=== PATIENT | female | born 1940 | race Caucasian/White ===

== ENCOUNTER 2017-10-29 07:29 | Day surgery (SDC) | payer MEDICARE ==
[2017-10-29] MEDS ORDERED: Sodium Chloride 0.9% 1,000 ML IV SCH (08:15)
[2017-10-29] MEDS ORDERED: Propofol 200 MG/20 ML SDV ONE ×2 (09:00→09:20)
[2017-10-29] MEDS ORDERED: fentaNYL 100 MCG/2 ML SDV ONE (09:00)
--- NOTE | 2017-10-29 11:20 | PROC ---
DATE OF PROCEDURE: 10/29/2017 INDICATION: Courtney is a 77-year-old female who came to the office complaining of abdominal pain in the upper area. Upon evaluation, we found a mass in the lower right quadrant, on vaginal exam. This was confirmed by CT. The CT showed a probable colon cancer as well as ovarian cancer. The risks and benefits were explained for a colonoscopy. DESCRIPTION OF PROCEDURE: During the procedure, anesthesia was given by nurse auto electrical technician. We used 100 mcg of fentanyl and 230 mg of propofol. The Olympus 180AL scope was used, was placed into the rectum, and advanced under direct vision. We did get to the cecum with minimal difficulty. At the cecum, we noted a large cancerous mass, expected to be an adenocarcinoma. This was not biopsied as this needs to be removed. The surgeon, Dr. Jeter, also noted the area, and she will be scheduling for surgery. Upon retraction of the tube, we noted no lesions or ulcerations other than the cecum. The tube was removed. The patient tolerated the procedure well. PREOPERATIVE DIAGNOSIS: Expected cecal mass. POSTOPERATIVE DIAGNOSIS: Cecal mass. Surgery is pending. Biopsy was not done as this lesion needs to be removed. Saulo Nichols MD /[id number]
== END 2017-10-29 11:45 | disposition home or self-care (01) ==
LOC: JP.SDS 07:29
PROVIDERS: ATTEND Internal Medicine
DX: K63.89 Other specified diseases of intestine (principal); Z79.899 Other long term (current) drug therapy
CPT/HCPCS: 36415; 45378; 80053; 82378; 83735; 83880; 84100; 85027; 86304; 86850; 86900; 86901; J2704; J3010; J7030

== ENCOUNTER 2017-11-02 08:17 | Inpatient (IN) | payer MEDICARE ==
[~2017-11-02 08:17] MED LIST: Acetaminophen 500 MG Tab PO ONE; Dexamethasone 4 MG/ML SDV ONE; Glycopyrrolate 0.2 MG/ML 5 ML MDV ONE; Meropenem 500 MG SDV ONE; Neostigmine Methylsulfate 1 MG/ML 5 ML Syringe ONE; Ondansetron 4 MG/2 ML SDV ONE; Propofol 200 MG/20 ML SDV ONE; Rocuronium 50 MG/5 ML Vial ONE; fentaNYL 250 MCG/5 ML SDV ONE
[2017-11-02] MEDS ORDERED: Scopolamine 1.5 MG Transdermal Patch TOP ONE (08:45)
[2017-11-02] MEDS ORDERED: Lactated Ringers 500 ML IV SCH ×2 (09:00→22:15)
[2017-11-02] MEDS: Dextrose 5%-Lactated Ringers 1,000 ML IV SCH ×2 (09:13→18:33)
[2017-11-02] MEDS ORDERED: cefOXitin 2 GM in Sodium Chloride 0.9% 50 ML IV ONE (09:15)
[2017-11-02] MEDS ORDERED: Naloxone 0.4 MG/ML SDV IVPUSH PRN (11:32)
[2017-11-02] MEDS ORDERED: fentaNYL 100 MCG/2 ML SDV ONE (11:39)
[2017-11-02] MEDS ORDERED: Lactated Ringers 1,000 ML ONE ×2 (11:45→13:27)
[2017-11-02] MEDS ORDERED: Sodium Chloride 0.9% 10 ML ONE (12:00)
[2017-11-02] MEDS ORDERED: Succinylcholine 200 MG/10 ML MDV ONE (12:09)
[2017-11-02] MEDS ORDERED: ePHEDrine 50 MG/ML SDV ONE (12:54)
[2017-11-02] MEDS ORDERED: Meropenem 500 MG SDV ONE (13:20)
[2017-11-02] MEDS ORDERED: Rocuronium 50 MG/5 ML Vial ONE (14:06)
[2017-11-02] MEDS ORDERED: Phenylephrine 1% 10 MG/ML SDV ONE (14:34)
[2017-11-02] MEDS ORDERED: Glucagon,Human Recombinant 1 MG Vial ONE (15:19)
[2017-11-02] MEDS ORDERED: cefOXitin 2 GM Vial ONE (15:29)
[2017-11-02] MEDS ORDERED: Heparin Sodium 5,000 UNITS in Sodium Chloride 0.9% 500 ML IV SCH (17:00)
[2017-11-02] MEDS ORDERED: Heparin Sodium 5,000 Units/ML Vial ONE (17:15)
[2017-11-02] MEDS ORDERED: Racepinephrine 2.25% 0.5 ML Neb Soln NEB PRN (18:00)
[2017-11-02] MEDS ORDERED: cefOXitin 2 GM in Sodium Chloride 0.9% 50 ML IV SCH (18:00)
[2017-11-02] MEDS: Racepinephrine 2.25% 0.5 ML Neb Soln ONE ×2 (18:07→18:18)
[2017-11-02] MEDS: fentaNYL 2,500 MCG in Sodium Chloride 0.9% 200 ML EPIDUR SCH (18:15)
[2017-11-02] MEDS: diphenhydrAMINE 50 MG/ML SDV IVPUSH PRN (18:26)
[2017-11-02] MEDS: Pantoprazole 40 MG Vial IV SCH (18:35)
[2017-11-02] MEDS: hydrOXYzine HCl 100 MG/2 ML SDV IM PRN (20:46)
[2017-11-02] MEDS: cefOXitin 2 GM in Sodium Chloride 0.9% 50 ML IV SCH (20:58)
[2017-11-03] MEDS: Lactated Ringers 1,000 ML IV SCH ×3 (00:10→17:56)
[2017-11-03] MEDS ORDERED: Lactated Ringers 500 ML IV SCH (01:30)
[2017-11-03] MEDS ORDERED: cefOXitin 2 GM in Sodium Chloride 0.9% 50 ML IV SCH (03:00)
[2017-11-03] MEDS ORDERED: Lactated Ringers 500 ML IV ONE (04:22)
[2017-11-03] MEDS: Dextrose 5%-Lactated Ringers 1,000 ML IV SCH (06:03)
[2017-11-03] MEDS ORDERED: Racepinephrine 2.25% 0.5 ML Neb Soln NEB PRN (08:00)
[2017-11-03] MEDS: Albumin 25% 12.5 GM in Premix Bag 1 BAG IV SCH ×2 (08:07→10:27)
[2017-11-03] MEDS: SCOPOLAMINE PATCH CHECK TOP SCH (08:45)
[2017-11-03] MEDS ORDERED: Lactated Ringers 750 ML IV ONE (09:00)
--- NOTE | 2017-11-03 09:35 | CR ---
CHEST: Normal CLINICAL HISTORY:Postop stent placement COMPARISON:2012 FINDINGS: Heart size and pulmonary vascularity are normal. There are atherosclerotic changes in the aorta.. Lung hardy are clear and well aerated. There is a left subclavian catheter. Tip is in the mcmillan perior vena cava.. IMPRESSION: Left CVP line in good position Lungs are clear
--- NOTE | 2017-11-03 09:36 | CR ---
Abdomen 1V Flat CLINICAL HISTORY: Ureteral stent placement FINDINGS: The bowel gas pattern is nonobstructive. No abnormal masses are noted. Patient has bilatera l ureteral stents. Position appears appropriate. There are surgical drains in both lower quadrants IMPRESSION: Bilateral ureteral stents Nonacute intestinal gas pattern Surgical drains are in place
[2017-11-03] MEDS: 1: AA 5%/Calcium/D15W/Lytes 1,000 ML with MVI, Adult with Vitamin K 10 ML, Chromium/Copp IV SCH ×6 (10:23→20:45)
[2017-11-03] MEDS: Magnesium Sulfate/Water 2 GM in Premix Bag 1 BAG IV SCH ×3 (10:28→21:51)
--- NOTE | 2017-11-03 11:55 | PN ---
DATE OF SERVICE: 11/03/2017 The patient is postoperative day #1 from an ovarian cancer debulking procedure, along with total abdominal colectomy. Overall, she has done well fairly well. She has required some additional IV fluids, as one might expect, given the extent of dissection. Pain control appears to be fairly good with the epidural catheter. Urine output at times has been somewhat low, and her creatinine is up to 2.2. We will discontinue the cephalosporins today, given that, and we will keep the IV rate running fairly high. Her CVP is running around 8, so at this point continue the IV rate at 225 mL and begin slowing that down once the urine output becomes more stable. She will be losing a lot of protein from the PRERNA drain as well as slight fluid developing, and with an albumin of 1.9, we will begin supplementing the albumin over the next 24 hours. TPN will be started today as well. The operative findings were reviewed with the patient, and we will plan to proceed with delayed primary closure on . Otherwise, labs show marginally low magnesium, and that will be supplemented today. We will recheck some of the labs in the morning and make sure that we are maintaining adequate urine output over the next 24 hours. Stanley Jeter MD /[id number]
[2017-11-03] MEDS: fentaNYL 2,500 MCG in Sodium Chloride 0.9% 200 ML EPIDUR SCH (13:13)
[2017-11-03] MEDS: diphenhydrAMINE 50 MG/ML SDV IVPUSH PRN (14:35)
[2017-11-03] MEDS: Naloxone 0.4 MG/ML SDV IV PRN (17:56)
[2017-11-03] MEDS: Pantoprazole 40 MG Vial IV SCH (18:08)
[2017-11-03] MEDS: cefOXitin 2 GM in Sodium Chloride 0.9% 50 ML IV SCH (19:24)
[2017-11-03] MEDS ORDERED: LORazepam 1 MG Tab PO SCH (20:45)
[2017-11-03] MEDS: LORazepam 2 MG/ML SDV IV SCH (21:01)
[2017-11-04] MEDS: Lactated Ringers 1,000 ML IV SCH (02:06)
[2017-11-04] MEDS: Naloxone 0.4 MG/ML SDV IV PRN (02:06)
[2017-11-04] MEDS: Magnesium Sulfate/Water 2 GM in Premix Bag 1 BAG IV SCH ×4 (04:06→21:40)
[2017-11-04] MEDS: 1: AA 5%/Calcium/D15W/Lytes 1,000 ML with MVI, Adult with Vitamin K 10 ML, Chromium/Copp IV SCH ×6 (06:11→16:11)
[2017-11-04] MEDS: Albumin 25% 12.5 GM in Premix Bag 1 BAG IV SCH ×2 (07:29→09:41)
[2017-11-04] MEDS: amLODIPine 5 MG Tab PO SCH (09:40)
[2017-11-04] MEDS: SCOPOLAMINE PATCH CHECK TOP SCH (10:34)
[2017-11-04] MEDS: fentaNYL 2,500 MCG in Sodium Chloride 0.9% 200 ML EPIDUR SCH (14:32)
[2017-11-04] MEDS: Pantoprazole 40 MG Vial IV SCH (17:32)
[2017-11-05] MEDS: 1: AA 5%/Calcium/D15W/Lytes 1,000 ML with MVI, Adult with Vitamin K 10 ML, Chromium/Copp IV SCH ×9 (02:20→22:34)
[2017-11-05] MEDS: Magnesium Sulfate/Water 2 GM in Premix Bag 1 BAG IV SCH (03:49)
[2017-11-05] MEDS: Lactated Ringers 1,000 ML IV SCH (04:13)
[2017-11-05] MEDS: Naloxone 0.4 MG/ML SDV IV PRN (04:14)
[2017-11-05] MEDS ORDERED: Bupivacaine 0.5% 50 ML MDV ONE (06:46)
[2017-11-05] MEDS ORDERED: Meropenem 500 MG SDV ONE (06:46)
[2017-11-05] MEDS ORDERED: Lidocaine 1% with EPINEPHrine 1:100,000 50 ML MDV ONE (06:47)
[2017-11-05] MEDS ORDERED: Propofol 200 MG/20 ML SDV ONE (06:54)
[2017-11-05] MEDS ORDERED: fentaNYL 100 MCG/2 ML SDV ONE (06:55)
[2017-11-05] MEDS ORDERED: DEXAMETHASONE NERVRT SCH ×4 (09:00)
[2017-11-05] MEDS ORDERED: EPINEPHRINE NERVRT SCH ×4 (09:00)
[2017-11-05] MEDS ORDERED: [UNRECOGNIZED DRUG - OTHER] NERVRT SCH ×4 (09:00)
[2017-11-05] MEDS ORDERED: ROPIVACAINE NERVRT SCH ×4 (09:00)
[2017-11-05] MEDS: Albumin 25% 12.5 GM in Premix Bag 1 BAG IV SCH ×2 (09:55→11:16)
[2017-11-05] MEDS ORDERED: Naloxone 0.4 MG/ML SDV IV PRN (10:23)
[2017-11-05] MEDS: amLODIPine 5 MG Tab PO SCH (11:15)
[2017-11-05] MEDS: SCOPOLAMINE PATCH CHECK TOP SCH (11:16)
[2017-11-05] MEDS ORDERED: Lactated Ringers 1,000 ML IV SCH (17:00)
[2017-11-05] MEDS: fentaNYL 2,500 MCG in Sodium Chloride 0.9% 200 ML EPIDUR SCH (17:17)
[2017-11-05] MEDS: Pantoprazole 40 MG Vial IV SCH (17:39)
[2017-11-05] MEDS ORDERED: Haloperidol Lactate 5 MG/ML SDV IVPUSH STA (22:06)
[2017-11-05] MEDS ORDERED: Haloperidol Lactate 5 MG/ML SDV ONE (22:11)
[2017-11-05] MEDS ORDERED: Haloperidol Lactate 5 MG/ML SDV IVPUSH PRN (23:59)
--- NOTE | 2017-11-06 01:07 | OR ---
DATE OF PROCEDURE: 11/05/2017 PREOPERATIVE DIAGNOSIS: Open abdominal incision. POSTOPERATIVE DIAGNOSIS: Open abdominal incision. OPERATIVE PROCEDURE: Delayed primary closure of open abdominal incision. ANESTHESIA: IV block plus sedation. INDICATIONS FOR PROCEDURE: The patient is status post a total abdominal colectomy and ileorectal anastomosis with a large amount of edema associated with advanced recurrent ovarian cancer. The incision was felt to be at high risk for a wound infection if primary closure was undertaken. Given this, this was packed open for a planned delayed primary closure at this time. Potential risks of the procedure including bleeding and infection were reviewed, and the patient wishes to proceed. DETAILS OF PROCEDURE: The patient was taken to the operating room and placed in a supine position. IV sedation was administered, after which bilateral transversus abdominis plane blocks were placed under continuous ultrasound guidance. Standard solution was placed bilaterally. Incision was then otherwise prepped and draped, and the edges were anesthetized with 1% lidocaine mixed with Marcaine. The long midline incision was then closed with 2 layers of 3-0 and 4-0 Vicryl stitch deep and delia for the skin. Dressing was applied. CONDITION: The patient was taken to the recovery room in a satisfactory condition. Stanley Jeter MD /[id number]
[2017-11-06] MEDS: LORazepam 2 MG/ML SDV IV SCH ×2 (05:38→06:26)
[2017-11-06] MEDS ORDERED: Diazepam 5 MG Tab PO PRN (07:44)
--- NOTE | 2017-11-06 07:44 | PCM.PN ---
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 She was thinking there was water in her bed this morning and see things that was not real. - Review of Systems HEENT: Reports: No Symptoms Pulmonary: Reports: No Symptoms Cardiovascular: Reports: No Symptoms Psychiatric: Reports: Hallucinations - Patient Data Vitals - Most Recent: Last Vital Signs Temp 97 F 11/06/17 02:11 Pulse 76 11/06/17 06:46 Resp 8 L 11/06/17 06:46 BP 97/45 L 11/06/17 06:46 Pulse Ox 90 L 11/06/17 06:46 Weight - Most Recent: 169 lb 15.622 oz I&O - Last 24 Hours: Intake & Output 11/05/17 11/06/17 11/06/17 22:59 06:59 14:59 Intake Total 1368 240 Output Total 2290 5800 Balance -927 -3110 Lab Results Last 24 Hours: Laboratory Results - last 24 hr 11/02/17 11/05/17 11/06/17 Range/Units 09:05 08:00 07:16 WBC 8.9 (4.5-11.0) K/uL RBC 3.21 L (3.30-5.50) M/uL Hgb 8.3 L (12.0-15.0) g/dL Hct 26.2 L (36.0-48.0) % MCV 82 (80-98) fL MCH 26 L (27-31) pg MCHC 32 (32-36) % Plt Count 226 (150-400) K/uL Neut % (Auto) 79 H (36-66) % Lymph % (Auto) 9 L (24-44) % [place] % (Auto) 12 H (2-6) % Eos % (Auto) 0 L (2-4) % Baso % (Auto) 0 (0-1) % Phosphorus 2.5 (2.5-4.9) mg/dL Blood Type A POSITIVE Gel Antibody Screen Negative Crossmatch See Detail Med Orders - Current: Current Medications Amlodipine Besylate (Norvasc) 5 mg PO DAILY RYDER Last Admin: 11/05/17 11:15 Dose: 5 mg Haloperidol Lactate (Haldol) 2.5 mg IVPUSH Q2H PRN PRN Reason: Agitation Last Admin: 11/06/17 03:25 Dose: 2.5 mg Heparin Sodium (Porcine) (Heparin Lock Flush 100 Units/Ml) 500 units FLUSH ASDIRECTED PRN PRN Reason: central line flush Last Admin: 11/05/17 13:36 Dose: 500 units Hydromorphone HCl (Dilaudid Salon Stylist 15 Mg In Ns 30 Ml) 0 mg IV ASDIRECTED PRN; Protocol PRN Reason: SEASONAL RECRUITER PAIN CONTROL Hydroxyzine HCl (Vistaril) 50 - 100 mg IM Q4H PRN PRN Reason: Pain Last Admin: 11/02/17 20:46 Dose: 75 mg Heparin Sodium (Porcine) 5,000 (units/ Sodium Chloride) 501 mls @ 0 mls/hr IV ASDIRECTED [facility] Last Admin: 11/02/17 18:16 Dose: 1 mls/hr Albumin Human 12.5 gm/ Premix 50 mls @ 25 mls/hr IV Q24H [facility] Stop: 11/06/17 09:59 Last Admin: 11/05/17 09:55 Dose: 25 mls/hr Albumin Human 12.5 gm/ Premix 50 mls @ 25 mls/hr IV Q24H [facility] Stop: 11/06/17 11:59 Last Admin: 11/05/17 11:16 Dose: 25 mls/hr Multivitamins/Minerals 10 ml/Chromium/Copper/Manganese/Seleni/Zn 1 ml/ Amino Ac/ Electrol/Dextrose/Calcium 1,011 mls @ 100 mls/hr IV .BY DURATION [facility] Last Admin: 11/05/17 22:34 Dose: 100 mls/hr Amino Ac/Electrol/Dextrose/Calcium (Clinimix E 5/15) 1,000 mls @ 100 mls/hr IV .BY DURATION [facility] Last Admin: 11/05/17 12:53 Dose: 100 mls/hr Lactated Ringer's (Ringers, Lactated) 1,000 mls @ 0 mls/hr IV ASDIRECTED [facility] Levothyroxine Sodium 100 mcg/ (Levothyroxine Sodium 50 mcg) 150 mcg PO ACBREAKFAST [facility] Last Admin: 11/05/17 11:14 Dose: 150 mcg Lorazepam (Ativan) 0 mg IV ASDIRECTED RYDER; Protocol Last Admin: 11/06/17 06:26 Dose: 2 mg Lorazepam (Ativan) 0 mg PO ASDIRECTED RYDER; Protocol Naloxone HCl (Narcan) 0.1 mg IV ASDIRECTED PRN PRN Reason: decreased respiratory rate Scopolamine Patch (Check) 1 each TOP DAILY [facility] Last Admin: 11/05/17 11:16 Dose: Not Given Ondansetron HCl (Zofran) 4 mg IVPUSH Q4H PRN PRN Reason: Nausea Pantoprazole Sodium (Protonix Iv) 40 mg IV Q24H [facility] Last Admin: 11/05/17 17:39 Dose: 40 mg Racepinephrine (S-2 2.25%) 0.5 ml NEB Q6H PRN PRN Reason: Shortness of Breath Discontinued Medications Acetaminophen (Tylenol Extra Strength) 1,000 mg PO ONETIME ONE Stop: 11/02/17 07:46 Last Admin: 11/02/17 09:12 Dose: 1,000 mg Bupivacaine HCl (Marcaine 0.5%) Confirm Administered Dose 50 ml .ROUTE .STK-MED ONE Stop: 11/05/17 06:47 Last Admin: 11/05/17 08:40 Dose: 20 ml Cefoxitin Sodium (Mefoxin) Confirm Administered Dose 2 gm .ROUTE .STK-MED ONE Stop: 11/02/17 15:30 Ropivacaine 37.5 ml/Dexamethasone 8 mg/Epinephrine HCl 0.4 mg/ Sodium Chloride 40.1 ml 0 ml NERVRT ASDIRECTED [facility] Last Admin: 11/05/17 08:21 Dose: 80 syringe Dexamethasone (Dexamethasone) Confirm Administered Dose 4 mg .ROUTE .STK-MED ONE Stop: 11/02/17 08:13 Dexamethasone (Dexamethasone) Confirm Administered Dose 4 mg .ROUTE .STK-MED ONE Stop: 11/02/17 08:13 Diphenhydramine HCl (Benadryl) 25 - 50 mg IVPUSH Q6H PRN PRN Reason: ITCHING Stop: 11/06/17 08:00 Last Admin: 11/03/17 14:35 Dose: 25 mg Ephedrine Sulfate (Ephedrine Sulfate) Confirm Administered Dose 50 mg .ROUTE .STK-MED ONE Stop: 11/02/17 12:55 Fentanyl (Sublimaze) Confirm Administered Dose 250 mcg .ROUTE .STK-MED ONE Stop: 11/02/17 08:13 Fentanyl (Sublimaze) Confirm Administered Dose 100 mcg .ROUTE .[facility] ONE Stop: 11/02/17 11:40 Fentanyl (Sublimaze) Confirm Administered Dose 100 mcg .ROUTE .STK-MED ONE Stop: 11/05/17 06:56 Glucagon (Glucagen) Confirm Administered Dose 1 mg .ROUTE .ST[facility] ONE Stop: 11/02/17 15:20 Glycopyrrolate (Robinul) Confirm Administered Dose 1 mg .ROUTE .STK-MED ONE Stop: 11/02/17 08:13 Glycopyrrolate (Robinul) Confirm Administered Dose 1 mg .ROUTE .[facility] ONE Stop: 11/02/17 08:13 Haloperidol Lactate (Haldol) 2.5 mg IVPUSH ONETIME STA Stop: 11/05/17 22:07 Last Admin: 11/05/17 22:10 Dose: 2.5 mg Haloperidol Lactate (Haldol) Confirm Administered Dose 5 mg .ROUTE .[facility] ONE Stop: 11/05/17 22:12 Last Admin: 11/06/17 02:19 Dose: Not Given Heparin Sodium (Porcine) (Heparin Lock Flush 100 Units/Ml) Confirm Administered Dose 500 units .ROUTE .[facility] ONE Stop: 11/02/17 07:11 Heparin Sodium (Porcine) (Heparin Sodium) Confirm Administered Dose 5,000 units .ROUTE .[facility] ONE Stop: 11/02/17 17:16 Last Admin: 11/02/17 18:01 Dose: Not Given Dextrose/Lactated Ringer's (Dextrose 5%-Lactated Ringers) 1,000 mls @ 100 mls/ hr IV ASDIRECTED [facility] Stop: 11/03/17 10:00 Last Admin: 11/03/17 06:03 Dose: 100 mls/hr Lactated Ringer's (Ringers, Lactated) 500 mls @ 1,000 mls/hr IV ASDIRECTED [facility] Last Admin: 11/02/17 09:12 Dose: 1,000 mls/hr Cefoxitin Sodium 2 gm/ Sodium (Chloride) 50 mls @ 100 mls/hr IV ONETIME ONE Stop: 11/02/17 09:44 Last Admin: 11/02/17 11:44 Dose: 100 mls/hr Fentanyl 2,500 mcg/ Sodium (Chloride) 250 mls @ 0 mls/hr EPIDUR TITRATE RYDER; Protocol Stop: 11/06/17 08:00 Last Admin: 11/05/17 17:17 Dose: 100 mcg/hr, 10 mls/hr Lactated Ringer's (Ringers, Lactated) Confirm Administered Dose 1,000 mls @ as directed .ROUTE .STK-MED ONE Stop: 11/02/17 11:46 Sodium Chloride (Normal Saline) Confirm Administered Dose 10 mls @ as directed .ROUTE .STK-MED ONE Stop: 11/02/17 12:01 Lactated Ringer's (Ringers, Lactated) Confirm Administered Dose 1,000 mls @ as directed .ROUTE .[facility] ONE Stop: 11/02/17 13:28 Lactated Ringer's (Ringers, Lactated) 1,000 mls @ 125 mls/hr IV ASDIRECTED [facility] Last Admin: 11/05/17 04:13 Dose: 125 mls/hr Cefoxitin Sodium 2 gm/ Sodium (Chloride) 50 mls @ 100 mls/hr IV Q6H [facility] Last Admin: 11/02/17 20:58 Dose: Not Given Cefoxitin Sodium 2 gm/ Sodium (Chloride) 50 mls @ 100 mls/hr IV Q6H [facility] Last Admin: 11/03/17 19:24 Dose: Not Given Cefoxitin Sodium 2 gm/ Sodium (Chloride) 50 mls @ 100 mls/hr IV Q6H [facility] Last Admin: 11/03/17 03:05 Dose: 100 mls/hr Lactated Ringer's (Ringers, Lactated) 500 mls @ 500 mls/hr IV ASDIRECTED [facility] Stop: 11/02/17 23:14 Last Admin: 11/02/17 22:20 Dose: 500 mls/hr Lactated Ringer's (Ringers, Lactated) 500 mls @ 500 mls/hr IV ASDIRECTED [facility] Stop: 11/03/17 02:29 Last Admin: 11/03/17 01:20 Dose: 500 mls/hr Lactated Ringer's (Ringers, Lactated) 500 mls @ 500 mls/hr IV BOLUS ONE Stop: 11/03/17 05:21 Last Admin: 11/03/17 04:15 Dose: 500 mls/hr Magnesium Sulfate 2 gm/ Premix 50 mls @ 25 mls/hr IV Q6H RYDER Stop: 11/05/17 05:59 Last Admin: 11/05/17 03:49 Dose: 25 mls/hr Lactated Ringer's (Ringers, Lactated) 750 mls @ 1,500 mls/hr IV .BOLUS ONE Stop: 11/03/17 09:29 Last Admin: 11/03/17 09:00 Dose: 1,500 mls/hr Lidocaine/Epinephrine (Xylocaine 1% With Epinephrine 1:100,000) Confirm Administered Dose 50 ml .ROUTE .STK-MED ONE Stop: 11/05/17 06:48 Last Admin: 11/05/17 08:40 Dose: 20 ml Meropenem (Merrem) Confirm Administered Dose 500 mg .ROUTE .STK-MED ONE Stop: 11/02/17 07:11 Last Admin: 11/02/17 13:42 Dose: 500 mg Meropenem (Merrem) Confirm Administered Dose 500 mg .ROUTE .STK-MED ONE Stop: 11/02/17 13:21 Last Admin: 11/02/17 14:12 Dose: 500 mg Meropenem (Merrem) Confirm Administered Dose 500 mg .ROUTE .STK-MED ONE Stop: 11/05/17 06:47 Last Admin: 11/05/17 08:42 Dose: 500 mg Naloxone HCl (Narcan) 0.1 mg IVPUSH Q5M PRN PRN Reason: RESP RATE LESS THAN 6/MINUTE Stop: 11/06/17 08:00 Naloxone HCl (Narcan) 0.4 mg IV ASDIRECTED PRN PRN Reason: ITCHING/SLEEPINESS Stop: 11/06/17 08:00 Last Admin: 11/05/17 04:14 Dose: 0.4 mg Neostigmine Methylsulfate (Neostigmine) Confirm Administered Dose 5 mg .ROUTE .STK-MED ONE Stop: 11/02/17 08:13 Neostigmine Methylsulfate (Neostigmine) Confirm Administered Dose 5 mg .ROUTE .STK-MED ONE Stop: 11/02/17 08:13 Ondansetron HCl (Zofran) Confirm Administered Dose 4 mg .ROUTE .STK-MED ONE Stop: 11/02/17 08:13 Ondansetron HCl (Zofran) Confirm Administered Dose 4 mg .ROUTE .[facility] ONE Stop: 11/02/17 08:13 Phenylephrine HCl (Pernell-Synephrine) Confirm Administered Dose 10 mg .ROUTE .[facility] ONE Stop: 11/02/17 14:35 Propofol (Diprivan 20 Ml) Confirm Administered Dose 200 mg .ROUTE .[facility] ONE Stop: 11/02/17 08:13 Propofol (Diprivan 20 Ml) Confirm Administered Dose 200 mg .ROUTE .[facility] ONE Stop: 11/02/17 08:13 Propofol (Diprivan 20 Ml) Confirm Administered Dose 200 mg .ROUTE .[facility] ONE Stop: 11/05/17 06:55 Racepinephrine (S-2 2.25%) Confirm Administered Dose 0.5 ml .ROUTE .[facility] Stop: 11/02/17 17:53 Last Admin: 11/02/17 18:18 Dose: Not Given Racepinephrine (S-2 2.25%) 0.5 ml NEB Q6HR PRN PRN Reason: Shortness of Breath Last Admin: 11/02/17 17:55 Dose: 0.5 ml Rocuronium Zapata (Zemuron) Confirm Administered Dose 50 mg .ROUTE .[facility] ONE Stop: 11/02/17 08:13 Rocuronium Zapata (Zemuron) Confirm Administered Dose 50 mg .ROUTE .[facility] Stop: 11/02/17 08:13 Rocuronium Zapata (Zemuron) Confirm Administered Dose 50 mg .ROUTE .[facility] ONE Stop: 11/02/17 14:07 Scopolamine (Transderm-Scop) 1.5 mg TOP ONETIME ONE Stop: 11/02/17 08:46 Last Admin: 11/02/17 09:12 Dose: 1.5 mg Succinylcholine Chloride (Quelicin) Confirm Administered Dose 200 mg .ROUTE .[facility] ONE Stop: 11/02/17 12:10 - Exam General: Mild Distress HEENT: Pupils Equal, Pupils Reactive, EOMI, Mucous Membr. Moist/[place] Neck: Supple Lungs: Clear to Auscultation, Normal Respiratory Effort Cardiovascular: Regular Rate, Regular Rhythm Extremities: Normal Inspection, Normal Range of Motion, Non-Tender, No Pedal Edema, Normal Capillary Refill Peripheral Pulses: 1+: Radial (L), Radial (R) Skin: Warm, Dry Psy/Mental Status: Hallucinations, Withdrawal Symptoms - Problem List Review Problem List Initiated/Reviewed/Updated: Yes - Assessment Assessment:: Assessment/Plan: Medicall--DT's vitals unremarkable. Have started alc protocol with Valium using the ciwaa
[2017-11-06] MEDS: 1: AA 5%/Calcium/D15W/Lytes 1,000 ML with MVI, Adult with Vitamin K 10 ML, Chromium/Copp IV SCH ×6 (07:51→17:35)
[2017-11-06] MEDS: Albumin 25% 12.5 GM in Premix Bag 1 BAG IV SCH ×2 (08:00→09:02)
[2017-11-06] MEDS: SCOPOLAMINE PATCH CHECK TOP SCH (08:08)
--- NOTE | 2017-11-06 08:26 | PN ---
DATE OF SERVICE: 11/04/2017 SUBJECTIVE: The patient has been afebrile generally; she did have one temperature of 100.4 yesterday afternoon. Vital signs are otherwise stable. Her urine output has picked up nicely with 1800 mL out over the last 24 hours, and creatinine is down to near baseline again at 1.0. The urine is still little bit bloody as expected, but otherwise is generally clearing. Otherwise, the patient is not having significant shortness of breath and does not need anymore racemic epinephrine nebs. Pain control seems to be adequate with the epidural catheter in place. We will leave that in place for today and plan to proceed with delayed primary closure of abdominal incision tomorrow. Otherwise, continue the TPN, maximize activity, and work with pulmonary toilet. Stanley Jeter MD /[id number]
[2017-11-06] MEDS: HYDROmorphone/Normal Saline 15 MG/30 ML PCA IV PRN (08:27)
[2017-11-06] MEDS: amLODIPine 5 MG Tab PO SCH (08:28)
--- NOTE | 2017-11-06 08:29 | PN ---
DATE OF SERVICE: 11/05/2017 SUBJECTIVE: The patient is status post an ovarian cancer debulking procedure along with a total abdominal colectomy and ileorectal anastomosis. She continues to have good pain control with the epidural catheter. She was running some temps up to 100.3 yesterday afternoon. This came down with increased pulmonary toilet. I think we will need to have her a little bit more active. Otherwise, no flatus or bowel movement as one would expect. G- tube output is moderate. Labs have been remarkable for hemoglobin of 7.2. This has gradually drifted down. I think it is primarily fluid shifting and I doubt if there is any active bleeding. The plan will be to proceed with a delayed primary closure of abdominal incision today. We will leave the epidural catheter in for today and then plan to discontinue that tomorrow and begin MEDICAL SERVICE TECHNICIAN Dilaudid at the time of the epidural being pulled. Continue the TPN. Tello catheter should be left in probably until at least Thursday given the cystotomy required for placement of ureteral stents. We will try to get her at least walking four times a day and continue to maximize activity and work with pulmonary toilet. Stanley Jeter MD /[id number]
[2017-11-06] MEDS ORDERED: LORazepam 1 MG Tab PO PRN (09:09)
[2017-11-06] MEDS ORDERED: LORazepam 2 MG/ML SDV IM PRN (09:09)
[2017-11-06] MEDS ORDERED: Central Total Parenteral Nutrition Bag SCH (09:15)
--- NOTE | 2017-11-06 09:38 | PN ---
DATE OF SERVICE: 11/06/2017 SUBJECTIVE: Courtney was transferred from [address] [place] [address] to ICU. She is under the care of Dr. Saulo Nichols for confusion and alcohol withdrawal. Her epidural was discontinued. She is back to n.p.o. and G-tube to continuous drainage. Vital signs have been stable. She is resting comfortably. Remainder of TPN continues. OBJECTIVE: GENERAL: Courtney is a 77-year-old female. VITAL SIGNS: TPR 97.7, 62, 12. Blood pressure 113/71. HEART: Regular rate and rhythm. LUNGS: Clear. ABDOMEN: Dressings dry and intact. G-tube to drainage and put out 2000 mL, PRERNA drain put out 65 and PRERNA drain 2 put out 225 of a light pink serosanguineous drainage. EXTREMITIES: SCDs are on. ASSESSMENT: Postoperative day 4. PLAN: 1. Continue same TPN rate and content. 2. Check CBC, CMP, mag, and phos in a.m. 3. We will evaluate p.r.n. or in a.m. Nelly Burnett PA-C /[id number]
[2017-11-06] MEDS: LORazepam 2 MG/ML SDV IV PRN ×3 (11:08→20:33)
[2017-11-06] MEDS: Pantoprazole 40 MG Vial IV SCH (17:23)
[2017-11-07] MEDS: LORazepam 2 MG/ML SDV IV PRN ×6 (00:21→23:59)
[2017-11-07] MEDS: 1: AA 5%/Calcium/D15W/Lytes 1,000 ML with MVI, Adult with Vitamin K 10 ML, Chromium/Copp IV SCH ×12 (02:57→22:08)
[2017-11-07] MEDS: amLODIPine 5 MG Tab PO SCH (08:15)
[2017-11-07] MEDS: Potassium Phosphates 25 MMOLE in Sodium Chloride 0.9% 100 ML IV SCH ×3 (08:26→15:13)
[2017-11-07] MEDS: Haloperidol Lactate 5 MG/ML SDV IVPUSH PRN ×3 (09:10→17:13)
[2017-11-07] MEDS: SCOPOLAMINE PATCH CHECK TOP SCH (09:57)
[2017-11-07] MEDS: Magnesium Sulfate/Water 2 GM in Premix Bag 1 BAG IV SCH ×3 (09:59→21:36)
--- NOTE | 2017-11-07 12:59 | PCM.PN ---
- General Info Date of Service: 11/07/17 Functional Status: Reports: Pain Controlled - Review of Systems General: Reports: Weakness Cardiovascular: Reports: No Symptoms Psychiatric: Reports: Hallucinations - Patient Data Vitals - Most Recent: Last Vital Signs Temp 98.2 F 11/07/17 11:00 Pulse 77 11/07/17 11:00 Resp 20 11/07/17 11:00 BP 134/81 11/07/17 11:00 Pulse Ox 98 11/07/17 11:00 Weight - Most Recent: 178 lb 8 oz I&O - Last 24 Hours: Intake & Output 11/06/17 11/07/17 11/07/17 22:59 06:59 14:59 Intake Total 1280 1511 Output Total 2710 2620 500 Balance -1430 -1109 -500 Lab Results Last 24 Hours: Laboratory Results - last 24 hr 11/07/17 11/07/17 Range/Units 04:00 04:00 WBC 9.3 (4.5-11.0) K/uL RBC 3.79 (3.30-5.50) M/uL Hgb 9.8 L (12.0-15.0) g/dL Hct 30.5 L (36.0-48.0) % MCV 81 (80-98) fL MCH 26 L (27-31) pg MCHC 32 (32-36) % Plt Count 284 (150-400) K/uL Sodium 141 (140-148) mmol/L Potassium 3.3 L (3.6-5.2) mmol/L Chloride 103 (100-108) mmol/L Carbon Dioxide 29 (21-32) mmol/L Anion Gap 12.3 (5.0-14.0) mmol/L BUN 15 (7-18) mg/dL Creatinine 0.7 (0.6-1.0) mg/dL Est Cr Clr Drug Dosing 54.92 mL/min Estimated GFR (MDRD) > 60 (>60) Glucose 131 H (74-106) mg/dL Calcium 7.9 L (8.5-10.1) mg/dL Phosphorus 1.5 L (2.5-4.9) mg/dL Magnesium 1.5 L (1.8-2.4) mg/dL Total Bilirubin 0.4 (0.2-1.0) mg/dL AST 17 (15-37) U/L ALT 15 (12-78) U/L Alkaline Phosphatase 34 L (46-116) U/L Total Protein 5.5 L (6.4-8.2) g/dL Albumin 2.5 L (3.4-5.0) g/dL Globulin 3.0 (2.3-3.5) g/dL Albumin/Globulin Ratio 0.8 L (1.2-2.2) Med Orders - Current: Current Medications Amlodipine Besylate (Norvasc) 5 mg PO DAILY [facility] Last Admin: 11/07/17 08:15 Dose: 5 mg Haloperidol Lactate (Haldol) 5 mg IVPUSH Q2H PRN PRN Reason: Agitation Last Admin: 11/07/17 09:10 Dose: 5 mg Heparin Sodium (Porcine) (Heparin Lock Flush 100 Units/Ml) 500 units FLUSH ASDIRECTED PRN PRN Reason: central line flush Last Admin: 11/07/17 04:10 Dose: 500 units Hydromorphone HCl (Dilaudid [employer] 15 Mg In Ns 30 Ml) 0 mg IV ASDIRECTED PRN; Protocol PRN Reason: [employer] PAIN CONTROL Last Admin: 11/06/17 08:27 Dose: 15 mg Hydroxyzine HCl (Vistaril) 50 - 100 mg IM Q4H PRN PRN Reason: Pain Last Admin: 11/02/17 20:46 Dose: 75 mg Multivitamins/Minerals 10 ml/Chromium/Copper/Manganese/Seleni/Zn 1 ml/ Amino Ac/ Electrol/Dextrose/Calcium 1,011 mls @ 100 mls/hr IV .BY DURATION [facility] Last Admin: 11/06/17 17:35 Dose: 100 mls/hr Amino Ac/Electrol/Dextrose/Calcium (Clinimix E 15) 1,000 mls @ 100 mls/hr IV .BY DURATION [facility] Last Admin: 11/07/17 05:37 Dose: 100 mls/hr Lactated Ringer's (Ringers, Lactated) 1,000 mls @ 0 mls/hr IV ASDIRECTED [facility] Potassium Phosphate 25 mmole/ (Sodium Chloride) 108.3333 mls @ 35.646 mls/hr IV Q3H [facility] Stop: 11/07/17 16:59 Last Admin: 11/07/17 11:28 Dose: 35.646 mls/hr Magnesium Sulfate 2 gm/ Premix 50 mls @ 25 mls/hr IV Q6H [facility] Stop: 11/10/17 05:59 Last Admin: 11/07/17 09:59 Dose: 25 mls/hr Levothyroxine Sodium 100 mcg/ (Levothyroxine Sodium 50 mcg) 150 mcg PO ACBREAKFAST [facility] Last Admin: 11/07/17 07:25 Dose: 150 mcg Lorazepam (Ativan) 0 mg PO ASDIRECTED PRN; Protocol PRN Reason: ETOH WITHDRAWAL Lorazepam (Ativan) 0 mg IV ASDIRECTED PRN; Protocol PRN Reason: ETOH WITHDRAWAL Last Admin: 11/07/17 09:04 Dose: 2 mg Lorazepam (Ativan) 0 mg IM ASDIRECTED PRN; Protocol PRN Reason: ETOH WITHDRAWAL Naloxone HCl (Narcan) 0.1 mg IV ASDIRECTED PRN PRN Reason: decreased respiratory rate Scopolamine Patch (Check) 1 each TOP DAILY [facility] Last Admin: 11/07/17 09:57 Dose: Not Given Ondansetron HCl (Zofran) 4 mg IVPUSH Q4H PRN PRN Reason: Nausea Pantoprazole Sodium (Protonix Iv) 40 mg IV Q24H [facility] Last Admin: 11/06/17 17:23 Dose: 40 mg Racepinephrine (S-2 2.25%) 0.5 ml NEB Q6H PRN PRN Reason: Shortness of Breath Discontinued Medications Acetaminophen (Tylenol Extra Strength) 1,000 mg PO ONETIME ONE Stop: 11/02/17 07:46 Last Admin: 11/02/17 09:12 Dose: 1,000 mg Bupivacaine HCl (Marcaine 0.5%) Confirm Administered Dose 50 ml .ROUTE .STK-MED ONE Stop: 11/05/17 06:47 Last Admin: 11/05/17 08:40 Dose: 20 ml Cefoxitin Sodium (Mefoxin) Confirm Administered Dose 2 gm .ROUTE .STK-MED ONE Stop: 11/02/17 15:30 Ropivacaine 37.5 ml/Dexamethasone 8 mg/Epinephrine HCl 0.4 mg/ Sodium Chloride 40.1 ml 0 ml NERVRT ASDIRECTED [facility] Last Admin: 11/05/17 08:21 Dose: 80 syringe Dexamethasone (Dexamethasone) Confirm Administered Dose 4 mg .ROUTE .STK-MED ONE Stop: 11/02/17 08:13 Dexamethasone (Dexamethasone) Confirm Administered Dose 4 mg .ROUTE .STK-MED ONE Stop: 11/02/17 08:13 Diazepam (Valium.) 0 mg PO ASDIRECTED PRN; Protocol PRN Reason: ETOH WITHDRAWAL Diphenhydramine HCl (Benadryl) 25 - 50 mg IVPUSH Q6H PRN PRN Reason: ITCHING Stop: 11/06/17 08:00 Last Admin: 11/03/17 14:35 Dose: 25 mg Ephedrine Sulfate (Ephedrine Sulfate) Confirm Administered Dose 50 mg .ROUTE .STK-MED ONE Stop: 11/02/17 12:55 Fentanyl (Sublimaze) Confirm Administered Dose 250 mcg .ROUTE .STK-MED ONE Stop: 11/02/17 08:13 Fentanyl (Sublimaze) Confirm Administered Dose 100 mcg .ROUTE .STK-MED ONE Stop: 11/02/17 11:40 Fentanyl (Sublimaze) Confirm Administered Dose 100 mcg .ROUTE .STK-MED ONE Stop: 11/05/17 06:56 Glucagon (Glucagen) Confirm Administered Dose 1 mg .ROUTE .STK-MED ONE Stop: 11/02/17 15:20 Glycopyrrolate (Robinul) Confirm Administered Dose 1 mg .ROUTE .STK-MED ONE Stop: 11/02/17 08:13 Glycopyrrolate (Robinul) Confirm Administered Dose 1 mg .ROUTE .STK-MED ONE Stop: 11/02/17 08:13 Haloperidol Lactate (Haldol) 2.5 mg IVPUSH ONETIME STA Stop: 11/05/17 22:07 Last Admin: 11/05/17 22:10 Dose: 2.5 mg Haloperidol Lactate (Haldol) 2.5 mg IVPUSH Q2H PRN PRN Reason: Agitation Last Admin: 11/06/17 03:25 Dose: 2.5 mg Haloperidol Lactate (Haldol) Confirm Administered Dose 5 mg .ROUTE .STK-MED ONE Stop: 11/05/17 22:12 Last Admin: 11/06/17 02:19 Dose: Not Given Heparin Sodium (Porcine) (Heparin Lock Flush 100 Units/Ml) Confirm Administered Dose 500 units .ROUTE .STK-MED ONE Stop: 11/02/17 07:11 Heparin Sodium (Porcine) (Heparin Sodium) Confirm Administered Dose 5,000 units .ROUTE .[facility] ONE Stop: 11/02/17 17:16 Last Admin: 11/02/17 18:01 Dose: Not Given Dextrose/Lactated Ringer's (Dextrose 5%-Lactated Ringers) 1,000 mls @ 100 mls/ hr IV ASDIRECTED [facility] Stop: 11/03/17 10:00 Last Admin: 11/03/17 06:03 Dose: 100 mls/hr Lactated Ringer's (Ringers, Lactated) 500 mls @ 1,000 mls/hr IV ASDIRECTED [facility] Last Admin: 11/02/17 09:12 Dose: 1,000 mls/hr Cefoxitin Sodium 2 gm/ Sodium (Chloride) 50 mls @ 100 mls/hr IV ONETIME ONE Stop: 11/02/17 09:44 Last Admin: 11/02/17 11:44 Dose: 100 mls/hr Fentanyl 2,500 mcg/ Sodium (Chloride) 250 mls @ 0 mls/hr EPIDUR TITRATE [facility]; Protocol Stop: 11/06/17 08:00 Last Admin: 11/05/17 17:17 Dose: 100 mcg/hr, 10 mls/hr Lactated Ringer's (Ringers, Lactated) Confirm Administered Dose 1,000 mls @ as directed .ROUTE .[facility] ONE Stop: 11/02/17 11:46 Sodium Chloride (Normal Saline) Confirm Administered Dose 10 mls @ as directed .ROUTE .[facility] ONE Stop: 11/02/17 12:01 Lactated Ringer's (Ringers, Lactated) Confirm Administered Dose 1,000 mls @ as directed .ROUTE .[facility] ONE Stop: 11/02/17 13:28 Heparin Sodium (Porcine) 5,000 (units/ Sodium Chloride) 501 mls @ 0 mls/hr IV ASDIRECTED [facility] Last Admin: 11/02/17 18:16 Dose: 1 mls/hr Lactated Ringer's (Ringers, Lactated) 1,000 mls @ 125 mls/hr IV ASDIRECTED [facility] Last Admin: 11/05/17 04:13 Dose: 125 mls/hr Cefoxitin Sodium 2 gm/ Sodium (Chloride) 50 mls @ 100 mls/hr IV Q6H [facility] Last Admin: 11/02/17 20:58 Dose: Not Given Cefoxitin Sodium 2 gm/ Sodium (Chloride) 50 mls @ 100 mls/hr IV Q6H [facility] Last Admin: 11/03/17 19:24 Dose: Not Given Cefoxitin Sodium 2 gm/ Sodium (Chloride) 50 mls @ 100 mls/hr IV Q6H [facility] Last Admin: 11/03/17 03:05 Dose: 100 mls/hr Lactated Ringer's (Ringers, Lactated) 500 mls @ 500 mls/hr IV ASDIRECTED [facility] Stop: 11/02/17 23:14 Last Admin: 11/02/17 22:20 Dose: 500 mls/hr Lactated Ringer's (Ringers, Lactated) 500 mls @ [facility]: 11/03/17 02:29 Last Admin: 11/03/17 01:20 Dose: 500 mls/hr Lactated Ringer's (Ringers, Lactated) 500 mls @ 500 mls/hr IV [facility] ONE Stop: 11/03/17 05:21 Last Admin: 11/03/17 04:15 Dose: 500 mls/hr Albumin Human 12.5 gm/ Premix 50 mls @ 25 mls/hr IV Q24H [facility] Stop: 11/06/17 09:59 Last Admin: 11/06/17 08:00 Dose: 25 mls/hr Albumin Human 12.5 gm/ Premix 50 mls @ 25 mls/hr IV Q24H [facility] Stop: 11/06/17 11:59 Last Admin: 11/06/17 09:02 Dose: 25 mls/hr Magnesium Sulfate 2 gm/ Premix 50 mls @ 25 mls/hr IV Q6H [facility] Stop: 11/05/17 05:59 Last Admin: 11/05/17 03:49 Dose: 25 mls/hr Lactated Ringer's (Ringers, Lactated) 750 mls @ 1,500 mls/hr IV .[facility] ONE Stop: 11/03/17 09:29 Last Admin: 11/03/17 09:00 Dose: 1,500 mls/hr Lidocaine/Epinephrine (Xylocaine 1% With Epinephrine 1:100,000) Confirm Administered Dose 50 ml .ROUTE .STK-MED ONE Stop: 11/05/17 06:48 Last Admin: 11/05/17 08:40 Dose: 20 ml Lorazepam (Ativan) 0 mg IV ASDIRECTED [facility]YDER; Protocol Last Admin: 11/06/17 06:26 Dose: 2 mg Lorazepam (Ativan) 0 mg PO ASDIRECTED [facility]YDER; Protocol Meropenem (Merrem) Confirm Administered Dose 500 mg .ROUTE .STK-MED ONE Stop: 11/02/17 07:11 Last Admin: 11/02/17 13:42 Dose: 500 mg Meropenem (Merrem) Confirm Administered Dose 500 mg .ROUTE .STK-MED ONE Stop: 11/02/17 13:21 Last Admin: 11/02/17 14:12 Dose: 500 mg Meropenem (Merrem) Confirm Administered Dose 500 mg .ROUTE .STK-MED ONE Stop: 11/05/17 06:47 Last Admin: 11/05/17 08:42 Dose: 500 mg Naloxone HCl (Narcan) 0.1 mg IVPUSH Q5M PRN PRN Reason: RESP RATE LESS THAN 6/MINUTE Stop: 11/06/17 08:00 Naloxone HCl (Narcan) 0.4 mg IV ASDIRECTED PRN PRN Reason: ITCHING/SLEEPINESS Stop: 11/06/17 08:00 Last Admin: 11/05/17 04:14 Dose: 0.4 mg Neostigmine Methylsulfate (Neostigmine) Confirm Administered Dose 5 mg .ROUTE .STK-MED ONE Stop: 11/02/17 08:13 Neostigmine Methylsulfate (Neostigmine) Confirm Administered Dose 5 mg .ROUTE .STK-MED ONE Stop: 11/02/17 08:13 Non-Formulary Medication (Total Parenteral Nutrition, Central) 1,000 ml .XX .Continue Order RYDER Stop: 11/06/17 11:00 Ondansetron HCl (Zofran) Confirm Administered Dose 4 mg .ROUTE .STK-MED ONE Stop: 11/02/17 08:13 Ondansetron HCl (Zofran) Confirm Administered Dose 4 mg .ROUTE .STK-MED ONE Stop: 11/02/17 08:13 Phenylephrine HCl (Pernell-Synephrine) Confirm Administered Dose 10 mg .ROUTE .STK- MED ONE Stop: 11/02/17 14:35 Propofol (Diprivan 20 Ml) Confirm Administered Dose 200 mg .ROUTE .STK-MED ONE Stop: 11/02/17 08:13 Propofol (Diprivan 20 Ml) Confirm Administered Dose 200 mg .ROUTE .STK-MED ONE Stop: 11/02/17 08:13 Propofol (Diprivan 20 Ml) Confirm Administered Dose 200 mg .ROUTE .STK-MED ONE Stop: 11/05/17 06:55 Racepinephrine (S-2 2.25%) Confirm Administered Dose 0.5 ml .ROUTE .STK-MED ONE Stop: 11/02/17 17:53 Last Admin: 11/02/17 18:18 Dose: Not Given Racepinephrine (S-2 2.25%) 0.5 ml NEB Q6HR PRN PRN Reason: Shortness of Breath Last Admin: 11/02/17 17:55 Dose: 0.5 ml Rocuronium [place] (Zemuron) Confirm Administered Dose 50 mg .ROUTE .STK-MED ONE Stop: 11/02/17 08:13 Rocuronium [place] (Zemuron) Confirm Administered Dose 50 mg .ROUTE .STK-MED ONE Stop: 11/02/17 08:13 Rocuronium [place] (Zemuron) Confirm Administered Dose 50 mg .ROUTE .STK-MED ONE Stop: 11/02/17 14:07 Scopolamine (Transderm-Scop) 1.5 mg TOP ONETIME ONE Stop: 11/02/17 08:46 Last Admin: 11/02/17 09:12 Dose: 1.5 mg Succinylcholine Chloride (Quelicin) Confirm Administered Dose 200 mg .ROUTE .STK -MED ONE Stop: 11/02/17 12:10 - Exam Lungs: Clear to Auscultation, Normal Respiratory Effort Cardiovascular: Regular Rate, Regular Rhythm Peripheral Pulses: 1+: Radial (L), Radial (R) Psy/Mental Status: Hallucinations, Withdrawal Symptoms - Problem List Review Problem List Initiated/Reviewed/Updated: Yes - My Orders Last 24 Hours: My Active Orders 11/07/17 09:13 Haloperidol Lactate [Haldol] 5 mg IVPUSH Q2H PRN - Assessment Assessment:: Assessment/Plan: Medical--DT's Not doing well on Ativan have changed to Haldol. Bp [address] of the head was negative.
[2017-11-07] MEDS: Pantoprazole 40 MG Vial IV SCH (17:21)
[2017-11-08] MEDS: Haloperidol Lactate 5 MG/ML SDV IVPUSH PRN ×6 (01:04→22:14)
[2017-11-08] MEDS: 1: AA 5%/Calcium/D15W/Lytes 1,000 ML with MVI, Adult with Vitamin K 10 ML, Chromium/Copp IV SCH ×15 (01:04→21:24)
[2017-11-08] MEDS: Magnesium Sulfate/Water 2 GM in Premix Bag 1 BAG IV SCH ×4 (04:06→21:24)
[2017-11-08] MEDS: Levothyroxine 100 MCG Tab PO SCH (07:26)
[2017-11-08] MEDS ORDERED: Potassium Phosphates 60 MMOLE in Sodium Chloride 0.9% 250 ML IV ONE (08:00)
[2017-11-08] MEDS: amLODIPine 5 MG Tab PO SCH (08:07)
[2017-11-08] MEDS: LORazepam 2 MG/ML SDV IV PRN (11:52)
--- NOTE | 2017-11-08 14:02 | PCM.PN ---
- General Info Date of Service: 11/08/17 Functional Status: Reports: Pain Controlled - Review of Systems General: Reports: Weakness Pulmonary: Reports: No Symptoms Cardiovascular: Reports: No Symptoms Psychiatric: Reports: Agitation, Hallucinations - Patient Data Vitals - Most Recent: Last Vital Signs Temp 98.4 F 11/08/17 11:55 Pulse 96 11/08/17 11:55 Resp 17 11/08/17 11:55 BP 175/77 H 11/08/17 11:55 Pulse Ox 99 11/08/17 11:55 Weight - Most Recent: 180 lb I&O - Last 24 Hours: Intake & Output 11/07/17 11/08/17 11/08/17 22:59 06:59 14:59 Intake Total 1964 1463 Output Total 900 1525 730 Balance 1064 -93 -700 Lab Results Last 24 Hours: Laboratory Results - last 24 hr 11/08/17 11/08/17 Range/Units 04:00 04:00 WBC 9.6 (4.5-11.0) K/uL RBC 3.98 (3.30-5.50) M/uL Hgb 10.3 L (12.0-15.0) g/dL Hct 31.4 L (36.0-48.0) % MCV 79 L (80-98) fL MCH 26 L (27-31) pg MCHC 33 (32-36) % Plt Count 296 (150-400) K/uL Neut % (Auto) 60 (36-66) % Lymph % (Auto) 24 (24-44) % [place] % (Auto) 14 H (2-6) % Eos % (Auto) 2 (2-4) % Baso % (Auto) 0 (0-1) % Sodium 139 L (140-148) mmol/L Potassium 3.9 (3.6-5.2) mmol/L Chloride 104 (100-108) mmol/L Carbon Dioxide 26 (21-32) mmol/L Anion Gap 12.9 (5.0-14.0) mmol/L BUN 18 (7-18) mg/dL Creatinine 0.7 (0.6-1.0) mg/dL Est Cr Clr Drug Dosing 54.92 mL/min Estimated GFR (MDRD) > 60 (>60) Glucose 119 H (74-106) mg/dL Calcium 7.7 L (8.5-10.1) mg/dL Phosphorus 2.7 (2.5-4.9) mg/dL Total Bilirubin 0.4 (0.2-1.0) mg/dL AST 20 (15-37) U/L ALT 19 (12-78) U/L Alkaline Phosphatase 41 L (46-116) U/L Total Protein 5.7 L (6.4-8.2) g/dL Albumin 2.5 L (3.4-5.0) g/dL Globulin 3.2 (2.3-3.5) g/dL Albumin/Globulin Ratio 0.8 L (1.2-2.2) TSH, Ultra Sensitive 13.080 H (0.358-3.740) uIU/mL Med Orders - Current: Current Medications Amlodipine Besylate (Norvasc) 5 mg PO DAILY [facility] Last Admin: 11/08/17 08:07 Dose: 5 mg Haloperidol Lactate (Haldol) 5 mg IVPUSH Q2H PRN PRN Reason: Agitation Last Admin: 11/08/17 10:58 Dose: 5 mg Heparin Sodium (Porcine) (Heparin Lock Flush 100 Units/Ml) 500 units FLUSH ASDIRECTED PRN PRN Reason: central line flush Last Admin: 11/07/17 04:10 Dose: 500 units Hydromorphone HCl (Dilaudid Animal Husbandry Professor 15 Mg In Ns 30 Ml) 0 mg IV ASDIRECTED PRN; Protocol PRN Reason: OUTSIDE [employer] 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 PAIN CONTROL Last Admin: 11/06/17 08:27 Dose: 15 mg Hydroxyzine HCl (Vistaril) 50 - 100 mg IM Q4H PRN PRN Reason: Pain Last Admin: 11/02/17 20:46 Dose: 75 mg Multivitamins/Minerals 10 ml/Chromium/Copper/Manganese/Seleni/Zn 1 ml/ Amino Ac/ Electrol/Dextrose/Calcium 1,011 mls @ 100 mls/hr IV .BY DURATION [facility] Last Admin: 11/08/17 10:22 Dose: Not Given Amino Ac/Electrol/Dextrose/Calcium (Clinimix E /15) 1,000 mls @ 100 mls/hr IV .BY DURATION [facility] Last Admin: 11/08/17 01:04 Dose: Not Given Lactated Ringer's (Ringers, Lactated) 1,000 mls @ 0 mls/hr IV ASDIRECTED [facility] Magnesium Sulfate 2 gm/ Premix 50 mls @ 25 mls/hr IV Q6H [facility] Stop: 11/10/17 05:59 Last Admin: 11/08/17 09:22 Dose: 25 mls/hr Levothyroxine Sodium (Synthroid) 200 mcg PO ACBREAKFAST [facility] Last Admin: 11/08/17 07:26 Dose: 200 mcg Lorazepam (Ativan) 0 mg PO ASDIRECTED PRN; Protocol PRN Reason: ETOH WITHDRAWAL Lorazepam (Ativan) 0 mg IV ASDIRECTED PRN; Protocol PRN Reason: ETOH WITHDRAWAL Last Admin: 11/08/17 11:52 Dose: 1 mg Lorazepam (Ativan) 0 mg IM ASDIRECTED PRN; Protocol PRN Reason: ETOH WITHDRAWAL Naloxone HCl (Narcan) 0.1 mg IV ASDIRECTED PRN PRN Reason: decreased respiratory rate Ondansetron HCl (Zofran) 4 mg IVPUSH Q4H PRN PRN Reason: Nausea Pantoprazole Sodium (Protonix Iv) 40 mg IV Q24H [facility] Last Admin: 11/07/17 17:21 Dose: 40 mg Racepinephrine (S-2 2.25%) 0.5 ml NEB Q6H PRN PRN Reason: Shortness of Breath Discontinued Medications Acetaminophen (Tylenol Extra Strength) 1,000 mg PO ONETIME ONE Stop: 11/02/17 07:46 Last Admin: 11/02/17 09:12 Dose: 1,000 mg Bupivacaine HCl (Marcaine 0.5%) Confirm Administered Dose 50 ml .ROUTE .STK-MED ONE Stop: 11/05/17 06:47 Last Admin: 11/05/17 08:40 Dose: 20 ml Cefoxitin Sodium (Mefoxin) Confirm Administered Dose 2 gm .ROUTE .STK-MED ONE Stop: 11/02/17 15:30 Ropivacaine 37.5 ml/Dexamethasone 8 mg/Epinephrine HCl 0.4 mg/ Sodium Chloride 40.1 ml 0 ml NERVRT ASDIRECTED [facility] Last Admin: 11/05/17 08:21 Dose: 80 syringe Dexamethasone (Dexamethasone) Confirm Administered Dose 4 mg .ROUTE .STK-MED ONE Stop: 11/02/17 08:13 Dexamethasone (Dexamethasone) Confirm Administered Dose 4 mg .ROUTE .STK-MED ONE Stop: 11/02/17 08:13 Diazepam (Valium.) 0 mg PO ASDIRECTED PRN; Protocol PRN Reason: ETOH WITHDRAWAL Diphenhydramine HCl (Benadryl) 25 - 50 mg IVPUSH Q6H PRN PRN Reason: ITCHING Stop: 11/06/17 08:00 Last Admin: 11/03/17 14:35 Dose: 25 mg Ephedrine Sulfate (Ephedrine Sulfate) Confirm Administered Dose 50 mg .ROUTE .STK-MED ONE Stop: 11/02/17 12:55 Fentanyl (Sublimaze) Confirm Administered Dose 250 mcg .ROUTE .STK-MED ONE Stop: 11/02/17 08:13 Fentanyl (Sublimaze) Confirm Administered Dose 100 mcg .ROUTE .STK-MED ONE Stop: 11/02/17 11:40 Fentanyl (Sublimaze) Confirm Administered Dose 100 mcg .ROUTE .STK-MED ONE Stop: 11/05/17 06:56 Glucagon (Glucagen) Confirm Administered Dose 1 mg .ROUTE .STK-MED ONE Stop: 11/02/17 15:20 Glycopyrrolate (Robinul) Confirm Administered Dose 1 mg .ROUTE .STK-MED ONE Stop: 11/02/17 08:13 Glycopyrrolate (Robinul) Confirm Administered Dose 1 mg .ROUTE .STK-MED ONE Stop: 11/02/17 08:13 Haloperidol Lactate (Haldol) 2.5 mg IVPUSH ONETIME STA Stop: 11/05/17 22:07 Last Admin: 11/05/17 22:10 Dose: 2.5 mg Haloperidol Lactate (Haldol) 2.5 mg IVPUSH Q2H PRN PRN Reason: Agitation Last Admin: 11/06/17 03:25 Dose: 2.5 mg Haloperidol Lactate (Haldol) Confirm Administered Dose 5 mg .ROUTE .STK-MED ONE Stop: 11/05/17 22:12 Last Admin: 11/06/17 02:19 Dose: Not Given Heparin Sodium (Porcine) (Heparin Lock Flush 100 Units/Ml) Confirm Administered Dose 500 units .ROUTE .STK-MED ONE Stop: 11/02/17 07:11 Heparin Sodium (Porcine) (Heparin Sodium) Confirm Administered Dose 5,000 units .ROUTE .STK-MED ONE Stop: 11/02/17 17:16 Last Admin: 11/02/17 18:01 Dose: Not Given Dextrose/Lactated Ringer's (Dextrose 5%-Lactated Ringers) 1,000 mls @ 100 mls/ hr IV ASDIRECTED [facility] Stop: 11/03/17 10:00 Last Admin: 11/03/17 06:03 Dose: 100 mls/hr Lactated Ringer's (Ringers, Lactated) 500 mls @ 1,000 mls/hr IV ASDIRECTED [facility] Last Admin: 11/02/17 09:12 Dose: 1,000 mls/hr Cefoxitin Sodium 2 gm/ Sodium (Chloride) 50 mls @ 100 mls/hr IV ONETIME ONE Stop: 11/02/17 09:44 Last Admin: 11/02/17 11:44 Dose: 100 mls/hr Fentanyl 2,500 mcg/ Sodium (Chloride) 250 mls @ 0 mls/hr EPIDUR TITRATE RYDER; Protocol Stop: 11/06/17 08:00 Last Admin: 11/05/17 17:17 Dose: 100 mcg/hr, 10 mls/hr Lactated Ringer's (Ringers, Lactated) Confirm Administered Dose 1,000 mls @ as directed .ROUTE .STK-MED ONE Stop: 11/02/17 11:46 Sodium Chloride (Normal Saline) Confirm Administered Dose 10 mls @ as directed .ROUTE .STK-MED ONE Stop: 11/02/17 12:01 Lactated Ringer's (Ringers, Lactated) Confirm Administered Dose 1,000 mls @ as directed .ROUTE .STK-MED ONE Stop: 11/02/17 13:28 Heparin Sodium (Porcine) 5,000 (units/ Sodium Chloride) 501 mls @ 0 mls/hr IV ASDIRECTED [facility] Last Admin: 11/02/17 18:16 Dose: 1 mls/hr Lactated Ringer's (Ringers, Lactated) 1,000 mls @ 125 mls/hr IV ASDIRECTED [facility] Last Admin: 11/05/17 04:13 Dose: 125 mls/hr Cefoxitin Sodium 2 gm/ Sodium (Chloride) 50 mls @ 100 mls/hr IV Q6H [facility] Last Admin: 11/02/17 20:58 Dose: Not Given Cefoxitin Sodium 2 gm/ Sodium (Chloride) 50 mls @ 100 mls/hr IV Q6H [facility] Last Admin: 11/03/17 19:24 Dose: Not Given Cefoxitin Sodium 2 gm/ Sodium (Chloride) 50 mls @ 100 mls/hr IV Q6H [facility] Last Admin: 11/03/17 03:05 Dose: 100 mls/hr Lactated Ringer's (Ringers, Lactated) 500 mls @ 500 mls/hr IV ASDIRECTED [facility] Stop: 11/02/17 23:14 Last Admin: 11/02/17 22:20 Dose: 500 mls/hr Lactated Ringer's (Ringers, Lactated) 500 mls @ 500 mls/hr IV ASDIRECTED [facility] Stop: 11/03/17 02:29 Last Admin: 11/03/17 01:20 Dose: 500 mls/hr Lactated Ringer's (Ringers, Lactated) 500 mls @ 500 mls/hr IV BOLUS ONE Stop: 11/03/17 05:21 Last Admin: 11/03/17 04:15 Dose: 500 mls/hr Albumin Human 12.5 gm/ Premix 50 mls @ 25 mls/hr IV Q24H [facility] Stop: 11/06/17 09:59 Last Admin: 11/06/17 08:00 Dose: 25 mls/hr Albumin Human 12.5 gm/ Premix 50 mls @ 25 mls/hr IV Q24H [facility] Stop: 11/06/17 11:59 Last Admin: 11/06/17 09:02 Dose: 25 mls/hr Magnesium Sulfate 2 gm/ Premix 50 mls @ 25 mls/hr IV Q6H [facility] Stop: 11/05/17 05:59 Last Admin: 11/05/17 03:49 Dose: 25 mls/hr Lactated Ringer's (Ringers, Lactated) 750 mls @ 1,500 mls/hr IV .BOLUS ONE Stop: 11/03/17 09:29 Last Admin: 11/03/17 09:00 Dose: 1,500 mls/hr Potassium Phosphate 25 mmole/ (Sodium Chloride) 108.3333 mls @ 35.646 mls/hr IV Q3H [facility] Stop: 11/07/17 16:59 Last Admin: 11/07/17 15:13 Dose: 35.646 mls/hr Potassium Phosphate 60 mmole/ (Sodium Chloride) 270 mls @ 50 mls/hr IV ONETIME ONE Stop: 11/08/17 13:23 Last Admin: 11/08/17 07:54 Dose: 50 mls/hr Levothyroxine Sodium 100 mcg/ (Levothyroxine Sodium 50 mcg) 150 mcg PO ACBREAKFAST RYDER Last Admin: 11/07/17 07:25 Dose: 150 mcg Lidocaine/Epinephrine (Xylocaine 1% With Epinephrine 1:100,000) Confirm Administered Dose 50 ml .ROUTE .STK-MED ONE Stop: 11/05/17 06:48 Last Admin: 11/05/17 08:40 Dose: 20 ml Lorazepam (Ativan) 0 mg IV ASDIRECTED RYDER; Protocol Last Admin: 11/06/17 06:26 Dose: 2 mg Lorazepam (Ativan) 0 mg PO ASDIRECTED RYDER; Protocol Meropenem (Merrem) Confirm Administered Dose 500 mg .ROUTE .STK-MED ONE Stop: 11/02/17 07:11 Last Admin: 11/02/17 13:42 Dose: 500 mg Meropenem (Merrem) Confirm Administered Dose 500 mg .ROUTE .STK-MED ONE Stop: 11/02/17 13:21 Last Admin: 11/02/17 14:12 Dose: 500 mg Meropenem (Merrem) Confirm Administered Dose 500 mg .ROUTE .STK-MED ONE Stop: 11/05/17 06:47 Last Admin: 11/05/17 08:42 Dose: 500 mg Naloxone HCl (Narcan) 0.1 mg IVPUSH Q5M PRN PRN Reason: RESP RATE LESS THAN 6/MINUTE Stop: 11/06/17 08:00 Naloxone HCl (Narcan) 0.4 mg IV ASDIRECTED PRN PRN Reason: ITCHING/SLEEPINESS Stop: 11/06/17 08:00 Last Admin: 11/05/17 04:14 Dose: 0.4 mg Neostigmine Methylsulfate (Neostigmine) Confirm Administered Dose 5 mg .ROUTE .STK-MED ONE Stop: 11/02/17 08:13 Neostigmine Methylsulfate (Neostigmine) Confirm Administered Dose 5 mg .ROUTE .STK-MED ONE Stop: 11/02/17 08:13 Scopolamine Patch (Check) 1 each TOP DAILY RYDER Last Admin: 11/07/17 09:57 Dose: Not Given Non-Formulary Medication (Total Parenteral Nutrition, Central) 1,000 ml .XX .Continue Order RYDER Stop: 11/06/17 11:00 Ondansetron HCl (Zofran) Confirm Administered Dose 4 mg .ROUTE .STK-MED ONE Stop: 11/02/17 08:13 Ondansetron HCl (Zofran) Confirm Administered Dose 4 mg .ROUTE .STK-MED ONE Stop: 11/02/17 08:13 Phenylephrine HCl (Pernell-Synephrine) Confirm Administered Dose 10 mg .ROUTE .STK- MED ONE Stop: 11/02/17 14:35 Propofol (Diprivan 20 Ml) Confirm Administered Dose 200 mg .ROUTE .STK-MED ONE Stop: 11/02/17 08:13 Propofol (Diprivan 20 Ml) Confirm Administered Dose 200 mg .ROUTE .STK-MED ONE Stop: 11/02/17 08:13 Propofol (Diprivan 20 Ml) Confirm Administered Dose 200 mg .ROUTE .STK-MED ONE Stop: 11/05/17 06:55 Racepinephrine (S-2 2.25%) Confirm Administered Dose 0.5 ml .ROUTE .STK-MED ONE Stop: 11/02/17 17:53 Last Admin: 11/02/17 18:18 Dose: Not Given Racepinephrine (S-2 2.25%) 0.5 ml NEB Q6HR PRN PRN Reason: Shortness of Breath Last Admin: 11/02/17 17:55 Dose: 0.5 ml Rocuronium [place] (Zemuron) Confirm Administered Dose 50 mg .ROUTE .STK-MED ONE Stop: 11/02/17 08:13 Rocuronium [place] (Zemuron) Confirm Administered Dose 50 mg .ROUTE .STK-MED ONE Stop: 11/02/17 08:13 Rocuronium [place] (Zemuron) Confirm Administered Dose 50 mg .ROUTE .STK-MED ONE Stop: 11/02/17 14:07 Scopolamine (Transderm-Scop) 1.5 mg TOP ONETIME ONE Stop: 11/02/17 08:46 Last Admin: 11/02/17 09:12 Dose: 1.5 mg Succinylcholine Chloride (Quelicin) Confirm Administered Dose 200 mg .ROUTE .STK -MED ONE Stop: 11/02/17 12:10 - Exam Lungs: Clear to Auscultation, Normal Respiratory Effort Cardiovascular: Regular Rate, Regular Rhythm Peripheral Pulses: 1+: Radial (L), Radial (R) Physical Findings Comments:: Pupils are equal and extr. moves equally - My Orders Last 24 Hours: My Active Orders 11/08/17 15:00 CULTURE URINE [RM] Routine - Assessment Assessment:: Assessment/Plan: DT's Not doing well on Haldol. Bp 170's systolic. Will culture the urine continue with Haldol Needing maybe less today. Thyroid was low and has been increased. Will continue with Haldol or Ativan for DT's.
[2017-11-08] MEDS: HYDROmorphone/Normal Saline 15 MG/30 ML PCA IV PRN (16:06)
[2017-11-08] MEDS: Pantoprazole 40 MG Vial IV SCH (17:42)
[2017-11-08] MEDS: hydrOXYzine HCl 100 MG/2 ML SDV IM PRN (20:39)
[2017-11-09] MEDS: Haloperidol Lactate 5 MG/ML SDV IVPUSH PRN ×4 (02:01→20:49)
[2017-11-09] MEDS: Magnesium Sulfate/Water 2 GM in Premix Bag 1 BAG IV SCH ×4 (03:53→21:51)
[2017-11-09] MEDS: 1: AA 5%/Calcium/D15W/Lytes 1,000 ML with MVI, Adult with Vitamin K 10 ML, Chromium/Copp IV SCH ×12 (03:55→23:22)
[2017-11-09] MEDS: Levothyroxine 100 MCG Tab PO SCH (07:48)
[2017-11-09] MEDS: amLODIPine 5 MG Tab PO SCH (08:18)
[2017-11-09] MEDS ORDERED: Potassium Phosphates 25 MMOLE in Sodium Chloride 0.9% 100 ML IV ONE (09:30)
[2017-11-09] MEDS ORDERED: 1: AA 5%/Calcium/D15W/Lytes 1,000 ML with MVI, Adult with Vitamin K 10 ML, Chromium/Copp IV SCH ×3 (14:00)
[2017-11-09] MEDS ORDERED: Potassium Phosphates 20 MMOLE in Sodium Chloride 0.9% 100 ML IV ONE (14:00)
[2017-11-09] MEDS: hydrOXYzine HCl 100 MG/2 ML SDV IM PRN (14:37)
--- NOTE | 2017-11-09 15:21 | PN ---
DATE OF SERVICE: 11/08/2017 The patient has been afebrile with stable vital signs. She is still fairly confused and intermittently somewhat uncooperative. It appears that the Haldol is working a little bit better than the Ativan. We will try to limit the Ativan use as the Haldol will likely be more adequate in terms of issues. Otherwise, clinically, she is completely stable. Phosphate remains mildly low. We will supplement that. Otherwise, continue the TPN, await return of bowel function, and maximize her activity. Stanley Jeter MD /[id number]
[2017-11-09] MEDS: Pantoprazole 40 MG Vial IV SCH (18:13)
[2017-11-10] MEDS: Haloperidol Lactate 5 MG/ML SDV IVPUSH PRN ×3 (01:40→23:26)
[2017-11-10] MEDS: Magnesium Sulfate/Water 2 GM in Premix Bag 1 BAG IV SCH (04:04)
[2017-11-10] MEDS: Levothyroxine 100 MCG Tab PO SCH (07:15)
--- NOTE | 2017-11-10 07:52 | PN ---
DATE OF SERVICE: 11/07/2017 The patient has been afebrile with stable vital signs. Her confusion appears to be a little bit less dense. Family does report that she had a lot of alcohol intake, and given this, we will get a CT to make sure we are not missing something in regard to the tumor involvement. Overall from alcohol withdrawal standpoint, she appeared to be somewhat improved. She had a large diuresis over the last 24 hours, and I will continue present TPN. Magnesium, phosphate, and potassium are all low, and these will be supplemented, and I think we can restart some sips of clear liquids and restart her Synthroid and amlodipine. Among other labs we will check tomorrow will be a TSH to make sure we are not running into a problem in that regard, as well. Pathology is still pending with some additional stains trying to sort out how much of the intraperitoneal disease was colon versus ovarian primary. Stanley Jeter MD /[id number]
--- NOTE | 2017-11-10 07:58 | PN ---
DATE OF SERVICE: 11/09/2017 SUBJECTIVE: The patient has been afebrile with stable vital signs. She continues to diurese somewhat. Her mental status has improved somewhat over the last 24 hours by using only the Haldol, i.e. no Ativan. Otherwise, she is beginning to show some bowel sounds. No obvious flatus or bowel movement as of yet. Plan will be to continue the TPN. Her phosphate remains marginally low, and we will supplement that somewhat further. I think, over the next few days, we should gradually see her mental status improve. Again, the CAT scan of the head over the weekend was unremarkable, other than some small vessel disease. We should get some finalized pathology reports today as well. Stanley Jeter MD /[id number]
[2017-11-10] MEDS: amLODIPine 5 MG Tab PO SCH (08:20)
[2017-11-10] MEDS: 1: AA 5%/Calcium/D15W/Lytes 1,000 ML with MVI, Adult with Vitamin K 10 ML, Chromium/Copp IV SCH ×6 (10:00→22:13)
[2017-11-10] MEDS ORDERED: Haloperidol Lactate 5 MG/ML SDV IVPUSH PRN (10:54)
--- NOTE | 2017-11-10 10:56 | PCM.CONS ---
H&P History of Present Illness - General Date of Service: 11/10/17 Admit Problem/Dx: Admission Diagnosis/Problem Admission Diagnosis/Problem Surgical procedure Source of Information: Patient, Provider, RN History Limitations: Reports: No Limitations - History of Present Illness Initial Comments - Free Text/Narative: I was asked by Dr Jeter to see Courtney today regarding ongoing confusion. 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 She ended up with a near total colectomy because of the extent of her colonic disease. She has had difficulty with delirium postoperatively with a mix of agitation and hyperactivity. Things seem to be slowly moving in the right direction. The delirium was thought to be secondary to alcohol withdrawal. The patient reports moderate but slowly improving abdominal pain. She has some mild nausea but has not had any vomiting. She was started on a full liquid diet and has been tolerating this though her intake has been slow. She is alert and interactive but somewhat slow with her responses. She does not report any shortness of breath or chest pain. She is able to get out of bed with the assist of one nurse today. She still has a Tello catheter in. Urine culture is growing a gram-positive cocci but identification is still pending. She has not received lorazepam in a couple of days. Haldol use has been relatively minimal. No hallucinations. 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: Neurological History: Reports: Concussion Endocrine/Metabolic History: Reports: Hypothyroidism Hematologic History: Reports: Anemia - Infectious Disease History Infectious Disease History: Reports: Helicobacter Pylori - Past Surgical History HEENT Surgical History: Reports: None Cardiovascular Surgical History: Reports: None GI Surgical History: Reports: Colonoscopy Female Surgical History: Reports: Tubal Ligation Endocrine Surgical History: Reports: None Neurological Surgical History: Reports: None Social & Family History - Family History HEENT: Reports: Glaucoma, Hearing Impairment Cardiac: Reports: Heart Failure Respiratory: Reports: Asthma GI: Reports: Irritable Bowel Syndrome OBGYN: Reports: Musculoskeletal: Reports: Back pain, Chronic Neurological: Reports: Parkinson's Endocrine/Metabolic: Reports: Hypothyroidism Dermatologic: Reports: Eczema Oncologic: Reports: Brain, Breast - Tobacco Use Smoking Status *Q: Former Smoker Years of Tobacco use: 35 Used Tobacco, but Quit: Yes Month/Year Tobacco Last Used: 1992 Second Hand Smoke Exposure: No - Caffeine Use Caffeine Use: Reports: Coffee - Alcohol Use Alcohol Use History: Yes - Recreational Drug Use Recreational Drug Use: No H&P Review of Systems - Review of Systems: Review Of Systems: See Below Free Text/Narrative: A complete 12 point review of systems was obtained. Pertinent positives and negatives are noted in the history of present illness. All other systems were reviewed and were negative except as noted. Exam - Exam Exam: See Below - Vital Signs Vital Signs: Last Vital Signs Temp 36.5 C 11/10/17 08:00 Pulse 94 11/10/17 08:00 Resp 18 11/10/17 08:00 BP 153/97 H 11/10/17 08:00 Pulse Ox 100 11/10/17 08:00 Weight: 81.647 kg - Exam Quality Assessment: No: Supplemental Oxygen General: Alert, Oriented, Cooperative. No: Mild Distress HEENT: Conjunctiva Clear, Mucosa Moist & [place]. No: Scleral Icterus Neck: Supple, Trachea Midline. No: Lymphadenopathy Lungs: Clear to Auscultation, Normal Respiratory Effort Cardiovascular: Regular Rate, Regular Rhythm, Systolic Murmur GI/Abdominal Exam: Normal Bowel Sounds, Soft, No Distention, Tender Back Exam: Normal Inspection, Full Range of Motion Extremities: No Pedal Edema. No: Increased Warmth Skin: Warm, Dry Neuro Extensive - Mental Status: Alert, Oriented x3, Slow Response to Commands Neuro Extensive - Motor, Sensory, Reflexes: CN II-XII Intact. No: Dysarthria, Abnormal Motor, Tremor Psychiatric: Alert, Normal Affect - Patient Data Lab Results Last 24 hrs: Laboratory Results - last 24 hr 11/06/17 11/10/17 11/10/17 Range/Units 07:16 04:00 04:00 WBC 7.4 (4.5-11.0) K/uL RBC 3.58 (3.30-5.50) M/uL Hgb 9.2 L (12.0-15.0) g/dL Hct 28.8 L (36.0-48.0) % MCV 80 (80-98) fL MCH 26 L (27-31) pg MCHC 32 (32-36) % Plt Count 328 (150-400) K/uL Neut % (Auto) 64 (36-66) % Lymph % (Auto) 19 L (24-44) % Lipscomb % (Auto) 13 H (2-6) % Eos % (Auto) 3 (2-4) % Baso % (Auto) 0 (0-1) % Sodium 137 L (140-148) mmol/L Potassium 4.4 (3.6-5.2) mmol/L Chloride 106 (100-108) mmol/L Carbon Dioxide 25 (21-32) mmol/L Anion Gap 10.4 (5.0-14.0) mmol/L BUN 24 H (7-18) mg/dL Creatinine 0.8 (0.6-1.0) mg/dL Est Cr Clr Drug Dosing 48.06 mL/min Estimated GFR (MDRD) > 60 (>60) Glucose 111 H (74-106) mg/dL Calcium 7.6 L (8.5-10.1) mg/dL Phosphorus 3.3 (2.5-4.9) mg/dL Total Bilirubin 0.6 (0.2-1.0) mg/dL AST 38 H (15-37) U/L ALT 35 (12-78) U/L Alkaline Phosphatase 52 (46-116) U/L Total Protein 5.3 L (6.4-8.2) g/dL Albumin 2.2 L (3.4-5.0) g/dL Globulin 3.1 (2.3-3.5) g/dL Albumin/Globulin Ratio 0.7 L (1.2-2.2) Crossmatch See Detail Result Diagrams: 11/10/17 04:00 11/10/17 04:00 Suresh Results Last 24 hrs: Microbiology 11/08/17 14:10 Urine Culture - Preliminary Urine, Catheterized Consult PN Assessment/Plan POD#: 8 Procedures: Procedures ASSAY OF MAGNESIUM (10/29/17) ASSAY OF NATRIURETIC PEPTIDE (10/29/17) ASSAY OF PHOSPHORUS (10/29/17) BLOOD TYPING SEROLOGIC ABO (10/29/17) BLOOD TYPING SEROLOGIC RH(D) (10/29/17) CARCINOEMBRYONIC ANTIGEN (10/29/17) COMPLETE CBC AUTOMATED (10/29/17) COMPREHEN METABOLIC PANEL (10/29/17) CT ABD & PELV W/CONTRAST (10/27/17) DIAGNOSTIC COLONOSCOPY (10/29/17) ECHO EXAM OF ABDOMEN (04/25/15) EXTRACRANIAL BILAT STUDY (12/27/13) IMMUNOASSAY TUMOR CA 125 (10/29/17) RBC ANTIBODY SCREEN (10/29/17) ROUTINE VENIPUNCTURE (10/29/17) X-RAY EXAM OF WRIST (12/24/16) (1) Acute hypoactive delirium due to multiple etiologies SNOMED Code(s): 444935476, 530352261, 180443363 Code(s): F05 - DELIRIUM DUE TO KNOWN PHYSIOLOGICAL CONDITION Current Visit : Yes (2) Status post colon resection SNOMED Code(s): 349027464, 82337380, 98420444, 830552567 Code(s): Z90.49 - ACQUIRED ABSENCE OF OTHER SPECIFIED PARTS OF DIGESTIVE TRACT Current Visit: Yes (3) Status post total abdominal hysterectomy and bilateral salpingo- oophorectomy (RENZO-BSO) SNOMED Code(s): 795178721, 439257428 Code(s): Z90.710 - ACQUIRED ABSENCE OF BOTH CERVIX AND UTERUS; Z90.722 - ACQUIRED ABSENCE OF OVARIES, BILATERAL; Z90.79 - ACQUIRED ABSENCE OF OTHER GENITAL ORGAN(S) Current Visit: Yes Problem List Initiated/Reviewed/Updated: Yes My Orders Last 24 Hours: My Active Orders 11/10/17 09:09 Acetaminophen [Tylenol] 650 mg PO Q4H PRN 11/10/17 10:53 oxyCODONE 5 mg PO Q4H PRN 11/10/17 10:54 Haloperidol Lactate [Haldol] 1 mg IVPUSH Q2H PRN 11/10/17 11:00 cefTRIAXone [Rocephin] 2 gm Sodium Chloride 0.9% [Normal Saline] 50 ml IV Q24H 11/10/17 21:00 Melatonin 9 mg PO BEDTIME Pantoprazole [ProTONIX] 40 mg PO BEDTIME Plan: ASSESSMENT AND PLAN - Status post exploratory laparotomy for cancer debulking surgery with near total colectomy - from a surgical standpoint seems to be doing okay. Bowels are moving. She is on TPN for nutritional support. She was started on a diet this morning. Pain fairly well controlled. -Discontinue DIRECTOR OF TRAUMA and start oxycodone for moderate pain and acetaminophen for mild pain -Additional postoperative cares including TPN per surgical team Mixed delirium, currently hypoactive - agitation has been decreasing. I suspect this is related to medications and/or anesthesia with possible contribution from alcohol withdrawal. She currently does not have any signs or symptoms of alcohol withdrawal and seems to be slowly improving. Urine culture is growing a gram-positive cocci but identification is pending. It's not clear if this is an infection and could be contributing if it is. Other than her pain medication she is not on medications that raise concern for contribution to the delirium. -Empiric ceftriaxone until urine culture is final -Low-dose Haldol for significant agitation -Pain control adjustment as above -Melatonin at bedtime -Increase activity as tolerated Jacobo De Paz M.D. Requesting Provider: Dr Jeter Date Consult Requested: 11/10/17 Reason for Consult: confusion Patient History Reviewed: Yes Admission H&P Reviewed: No (not available) Notified Requestor: No Time Spent (in minutes): 60
[2017-11-10] MEDS ORDERED: cefTRIAXone 2 GM in Sodium Chloride 0.9% 50 ML IV SCH (11:00)
[2017-11-10] MEDS: oxyCODONE 5 MG Tab PO PRN ×4 (11:05→23:49)
[2017-11-10] MEDS: Acetaminophen 325 MG Tab PO PRN ×4 (11:05→23:43)
[2017-11-10] MEDS ORDERED: Fat Emulsion 100 ML IV ONE (16:00)
[2017-11-10] MEDS: hydrOXYzine HCl 100 MG/2 ML SDV IM PRN ×2 (17:32→21:36)
[2017-11-10] MEDS ORDERED: Loperamide 2 MG Cap PO PRN (20:43)
[2017-11-10] MEDS: Melatonin 3 MG Tab PO SCH (20:46)
[2017-11-10] MEDS: Pantoprazole 40 MG Tab.CR PO SCH (20:47)
[2017-11-10] MEDS ORDERED: Gabapentin 300 MG Cap ONE (22:31)
[2017-11-10] MEDS: Gabapentin 300 MG Cap PO ONE (22:35)
[2017-11-11] MEDS: Haloperidol Lactate 5 MG/ML SDV IVPUSH PRN ×2 (01:42→21:10)
[2017-11-11] MEDS: Levothyroxine 100 MCG Tab PO SCH (08:00)
[2017-11-11] MEDS: amLODIPine 5 MG Tab PO SCH (08:11)
[2017-11-11] MEDS: Acetaminophen 325 MG Tab PO PRN ×3 (08:15→18:37)
[2017-11-11] MEDS: oxyCODONE 5 MG Tab PO PRN ×3 (08:18→21:57)
[2017-11-11] MEDS: Nitrofurantoin Monohydrate/Macrocrystalline 100 MG Cap PO SCH ×2 (10:38→21:03)
[2017-11-11] MEDS: Loperamide 2 MG Cap PO SCH ×3 (10:40→21:03)
[2017-11-11] MEDS: 1: AA 5%/Calcium/D15W/Lytes 1,000 ML with MVI, Adult with Vitamin K 10 ML, Chromium/Copp IV SCH ×6 (10:45→12:35)
--- NOTE | 2017-11-11 11:33 | PN ---
DATE OF SERVICE: 11/10/2017 The patient has been afebrile with stable vital signs. She is much less combative , but overall improved in terms of mental status. The patient has began moving her bowels, we will start full liquid diet and clamp the G-tube, I will prep for 1-1/2 hour; every 4 hours, however, if the patient becomes nauseated, we will back down a little bit on the TPN and some liquids will be added to the TPN per dietary suggestions. Otherwise, we will check her stool for C difficile. If that is negative, we will begin giving her some things to slow down the bowel, perhaps some banana flakes. Dr. Nichols is out of town. I did request Dr. De Paz see the patient regarding general medical followup as well as evaluation of the mental status and final pathology on the resected specimen is still pending as of last evening. Stanley Jeter MD /[id number]
--- NOTE | 2017-11-11 11:43 | PCM.CONSN ---
- General Info Date of Service: 11/11/17 - Review of Systems General: Reports: Weakness. Denies: Fever Neurological: Reports: Confusion Systems Review Comment:: Overnight the patient had difficulty with restlessness that she attributes to pain on the right side in the middle of her back. She was able to get some sleep but overall did not sleep very well. She complains of a slight increase in abdominal pain today but it remains very tolerable. She has had loose to watery bowel movements. Mental status seems to be clearing and she feels a little bit more energetic today. She has had suboptimal intake but is tolerating her diet without nausea or vomiting. Urine culture grew out Enterococcus faecalis. - Patient Data Vitals - Most Recent: Last Vital Signs Temp 37.1 C 11/11/17 10:20 Pulse 91 11/11/17 10:20 Resp 18 11/11/17 10:20 BP 118/65 11/11/17 10:20 Pulse Ox 99 11/11/17 08:00 Weight - Most Recent: 81.647 kg I&O - Last 24 Hours: Intake & Output 11/10/17 11/11/17 11/11/17 22:59 06:59 14:59 Intake Total 1100 1376 150 Output Total 3370 2359 Balance -2270 -983 150 Lab Results Last 24 Hours: Laboratory Results - last 24 hr 11/11/17 11/11/17 11/11/17 Range/Units 04:00 04:00 04:00 WBC 7.7 (4.5-11.0) K/uL RBC 3.64 (3.30-5.50) M/uL Hgb 9.3 L (12.0-15.0) g/dL Hct 29.1 L (36.0-48.0) % MCV 80 (80-98) fL MCH 26 L (27-31) pg MCHC 32 (32-36) % Plt Count 361 (150-400) K/uL Sodium 136 L (140-148) mmol/L Potassium 4.1 (3.6-5.2) mmol/L Chloride 106 (100-108) mmol/L Carbon Dioxide 24 (21-32) mmol/L Anion Gap 10.1 (5.0-14.0) mmol/L BUN 17 (7-18) mg/dL Creatinine 0.8 (0.6-1.0) mg/dL Est Cr Clr Drug Dosing 48.06 mL/min Estimated GFR (MDRD) > 60 (>60) Glucose 129 H (74-106) mg/dL Calcium 8.5 (8.5-10.1) mg/dL Phosphorus 3.5 (2.5-4.9) mg/dL Magnesium 1.9 (1.8-2.4) mg/dL Total Bilirubin 0.5 (0.2-1.0) mg/dL AST 93 H D (15-37) U/L ALT 101 H (12-78) U/L Alkaline Phosphatase 74 (46-116) U/L Total Protein 5.7 L (6.4-8.2) g/dL Albumin 2.3 L (3.4-5.0) g/dL Globulin 3.4 (2.3-3.5) g/dL Albumin/Globulin Ratio 0.7 L (1.2-2.2) Blood Type A POSITIVE Gel Antibody Screen Negative Crossmatch See Detail Suresh Results Last 24 Hours: Microbiology 11/10/17 13:27 Stool Culture - Preliminary Stool / Feces NORMAL ENTERIC JOHNSON 1 DAY - Final NEGATIVE FOR SHIGA TOXIN 1 - Final NEGATIVE FOR SHIGA TOXIN 2 Clostridium difficile (PCR) - Final NEGATIVE CDIFF TOXIN 11/08/17 14:10 Urine Culture - Final Urine, Catheterized Enterococcus Faecalis Med Orders - Current: Current Medications Acetaminophen (Tylenol) 650 mg PO Q4H PRN PRN Reason: Pain/Fever Last Admin: 11/11/17 08:15 Dose: 650 mg Amlodipine Besylate (Norvasc) 5 mg PO DAILY [facility]DER Last Admin: 11/11/17 08:11 Dose: 5 mg Gabapentin (Neurontin) 300 mg PO ONETIME ONE Stop: 11/11/17 22:22 Haloperidol Lactate (Haldol) 1 mg IVPUSH Q2H PRN PRN Reason: Agitation Last Admin: 11/10/17 20:47 Dose: 1 mg Haloperidol Lactate (Haldol) 5 mg IVPUSH Q2H PRN PRN Reason: Agitation Last Admin: 11/11/17 01:42 Dose: 5 mg Heparin Sodium (Porcine) (Heparin Lock Flush 100 Units/Ml) 500 units FLUSH ASDIRECTED PRN PRN Reason: central line flush Last Admin: 11/09/17 04:57 Dose: 500 units Hydroxyzine HCl (Vistaril) 50 - 100 mg IM Q4H PRN PRN Reason: Pain Last Admin: 11/10/17 21:36 Dose: 100 mg Lactated Ringer's (Ringers, Lactated) 1,000 mls @ 0 mls/hr IV ASDIRECTED [facility] Multivitamins/Minerals 10 ml/Chromium/Copper/Manganese/Seleni/Zn 1 ml/ Amino Ac/ Electrol/Dextrose/Calcium 1,011 mls @ 82 mls/hr IV .BY DURATION [facility] Stop: 11/11/17 12:00 Last Admin: 11/10/17 22:13 Dose: 82 mls/hr Amino Ac/Electrol/Dextrose/Calcium (Clinimix E 5/15) 1,000 mls @ 82 mls/hr IV .BY DURATION [facility] Stop: 11/11/17 12:00 Last Admin: 11/10/17 10:00 Dose: 82 mls/hr Multivitamins/Minerals 10 ml/Chromium/Copper/Manganese/Seleni/Zn 1 ml/ Amino Ac/ Electrol/Dextrose/Calcium 1,011 mls @ 60 mls/hr IV .BY DURATION [facility] Amino Ac/Electrol/Dextrose/Calcium (Clinimix E 5/15) 1,000 mls @ 60 mls/hr IV .BY DURATION [facility] Fat Emulsion Intravenous (Intralipid 20%) 100 mls @ 10 mls/hr IV ONETIME ONE Stop: 11/12/17 01:59 Levothyroxine Sodium (Synthroid) 200 mcg PO ACBREAKFAST [facility] Last Admin: 11/11/17 08:00 Dose: 200 mcg Loperamide HCl (Imodium) 2 mg PO Q6H PRN PRN Reason: Diarrhea Last Admin: 11/11/17 08:15 Dose: 2 mg Loperamide HCl (Imodium) 2 mg PO QID [facility] Last Admin: 11/11/17 10:40 Dose: Not Given Melatonin (Melatonin) 9 mg PO BEDTIME [facility] Last Admin: 11/10/17 20:46 Dose: 9 mg Naloxone HCl (Narcan) 0.1 mg IV ASDIRECTED PRN PRN Reason: decreased respiratory rate Nitrofurantoin Macrocrystals (Macrobid) 100 mg PO BID [facility] Stop: 11/14/17 21:01 Last Admin: 11/11/17 10:38 Dose: 100 mg Nystatin (Mycostatin) 5 ml PO QID [facility] Ondansetron HCl (Zofran) 4 mg IVPUSH Q4H PRN PRN Reason: Nausea Oxycodone HCl (Oxycodone) 5 mg PO Q4H PRN PRN Reason: Pain Last Admin: 11/11/17 08:18 Dose: 5 mg Pantoprazole Sodium (Protonix) 40 mg PO BEDTIME [facility] Last Admin: 11/10/17 20:47 Dose: 40 mg Racepinephrine (S-2 2.25%) 0.5 ml NEB Q6H PRN PRN Reason: Shortness of Breath Trolamine Salicylate (Aspercreme 10%) 1 gm TOP Q1H PRN PRN Reason: back pain Discontinued Medications Acetaminophen (Tylenol Extra Strength) 1,000 mg PO ONETIME ONE Stop: 11/02/17 07:46 Last Admin: 11/02/17 09:12 Dose: 1,000 mg Bupivacaine HCl (Marcaine 0.5%) Confirm Administered Dose 50 ml .ROUTE .STK-MED ONE Stop: 11/05/17 06:47 Last Admin: 11/05/17 08:40 Dose: 20 ml Cefoxitin Sodium (Mefoxin) Confirm Administered Dose 2 gm .ROUTE .STK-MED ONE Stop: 11/02/17 15:30 Ropivacaine 37.5 ml/Dexamethasone 8 mg/Epinephrine HCl 0.4 mg/ Sodium Chloride 40.1 ml 0 ml NERVRT ASDIRECTED [facility] Last Admin: 11/05/17 08:21 Dose: 80 syringe Dexamethasone (Dexamethasone) Confirm Administered Dose 4 mg .ROUTE .STK-MED ONE Stop: 11/02/17 08:13 Dexamethasone (Dexamethasone) Confirm Administered Dose 4 mg .ROUTE .STK-MED ONE Stop: 11/02/17 08:13 Diazepam (Valium.) 0 mg PO ASDIRECTED PRN; Protocol PRN Reason: ETOH WITHDRAWAL Diphenhydramine HCl (Benadryl) 25 - 50 mg IVPUSH Q6H PRN PRN Reason: ITCHING Stop: 11/06/17 08:00 Last Admin: 11/03/17 14:35 Dose: 25 mg Ephedrine Sulfate (Ephedrine Sulfate) Confirm Administered Dose 50 mg .ROUTE .STK-MED ONE Stop: 11/02/17 12:55 Fentanyl (Sublimaze) Confirm Administered Dose 250 mcg .ROUTE .STK-MED ONE Stop: 11/02/17 08:13 Fentanyl (Sublimaze) Confirm Administered Dose 100 mcg .ROUTE .STK-MED ONE Stop: 11/02/17 11:40 Fentanyl (Sublimaze) Confirm Administered Dose 100 mcg .ROUTE .STK-MED ONE Stop: 11/05/17 06:56 Gabapentin (Neurontin) Confirm Administered Dose 300 mg .ROUTE .STK-MED ONE Stop: 11/10/17 22:32 Last Admin: 11/10/17 22:35 Dose: 300 mg Glucagon (Glucagen) Confirm Administered Dose 1 mg .ROUTE .STK-MED ONE Stop: 11/02/17 15:20 Glycopyrrolate (Robinul) Confirm Administered Dose 1 mg .ROUTE .STK-MED ONE Stop: 11/02/17 08:13 Glycopyrrolate (Robinul) Confirm Administered Dose 1 mg .ROUTE .STK-MED ONE Stop: 11/02/17 08:13 Haloperidol Lactate (Haldol) 2.5 mg IVPUSH ONETIME STA Stop: 11/05/17 22:07 Last Admin: 11/05/17 22:10 Dose: 2.5 mg Haloperidol Lactate (Haldol) 2.5 mg IVPUSH Q2H PRN PRN Reason: Agitation Last Admin: 11/06/17 03:25 Dose: 2.5 mg Haloperidol Lactate (Haldol) Confirm Administered Dose 5 mg .ROUTE .STK-MED ONE Stop: 11/05/17 22:12 Last Admin: 11/06/17 02:19 Dose: Not Given Haloperidol Lactate (Haldol) 5 mg IVPUSH Q2H PRN PRN Reason: Agitation Last Admin: 11/10/17 04:04 Dose: 5 mg Heparin Sodium (Porcine) (Heparin Lock Flush 100 Units/Ml) Confirm Administered Dose 500 units .ROUTE .STK-MED ONE Stop: 11/02/17 07:11 Heparin Sodium (Porcine) (Heparin Sodium) Confirm Administered Dose 5,000 units .ROUTE .STK-MED ONE Stop: 11/02/17 17:16 Last Admin: 11/02/17 18:01 Dose: Not Given Hydromorphone HCl (Dilaudid Turner Machine 15 Mg In Ns 30 Ml) 0 mg IV ASDIRECTED PRN; Protocol 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 Last Admin: 11/08/17 16:06 Dose: 15 mg Dextrose/Lactated Ringer's (Dextrose 5%-Lactated Ringers) 1,000 mls @ 100 mls/ hr IV ASDIRECTED [facility] Stop: 11/03/17 10:00 Last Admin: 11/03/17 06:03 Dose: 100 mls/hr Lactated Ringer's (Ringers, Lactated) 500 mls @ 1,000 mls/hr IV ASDIRECTED [facility] Last Admin: 11/02/17 09:12 Dose: 1,000 mls/hr Cefoxitin Sodium 2 gm/ Sodium (Chloride) 50 mls @ 100 mls/hr IV ONETIME ONE Stop: 11/02/17 09:44 Last Admin: 11/02/17 11:44 Dose: 100 mls/hr Fentanyl 2,500 mcg/ Sodium (Chloride) 250 mls @ 0 mls/hr EPIDUR TITRATE [facility]YDER; Protocol Stop: 11/06/17 08:00 Last Admin: 11/05/17 17:17 Dose: 100 mcg/hr, 10 mls/hr Lactated Ringer's (Ringers, Lactated) Confirm Administered Dose 1,000 mls @ as directed .ROUTE .STK-MED ONE Stop: 11/02/17 11:46 Sodium Chloride (Normal Saline) Confirm Administered Dose 10 mls @ as directed .ROUTE .STK-MED ONE Stop: 11/02/17 12:01 Lactated Ringer's (Ringers, Lactated) Confirm Administered Dose 1,000 mls @ as directed .ROUTE .STK-MED ONE Stop: 11/02/17 13:28 Heparin Sodium (Porcine) 5,000 (units/ Sodium Chloride) 501 mls @ 0 mls/hr IV ASDIRECTED [facility] Last Admin: 11/02/17 18:16 Dose: 1 mls/hr Lactated Ringer's (Ringers, Lactated) 1,000 mls @ 125 mls/hr IV ASDIRECTED [facility] Last Admin: 11/05/17 04:13 Dose: 125 mls/hr Cefoxitin Sodium 2 gm/ Sodium (Chloride) 50 mls @ 100 mls/hr IV Q6H [facility] Last Admin: 11/02/17 20:58 Dose: Not Given Cefoxitin Sodium 2 gm/ Sodium (Chloride) 50 mls @ 100 mls/hr IV Q6H [facility] Last Admin: 11/03/17 19:24 Dose: Not Given Cefoxitin Sodium 2 gm/ Sodium (Chloride) 50 mls @ 100 mls/hr IV Q6H [facility] Last Admin: 11/03/17 03:05 Dose: 100 mls/hr Lactated Ringer's (Ringers, Lactated) 500 mls @ 500 mls/hr IV ASDIRECTED [facility] Stop: 11/02/17 23:14 Last Admin: 11/02/17 22:20 Dose: 500 mls/hr Lactated Ringer's (Ringers, Lactated) 500 mls @ 500 mls/hr IV ASDIRECTED [facility] Stop: 11/03/17 02:29 Last Admin: 11/03/17 01:20 Dose: 500 mls/hr Lactated Ringer's (Ringers, Lactated) 500 mls @ 500 mls/hr IV BOLUS ONE Stop: 11/03/17 05:21 Last Admin: 11/03/17 04:15 Dose: 500 mls/hr Albumin Human 12.5 gm/ Premix 50 mls @ 25 mls/hr IV Q24H [facility] Stop: 11/06/17 09:59 Last Admin: 11/06/17 08:00 Dose: 25 mls/hr Albumin Human 12.5 gm/ Premix 50 mls @ 25 mls/hr IV Q24H [facility] Stop: 11/06/17 11:59 Last Admin: 11/06/17 09:02 Dose: 25 mls/hr Magnesium Sulfate 2 gm/ Premix 50 mls @ 25 mls/hr IV Q6H [facility] Stop: 11/05/17 05:59 Last Admin: 11/05/17 03:49 Dose: 25 mls/hr Multivitamins/Minerals 10 ml/Chromium/Copper/Manganese/Seleni/Zn 1 ml/ Amino Ac/ Electrol/Dextrose/Calcium 1,011 mls @ 100 mls/hr IV .BY DURATION [facility] Stop: 11/09/17 13:45 Last Admin: 11/09/17 06:35 Dose: Not Given Amino Ac/Electrol/Dextrose/Calcium (Clinimix E 5/15) 1,000 mls @ 100 mls/hr IV .BY DURATION [facility] Stop: 11/09/17 13:45 Last Admin: 11/08/17 21:24 Dose: Not Given Lactated Ringer's (Ringers, Lactated) 750 mls @ 1,500 mls/hr IV .BOLUS ONE Stop: 11/03/17 09:29 Last Admin: 11/03/17 09:00 Dose: 1,500 mls/hr Potassium Phosphate 25 mmole/ (Sodium Chloride) 108.3333 mls @ 35.646 mls/hr IV Q3H [facility] Stop: 11/07/17 16:59 Last Admin: 11/07/17 15:13 Dose: 35.646 mls/hr Magnesium Sulfate 2 gm/ Premix 50 mls @ 25 mls/hr IV Q6H [facility] Stop: 11/10/17 05:59 Last Admin: 11/10/17 04:04 Dose: 25 mls/hr Potassium Phosphate 60 mmole/ (Sodium Chloride) 270 mls @ 50 mls/hr IV ONETIME ONE Stop: 11/08/17 13:23 Last Admin: 11/08/17 07:54 Dose: 50 mls/hr Potassium Phosphate 25 mmole/ (Sodium Chloride) 108.3333 mls @ 27 mls/hr IV ONETIME ONE Stop: 11/09/17 13:30 Last Admin: 11/09/17 09:02 Dose: 27 mls/hr Potassium Phosphate 20 mmole/ (Sodium Chloride) 106.6667 mls @ 35 mls/hr IV ONETIME ONE Stop: 11/09/17 17:02 Last Admin: 11/09/17 14:15 Dose: 35 mls/hr Multivitamins/Minerals 10 ml/Chromium/Copper/Manganese/Seleni/Zn 1 ml/ Amino Ac/ Electrol/Dextrose/Calcium 1,011 mls @ 100 mls/hr IV .BY DURATION [facility] Last Admin: 11/09/17 23:22 Dose: 100 mls/hr Amino Ac/Electrol/Dextrose/Calcium (Clinimix E 5/15) 1,000 mls @ 100 mls/hr IV .BY DURATION [facility] Last Admin: 11/09/17 14:31 Dose: 100 mls/hr Fat Emulsion Intravenous (Intralipid 20%) 100 mls @ 8.3 mls/hr IV ONETIME ONE Stop: 11/11/17 04:02 Last Admin: 11/10/17 16:54 Dose: 8.3 mls/hr Ceftriaxone Sodium 2 gm/ (Sodium Chloride) 50 mls @ 100 mls/hr IV Q24H [facility] Last Admin: 11/10/17 11:05 Dose: 100 mls/hr Levothyroxine Sodium 100 mcg/ (Levothyroxine Sodium 50 mcg) 150 mcg PO ACBREAKFAST [facility] Last Admin: 11/07/17 07:25 Dose: 150 mcg Lidocaine/Epinephrine (Xylocaine 1% With Epinephrine 1:100,000) Confirm Administered Dose 50 ml .ROUTE .STK-MED ONE Stop: 11/05/17 06:48 Last Admin: 11/05/17 08:40 Dose: 20 ml Lorazepam (Ativan) 0 mg IV ASDIRECTED [facility]YDER; Protocol Last Admin: 11/06/17 06:26 Dose: 2 mg Lorazepam (Ativan) 0 mg PO ASDIRECTED [facility]YDER; Protocol Lorazepam (Ativan) 0 mg PO ASDIRECTED PRN; Protocol PRN Reason: ETOH WITHDRAWAL Lorazepam (Ativan) 0 mg IV ASDIRECTED PRN; Protocol PRN Reason: ETOH WITHDRAWAL Last Admin: 11/08/17 11:52 Dose: 1 mg Lorazepam (Ativan) 0 mg IM ASDIRECTED PRN; Protocol PRN Reason: ETOH WITHDRAWAL Meropenem (Merrem) Confirm Administered Dose 500 mg .ROUTE .STK-MED ONE Stop: 11/02/17 07:11 Last Admin: 11/02/17 13:42 Dose: 500 mg Meropenem (Merrem) Confirm Administered Dose 500 mg .ROUTE .STK-MED ONE Stop: 11/02/17 13:21 Last Admin: 11/02/17 14:12 Dose: 500 mg Meropenem (Merrem) Confirm Administered Dose 500 mg .ROUTE .STK-MED ONE Stop: 11/05/17 06:47 Last Admin: 11/05/17 08:42 Dose: 500 mg Naloxone HCl (Narcan) 0.1 mg IVPUSH Q5M PRN PRN Reason: RESP RATE LESS THAN 6/MINUTE Stop: 11/06/17 08:00 Naloxone HCl (Narcan) 0.4 mg IV ASDIRECTED PRN PRN Reason: ITCHING/SLEEPINESS Stop: 11/06/17 08:00 Last Admin: 11/05/17 04:14 Dose: 0.4 mg Neostigmine Methylsulfate (Neostigmine) Confirm Administered Dose 5 mg .ROUTE .STK-MED ONE Stop: 11/02/17 08:13 Neostigmine Methylsulfate (Neostigmine) Confirm Administered Dose 5 mg .ROUTE .STK-MED ONE Stop: 11/02/17 08:13 Scopolamine Patch (Check) 1 each TOP DAILY [facility] Last Admin: 11/07/17 09:57 Dose: Not Given Non-Formulary Medication (Total Parenteral Nutrition, Central) 1,000 ml .XX .Continue Order [facility] Stop: 11/06/17 11:00 Ondansetron HCl (Zofran) Confirm Administered Dose 4 mg .ROUTE .STK-MED ONE Stop: 11/02/17 08:13 Ondansetron HCl (Zofran) Confirm Administered Dose 4 mg .ROUTE .STK-MED ONE Stop: 11/02/17 08:13 Pantoprazole Sodium (Protonix Iv) 40 mg IV Q24H [facility] Last Admin: 11/09/17 18:13 Dose: 40 mg Phenylephrine HCl (Pernell-Synephrine) Confirm Administered Dose 10 mg .ROUTE .STK- MED ONE Stop: 11/02/17 14:35 Propofol (Diprivan 20 Ml) Confirm Administered Dose 200 mg .ROUTE .STK-MED ONE Stop: 11/02/17 08:13 Propofol (Diprivan 20 Ml) Confirm Administered Dose 200 mg .ROUTE .STK-MED ONE Stop: 11/02/17 08:13 Propofol (Diprivan 20 Ml) Confirm Administered Dose 200 mg .ROUTE .STK-MED ONE Stop: 11/05/17 06:55 Racepinephrine (S-2 2.25%) Confirm Administered Dose 0.5 ml .ROUTE .STK-MED ONE Stop: 11/02/17 17:53 Last Admin: 11/02/17 18:18 Dose: Not Given Racepinephrine (S-2 2.25%) 0.5 ml NEB Q6HR PRN PRN Reason: Shortness of Breath Last Admin: 11/02/17 17:55 Dose: 0.5 ml Rocuronium [place] (Zemuron) Confirm Administered Dose 50 mg .ROUTE .STK-MED ONE Stop: 11/02/17 08:13 Rocuronium [place] (Zemuron) Confirm Administered Dose 50 mg .ROUTE .STK-MED ONE Stop: 11/02/17 08:13 Rocuronium [place] (Zemuron) Confirm Administered Dose 50 mg .ROUTE .STK-MED ONE Stop: 11/02/17 14:07 Scopolamine (Transderm-Scop) 1.5 mg TOP ONETIME ONE Stop: 11/02/17 08:46 Last Admin: 11/02/17 09:12 Dose: 1.5 mg Succinylcholine Chloride (Quelicin) Confirm Administered Dose 200 mg .ROUTE .STK -MED ONE Stop: 11/02/17 12:10 - Exam Quality Assessment: No: Supplemental Oxygen General: Alert, Cooperative, No Acute Distress Lungs: Normal Respiratory Effort Cardiovascular: Regular Rate, Regular Rhythm GI/Abdominal Exam: Soft, No Distention Back Exam: Muscle Spasm (right mid back) Extremities: No Pedal Edema Skin: Warm, Dry Psy/Mental Status: Alert, Normal Affect Consult PN Assessment/Plan POD#: 9 Procedures: Procedures ASSAY OF MAGNESIUM (10/29/17) ASSAY OF NATRIURETIC PEPTIDE (10/29/17) ASSAY OF PHOSPHORUS (10/29/17) BLOOD TYPING SEROLOGIC ABO (10/29/17) BLOOD TYPING SEROLOGIC RH(D) (10/29/17) CARCINOEMBRYONIC ANTIGEN (10/29/17) COMPLETE CBC AUTOMATED (10/29/17) COMPREHEN METABOLIC PANEL (10/29/17) CT ABD & PELV W/CONTRAST (10/27/17) DIAGNOSTIC COLONOSCOPY (10/29/17) ECHO EXAM OF ABDOMEN (04/25/15) EXTRACRANIAL BILAT STUDY (12/27/13) IMMUNOASSAY TUMOR CA 125 (10/29/17) RBC ANTIBODY SCREEN (10/29/17) ROUTINE VENIPUNCTURE (10/29/17) X-RAY EXAM OF WRIST (12/24/16) (1) Acute hypoactive delirium due to multiple etiologies SNOMED Code(s): 071335494, 062587449, 919563374 Code(s): F05 - DELIRIUM DUE TO KNOWN PHYSIOLOGICAL CONDITION Current Visit : Yes (2) Status post colon resection SNOMED Code(s): 335444654, 12272118, 46174689, 561533518 Code(s): Z90.49 - ACQUIRED ABSENCE OF OTHER SPECIFIED PARTS OF DIGESTIVE TRACT Current Visit: Yes (3) Status post total abdominal hysterectomy and bilateral salpingo- oophorectomy (RENZO-BSO) SNOMED Code(s): 345761324, 406381454 Code(s): Z90.710 - ACQUIRED ABSENCE OF BOTH CERVIX AND UTERUS; Z90.722 - ACQUIRED ABSENCE OF OVARIES, BILATERAL; Z90.79 - ACQUIRED ABSENCE OF OTHER GENITAL ORGAN(S) Current Visit: Yes Problem List Initiated/Reviewed/Updated: Yes My Orders Last 24 Hours: My Active Orders 11/10/17 10:53 oxyCODONE 5 mg PO Q4H PRN 11/10/17 10:54 Haloperidol Lactate [Haldol] 1 mg IVPUSH Q2H PRN 11/10/17 21:00 Melatonin 9 mg PO BEDTIME Pantoprazole [ProTONIX] 40 mg PO BEDTIME 11/10/17 22:22 Haloperidol Lactate [Haldol] 5 mg IVPUSH Q2H PRN 11/11/17 09:00 Nitrofurantoin Dane/Macrocryst [Macrobid] 100 mg PO BID 11/11/17 11:40 DC Tello Catheter [Urinary Catheter Removal] [RC] Per Unit Routine Trolamine Salicylate/Aloe Vera [Aspercreme 10%] 1 gm TOP Q1H PRN 11/11/17 11:42 Cooling Warming Measures [RC] ASDIRECTED Haloperidol Lactate [Haldol] 2.5 mg IVPUSH Q2H PRN Heat Therapy [OM.PC] Routine 11/11/17 12:00 Nystatin [Mycostatin] 5 ml PO QID 11/11/17 22:21 Gabapentin [Neurontin] 300 mg PO ONETIME ONE Plan: ASSESSMENT AND PLAN - Status post exploratory laparotomy for cancer debulking surgery with near total colectomy - from a surgical standpoint seems to be doing fairly well. Bowels continue to move and are on the loose to watery side. She is on TPN for nutritional support. Her pain is fairly well-controlled. Tolerating diet though intake is not great. -oxycodone for moderate pain and acetaminophen for mild pain -Remove Tello catheter -Additional postoperative cares including TPN per surgical team Mixed delirium, currently hypoactive - slowly getting better, likely multifactorial with medications, possible alcohol withdrawal and urinary tract infection all likely contributing to some extent. -Transition antibiotics to nitrofurantoin -Low-dose Haldol for significant agitation -Pain control adjustment as above -Melatonin at bedtime -Increase activity as tolerated -Physical therapy Jacobo De Paz M.D.
--- NOTE | 2017-11-11 11:57 | PN ---
DATE OF SERVICE: 11/11/2017 The patient has been afebrile with stable vital signs. Overnight, she became quite a bit more confused again and did not get much in the way of sleep. Oral intake was around 500 mL yesterday. She appears to have a fairly rapid transit through the GI tract, moved her bowels around 4 times in the last 24 hours. The plan will be to back down on TPN. We will go up to a regular diet today. I think we will add some banana flakes t.i.d. along with scheduled Imodium, try to slow down the bowels, go up to a regular diet. Hemoglobin is 9.3 and with the patient in more of a chronic disease status, we will give her 1 unit of packed RBCs this morning. The pathology report has come back. 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 Stanley Jeter MD /[id number]
[2017-11-11] MEDS: Nystatin Susp 100,000 Unit/ML 5 ML UD Cup PO SCH ×3 (13:10→21:04)
[2017-11-11] MEDS ORDERED: Fat Emulsion 100 ML IV ONE (16:00)
[2017-11-11] MEDS: Melatonin 3 MG Tab PO SCH (21:03)
[2017-11-11] MEDS: Gabapentin 300 MG Cap PO ONE (21:05)
[2017-11-11] MEDS: Pantoprazole 40 MG Tab.CR PO SCH (21:58)
[2017-11-12] MEDS: Gabapentin 300 MG Cap PO ONE (00:10)
[2017-11-12] MEDS: Acetaminophen 325 MG Tab PO PRN ×2 (01:55→14:36)
[2017-11-12] MEDS: oxyCODONE 5 MG Tab PO PRN ×5 (01:55→20:52)
[2017-11-12] MEDS: 1: AA 5%/Calcium/D15W/Lytes 1,000 ML with MVI, Adult with Vitamin K 10 ML, Chromium/Copp IV SCH ×6 (04:13→21:24)
[2017-11-12] MEDS: Nystatin Susp 100,000 Unit/ML 5 ML UD Cup PO SCH ×4 (05:25→21:26)
[2017-11-12] MEDS: Loperamide 2 MG Cap PO SCH ×4 (05:25→21:26)
[2017-11-12] MEDS ORDERED: diphenhydrAMINE 25 MG Cap PO PRN (07:21)
[2017-11-12] MEDS: Levothyroxine 100 MCG Tab PO SCH (08:10)
[2017-11-12] MEDS: amLODIPine 5 MG Tab PO SCH (09:13)
[2017-11-12] MEDS: Nitrofurantoin Monohydrate/Macrocrystalline 100 MG Cap PO SCH ×2 (09:15→20:52)
--- NOTE | 2017-11-12 09:15 | PCM.CONSN ---
- General Info Date of Service: 11/12/17 Functional Status: Reports: Pain Controlled, Tolerating Diet, Ambulating - Review of Systems General: Reports: Weakness Gastrointestinal: Reports: Abdominal Pain (mild) Neurological: Denies: Confusion Systems Review Comment:: there were no acute events overnight. Mental status has continued to improve. Strength is steadily improving. She has not had any fevers. Tolerating diet. Still having some loose stools. - Patient Data Vitals - Most Recent: Last Vital Signs Temp 37.1 C 11/12/17 05:00 Pulse 65 11/12/17 07:00 Resp 13 11/12/17 07:00 BP 137/75 11/12/17 07:00 Pulse Ox 98 11/12/17 07:00 Weight - Most Recent: 74.843 kg I&O - Last 24 Hours: Intake & Output 11/11/17 11/12/17 11/12/17 22:59 06:59 14:59 Intake Total 1027 1153 360 Output Total 650 700 Balance 377 453 360 Lab Results Last 24 Hours: Laboratory Results - last 24 hr 11/11/17 11/12/17 11/12/17 Range/Units 04:00 03:17 03:17 WBC 7.0 (4.5-11.0) K/uL RBC 3.98 (3.30-5.50) M/uL Hgb 10.2 L (12.0-15.0) g/dL Hct 31.4 L (36.0-48.0) % MCV 79 L (80-98) fL MCH 26 L (27-31) pg MCHC 33 (32-36) % Plt Count 339 (150-400) K/uL Neut % (Auto) 64 (36-66) % Lymph % (Auto) 20 L (24-44) % [place] % (Auto) 12 H (2-6) % Eos % (Auto) 4 (2-4) % Baso % (Auto) 0 (0-1) % Sodium (140-148) mmol/L Potassium (3.6-5.2) mmol/L Chloride (100-108) mmol/L Carbon Dioxide (21-32) mmol/L Anion Gap (5.0-14.0) mmol/L BUN (7-18) mg/dL Creatinine (0.6-1.0) mg/dL Est Cr Clr Drug Dosing mL/min Estimated GFR (MDRD) (>60) BUN/Creatinine Ratio Glucose (74-106) mg/dL Calcium (8.5-10.1) mg/dL Phosphorus (2.5-4.9) mg/dL Magnesium (1.8-2.4) mg/dL Total Bilirubin (0.2-1.0) mg/dL AST (15-37) U/L ALT (12-78) U/L Alkaline Phosphatase (46-116) U/L Total Protein (6.4-8.2) g/dL Albumin (3.4-5.0) g/dL Globulin (2.3-3.5) g/dL Albumin/Globulin Ratio (1.2-2.2) Blood Type A POSITIVE Gel Antibody Screen Negative Crossmatch See Detail Suresh Results Last 24 Hours: Microbiology 11/10/17 13:27 Stool Culture - Preliminary Stool / Feces NORMAL ENTERIC JOHNSON 2 DAYS - Final NEGATIVE FOR SHIGA TOXIN 1 - Final NEGATIVE FOR SHIGA TOXIN 2 Clostridium difficile (PCR) - Final NEGATIVE CDIFF TOXIN 11/08/17 14:10 Urine Culture - Final Urine, Catheterized Enterococcus Faecalis Med Orders - Current: Current Medications Acetaminophen (Tylenol) 650 mg PO Q4H PRN PRN Reason: Pain/Fever Last Admin: 11/12/17 01:55 Dose: 650 mg Amlodipine Besylate (Norvasc) 5 mg PO DAILY [facility] Last Admin: 11/11/17 08:11 Dose: 5 mg Diphenhydramine HCl (Benadryl) 25 mg PO BEDTIME PRN PRN Reason: SLEEP Haloperidol Lactate (Haldol) 2.5 mg IVPUSH Q2H PRN PRN Reason: Agitation Last Admin: 11/11/17 21:10 Dose: 2.5 mg Heparin Sodium (Porcine) (Heparin Lock Flush 100 Units/Ml) 500 units FLUSH ASDIRECTED PRN PRN Reason: central line flush Last Admin: 11/11/17 13:44 Dose: 500 units Hydroxyzine HCl (Vistaril) 50 - 100 mg IM Q4H PRN PRN Reason: Pain Last Admin: 11/10/17 21:36 Dose: 100 mg Lactated Ringer's (Ringers, Lactated) 1,000 mls @ 0 mls/hr IV ASDIRECTED [facility] Multivitamins/Minerals 10 ml/Chromium/Copper/Manganese/Seleni/Zn 1 ml/ Amino Ac/ Electrol/Dextrose/Calcium 1,011 mls @ 60 mls/hr IV .BY DURATION [facility] Last Admin: 11/12/17 04:13 Dose: 60 mls/hr Amino Ac/Electrol/Dextrose/Calcium (Clinimix E 5/15) 1,000 mls @ 60 mls/hr IV .BY DURATION [facility] Last Admin: 11/11/17 12:35 Dose: 60 mls/hr Fat Emulsion Intravenous (Intralipid 20%) 100 mls @ 10 mls/hr IV ONETIME ONE Stop: 11/13/17 01:59 Levothyroxine Sodium (Synthroid) [address] [facility] Last Admin: 11/12/17 08:10 Dose: 200 mcg Loperamide HCl (Imodium) 2 mg PO Q6H PRN PRN Reason: Diarrhea Last Admin: 11/11/17 08:15 Dose: 2 mg Loperamide HCl (Imodium) [address] [facility] Last Admin: 11/12/17 05:25 Dose: 2 mg Melatonin (Melatonin) [address] [facility] Last Admin: 11/11/17 21:03 Dose: 9 mg Naloxone HCl (Narcan) 0.1 mg IV ASDIRECTED PRN PRN Reason: decreased respiratory rate Nitrofurantoin Macrocrystals (Macrobid) [address] [facility] Stop: 11/14/17 21:01 Last Admin: 11/11/17 21:03 Dose: 100 mg Nystatin (Mycostatin) [address] [facility] Last Admin: 11/12/17 05:25 Dose: 5 ml Ondansetron HCl (Zofran) 4 mg IVPUSH Q4H PRN PRN Reason: Nausea Oxycodone HCl (Oxycodone) 5 mg PO Q4H PRN PRN Reason: Pain Last Admin: 11/12/17 05:46 Dose: 5 mg Pantoprazole Sodium (Protonix) [address] [facility] Last Admin: 11/11/17 21:58 Dose: 40 mg Racepinephrine (S-2 2.25%) 0.5 ml NEB Q6H PRN PRN Reason: Shortness of Breath Trolamine Salicylate (Aspercreme 10%) 0 gm TOP Q1H PRN PRN Reason: back pain Discontinued Medications Acetaminophen (Tylenol Extra Strength) 1,000 mg PO ONETIME ONE Stop: 11/02/17 07:46 Last Admin: 11/02/17 09:12 Dose: 1,000 mg Bupivacaine HCl (Marcaine 0.5%) Confirm Administered Dose 50 ml .ROUTE .STK-MED ONE Stop: 11/05/17 06:47 Last Admin: 11/05/17 08:40 Dose: 20 ml Cefoxitin Sodium (Mefoxin) Confirm Administered Dose 2 gm .ROUTE .STK-MED ONE Stop: 11/02/17 15:30 Ropivacaine 37.5 ml/Dexamethasone 8 mg/Epinephrine HCl 0.4 mg/ Sodium Chloride 40.1 ml 0 ml NERVRT ASDIRECTED [facility]DER Last Admin: 11/05/17 08:21 Dose: 80 syringe Dexamethasone (Dexamethasone) Confirm Administered Dose 4 mg .ROUTE .STK-MED ONE Stop: 11/02/17 08:13 Dexamethasone (Dexamethasone) Confirm Administered Dose 4 mg .ROUTE .STK-MED ONE Stop: 11/02/17 08:13 Diazepam (Valium.) 0 mg PO ASDIRECTED PRN; Protocol PRN Reason: ETOH WITHDRAWAL Diphenhydramine HCl (Benadryl) 25 - 50 mg IVPUSH Q6H PRN PRN Reason: ITCHING Stop: 11/06/17 08:00 Last Admin: 11/03/17 14:35 Dose: 25 mg Ephedrine Sulfate (Ephedrine Sulfate) Confirm Administered Dose 50 mg .ROUTE .STK-MED ONE Stop: 11/02/17 12:55 Fentanyl (Sublimaze) Confirm Administered Dose 250 mcg .ROUTE .STK-MED ONE Stop: 11/02/17 08:13 Fentanyl (Sublimaze) Confirm Administered Dose 100 mcg .ROUTE .STK-MED ONE Stop: 11/02/17 11:40 Fentanyl (Sublimaze) Confirm Administered Dose 100 mcg .ROUTE .STK-MED ONE Stop: 11/05/17 06:56 Gabapentin (Neurontin) 300 mg PO ONETIME ONE Stop: 11/11/17 22:22 Last Admin: 11/12/17 00:10 Dose: Not Given Gabapentin (Neurontin) Confirm Administered Dose 300 mg .ROUTE .STK-MED ONE Stop: 11/10/17 22:32 Last Admin: 11/10/17 22:35 Dose: 300 mg Glucagon (Glucagen) Confirm Administered Dose 1 mg .ROUTE .STK-MED ONE Stop: 11/02/17 15:20 Glycopyrrolate (Robinul) Confirm Administered Dose 1 mg .ROUTE .STK-MED ONE Stop: 11/02/17 08:13 Glycopyrrolate (Robinul) Confirm Administered Dose 1 mg .ROUTE .STK-MED ONE Stop: 11/02/17 08:13 Haloperidol Lactate (Haldol) 2.5 mg IVPUSH ONETIME STA Stop: 11/05/17 22:07 Last Admin: 11/05/17 22:10 Dose: 2.5 mg Haloperidol Lactate (Haldol) 2.5 mg IVPUSH Q2H PRN PRN Reason: Agitation Last Admin: 11/06/17 03:25 Dose: 2.5 mg Haloperidol Lactate (Haldol) Confirm Administered Dose 5 mg .ROUTE .ST-MED ONE Stop: 11/05/17 22:12 Last Admin: 11/06/17 02:19 Dose: Not Given Haloperidol Lactate (Haldol) 5 mg IVPUSH Q2H PRN PRN Reason: Agitation Last Admin: 11/10/17 04:04 Dose: 5 mg Haloperidol Lactate (Haldol) 1 mg IVPUSH Q2H PRN PRN Reason: Agitation Last Admin: 11/10/17 20:47 Dose: 1 mg Haloperidol Lactate (Haldol) 5 mg IVPUSH Q2H PRN PRN Reason: Agitation Last Admin: 11/11/17 01:42 Dose: 5 mg Heparin Sodium (Porcine) (Heparin Lock Flush 100 Units/Ml) Confirm Administered Dose 500 units .ROUTE .STK-MED ONE Stop: 11/02/17 07:11 Heparin Sodium (Porcine) (Heparin Sodium) Confirm Administered Dose 5,000 units .ROUTE .STK-MED ONE Stop: 11/02/17 17:16 Last Admin: 11/02/17 18:01 Dose: Not Given Hydromorphone HCl (Dilaudid [employer] 15 Mg In Ns 30 Ml) 0 mg IV ASDIRECTED PRN; Protocol PRN Reason: [employer] PAIN CONTROL Last Admin: 11/08/17 16:06 Dose: 15 mg Dextrose/Lactated Ringer's (Dextrose 5%-Lactated Ringers) 1,000 mls @ 100 mls/ hr IV ASDIRECTED [facility] Stop: 11/03/17 10:00 Last Admin: 11/03/17 06:03 Dose: 100 mls/hr Lactated Ringer's (Ringers, Lactated) 500 mls @ 1,000 mls/hr IV ASDIRECTED [facility] Last Admin: 11/02/17 09:12 Dose: 1,000 mls/hr Cefoxitin Sodium 2 gm/ Sodium (Chloride) 50 mls @ 100 mls/hr IV ONETIME ONE Stop: 11/02/17 09:44 Last Admin: 11/02/17 11:44 Dose: 100 mls/hr Fentanyl 2,500 mcg/ Sodium (Chloride) 250 mls @ 0 mls/hr EPIDUR TITRATE [facility]; Protocol Stop: 11/06/17 08:00 Last Admin: 11/05/17 17:17 Dose: 100 mcg/hr, 10 mls/hr Lactated Ringer's (Ringers, Lactated) Confirm Administered Dose 1,000 mls @ as directed .ROUTE .STK-MED ONE Stop: 11/02/17 11:46 Sodium Chloride (Normal Saline) Confirm Administered Dose 10 mls @ as directed .ROUTE .STK-MED ONE Stop: 11/02/17 12:01 Lactated Ringer's (Ringers, Lactated) Confirm Administered Dose 1,000 mls @ as directed .ROUTE .STK-MED ONE Stop: 11/02/17 13:28 Heparin Sodium (Porcine) 5,000 (units/ Sodium Chloride) 501 mls @ 0 mls/hr IV ASDIRECTED [facility] Last Admin: 11/02/17 18:16 Dose: 1 mls/hr Lactated Ringer's (Ringers, Lactated) 1,000 mls @ 125 mls/hr IV ASDIRECTED [facility] Last Admin: 11/05/17 04:13 Dose: 125 mls/hr Cefoxitin Sodium 2 gm/ Sodium (Chloride) 50 mls @ 100 mls/hr IV Q6H [facility] Last Admin: 11/02/17 20:58 Dose: Not Given Cefoxitin Sodium 2 gm/ Sodium (Chloride) 50 mls @ 100 mls/hr IV Q6H [facility] Last Admin: 11/03/17 19:24 Dose: Not Given Cefoxitin Sodium 2 gm/ Sodium (Chloride) 50 mls @ 100 mls/hr IV Q6H [facility] Last Admin: 11/03/17 03:05 Dose: 100 mls/hr Lactated Ringer's (Ringers, Lactated) 500 mls @ 500 mls/hr IV ASDIRECTED [facility] Stop: 11/02/17 23:14 Last Admin: 11/02/17 22:20 Dose: 500 mls/hr Lactated Ringer's (Ringers, Lactated) 500 mls @ 500 mls/hr IV ASDIRECTED [facility] Stop: 11/03/17 02:29 Last Admin: 11/03/17 01:20 Dose: 500 mls/hr Lactated Ringer's (Ringers, Lactated) 500 mls @ 500 mls/hr IV BOLUS ONE Stop: 11/03/17 05:21 Last Admin: 11/03/17 04:15 Dose: 500 mls/hr Albumin Human 12.5 gm/ Premix 50 mls @ 25 mls/hr IV Q24H [facility] Stop: 11/06/17 09:59 Last Admin: 11/06/17 08:00 Dose: 25 mls/hr Albumin Human 12.5 gm/ Premix 50 mls @ 25 mls/hr IV Q24H [facility] Stop: 11/06/17 11:59 Last Admin: 11/06/17 09:02 Dose: 25 mls/hr Magnesium Sulfate 2 gm/ Premix 50 mls @ 25 mls/hr IV Q6H [facility] Stop: 11/05/17 05:59 Last Admin: 11/05/17 03:49 Dose: 25 mls/hr Multivitamins/Minerals 10 ml/Chromium/Copper/Manganese/Seleni/Zn 1 ml/ Amino Ac/ Electrol/Dextrose/Calcium 1,011 mls @ 100 mls/hr IV .BY DURATION [facility] Stop: 11/09/17 13:45 Last Admin: 11/09/17 06:35 Dose: Not Given Amino Ac/Electrol/Dextrose/Calcium (Clinimix E 5/15) 1,000 mls @ 100 mls/hr IV .BY DURATION [facility] Stop: 11/09/17 13:45 Last Admin: 11/08/17 21:24 Dose: Not Given Lactated Ringer's (Ringers, Lactated) 750 mls @ 1,500 mls/hr IV .BOLUS ONE Stop: 11/03/17 09:29 Last Admin: 11/03/17 09:00 Dose: 1,500 mls/hr Potassium Phosphate 25 mmole/ (Sodium Chloride) 108.3333 mls @ 35.646 mls/hr IV Q3H [facility] Stop: 11/07/17 16:59 Last Admin: 11/07/17 15:13 Dose: 35.646 mls/hr Magnesium Sulfate 2 gm/ Premix 50 mls @ 25 mls/hr IV Q6H [facility] Stop: 11/10/17 05:59 Last Admin: 11/10/17 04:04 Dose: 25 mls/hr Potassium Phosphate 60 mmole/ (Sodium Chloride) 270 mls @ 50 mls/hr IV ONETIME ONE Stop: 11/08/17 13:23 Last Admin: 11/08/17 07:54 Dose: 50 mls/hr Potassium Phosphate 25 mmole/ (Sodium Chloride) 108.3333 mls @ 27 mls/hr IV ONETIME ONE Stop: 11/09/17 13:30 Last Admin: 11/09/17 09:02 Dose: 27 mls/hr Potassium Phosphate 20 mmole/ (Sodium Chloride) 106.6667 mls @ 35 mls/hr IV ONETIME ONE Stop: 11/09/17 17:02 Last Admin: 11/09/17 14:15 Dose: 35 mls/hr Multivitamins/Minerals 10 ml/Chromium/Copper/Manganese/Seleni/Zn 1 ml/ Amino Ac/ Electrol/Dextrose/Calcium 1,011 mls @ 100 mls/hr IV .BY DURATION [facility] Last Admin: 11/09/17 23:22 Dose: 100 mls/hr Amino Ac/Electrol/Dextrose/Calcium (Clinimix E 5/15) 1,000 mls @ 100 mls/hr IV .BY DURATION [facility] Last Admin: 11/09/17 14:31 Dose: 100 mls/hr Multivitamins/Minerals 10 ml/Chromium/Copper/Manganese/Seleni/Zn 1 ml/ Amino Ac/ Electrol/Dextrose/Calcium 1,011 mls @ 82 mls/hr IV .BY DURATION [facility] Stop: 11/11/17 12:00 Last Admin: 11/10/17 22:13 Dose: 82 mls/hr Amino Ac/Electrol/Dextrose/Calcium (Clinimix E 5/15) 1,000 mls @ 82 mls/hr IV .BY DURATION [facility] Stop: 11/11/17 12:00 Last Admin: 11/11/17 10:45 Dose: 82 mls/hr Fat Emulsion Intravenous (Intralipid 20%) 100 mls @ 8.3 mls/hr IV ONETIME ONE Stop: 11/11/17 04:02 Last Admin: 11/10/17 16:54 Dose: 8.3 mls/hr Ceftriaxone Sodium 2 gm/ (Sodium Chloride) 50 mls @ 100 mls/hr IV Q24H [facility] Last Admin: 11/10/17 11:05 Dose: 100 mls/hr Fat Emulsion Intravenous (Intralipid 20%) 100 mls @ 10 mls/hr IV ONETIME ONE Stop: 11/12/17 01:59 Last Admin: 11/11/17 16:29 Dose: 10 mls/hr Levothyroxine Sodium 100 mcg/ (Levothyroxine Sodium 50 mcg) 150 mcg PO ACBREAKFAST [facility] Last Admin: 11/07/17 07:25 Dose: 150 mcg Lidocaine/Epinephrine (Xylocaine 1% With Epinephrine 1:100,000) Confirm Administered Dose 50 ml .ROUTE .STK-MED ONE Stop: 11/05/17 06:48 Last Admin: 11/05/17 08:40 Dose: 20 ml Lorazepam (Ativan) 0 mg IV ASDIRECTED [facility]DER; Protocol Last Admin: 11/06/17 06:26 Dose: 2 mg Lorazepam (Ativan) 0 mg PO ASDIRECTED RYDER; Protocol Lorazepam (Ativan) 0 mg PO ASDIRECTED PRN; Protocol PRN Reason: ETOH WITHDRAWAL Lorazepam (Ativan) 0 mg IV ASDIRECTED PRN; Protocol PRN Reason: ETOH WITHDRAWAL Last Admin: 11/08/17 11:52 Dose: 1 mg Lorazepam (Ativan) 0 mg IM ASDIRECTED PRN; Protocol PRN Reason: ETOH WITHDRAWAL Meropenem (Merrem) Confirm Administered Dose 500 mg .ROUTE .STK-MED ONE Stop: 11/02/17 07:11 Last Admin: 11/02/17 13:42 Dose: 500 mg Meropenem (Merrem) Confirm Administered Dose 500 mg .ROUTE .STK-MED ONE Stop: 11/02/17 13:21 Last Admin: 11/02/17 14:12 Dose: 500 mg Meropenem (Merrem) Confirm Administered Dose 500 mg .ROUTE .STK-MED ONE Stop: 11/05/17 06:47 Last Admin: 11/05/17 08:42 Dose: 500 mg Naloxone HCl (Narcan) 0.1 mg IVPUSH Q5M PRN PRN Reason: RESP RATE LESS THAN 6/MINUTE Stop: 11/06/17 08:00 Naloxone HCl (Narcan) 0.4 mg IV ASDIRECTED PRN PRN Reason: ITCHING/SLEEPINESS Stop: 11/06/17 08:00 Last Admin: 11/05/17 04:14 Dose: 0.4 mg Neostigmine Methylsulfate (Neostigmine) Confirm Administered Dose 5 mg .ROUTE .STK-MED ONE Stop: 11/02/17 08:13 Neostigmine Methylsulfate (Neostigmine) Confirm Administered Dose 5 mg .ROUTE .STK-MED ONE Stop: 11/02/17 08:13 Scopolamine Patch (Check) [address] [facility] Last Admin: 11/07/17 09:57 Dose: Not Given Non-Formulary Medication (Total Parenteral Nutrition, Central) 1,000 ml .XX .Continue Order [facility] Stop: 11/06/17 11:00 Ondansetron HCl (Zofran) Confirm Administered Dose 4 mg .ROUTE .STK-MED ONE Stop: 11/02/17 08:13 Ondansetron HCl (Zofran) Confirm Administered Dose 4 mg .ROUTE .STK-MED ONE Stop: 11/02/17 08:13 Pantoprazole Sodium (Protonix Iv) [address] [facility] Last Admin: 11/09/17 18:13 Dose: 40 mg Phenylephrine HCl (Pernell-Synephrine) Confirm Administered Dose 10 mg .ROUTE .STK- MED ONE Stop: 11/02/17 14:35 Propofol (Diprivan 20 Ml) Confirm Administered Dose 200 mg .ROUTE .STK-MED ONE Stop: 11/02/17 08:13 Propofol (Diprivan 20 Ml) Confirm Administered Dose 200 mg .ROUTE .STK-MED ONE Stop: 11/02/17 08:13 Propofol (Diprivan 20 Ml) Confirm Administered Dose 200 mg .ROUTE .STK-MED ONE Stop: 11/05/17 06:55 Racepinephrine (S-2 2.25%) Confirm Administered Dose 0.5 ml .ROUTE .STK-MED ONE Stop: 11/02/17 17:53 Last Admin: 11/02/17 18:18 Dose: Not Given Racepinephrine (S-2 2.25%) 0.5 ml NEB Q6HR PRN PRN Reason: Shortness of Breath Last Admin: 11/02/17 17:55 Dose: 0.5 ml Rocuronium Brow[place] (Zemuron) Confirm Administered Dose 50 mg .ROUTE .STK-MED ONE Stop: 11/02/17 08:13 Rocuronium Brow[place] (Zemuron) Confirm Administered Dose 50 mg .ROUTE .STK-MED ONE Stop: 11/02/17 08:13 Rocuronium Brow[place] (Zemuron) Confirm Administered Dose 50 mg .ROUTE .STK-MED ONE Stop: 11/02/17 14:07 Scopolamine (Transderm-Scop) 1.5 mg TOP ONETIME ONE Stop: 11/02/17 08:46 Last Admin: 11/02/17 09:12 Dose: 1.5 mg Succinylcholine Chloride (Quelicin) Confirm Administered Dose 200 mg .ROUTE .STK -MED ONE Stop: 11/02/17 12:10 - Exam Quality Assessment: No: Supplemental Oxygen General: Alert, Oriented, Cooperative, No Acute Distress Lungs: Normal Respiratory Effort GI/Abdominal Exam: Soft, No Distention Extremities: No Pedal Edema Skin: Warm, Dry Psy/Mental Status: Alert, Normal Affect Consult PN Assessment/Plan Procedures: Procedures ASSAY OF MAGNESIUM (10/29/17) ASSAY OF NATRIURETIC PEPTIDE (10/29/17) ASSAY OF PHOSPHORUS (10/29/17) BLOOD TYPING SEROLOGIC ABO (10/29/17) BLOOD TYPING SEROLOGIC RH(D) (10/29/17) CARCINOEMBRYONIC ANTIGEN (10/29/17) COMPLETE CBC AUTOMATED (10/29/17) COMPREHEN METABOLIC PANEL (10/29/17) CT ABD & PELV W/CONTRAST (10/27/17) DIAGNOSTIC COLONOSCOPY (10/29/17) ECHO EXAM OF ABDOMEN (04/25/15) EXTRACRANIAL BILAT STUDY (12/27/13) IMMUNOASSAY TUMOR CA 125 (10/29/17) RBC ANTIBODY SCREEN (10/29/17) ROUTINE VENIPUNCTURE (10/29/17) X-RAY EXAM OF WRIST (12/24/16) (1) Acute hypoactive delirium due to multiple etiologies SNOMED Code(s): 189656110, 008521045, 944866665 Code(s): F05 - DELIRIUM DUE TO KNOWN PHYSIOLOGICAL CONDITION Current Visit : Yes (2) Status post colon resection SNOMED Code(s): 177715972, 48647473, 24612639, 557623419 Code(s): Z90.49 - ACQUIRED ABSENCE OF OTHER SPECIFIED PARTS OF DIGESTIVE TRACT Current Visit: Yes (3) Status post total abdominal hysterectomy and bilateral salpingo- oophorectomy (RENZO-BSO) SNOMED Code(s): 711277245, 585657587 Code(s): Z90.710 - ACQUIRED ABSENCE OF BOTH CERVIX AND UTERUS; Z90.722 - ACQUIRED ABSENCE OF OVARIES, BILATERAL; Z90.79 - ACQUIRED ABSENCE OF OTHER GENITAL ORGAN(S) Current Visit: Yes Problem List Initiated/Reviewed/Updated: Yes My Orders Last 24 Hours: My Active Orders 11/11/17 09:00 Nitrofurantoin [place]/Macrocryst [Macrobid] 100 mg PO BID 11/11/17 11:40 Trolamine Salicylate/Aloe Vera [Aspercreme 10%] 0 gm TOP Q1H PRN 11/11/17 11:42 Cooling Warming Measures [RC] ASDIRECTED Haloperidol Lactate [Haldol] 2.5 mg IVPUSH Q2H PRN Heat Therapy [OM.PC] Routine 11/11/17 12:00 Nystatin [Mycostatin] 5 ml PO QID Plan: ASSESSMENT AND PLAN - Status post exploratory laparotomy for cancer debulking surgery with near total colectomy - from a surgical standpoint seems to be doing fairly well. Bowels continue to move and are on the loose to watery side. She is on TPN for nutritional support. Her pain is fairly well-controlled. Tolerating diet and intake is improving. -oxycodone for moderate pain and acetaminophen for mild pain -Additional postoperative cares including TPN per surgical team Mixed delirium, currently hypoactive - seems to be back to baseline and strength is improving. -continue nitrofurantoin for 4 more days -Low-dose Haldol for significant agitation -Pain control adjustment as above -Melatonin at bedtime -Increase activity as tolerated -Physical therapy Patient seems to be back to baseline from a mental status standpoint. Antibiotic orders are placed for treatment for urinary tract infection. The hospitalist service will sign off at this time. Please feel free to contact me if the patient develops additional difficulties or if there are medical questions. Jacobo De Paz M.D.
[2017-11-12] MEDS: Ondansetron 4 MG/2 ML SDV IVPUSH PRN (11:13)
[2017-11-12] MEDS ORDERED: Fat Emulsion 100 ML IV ONE (16:00)
[2017-11-12] MEDS: Pantoprazole 40 MG Tab.CR PO SCH (20:52)
[2017-11-12] MEDS: Melatonin 3 MG Tab PO SCH (20:52)
[2017-11-12] MEDS: Trolamine Salicylate/Aloe Vera 10% Crm 85 GM Tube TOP PRN ×2 (21:48→23:40)
[2017-11-13] MEDS: oxyCODONE 5 MG Tab PO PRN ×4 (00:52→19:54)
[2017-11-13] MEDS: Acetaminophen 325 MG Tab PO PRN ×2 (03:16→19:55)
[2017-11-13] MEDS: hydrOXYzine HCl 100 MG/2 ML SDV IM PRN (03:40)
[2017-11-13] MEDS: Trolamine Salicylate/Aloe Vera 10% Crm 85 GM Tube TOP PRN (04:14)
[2017-11-13] MEDS: Loperamide 2 MG Cap PO SCH ×4 (06:23→22:00)
[2017-11-13] MEDS: Nystatin Susp 100,000 Unit/ML 5 ML UD Cup PO SCH ×4 (06:23→22:32)
[2017-11-13] MEDS: Levothyroxine 100 MCG Tab PO SCH (07:40)
[2017-11-13] MEDS: amLODIPine 5 MG Tab PO SCH (09:48)
[2017-11-13] MEDS: Nitrofurantoin Monohydrate/Macrocrystalline 100 MG Cap PO SCH ×2 (09:48→20:00)
[2017-11-13] MEDS: Phenazopyridine 95 MG Tab PO SCH ×3 (09:52→20:00)
[2017-11-13] MEDS ORDERED: 1: AA 5%/Calcium/D15W/Lytes 1,000 ML with MVI, Adult with Vitamin K 10 ML, Chromium/Copp IV SCH ×3 (14:00)
[2017-11-13] MEDS: Haloperidol Lactate 5 MG/ML SDV IVPUSH PRN (17:24)
[2017-11-13] MEDS: Melatonin 3 MG Tab PO SCH (20:00)
[2017-11-13] MEDS: Pantoprazole 40 MG Tab.CR PO SCH (20:00)
[2017-11-14] MEDS: oxyCODONE 5 MG Tab PO PRN ×6 (04:15→22:33)
[2017-11-14] MEDS: Trolamine Salicylate/Aloe Vera 10% Crm 85 GM Tube TOP PRN ×3 (04:50→20:36)
[2017-11-14] MEDS: Loperamide 2 MG Cap PO SCH ×2 (05:39→16:23)
[2017-11-14] MEDS: Haloperidol Lactate 5 MG/ML SDV IVPUSH PRN (05:39)
[2017-11-14] MEDS: Nystatin Susp 100,000 Unit/ML 5 ML UD Cup PO SCH ×4 (05:40→21:08)
[2017-11-14] MEDS: Levothyroxine 100 MCG Tab PO SCH (08:35)
[2017-11-14] MEDS: Nitrofurantoin Monohydrate/Macrocrystalline 100 MG Cap PO SCH ×2 (08:36→20:35)
[2017-11-14] MEDS: Phenazopyridine 95 MG Tab PO SCH ×3 (08:36→20:36)
[2017-11-14] MEDS: amLODIPine 5 MG Tab PO SCH (08:41)
[2017-11-14] MEDS: Acetaminophen 325 MG Tab PO PRN ×3 (13:08→20:35)
[2017-11-14] MEDS: Ondansetron 4 MG/2 ML SDV IVPUSH PRN (18:05)
[2017-11-14] MEDS: Melatonin 3 MG Tab PO SCH (20:35)
[2017-11-14] MEDS: Pantoprazole 40 MG Tab.CR PO SCH (20:36)
[2017-11-15] MEDS: Trolamine Salicylate/Aloe Vera 10% Crm 85 GM Tube TOP PRN (01:07)
[2017-11-15] MEDS: Acetaminophen 325 MG Tab PO PRN (01:08)
[2017-11-15] MEDS: oxyCODONE 5 MG Tab PO PRN ×5 (02:44→22:42)
[2017-11-15] MEDS: Nystatin Susp 100,000 Unit/ML 5 ML UD Cup PO SCH ×4 (05:37→21:26)
[2017-11-15] MEDS: Loperamide 2 MG Cap PO SCH ×2 (08:15→16:40)
[2017-11-15] MEDS: Levothyroxine 100 MCG Tab PO SCH (08:15)
[2017-11-15] MEDS: Phenazopyridine 95 MG Tab PO SCH ×3 (08:16→21:27)
[2017-11-15] MEDS: amLODIPine 5 MG Tab PO SCH (08:18)
[2017-11-15] MEDS ORDERED: LORazepam 0.5 MG Tab PO PRN (11:04)
--- NOTE | 2017-11-15 11:05 | PCM.CONSN ---
- General Info Date of Service: 11/15/17 Functional Status: Reports: Pain Controlled, Tolerating Diet - Review of Systems General: Denies: Fever Psychiatric: Denies: Anxiety Systems Review Comment:: I was asked to see Courtney today regarding anxiety. Nursing staff report that she has been busy in her room and has been doing some cleaning. She's been up since 4:00 this morning. She did have one episode yesterday morning that was described as a panic attack where she got very anxious but was able to be settled down after a dose of Haldol. This morning she reports that she does not feel anxious other than some mild anxiety about recent diagnosis of cancer. Her abdominal pain has improved significantly. Strength is improving. Family reports that she is anxious by nature. She is not chronically taking anything for her anxiety. - Patient Data Vitals - Most Recent: Last Vital Signs Temp 37.3 C 11/15/17 11:02 Pulse 96 11/15/17 11:02 Resp 16 11/15/17 11:02 BP 124/55 L 11/15/17 11:02 Pulse Ox 97 11/15/17 11:02 Weight - Most Recent: 74.843 kg I&O - Last 24 Hours: Intake & Output 11/14/17 11/15/17 11/15/17 22:59 06:59 14:59 Output Total 25 3 Balance -25 -3 Lab Results Last 24 Hours: Laboratory Results - last 24 hr 11/15/17 11/15/17 11/15/17 Range/Units 04:57 04:57 09:35 WBC 8.6 (4.5-11.0) K/uL RBC 4.05 (3.30-5.50) M/uL Hgb 10.2 L (12.0-15.0) g/dL Hct 32.5 L (36.0-48.0) % MCV 80 (80-98) fL MCH 25 L (27-31) pg MCHC 31 L (32-36) % Plt Count 468 H (150-400) K/uL Sodium 135 L (140-148) mmol/L Potassium 4.5 (3.6-5.2) mmol/L Chloride 103 (100-108) mmol/L Carbon Dioxide 27 (21-32) mmol/L Anion Gap 9.5 (5.0-14.0) mmol/L BUN 25 H (7-18) mg/dL Creatinine 1.2 H (0.6-1.0) mg/dL Est Cr Clr Drug Dosing 32.04 mL/min Estimated GFR (MDRD) 44 L (>60) Glucose 94 (74-106) mg/dL Calcium 9.0 (8.5-10.1) mg/dL Phosphorus 4.5 (2.5-4.9) mg/dL Magnesium 1.9 (1.8-2.4) mg/dL Total Bilirubin 0.5 D (0.2-1.0) mg/dL AST 35 (15-37) U/L ALT 61 (12-78) U/L Alkaline Phosphatase 73 (46-116) U/L Total Protein 6.3 L (6.4-8.2) g/dL Albumin 2.8 L (3.4-5.0) g/dL Globulin 3.5 (2.3-3.5) g/dL Albumin/Globulin Ratio 0.8 L (1.2-2.2) Free T4 1.09 (0.76-1.46) ng/dL TSH, Ultra Sensitive 10.600 H (0.358-3.740) uIU/mL Med Orders - Current: Current Medications Acetaminophen (Tylenol) 650 mg PO Q4H PRN PRN Reason: Pain/Fever Last Admin: 11/15/17 01:08 Dose: 650 mg Amlodipine Besylate (Norvasc) 5 mg PO DAILY [facility] Last Admin: 11/15/17 08:18 Dose: 5 mg Diphenhydramine HCl (Benadryl) 25 mg PO BEDTIME PRN PRN Reason: SLEEP Last Admin: 11/14/17 20:35 Dose: 25 mg Heparin Sodium (Porcine) (Heparin Lock Flush 100 Units/Ml) 500 units FLUSH ASDIRECTED PRN PRN Reason: central line flush Last Admin: 11/14/17 14:07 Dose: 500 units Hydroxyzine HCl (Vistaril) 50 - 100 mg IM Q4H PRN PRN Reason: Pain Last Admin: 11/13/17 03:40 Dose: 50 mg Levothyroxine Sodium (Synthroid) 200 mcg PO ACBREAKFAST [facility] Last Admin: 11/15/17 08:15 Dose: 200 mcg Loperamide HCl (Imodium) 2 mg PO Q6H PRN PRN Reason: Diarrhea Last Admin: 11/11/17 08:15 Dose: 2 mg Loperamide HCl (Imodium) 2 mg PO BIDAC [facility] Last Admin: 11/15/17 08:15 Dose: 2 mg Melatonin (Melatonin) 9 mg PO BEDTIME [facility] Last Admin: 11/14/17 20:35 Dose: 9 mg Nystatin (Mycostatin) 5 ml PO QID [facility] Last Admin: 11/15/17 11:02 Dose: 5 ml Ondansetron HCl (Zofran) 4 mg IVPUSH Q4H PRN PRN Reason: Nausea Last Admin: 11/14/17 18:05 Dose: 4 mg Oxycodone HCl (Oxycodone) 5 mg PO Q4H PRN PRN Reason: Pain Last Admin: 11/15/17 08:14 Dose: 5 mg Pantoprazole Sodium (Protonix) 40 mg PO BEDTIME [facility] Last Admin: 11/14/17 20:36 Dose: 40 mg Phenazopyridine HCl (Urinary Pain Relief) 95 mg PO TID [facility] Last Admin: 11/15/17 08:16 Dose: 95 mg Racepinephrine (S-2 2.25%) 0.5 ml NEB Q6H PRN PRN Reason: Shortness of Breath Last Admin: 11/15/17 06:04 Dose: 0.5 ml Trolamine Salicylate (Aspercreme 10%) 0 gm TOP Q1H PRN PRN Reason: back pain Last Admin: 11/15/17 01:07 Dose: 1 dose Discontinued Medications Acetaminophen (Tylenol Extra Strength) 1,000 mg PO ONETIME ONE Stop: 11/02/17 07:46 Last Admin: 11/02/17 09:12 Dose: 1,000 mg Bupivacaine HCl (Marcaine 0.5%) Confirm Administered Dose 50 ml .ROUTE .STK-MED ONE Stop: 11/05/17 06:47 Last Admin: 11/05/17 08:40 Dose: 20 ml Cefoxitin Sodium (Mefoxin) Confirm Administered Dose 2 gm .ROUTE .STK-MED ONE Stop: 11/02/17 15:30 Ropivacaine 37.5 ml/Dexamethasone 8 mg/Epinephrine HCl 0.4 mg/ Sodium Chloride 40.1 ml 0 ml NERVRT ASDIRECTED [facility] Last Admin: 11/05/17 08:21 Dose: 80 syringe Dexamethasone (Dexamethasone) Confirm Administered Dose 4 mg .ROUTE .STK-MED ONE Stop: 11/02/17 08:13 Dexamethasone (Dexamethasone) Confirm Administered Dose 4 mg .ROUTE .STK-MED ONE Stop: 11/02/17 08:13 Diazepam (Valium.) 0 mg PO ASDIRECTED PRN; Protocol PRN Reason: ETOH WITHDRAWAL Diphenhydramine HCl (Benadryl) 25 - 50 mg IVPUSH Q6H PRN PRN Reason: ITCHING Stop: 11/06/17 08:00 Last Admin: 11/03/17 14:35 Dose: 25 mg Ephedrine Sulfate (Ephedrine Sulfate) Confirm Administered Dose 50 mg .ROUTE .STK-MED ONE Stop: 11/02/17 12:55 Fentanyl (Sublimaze) Confirm Administered Dose 250 mcg .ROUTE .STK-MED ONE Stop: 11/02/17 08:13 Fentanyl (Sublimaze) Confirm Administered Dose 100 mcg .ROUTE .STK-MED ONE Stop: 11/02/17 11:40 Fentanyl (Sublimaze) Confirm Administered Dose 100 mcg .ROUTE .STK-MED ONE Stop: 11/05/17 06:56 Gabapentin (Neurontin) 300 mg PO ONETIME ONE Stop: 11/11/17 22:22 Last Admin: 11/12/17 00:10 Dose: Not Given Gabapentin (Neurontin) Confirm Administered Dose 300 mg .ROUTE .STK-MED ONE Stop: 11/10/17 22:32 Last Admin: 11/10/17 22:35 Dose: 300 mg Glucagon (Glucagen) Confirm Administered Dose 1 mg .ROUTE .STK-MED ONE Stop: 11/02/17 15:20 Glycopyrrolate (Robinul) Confirm Administered Dose 1 mg .ROUTE .STK-MED ONE Stop: 11/02/17 08:13 Glycopyrrolate (Robinul) Confirm Administered Dose 1 mg .ROUTE .STK-MED ONE Stop: 11/02/17 08:13 Haloperidol Lactate (Haldol) 2.5 mg IVPUSH ONETIME STA Stop: 11/05/17 22:07 Last Admin: 11/05/17 22:10 Dose: 2.5 mg Haloperidol Lactate (Haldol) 2.5 mg IVPUSH Q2H PRN PRN Reason: Agitation Last Admin: 11/06/17 03:25 Dose: 2.5 mg Haloperidol Lactate (Haldol) Confirm Administered Dose 5 mg .ROUTE .STK-MED ONE Stop: 11/05/17 22:12 Last Admin: 11/06/17 02:19 Dose: Not Given Haloperidol Lactate (Haldol) 5 mg IVPUSH Q2H PRN PRN Reason: Agitation Last Admin: 11/10/17 04:04 Dose: 5 mg Haloperidol Lactate (Haldol) 1 mg IVPUSH Q2H PRN PRN Reason: Agitation Last Admin: 11/10/17 20:47 Dose: 1 mg Haloperidol Lactate (Haldol) 5 mg IVPUSH Q2H PRN PRN Reason: Agitation Last Admin: 11/11/17 01:42 Dose: 5 mg Haloperidol Lactate (Haldol) 2.5 mg IVPUSH Q2H PRN PRN Reason: Agitation Last Admin: 11/14/17 05:39 Dose: 2.5 mg Heparin Sodium (Porcine) (Heparin Lock Flush 100 Units/Ml) Confirm Administered Dose 500 units .ROUTE .STK-MED ONE Stop: 11/02/17 07:11 Heparin Sodium (Porcine) (Heparin Sodium) Confirm Administered Dose 5,000 units .ROUTE .STK-MED ONE Stop: 11/02/17 17:16 Last Admin: 11/02/17 18:01 Dose: Not Given Hydromorphone HCl (Dilaudid Circuit [employer] Inspector 15 Mg In Ns 30 Ml) 0 mg IV ASDIRECTED PRN; Protocol 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 Last Admin: 11/08/17 16:06 Dose: 15 mg Dextrose/Lactated Ringer's (Dextrose 5%-Lactated Ringers) 1,000 mls @ 100 mls/ hr IV ASDIRECTED [facility] Stop: 11/03/17 10:00 Last Admin: 11/03/17 06:03 Dose: 100 mls/hr Lactated Ringer's (Ringers, Lactated) 500 mls @ 1,000 mls/hr IV ASDIRECTED [facility] Last Admin: 11/02/17 09:12 Dose: 1,000 mls/hr Cefoxitin Sodium 2 gm/ Sodium (Chloride) 50 mls @ 100 mls/hr IV ONETIME ONE Stop: 11/02/17 09:44 Last Admin: 11/02/17 11:44 Dose: 100 mls/hr Fentanyl 2,500 mcg/ Sodium (Chloride) 250 mls @ 0 mls/hr EPIDUR TITRATE [facility]; Protocol Stop: 11/06/17 08:00 Last Admin: 11/05/17 17:17 Dose: 100 mcg/hr, 10 mls/hr Lactated Ringer's (Ringers, Lactated) Confirm Administered Dose 1,000 mls @ as directed .ROUTE .STK-MED ONE Stop: 11/02/17 11:46 Sodium Chloride (Normal Saline) Confirm Administered Dose 10 mls @ as directed .ROUTE .STK-MED ONE Stop: 11/02/17 12:01 Lactated Ringer's (Ringers, Lactated) Confirm Administered Dose 1,000 mls @ as directed .ROUTE .STK-[facility] ONE Stop: 11/02/17 13:28 Heparin Sodium (Porcine) 5,000 (units/ Sodium Chloride) 501 mls @ 0 mls/hr IV ASDIRECTED [facility] Last Admin: 11/02/17 18:16 Dose: 1 mls/hr Lactated Ringer's (Ringers, Lactated) 1,000 mls @ 125 mls/hr IV ASDIRECTED [facility] Last Admin: 11/05/17 04:13 Dose: 125 mls/hr Cefoxitin Sodium 2 gm/ Sodium (Chloride) 50 mls @ 100 mls/hr IV Q6H [facility] Last Admin: 11/02/17 20:58 Dose: Not Given Cefoxitin Sodium 2 gm/ Sodium (Chloride) 50 mls @ 100 mls/hr IV Q6H [facility] Last Admin: 11/03/17 19:24 Dose: Not Given Cefoxitin Sodium 2 gm/ Sodium (Chloride) 50 mls @ 100 mls/hr IV Q6H [facility] Last Admin: 11/03/17 03:05 Dose: 100 mls/hr Lactated Ringer's (Ringers, Lactated) 500 mls @ 500 mls/hr IV ASDIRECTED [facility] Stop: 11/02/17 23:14 Last Admin: 11/02/17 22:20 Dose: 500 mls/hr Lactated Ringer's (Ringers, Lactated) 500 mls @ 500 mls/hr IV ASDIRECTED [facility] Stop: 11/03/17 02:29 Last Admin: 11/03/17 01:20 Dose: 500 mls/hr Lactated Ringer's (Ringers, Lactated) 500 mls @ 500 mls/hr IV BOLUS ONE Stop: 11/03/17 05:21 Last Admin: 11/03/17 04:15 Dose: 500 mls/hr Albumin Human 12.5 gm/ Premix 50 mls @ 25 mls/hr IV Q24H [facility] Stop: 11/06/17 09:59 Last Admin: 11/06/17 08:00 Dose: 25 mls/hr Albumin Human 12.5 gm/ Premix 50 mls @ 25 mls/hr IV Q24H [facility] Stop: 11/06/17 11:59 Last Admin: 11/06/17 09:02 Dose: 25 mls/hr Magnesium Sulfate 2 gm/ Premix 50 mls @ 25 mls/hr IV Q6H [facility] Stop: 11/05/17 05:59 Last Admin: 11/05/17 03:49 Dose: 25 mls/hr Multivitamins/Minerals 10 ml/Chromium/Copper/Manganese/Seleni/Zn 1 ml/ Amino Ac/ Electrol/Dextrose/Calcium 1,011 mls @ 100 mls/hr IV .BY DURATION [facility] Stop: 11/09/17 13:45 Last Admin: 11/09/17 06:35 Dose: Not Given Amino Ac/Electrol/Dextrose/Calcium (Clinimix E 5/15) 1,000 mls @ 100 mls/hr IV .BY DURATION [facility] Stop: 11/09/17 13:45 Last Admin: 11/08/17 21:24 Dose: Not Given Lactated Ringer's (Ringers, Lactated) 750 mls @ 1,500 mls/hr IV .BOLUS ONE Stop: 11/03/17 09:29 Last Admin: 11/03/17 09:00 Dose: 1,500 mls/hr Lactated Ringer's (Ringers, Lactated) 1,000 mls @ 0 mls/hr IV ASDIRECTED [facility] Potassium Phosphate 25 mmole/ (Sodium Chloride) 108.3333 mls @ 35.646 mls/hr IV Q3H [facility] Stop: 11/07/17 16:59 Last Admin: 11/07/17 15:13 Dose: 35.646 mls/hr Magnesium Sulfate 2 gm/ Premix 50 mls @ 25 mls/hr IV Q6H [facility] Stop: 11/10/17 05:59 Last Admin: 11/10/17 04:04 Dose: 25 mls/hr Potassium Phosphate 60 mmole/ (Sodium Chloride) 270 mls @ 50 mls/hr IV ONETIME ONE Stop: 11/08/17 13:23 Last Admin: 11/08/17 07:54 Dose: 50 mls/hr Potassium Phosphate 25 mmole/ (Sodium Chloride) 108.3333 mls @ 27 mls/hr IV ONETIME ONE Stop: 11/09/17 13:30 Last Admin: 11/09/17 09:02 Dose: 27 mls/hr Potassium Phosphate 20 mmole/ (Sodium Chloride) 106.6667 mls @ 35 mls/hr IV ONETIME ONE Stop: 11/09/17 17:02 Last Admin: 11/09/17 14:15 Dose: 35 mls/hr Multivitamins/Minerals 10 ml/Chromium/Copper/Manganese/Seleni/Zn 1 ml/ Amino Ac/ Electrol/Dextrose/Calcium 1,011 mls @ 100 mls/hr IV .BY DURATION [facility] Last Admin: 11/09/17 23:22 Dose: 100 mls/hr Amino Ac/Electrol/Dextrose/Calcium (Clinimix E 5/15) 1,000 mls @ 100 mls/hr IV .BY DURATION [facility] Last Admin: 11/09/17 14:31 Dose: 100 mls/hr Multivitamins/Minerals 10 ml/Chromium/Copper/Manganese/Seleni/Zn 1 ml/ Amino Ac/ Electrol/Dextrose/Calcium 1,011 mls @ 82 mls/hr IV .BY DURATION [facility] Stop: 11/11/17 12:00 Last Admin: 11/10/17 22:13 Dose: 82 mls/hr Amino Ac/Electrol/Dextrose/Calcium (Clinimix E 5/15) 1,000 mls @ 82 mls/hr IV .BY DURATION [facility] Stop: 11/11/17 12:00 Last Admin: 11/11/17 10:45 Dose: 82 mls/hr Fat Emulsion Intravenous (Intralipid 20%) 100 mls @ 8.3 mls/hr IV ONETIME ONE Stop: 11/11/17 04:02 Last Admin: 11/10/17 16:54 Dose: 8.3 mls/hr Ceftriaxone Sodium 2 gm/ (Sodium Chloride) 50 mls @ 100 mls/hr IV Q24H [facility] Last Admin: 11/10/17 11:05 Dose: 100 mls/hr Multivitamins/Minerals 10 ml/Chromium/Copper/Manganese/Seleni/Zn 1 ml/ Amino Ac/ Electrol/Dextrose/Calcium 1,011 mls @ 60 mls/hr IV .BY DURATION [facility] Stop: 11/13/17 13:00 Last Admin: 11/12/17 04:13 Dose: 60 mls/hr Amino Ac/Electrol/Dextrose/Calcium (Clinimix E 5/15) 1,000 mls @ 60 mls/hr IV .BY DURATION [facility] Stop: 11/13/17 13:00 Last Admin: 11/12/17 21:24 Dose: 60 mls/hr Fat Emulsion Intravenous (Intralipid 20%) 100 mls @ 10 mls/hr IV ONETIME ONE Stop: 11/12/17 01:59 Last Admin: 11/11/17 16:29 Dose: 10 mls/hr Fat Emulsion Intravenous (Intralipid 20%) 100 mls @ 10 mls/hr IV ONETIME ONE Stop: 11/13/17 01:59 Last Admin: 11/12/17 15:27 Dose: 10 mls/hr Multivitamins/Minerals 10 ml/Chromium/Copper/Manganese/Seleni/Zn 1 ml/ Amino Ac/ Electrol/Dextrose/Calcium 1,011 mls @ 40 mls/hr IV .BY DURATION [facility] Stop: 11/14/17 13:59 Last Admin: 11/13/17 14:26 Dose: 40 mls/hr Amino Ac/Electrol/Dextrose/Calcium (Clinimix E 5/15) 1,000 mls @ 40 mls/hr IV .BY DURATION [facility] Stop: 11/14/17 13:59 Levothyroxine Sodium 100 mcg/ (Levothyroxine Sodium 50 mcg) 150 mcg PO ACBREAKFAST [facility] Last Admin: 11/07/17 07:25 Dose: 150 mcg Lidocaine/Epinephrine (Xylocaine 1% With Epinephrine 1:100,000) Confirm Administered Dose 50 ml .ROUTE .STK-MED ONE Stop: 11/05/17 06:48 Last Admin: 11/05/17 08:40 Dose: 20 ml Loperamide HCl (Imodium) 2 mg PO QID [facility] Last Admin: 11/14/17 05:39 Dose: 2 mg Lorazepam (Ativan) 0 mg IV ASDIRECTED [facility]; Protocol Last Admin: 11/06/17 06:26 Dose: 2 mg Lorazepam (Ativan) 0 mg PO ASDIRECTED [facility]; Protocol Lorazepam (Ativan) 0 mg PO ASDIRECTED PRN; Protocol PRN Reason: ETOH WITHDRAWAL Lorazepam (Ativan) 0 mg IV ASDIRECTED PRN; Protocol PRN Reason: ETOH WITHDRAWAL Last Admin: 11/08/17 11:52 Dose: 1 mg Lorazepam (Ativan) 0 mg IM ASDIRECTED PRN; Protocol PRN Reason: ETOH WITHDRAWAL Meropenem (Merrem) Confirm Administered Dose 500 mg .ROUTE .STK-MED ONE Stop: 11/02/17 07:11 Last Admin: 11/02/17 13:42 Dose: 500 mg Meropenem (Merrem) Confirm Administered Dose 500 mg .ROUTE .STK-MED ONE Stop: 11/02/17 13:21 Last Admin: 11/02/17 14:12 Dose: 500 mg Meropenem (Merrem) Confirm Administered Dose 500 mg .ROUTE .STK-MED ONE Stop: 11/05/17 06:47 Last Admin: 11/05/17 08:42 Dose: 500 mg Naloxone HCl (Narcan) 0.1 mg IVPUSH Q5M PRN PRN Reason: RESP RATE LESS THAN 6/MINUTE Stop: 11/06/17 08:00 Naloxone HCl (Narcan) 0.4 mg IV ASDIRECTED PRN PRN Reason: ITCHING/SLEEPINESS Stop: 11/06/17 08:00 Last Admin: 11/05/17 04:14 Dose: 0.4 mg Naloxone HCl (Narcan) 0.1 mg IV ASDIRECTED PRN PRN Reason: decreased respiratory rate Neostigmine Methylsulfate (Neostigmine) Confirm Administered Dose 5 mg .ROUTE .STK-MED ONE Stop: 11/02/17 08:13 Neostigmine Methylsulfate (Neostigmine) Confirm Administered Dose 5 mg .ROUTE .STK-MED ONE Stop: 11/02/17 08:13 Nitrofurantoin Macrocrystals (Macrobid) 100 mg PO BID [facility] Stop: 11/14/17 21:01 Last Admin: 11/14/17 20:35 Dose: 100 mg Scopolamine Patch (Check) 1 each TOP DAILY [facility] Last Admin: 11/07/17 09:57 Dose: Not Given Non-Formulary Medication (Total Parenteral Nutrition, Central) 1,000 ml .XX .Continue Order [facility] Stop: 11/06/17 11:00 Ondansetron HCl (Zofran) Confirm Administered Dose 4 mg .ROUTE .STK-MED ONE Stop: 11/02/17 08:13 Ondansetron HCl (Zofran) Confirm Administered Dose 4 mg .ROUTE .STK-MED ONE Stop: 11/02/17 08:13 Pantoprazole Sodium (Protonix Iv) 40 mg IV Q24H [facility] Last Admin: 11/09/17 18:13 Dose: 40 mg Phenylephrine HCl (Pernell-Synephrine) Confirm Administered Dose 10 mg .ROUTE .STK- MED ONE Stop: 11/02/17 14:35 Propofol (Diprivan 20 Ml) Confirm Administered Dose 200 mg .ROUTE .STK-MED ONE Stop: 11/02/17 08:13 Propofol (Diprivan 20 Ml) Confirm Administered Dose 200 mg .ROUTE .STK-MED ONE Stop: 11/02/17 08:13 Propofol (Diprivan 20 Ml) Confirm Administered Dose 200 mg .ROUTE .STK-MED ONE Stop: 11/05/17 06:55 Racepinephrine (S-2 2.25%) Confirm Administered Dose 0.5 ml .ROUTE .STK-MED ONE Stop: 11/02/17 17:53 Last Admin: 11/02/17 18:18 Dose: Not Given Racepinephrine (S-2 2.25%) 0.5 ml NEB Q6HR PRN PRN Reason: Shortness of Breath Last Admin: 11/02/17 17:55 Dose: 0.5 ml Rocuronium Tow (Zemuron) Confirm Administered Dose 50 mg .ROUTE .STK-MED ONE Stop: 11/02/17 08:13 Rocuronium Tow (Zemuron) Confirm Administered Dose 50 mg .ROUTE .STK-MED ONE Stop: 11/02/17 08:13 Rocuronium Tow (Zemuron) Confirm Administered Dose 50 mg .ROUTE .STK-MED ONE Stop: 11/02/17 14:07 Scopolamine (Transderm-Scop) 1.5 mg TOP ONETIME ONE Stop: 11/02/17 08:46 Last Admin: 11/02/17 09:12 Dose: 1.5 mg Succinylcholine Chloride (Quelicin) Confirm Administered Dose 200 mg .ROUTE .STK -MED ONE Stop: 11/02/17 12:10 - Exam Quality Assessment: No: Supplemental Oxygen General: Alert, Oriented, Cooperative, No Acute Distress Lungs: Normal Respiratory Effort GI/Abdominal Exam: Soft, No Distention Extremities: No Pedal Edema Psy/Mental Status: Alert, Normal Affect. No: Anxious Consult PN Assessment/Plan Procedures: Procedures ASSAY OF MAGNESIUM (10/29/17) ASSAY OF NATRIURETIC PEPTIDE (10/29/17) ASSAY OF PHOSPHORUS (10/29/17) BLOOD TYPING SEROLOGIC ABO (10/29/17) BLOOD TYPING SEROLOGIC RH(D) (10/29/17) CARCINOEMBRYONIC ANTIGEN (10/29/17) COMPLETE CBC AUTOMATED (10/29/17) COMPREHEN METABOLIC PANEL (10/29/17) CT ABD & PELV W/CONTRAST (10/27/17) DIAGNOSTIC COLONOSCOPY (10/29/17) ECHO EXAM OF ABDOMEN (04/25/15) EXTRACRANIAL BILAT STUDY (12/27/13) IMMUNOASSAY TUMOR CA 125 (10/29/17) RBC ANTIBODY SCREEN (10/29/17) ROUTINE VENIPUNCTURE (10/29/17) X-RAY EXAM OF WRIST (12/24/16) (1) Acute hypoactive delirium due to multiple etiologies SNOMED Code(s): 232388773, 270144905, 418834639 Code(s): F05 - DELIRIUM DUE TO KNOWN PHYSIOLOGICAL CONDITION Current Visit : Yes (2) Status post colon resection SNOMED Code(s): 392662037, 61821274, 23348654, 711562972 Code(s): Z90.49 - ACQUIRED ABSENCE OF OTHER SPECIFIED PARTS OF DIGESTIVE TRACT Current Visit: Yes (3) Status post total abdominal hysterectomy and bilateral salpingo- oophorectomy (RENZO-BSO) SNOMED Code(s): 822280214, 965472569 Code(s): Z90.710 - ACQUIRED ABSENCE OF BOTH CERVIX AND UTERUS; Z90.722 - ACQUIRED ABSENCE OF OVARIES, BILATERAL; Z90.79 - ACQUIRED ABSENCE OF OTHER GENITAL ORGAN(S) Current Visit: Yes Problem List Initiated/Reviewed/Updated: Yes My Orders Last 24 Hours: My Active Orders 11/15/17 11:04 LORazepam [Ativan] 0.5 mg PO Q6H PRN Plan: ASSESSMENT AND PLAN - Status post exploratory laparotomy for cancer debulking surgery with near total colectomy - from a surgical standpoint seems to be doing fairly well. Bowels continue to move and are on the loose to watery side. She is on TPN for nutritional support. Her pain is fairly well-controlled. Tolerating diet and intake is improving. -oxycodone for moderate pain and acetaminophen for mild pain -Additional postoperative cares including TPN per surgical team Generalized anxiety - family reports patient has some difficulty with anxiety at baseline. She is not currently anxious. Did have what sounds like a mild panic attack yesterday. Seems to be doing well today. I did check a T4 to rule out hyperthyroid state and this was in the normal range. The patient does not interested in much in the way of medication management at this time since she does not feel anxious. She may benefit from a regular medication to help decrease anxiety but given her recent difficulty with medications and delirium I would hold off starting anything until she has recovered from the surgery and hospital stay. I would recommend that she follows up with her primary care physician to discuss this in a couple weeks' time to see if she still has some residual anxiety. She could consider low-dose lorazepam for panic attacks. I think returning to her usual environment will help significantly. -Lorazepam as needed for panic attacks Mixed delirium, currently hypoactive - resolved. -Low-dose Haldol for significant agitation -Pain control adjustment as above -Melatonin at bedtime -Increase activity as tolerated -Physical therapy Jacobo De Paz M.D.
--- NOTE | 2017-11-15 11:20 | PN ---
DATE OF SERVICE: 11/15/2017 SUBJECTIVE: The patient is clinically doing better and better. Her confusion appears to be relatively gone and she is ambulating, eating well, moving her bowels at a reasonable rate. She does have a significant amount of anxiety evaluate the patient regarding possible treatment for the anxiety. Otherwise, we are awaiting on discharge planning issues in terms of whether there are going to be family members who can stay with the patient upon discharge or she needs to go to the short-term [facility] on Thursday. We will work on getting Medical Oncology consultation. The case was reviewed with Nida Brantley of the Medical Oncology Department, who felt that she would be a good candidate for a FOLFOX type chemotherapy and would likely tolerate that quite well. Stanley Jeter MD /[id number]
--- NOTE | 2017-11-15 14:05 | PN ---
DATE OF SERVICE: 11/14/2017 The patient has been afebrile with stable vital signs. No major problems were noted overnight. Her mental status appears to be gradually improving but is still not normal by any stretch. Oral intake was fairly good. We will discontinue the TPN after the present bag is completed on. Otherwise, we will check some labs along with a TSH tomorrow. She has only had 1 bowel movement in the last 24 hours and probably a little bit more frequently and this will move the Imodium down to 2 mg b.i.d. rather than q.i.d. We will have discharge planning begin working up the case with the patient's family, determine how they will proceed standpoint or whether she is to go to some rehab facility for a period of time. We will arrange Medical Oncology to see the patient next week as well. Stanley Jeter MD /[id number]
--- NOTE | 2017-11-15 14:11 | PN ---
DATE OF SERVICE: 11/13/2017 SUBJECTIVE: The patient has been afebrile with stable vital signs. Remains quite alert at this point and I will transfer to 2nd floor. We will take the Tello catheter out at this point. She was having some urinary burning and oral intake was around 1200, only 1 bowel movement overnight, so things are doing better in terms of GI tract. We will back down the TPN to 40 mL now. Stanley Jeter MD /[id number]
[2017-11-15] MEDS: Pantoprazole 40 MG Tab.CR PO SCH (21:26)
[2017-11-15] MEDS: Melatonin 3 MG Tab PO SCH (21:27)
[2017-11-16] MEDS: oxyCODONE 5 MG Tab PO PRN ×2 (02:37→09:13)
[2017-11-16] MEDS: Nystatin Susp 100,000 Unit/ML 5 ML UD Cup PO SCH (05:30)
[2017-11-16] MEDS: Levothyroxine 100 MCG Tab PO SCH (09:09)
[2017-11-16] MEDS: amLODIPine 5 MG Tab PO SCH (09:10)
[2017-11-16] MEDS: Phenazopyridine 95 MG Tab PO SCH (09:40)
[2017-11-16] MEDS: Loperamide 2 MG Cap PO SCH (09:40)
--- NOTE | 2017-11-16 12:31 | DISCH ---
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 SECONDARY DIAGNOSES: 1. Postoperative delirium due to multiple etiologies, possibly related to alcohol withdrawal. 2. Inadequately treated hypothyroidism. OPERATIVE PROCEDURES: These were done on 11/02/2017. 1. Insertion of left subclavian vein triple-lumen catheter. 2. Exploratory laparotomy with;. a. Total abdominal hysterectomy and bilateral salpingo-oophorectomy with ovarian cancer debulking/staging procedure including retroperitoneal lymph node dissection. b. Total abdominal colectomy with ileorectal anastomosis. c. Placement of tube gastrostomy. d. Wedge biopsy of proximal small bowel involving metastatic implant. e. Umbilical hernia repair. f. Cystotomy with placement of bilateral ureteral stents. Then, on 11/05/2017, delayed primary closure of abdominal incision. HOSPITAL COURSE: This is a 77-year-old female presenting with progressive abdominal distention, anorexia, and some weight loss. An initial CT scan showed what appeared to be a picture of an advanced ovarian carcinoma. The CT also has suggestion of a cecal carcinoma. The patient underwent a colonoscopy, which did confirm the cecal carcinoma. On the day of admission, the patient had an exploratory laparotomy. The overall picture was suggestive of an ovarian cancer with both ovaries being involved and being 13 to 15 cm in diameter, and the patient had carcinomatosis particularly in the pelvis and to a lesser extent the lower and midabdomen. The patient also had the cecal carcinoma. The patient had extensive fairly dense pelvic disease and a cystotomy was undertaken and bilateral ureteral stents placed. This allowed a satisfactory debulking of the pelvis. Sigmoid colon was also fairly densely involved. So, the patient, on final resection, had a total abdominal colectomy with ileorectal anastomosis. To facilitate postoperative care, a gastrostomy tube was also then placed along with insertion of a left subclavian triple-lumen catheter. The patient did receive TPN for an extended period postoperatively. In the early postoperative period, the patient did well from a mental status. Around postoperative day #4, she developed increasing confusion and was felt per family's report likely to have some component of alcohol withdrawal. This gradually has cleared, and her mental status now presently is satisfactory. She was receiving some Haldol up until the last couple of days, but has not needed any since then. A TSH was also checked, and this was noted to be around 13. It is uncertain whether or not she was taking her usual Synthroid prescription dose of 150 mcg a day. We did move that up to 200 mcg a day for the duration of the hospitalization and with now Home Care being involved along with family, she will likely have better compliance with the medical management. We will leave her on 150 mcg and recheck a TSH in around 2-1/2 to 3 months. The case was briefly reviewed with Medical Oncology PA, Nida Andrade, at [facility], and it was felt that with the patient being well- debulked (at the end of the operation, there was no gross disease remaining), she would be a good candidate for chemotherapy and would likely tolerate the regimen likely to be administered for the patient. She will be discharged home on 11/16/2017. She will follow up with Dr. Jeter in [facility] on 11/18/2017. The G-tube will need to stay in place around 5 weeks postoperatively, but would not necessarily be a contraindication in starting chemotherapy. We will also try getting a Medical Oncology appointment this week. If not, we will get one early next week. The Medical Oncology appointment will be in [place]. DISCHARGE MEDICATIONS: Medications on discharge include Synthroid 150 mcg a day; amlodipine 5 mg p.o. daily; Tylenol 650 mg q.6 hours p.r.n. pain; Imodium 2 mg p.o. t.i.d. p.r.n. loose frequent bowel movements; melatonin 9 mg p.o. at bedtime; oxycodone 5 mg p.o. q.4 hours p.r.n. pain, #50; Aspercreme as needed, and then banana flakes 1 packet daily to help bulk up the bowel movements. One final note is that, on final pathology, the entire tumor appears to be a colon primary based on various stains performed per Pathology. Her CEA and CA-125 were both moderately elevated, and it was noted that colon carcinomas can produce an elevation in CA-125 as well as CEA. The patient has some amount of deconditioning as well as a complex medical situation and will receive nursing and physical therapy home care.
--- NOTE | 2017-11-17 08:36 | PN ---
DATE OF SERVICE: 11/12/2017 The patient has been afebrile with stable vital signs. She is much more lucid today and will participate in a reasonably good conversation. The operative findings were reviewed with the patient, as well as the option for chemotherapy. The latter was reviewed with Medical Oncology yesterday, and they feel that she would likely be a good candidate for chemotherapy, given the extent of the surgical resection down to minimal disease. Otherwise, oral intake has not been too good yet, and we will continue with TPN at 60 mL now and encourage increased oral intake today. I think, with the improved mental status, that may go better. Bowels are slowing down somewhat. We will continue present banana flakes and Imodium regimen. After transfusion yesterday, her hemoglobin is up to 10.2. Chemistries are pending. Stanley Jeter MD /[id number]
--- NOTE | 2017-11-17 09:03 | OR ---
DATE OF PROCEDURE: 11/02/2017 PREOPERATIVE DIAGNOSES: 1. Indication for central venous access. 2. Likely extensive ovarian carcinoma. 3. Primary cecal carcinoma. POSTOPERATIVE DIAGNOSES: 1. Indication for central venous access. 2. Bilateral malignant ovarian masses with extensive pelvic and lesser extensive abdominal peritoneal metastases. 3. Primary cecal carcinoma. 4. Incarcerated umbilical hernia. OPERATIVE PROCEDURE: 1. Insertion of left subclavian vein triple-lumen catheter (92262). 2. Exploratory laparotomy with: a. Total abdominal hysterectomy and bilateral salpingo-oophorectomy, including ovarian tumor debulking/staging procedure with retroperitoneal lymph node dissection (13128). b. Total abdominal colectomy with ileorectal anastomosis (69675). c. Placement of tube gastrostomy (06889). d. Wedge biopsy of proximal small bowel (63269). e. Repair of incarcerated umbilical hernia (50249). f. Cystostomy with placement of bilateral ureteral stents (58655). INDICATION FOR PROCEDURE: The patient presents with recent progressive lower abdominal distention. CT scan was obtained, which showed a picture highly suggestive of extensive ovarian carcinoma. It also showed a suspicion for a separate cecal carcinoma, the latter of which was confirmed by colonoscopy last week. The plan is to proceed with an exploratory laparotomy and likely ovarian cancer debulking procedure, along with a right colectomy. The patient may very well require a total abdominal colectomy, assuming that there is significant involvement of the sigmoid colon, with which removal would be required in order to satisfactorily reduce the pelvic tumor burden, as discussed with the patient and family. We will likely place a gastrostomy tube, as well as the significant amount of dissection will likely result in a fairly prolonged ileus, and gastrostomy tube would be a much better option than fairly protracted nasogastric tube. Potential risks of procedure including bleeding, infection, leaks from various GI tract closures, possibility that tumor may not be resectable or meaningfully cytoreduced, as well as possibility of cardiopulmonary, septic, or hemorrhagic complications leading to were discussed, and the patient wishes to proceed. ANESTHESIA: General plus epidural. [employer] LIBRARY CLERK: Nelly Burnett PA-C. OPERATIVE FINDINGS: Upon entering the peritoneal cavity, there is a moderate amount of cytologic fluid. This was sent for histologic evaluation. The patient had two separate ovarian masses. On the right side, this was an intact mass measuring 14 cm, and on the left side, this mass had ruptured and divided with a total length of around 15 cm. This was associated with a carcinomatosis most prevalent within the pelvis and to a lesser extent in the upper and mid abdomen. There was not any gross disease in the diaphragmatic surfaces. The patient also had palpable cecal carcinoma. This appeared to be probably full thickness, with some omentum adherent and otherwise drawn in in a "napkin ring" type configuration of the colon at the tumor site. Because of the extensive pelvic tumor, it was felt that dissection without ureteral stents would be difficult. Given this, cystoscopy was undertaken and bilateral ureteral stents placed. At the conclusion of the procedure, the patient appeared to be well cytoreduced with there being no grossly evident tumor palpable or visible remaining in the abdomen or pelvis at the conclusion of the procedure. DETAILS OF PROCEDURE: The patient was taken to the operating room, placed in the supine position. After general endotracheal anesthesia was induced, she was placed in a lithotomy position. Nasogastric tube was initially placed, along with Tello catheter, and the abdomen prepped and draped. A long midline incision, which eventually extended from just below the xiphoid to the pubis, was made and carried down through the full-thickness abdominal wall. The patient was noted to have an umbilical hernia that had some hard content within it, suspicious for potentially metastatic carcinoma. Upon entering the peritoneal cavity, the ascitic fluid was evacuated and sent for cytologic evaluation. At this point then, so as to avoid rupture of the right ovary, right salpingo-oophorectomy, including the large mass involving right ovary, was removed by means of a MACK stapler. Following this then, the bladder was opened and the bilateral ureteral stents. The opening of the bladder was then closed with 2 layers of 3-0 Vicryl stitch. Attention was then continued to the total abdominal hysterectomy and removal of the remaining left ovarian mass. The infundibulopelvic ligaments, broad and round ligaments were divided on each side with delia. The peritoneal reflection of bladder on the uterus was then divided and the bladder dissected down onto the upper vagina. The latter was then encircled with a MACK black curved load and divided, prior to which the cardinal ligament vessels were divided with delia as well. This then allowed removal of the uterus and attached left adnexal mass. Attention was then taken to the colon resection. It was felt, at this point, that we needed to proceed with a total abdominal colectomy, as there was a large amount of tumor burden studded across the sigmoid colon and its mesentery. Given this, initially the rectum was divided with a MACK black load, again with a circled configuration. This was at a point just below the peritoneal reflection out of the focus of where there would be any peritoneal tumor. The distal small bowel was then divided, and the peritoneal reflection of the ascending colon and hepatic flexure was divided, and this allowed medial mobilization of the right side of the colon. The sigmoid colon was then similarly freed up, as was the descending colon and this was all reflected medially as well. The mesentery was then divided, beginning in the cecal area, with MACK vascular and mesenteric loads. This included removal of some of the retroperitoneal lymphadenopathy that was seen on the preoperative imaging. At this point, a general perineal exploration was undertaken. One nodule was present at the base of the small bowel mesentery where it joined the small bowel. This was resected with a small wedge resection of the small bowel by means of a MACK stapler. Following this, multiple areas of peritoneal implants were excised, as outlined in the pathology report. Diaphragmatic peritoneum was obtained from the right side by means of electrocautery, and that specimen was then delivered from the field. GI tract continuity was then reestablished. The anvil of a 25-mm EEA stapler was passed into the divided end of the small bowel, which was then stapled off, as the anvil was brought out just proximal to the end, through the rectum, and the EEA stapler was brought up the apex of the divided rectum and united with the anvil in the small bowel, thus creating the ileorectal anastomosis. Upon removal of the stapler, double donuts of mucosa were noted within it. The bowel was then flooded with an antibiotic-containing saline solution, and the colonoscope was passed up to the level of the anastomosis, and this was visualized to be intact with blood supply evident, and with air insufflation, no leaks were seen. The scope was then withdrawn. The gastrostomy tube was then placed in the mid to greater curvature of the stomach. An 18- gauge Tello catheter was brought through the abdominal wall in the left subcostal area. A small opening was made in the stomach, and the gastrostomy tube was placed there and inflated with 10 mL of saline. The gastrostomy was then affixed with a pursestring stitch of 3-0 Vicryl stitch, then brought up against the abdominal wall with several 3-0 Vicryl stitches as well and fixed at the skin level with a #2 Vicryl stitch. At that point, no further problems were noted. A general final exploration was undertaken. There did not appear to be any remaining lymphadenopathy in the retroperitoneum. After that area had been further dissected up to the level of the junction of the aorta and the pancreas, the liver and spleen were free of any evident metastatic disease, and the peritoneal surfaces of both pelvis and abdomen were free of any evident pathology. Two Kalen-Aggarwal drains were then placed, one on each side and taken down along the pelvic sidewall, and the ileorectal anastomosis was then reinforced with some fibrin sealant, along with a 3-0 silk seromuscular stitch. The midline fascia was then approximated with #2 Vicryl stitch. The skin and subcutaneous tissues were felt to be high risk for wound infection, should a primary closure be undertaken. Given this, this was packed open with Iodoform gauze for planned delayed primary closure in 72 hours. The patient was taken to the recovery room in satisfactory condition. There were no evident complications. Stanley Jeter MD /[id number]
== END 2017-11-16 09:40 | disposition home or self-care (01) | DRG 327 ==
LOC: JP.SDS 08:17 → JP.SDSSCHI 08:17 → EDSTATUS 11:30 → JP.ICU 17:30 → JP.MS 11-05 13:45 → JP.ICU 11-06 06:47 → JP.MS 11-13 11:47
PROVIDERS: ADMIT Surgery; ATTEND Surgery
PROC: 0DTE0ZZ Resection of Large Intestine, Open Approach (ICD-10-PCS; principal; 2017-11-02)
PROC: 0DH60UZ Insertion of Feeding Device into Stomach, Open Approach (ICD-10-PCS; 2017-11-02)
PROC: 0UT90ZZ Resection of Uterus, Open Approach (ICD-10-PCS; 2017-11-02)
PROC: 0UT20ZZ Resection of Bilateral Ovaries, Open Approach (ICD-10-PCS; 2017-11-02)
PROC: 0UT70ZZ Resection of Bilateral Fallopian Tubes, Open Approach (ICD-10-PCS; 2017-11-02)
PROC: 0UB20ZZ Excision of Bilateral Ovaries, Open Approach (ICD-10-PCS; 2017-11-02)
PROC: 07BC0ZX Excision of Pelvis Lymphatic, Open Approach, Diagnostic (ICD-10-PCS; 2017-11-02)
PROC: 0DB80ZX Excision of Small Intestine, Open Approach, Diagnostic (ICD-10-PCS; 2017-11-02)
PROC: 0DB80ZX Excision of Small Intestine, Open Approach, Diagnostic (ICD-10-PCS; 2017-11-02)
PROC: 0DB80ZX Excision of Small Intestine, Open Approach, Diagnostic (ICD-10-PCS; 2017-11-02)
PROC: 0DB80ZX Excision of Small Intestine, Open Approach, Diagnostic (ICD-10-PCS; 2017-11-02)
PROC: 0D1B0ZP Bypass Ileum to Rectum, Open Approach (ICD-10-PCS; 2017-11-02)
PROC: 0T7D8DZ Dilation of Urethra with Intraluminal Device, Via Natural or Artificial Opening Endoscopic (ICD-10-PCS; 2017-11-02)
PROC: 02HV33Z Insertion of Infusion Device into Superior Vena Cava, Percutaneous Approach (ICD-10-PCS; 2017-11-02)
PROC: B548ZZA Ultrasonography of Superior Vena Cava, Guidance (ICD-10-PCS; 2017-11-02)
PROC: 0WQF0ZZ Repair Abdominal Wall, Open Approach (ICD-10-PCS; 2017-11-05)
PROC: 30233N1 Transfusion of Nonautologous Red Blood Cells into Peripheral Vein, Percutaneous Approach (ICD-10-PCS; 2017-11-05)
PROC: 30233N1 Transfusion of Nonautologous Red Blood Cells into Peripheral Vein, Percutaneous Approach (ICD-10-PCS; 2017-11-11)
DX: C18.0 Malignant neoplasm of cecum (principal); C18.9 Malignant neoplasm of colon, unspecified; C77.2 Secondary and unspecified malignant neoplasm of intra-abdominal lymph nodes; C79.62 Secondary malignant neoplasm of left ovary; C79.61 Secondary malignant neoplasm of right ovary; C78.6 Secondary malignant neoplasm of retroperitoneum and peritoneum; K42.0 Umbilical hernia with obstruction, without gangrene; R18.8 Other ascites; F10.231 Alcohol dependence with withdrawal delirium; F05 Delirium due to known physiological condition; N39.0 Urinary tract infection, site not specified; D64.9 Anemia, unspecified; I10 Essential (primary) hypertension; Z48.1 Encounter for planned postprocedural wound closure; E03.9 Hypothyroidism, unspecified; R59.0 Localized enlarged lymph nodes; Z87.891 Personal history of nicotine dependence; R19.7 Diarrhea, unspecified; T51.0X1A Toxic effect of ethanol, accidental (unintentional), initial encounter; B95.2 Enterococcus as the cause of diseases classified elsewhere; E83.42 Hypomagnesemia; E88.09 Other disorders of plasma-protein metabolism, not elsewhere classified; F41.1 Generalized anxiety disorder; I25.2 Old myocardial infarction; H54.7 Unspecified visual loss; E87.6 Hypokalemia; E83.39 Other disorders of phosphorus metabolism
CPT/HCPCS: 36415; 36430; 51702; 70450; 71045; 71045-26; 74018; 74018-26; 80053; 81001; 81301; 83735; 83880; 84100; 84439; 84443; 85025; 85027; 86850; 86900; 86901; 86920; 86922; 87046; 87086; 87088; 87186; 87493; 87899; 88112; 88302; 88305; 88307; 88309; 88313; 88341; 88342; 88381; 94640; 94762; 97110-GP; 97162-GP; 97530-GP; A9270-GY; C1781; C1874; C9113; J0171; J0330; J0694; J0696; J1100; J1170; J1200; J1610; J1630; J1642; J1644; J2060; J2185; J2310; J2370; J2405; J2704; J2710; J2795; J3010; J3410; J3475; J3490; J7030; J7040; J7042; J7050; J7120; P9016; P9047

== ENCOUNTER 2017-12-14 06:39 | Day surgery (SDC) | payer MEDICARE ==
[2017-12-14] MEDS ORDERED: Meropenem 500 MG SDV ONE (06:55)
[2017-12-14] MEDS ORDERED: Lidocaine 1% with EPINEPHrine 1:100,000 50 ML MDV ONE (06:55)
[2017-12-14] MEDS ORDERED: Bupivacaine 0.5% 50 ML MDV ONE (06:55)
[2017-12-14] MEDS ORDERED: fentaNYL 100 MCG/2 ML SDV ONE (07:06)
[2017-12-14] MEDS ORDERED: Propofol 200 MG/20 ML SDV ONE ×3 (07:06→09:30)
[2017-12-14] MEDS ORDERED: Dextrose 5%-Lactated Ringers 1,000 ML IV SCH (07:15)
[2017-12-14] MEDS ORDERED: ceFAZolin 2 GM in Premix Bag 1 BAG IV ONE (08:15)
[2017-12-14] MEDS ORDERED: Linezolid 200 MG/100 ML Bag IRR ONE (09:10)
[2017-12-14] MEDS ORDERED: Ibuprofen 200 MG Tab PO ONE (10:40)
--- NOTE | 2017-12-22 08:48 | OR ---
DATE OF PROCEDURE: 12/14/2017 PREOPERATIVE DIAGNOSES: 1. Indications for central venous access. 2. Status gastrostomy. 3. Status bilateral ureteral stent placement. OPERATIVE PROCEDURE: 1. Placement of Bard PowerPort (47215). 2. Removal and surgical takedown of gastrostomy (39853). 3. Cystoscopy with removal of ureteral stents (82335). ANESTHESIA: Local plus IV sedation. INDICATION FOR PROCEDURE: The patient is status post a surgical procedure for treatment of a colon carcinoma with extensive retroperitoneal disease. She is to received postop chemotherapy at this point and a port is to be placed. She also has a gastrostomy tube in place, which is now roughly 5 weeks postoperative and is to be removed and bilateral ureteral stents which were placed intraoperatively to limit chances of ureteral injury during the pelvic phase of the previous surgical procedure and these are to be removed as well. Potential risks including bleeding, infection, injury to the lung or vasculature with placement of the port were reviewed, and the patient wishes to proceed. DETAILS OF PROCEDURE: The patient was taken to the operating room, placed in a supine position. After IV sedation was administered, the upper chest and neck areas were prepped and draped. The left subclavian vein was then cannulated, guidewire was passed and manipulated into superior vena cava. Some additional local was then injected and a transverse infraclavicular incision was made and extended down to the level of the pectoralis major fascia which was incised. The port was then constructed in posterior pectoralis major fascia, and the port which was assembled and flushed was placed into that area. The port was then cut such that the tip would lie in the area of right atrium, and over the wire, the peel-away catheter and ports were placed via the peel-away catheter. Catheter position was confirmed fluoroscopically, and the incision was then closed with 3-0 and 4-0 Vicryl stitch deep and a 4-0 Vicryl subcuticular stitch. Steri-Strips were then applied. Attention was then taken to the gastrostomy. This area was prepped and draped, and the gastrostomy tube was then removed with placement of the catheter balloon. This was then reinforced with some injection of fibrin sealant as well as suture at the skin level, thus closing off the gastrostomy tube. The suture at the skin level was a 4-0 catgut stitch, which will dissolve spontaneously. Attention was then taken to the cystoscopy. After that area was prepped and draped, the cystoscope was then placed, and in turn both the right and left ureteral stents were grasped with forceps and removed, and at that point, no further problems were noted. The patient was taken to the recovery room in satisfactory condition. Stanley Jeter MD /[id number]
== END 2017-12-14 11:25 | disposition home or self-care (01) ==
LOC: JP.SDS 06:39
PROVIDERS: ATTEND Surgery
DX: C18.9 Malignant neoplasm of colon, unspecified (principal); I10 Essential (primary) hypertension; E03.9 Hypothyroidism, unspecified; Z90.49 Acquired absence of other specified parts of digestive tract
CPT/HCPCS: 36561; 43870; 52310; 88300; A9270; C1788; J0690; J1642; J2020; J2704; J3010; J3490; J7042; J2185

== ENCOUNTER 2018-11-09 20:05 | Emergency (ER) | payer MEDICARE, OTHER, SELFPAY ==
--- NOTE | 2018-11-09 21:42 | EDM.PDOC ---
ED HPI GENERAL MEDICAL PROBLEM - General Chief Complaint: IV Access Related Stated Complaint: IV LINE COMPLICATIONS Time Seen by Provider: 11/09/18 21:37 Source of Information: Reports: Patient History Limitations: Reports: No Limitations - History of Present Illness INITIAL COMMENTS - FREE TEXT/NARRATIVE: pt arrived with a leaking line and her infusion machine saying high pressure. She had her chemo started today at the [facility]. She came here because her line came apart. She has a port that was assessed. Onset: Today Duration: Hour(s): Associated Symptoms: Reports: No Other Symptoms denies pain Pain Score (Numeric/FACES): 0 - Related Data Allergies Allergy/AdvReac Type Severity Reaction Status Date / Time No Known Allergies Allergy Verified 11/09/18 21:13 Home Meds: Home Meds Levothyroxine 100 mcg PO DAILY 05/04/15 [History] amLODIPine [Norvasc] 5 mg PO DAILY 11/09/18 [History] Past Medical History HEENT History: Reports: Hard of Hearing, Impaired Vision Other HEENT History: HEARING AIDS BILATERALLY, AND GLASSES Cardiovascular History: Reports: Hypertension, [place] Genitourinary History: Reports: Urinary Incontinence THREAD GRINDER History: Reports: Musculoskeletal History: Reports: Back Pain, Chronic, Fracture, Other (See Below ) Other Musculoskeletal History: fractured foot Neurological History: Reports: Concussion Psychiatric History: Reports: Anxiety Endocrine/Metabolic History: Reports: Hypothyroidism Hematologic History: Reports: Anemia Oncologic (Cancer) History: Reports: Colon, Ovarian Dermatologic History: Reports: Other (See Below) Other Dermatologic History: white spots on legs - Infectious Disease History Infectious Disease History: Reports: Chicken Pox - Past Surgical History HEENT Surgical History: Reports: None Cardiovascular Surgical History: Reports: None GI Surgical History: Reports: Colonoscopy, Other (See Below) Other GI Surgeries/Procedures: total abdominal colectomy with ileorectal anastomosis, placement gastrostomy, umbilical hernia repair Female Surgical History: Reports: Cystoscopy, Hysterectomy, Salpingo- Oophorectomy, Tubal Ligation, Ureteral Stent, Other (See Below) Other Female Surgeries/Procedures: placement of bilateral ureteral stents Endocrine Surgical History: Reports: None Neurological Surgical History: Reports: None Dermatological Surgical History: Reports: Skin Biopsy Social & Family History - Family History HEENT: Reports: Glaucoma, Hearing Impairment Cardiac: Reports: Heart Failure Respiratory: Reports: Asthma GI: Reports: Irritable Bowel Syndrome OBGYN: Reports: Musculoskeletal: Reports: Back pain, Chronic Neurological: Reports: Parkinson's Endocrine/Metabolic: Reports: Hypothyroidism Dermatologic: Reports: Eczema Oncologic: Reports: Brain, Breast - Tobacco Use Smoking Status *Q: Never Smoker - Caffeine Use Caffeine Use: Reports: Coffee - Recreational Drug Use Recreational Drug Use: No ED ROS GENERAL - Review of Systems Review Of Systems: See Below Constitutional: Reports: No Symptoms HEENT: Reports: No Symptoms Respiratory: Reports: No Symptoms ED EXAM, GENERAL - Physical Exam Exam: See Below Free Text/Narrative:: pt was hooked up to her chemo infusion and her monitor is saying high pressure and the line came apart. Exam Limited By: No Limitations General Appearance: Alert, Other ( the line was found to be plugged. It would not irrigate. The port was then reassessed and it was running fine. She had really not received chemo all day. ) Course - Vital Signs Last Recorded V/S: Last Vital Signs Temp 35.3 C 11/09/18 21:15 Pulse 82 11/09/18 21:15 Resp 16 11/09/18 21:15 BP 185/93 H 11/09/18 21:15 Pulse Ox 98 11/09/18 21:15 Departure - Departure Time of Disposition: 21:41 Disposition: Home, Self-Care 01 Condition: Fair Clinical Impression: IV infusion line dysfunction - Discharge Information Referrals: Saulo Nichols Sr, MD [Primary Care Provider] - Care Plan Goals: continue with the chemo as ordered.
== END 2018-11-09 22:26 | disposition home or self-care (01) ==
LOC: JP.ED 20:05
DX: T80.90XA Unspecified complication following infusion and therapeutic injection, initial encounter (principal); I10 Essential (primary) hypertension; I25.2 Old myocardial infarction; E03.9 Hypothyroidism, unspecified; Z86.2 Personal history of diseases of the blood and blood-forming organs and certain disorders involving the immune mechanism; Z79.899 Other long term (current) drug therapy
CPT/HCPCS: 99283; C1751

== ENCOUNTER 2018-11-20 12:13 | Emergency (ER) | payer MEDICARE ==
[2018-11-20] MEDS ORDERED: Ketorolac 30 MG/ML SDV IM ONE (12:52)
[2018-11-20] MEDS ORDERED: Ondansetron 4 MG Tab.DIS PO ONE (12:52)
--- NOTE | 2018-11-20 12:59 | EDM.PDOC ---
ED HPI GENERAL MEDICAL PROBLEM - General Chief Complaint: Abdominal Pain Stated Complaint: COLON CANCER PATIENT PAIN ON LEFT Time Seen by Provider: 11/20/18 12:47 Source of Information: Reports: Patient, Family, RN Notes Reviewed History Limitations: Reports: No Limitations - History of Present Illness INITIAL COMMENTS - FREE TEXT/NARRATIVE: 78-year-old female presents emergency department today complaint of abdominal pain, she did go to the walk-in clinic this morning, with the complaint of left sided abdominal pain workup included CBC urinalysis and x-ray abdominal film all of which show no acute process. She returns to the emergency department complaining of pain rated 10 out of 10 and will wax and wane she is also nauseated no history of nephrolithiasis - Related Data Allergies Allergy/AdvReac Type Severity Reaction Status Date / Time No Known Allergies Allergy Verified 11/20/18 12:17 Home Meds: Home Meds Levothyroxine 100 mcg PO DAILY 05/04/15 [History] amLODIPine [Norvasc] 10 mg PO DAILY 11/09/18 [History] Loperamide HCl [Loperamide] 2 mg PO ASDIRECTED PRN 11/20/18 [History] Past Medical History HEENT History: Reports: Hard of Hearing, Impaired Vision Other HEENT History: HEARING AIDS BILATERALLY, AND GLASSES Cardiovascular History: Reports: CAD, Hypertension, [place] Genitourinary History: Reports: Urinary Incontinence 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: Musculoskeletal History: Reports: Back Pain, Chronic, Fracture, Other (See Below ) Other Musculoskeletal History: fractured foot Neurological History: Reports: Concussion Psychiatric History: Reports: Anxiety Endocrine/Metabolic History: Reports: Hypothyroidism Hematologic History: Reports: Anemia Oncologic (Cancer) History: Reports: Colon, Ovarian Dermatologic History: Reports: Other (See Below) Other Dermatologic History: white spots on legs - Infectious Disease History Infectious Disease History: Reports: Chicken Pox - Past Surgical History HEENT Surgical History: Reports: None Cardiovascular Surgical History: Reports: None GI Surgical History: Reports: Colonoscopy, Other (See Below) Other GI Surgeries/Procedures: total abdominal colectomy with ileorectal anastomosis, placement gastrostomy, umbilical hernia repair Female Surgical History: Reports: Cystoscopy, Hysterectomy, Salpingo- Oophorectomy, Tubal Ligation, Ureteral Stent, Other (See Below) Other Female Surgeries/Procedures: placement of bilateral ureteral stents Endocrine Surgical History: Reports: None Neurological Surgical History: Reports: None Dermatological Surgical History: Reports: Skin Biopsy Social & Family History - Family History HEENT: Reports: Glaucoma, Hearing Impairment Cardiac: Reports: Heart Failure Respiratory: Reports: Asthma GI: Reports: Irritable Bowel Syndrome OBGYN: Reports: Musculoskeletal: Reports: Back pain, Chronic Neurological: Reports: Parkinson's Endocrine/Metabolic: Reports: Hypothyroidism Dermatologic: Reports: Eczema Oncologic: Reports: Brain, Breast - Tobacco Use Smoking Status *Q: Never Smoker - Caffeine Use Caffeine Use: Reports: Coffee ED ROS GENERAL - Review of Systems Review Of Systems: See Below Constitutional: Reports: No Symptoms Respiratory: Reports: No Symptoms, Cough GI/Abdominal: Reports: Abdominal Pain, Flatus, Nausea. Denies: Vomiting : Reports: Flank Pain ED EXAM, GI/ABD - Physical Exam Exam: See Below Exam Limited By: No Limitations General Appearance: Alert, WD/WN, No Apparent Distress Respiratory/Chest: No Respiratory Distress, Lungs Clear, Normal Breath Sounds, No Accessory Muscle Use, Chest Non-Tender Cardiovascular: Regular Rate, Rhythm, No Murmur GI/Abdominal Exam: Normal Bowel Sounds, Soft, No Distention, No Mass, Tender ( Tender along the left flank) Course - Vital Signs Last Recorded V/S: Last Vital Signs Temp 97.0 F 11/20/18 12:32 Pulse 68 11/20/18 12:32 Resp 15 11/20/18 12:32 BP 189/85 H 11/20/18 12:32 Pulse Ox 98 11/20/18 12:32 - Orders/Labs/Meds Meds: Medications Discontinued Medications Generic Name Dose Route Start Last Admin Trade Name Navjot PRBisi Reason Stop Dose Admin Ketorolac Tromethamine 30 mg 11/20/18 12:52 11/20/18 13:18 Toradol IM 11/20/18 12:53 30 mg ONETIME ONE Administration Ondansetron HCl 4 mg 11/20/18 12:52 11/20/18 13:17 Zofran Odt PO 11/20/18 12:53 4 mg ONETIME ONE Administration Departure - Departure Time of Disposition: 14:26 Disposition: Home, Self-Care 01 Condition: Fair Clinical Impression: Left flank pain - Discharge Information Referrals: Saulo Nichols Sr, MD [Primary Care Provider] - Forms: ED Department Discharge Additional Instructions: Use hydrocodone as needed for pain control, use Zofran as needed for nausea and vomiting symptoms. Please followup with your primary care provider in 3-5 days if not better, please call return to the emergency department with worsening of symptoms. - Assessment/Plan Plan: Assessment Acuity = acute Site and laterality = left-sided flank pain Etiology = unclear etiology Manifestations = none Location of injury = Home Lab values = CT scan of the abdomen reveals no acute process, review of blood work from this morning reveal no etiology Plan She had good relief with Toradol provided in the emergency department, prescription written for Zofran 4 mg ODT 1 tab by mouth 3 times a day when necessary total #5 and hydrocodone 5/325 one tab by mouth 3 times a day when necessary total #10 however follow-up with her primary care in 3-5 days if not better This note was dictated using [employer] voice recognition software please call with any questions on syntax or grammar.
--- NOTE | 2018-11-20 14:07 | CRLCT ---
INDICATION: Left flank pain. TECHNIQUE: Volumetric helical scanning of the abdomen and pelvis was performed without contrast material. Coronal and sagittal reconstructions were obtained. COMPARISON: None. FINDINGS: No urinary tract stone or obstruction is evident. The kidneys are normal in size, shape and attenuation. The bladder is grossly negative. The uterus has been removed. Neither ovary is identified with certainty. A small amount of ascites is demonstrated. There appear to be postop changes of colectomy with ileorectal anastomosis. The bowel is otherwise grossly negative. The liver is normal in size, shape and attenuation. No bile duct dilation is evident. The spleen is mildly enlarged. The adrenal glands are unremarkable. The pancreas is within normal limits. No lymphadenopathy is evident. The bowel is unremarkable. The lung bases are clear. The heart is normal in size. IMPRESSION: 1. Etiology of left flank pain not evident. 2. Small amount of ascites. 3. Post colectomy with ileorectal anastomosis. 4. Mild splenomegaly. 5. Post hysterectomy. The ovaries may been removed as well. Please note that all CT scans at this facility use dose modulation, iterative reconstruction, and/or weight-based dosing when appropriate to reduce radiation dose to as low as reasonably achievable. Dictated by Yakov Paredes MD @ Nov 20 2018 1:54PM Signed by Dr. Yakov Paredes @ Nov 20 2018 2:05PM
== END 2018-11-20 14:43 | disposition home or self-care (01) ==
LOC: JP.ED 12:13
DX: R10.9 Unspecified abdominal pain (principal); I10 Essential (primary) hypertension; I25.2 Old myocardial infarction; F41.9 Anxiety disorder, unspecified; E03.9 Hypothyroidism, unspecified; Z85.038 Personal history of other malignant neoplasm of large intestine; Z85.43 Personal history of malignant neoplasm of ovary; Z79.899 Other long term (current) drug therapy
CPT/HCPCS: 74176; 96372; 99284; A9270; J1885

== ENCOUNTER 2018-11-20 16:30 | Emergency (ER) | payer MEDICARE | END 2018-11-20 17:32 | disposition left against medical advice (07) | LOC: JP.ED 16:30 | DX: Z53.21 Procedure and treatment not carried out due to patient leaving prior to being seen by health care provider (principal) ==

== ENCOUNTER 2019-04-10 07:58 | Emergency (ER) | payer MEDICARE ==
[2019-04-10] MEDS ORDERED: LORazepam 2 MG/ML SDV IVPUSH ONE (08:40)
[2019-04-10] MEDS ORDERED: Lactated Ringers 1,000 ML IV SCH (08:45)
[2019-04-10] MEDS ORDERED: Ketorolac 30 MG/ML SDV IVPUSH ONE (08:47)
--- NOTE | 2019-04-10 09:00 | EDM.PDOC ---
ED HPI GENERAL MEDICAL PROBLEM - General Chief Complaint: Abdominal Pain Stated Complaint: PAIN IN LEFT SIDE Time Seen by Provider: 04/10/19 08:45 Source of Information: Reports: Patient, Old Records, RN History Limitations: Reports: No Limitations - History of Present Illness INITIAL COMMENTS - FREE TEXT/NARRATIVE: 79 yo female presents with LLQ abdominal pain. 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 She is being tx'd palliatively at this time and a cure is not anticipated. She apparently lives alone. Sx's began this morning about 3 hrs before registering for the ER. She actually sat in the lobby for a couple hrs hoping the pain would resolve before she registered. No fever or nausea. She thinks her last stool was of normal consistency. She keeps repeating that maybe if she could have a BM her pain would go away. Is very anxious and a little hard of hearing. No recent black or bloody stools. Initially said pain was constant, later said it comes and goes. 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 (see below) (none) Left Lower Abdomen Pain Score (Numeric/FACES): 10 - Related Data Allergies Allergy/AdvReac Type Severity Reaction Status Date / Time No Known Allergies Allergy Verified 04/10/19 08:32 Home Meds: Home Meds Levothyroxine 100 mcg PO DAILY 05/04/15 [History] amLODIPine [Norvasc] 10 mg PO DAILY 11/09/18 [History] Loperamide HCl [Loperamide] 2 mg PO ASDIRECTED PRN 11/20/18 [History] Past Medical History HEENT History: Reports: Hard of Hearing, Impaired Vision Other HEENT History: HEARING AIDS BILATERALLY, AND GLASSES Cardiovascular History: Reports: CAD, Hypertension, [place] Gastrointestinal History: Reports: Chronic Constipation, Chronic Diarrhea Genitourinary History: Reports: Urinary 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: Musculoskeletal History: Reports: Back Pain, Chronic, Fracture, Other (See Below ) Other Musculoskeletal History: fractured foot Neurological History: Reports: Concussion Psychiatric History: Reports: Anxiety Endocrine/Metabolic History: Reports: Hypothyroidism Hematologic History: Reports: Anemia Oncologic (Cancer) History: Reports: Colon, Ovarian Dermatologic History: Reports: Other (See Below) Other Dermatologic History: white spots on legs - Infectious Disease History Infectious Disease History: Reports: Chicken Pox - Past Surgical History Head Surgeries/Procedures: Reports: None HEENT Surgical History: Reports: None Cardiovascular Surgical History: Reports: None GI Surgical History: Reports: Colonoscopy, Other (See Below) Other GI Surgeries/Procedures: total abdominal colectomy with ileorectal anastomosis, placement gastrostomy, umbilical hernia repair Female Surgical History: Reports: Cystoscopy, Hysterectomy, Salpingo- Oophorectomy, Tubal Ligation, Ureteral Stent, Other (See Below) Other Female Surgeries/Procedures: placement of bilateral ureteral stents Endocrine Surgical History: Reports: None Neurological Surgical History: Reports: None Musculoskeletal Surgical History: Reports: None Oncologic Surgical History: Reports: None Dermatological Surgical History: Reports: Skin Biopsy Social & Family History - Family History HEENT: Reports: Glaucoma, Hearing Impairment Cardiac: Reports: Heart Failure Respiratory: Reports: Asthma GI: Reports: Irritable Bowel Syndrome OBGYN: Reports: Musculoskeletal: Reports: Back pain, Chronic Neurological: Reports: Parkinson's Endocrine/Metabolic: Reports: Hypothyroidism Dermatologic: Reports: Eczema Oncologic: Reports: Brain, Breast - Tobacco Use Smoking Status *Q: Former Smoker Used Tobacco, but Quit: Yes Month/Year Tobacco Last Used: 2009 Second Hand Smoke Exposure: No - Caffeine Use Caffeine Use: Reports: Coffee - Recreational Drug Use Recreational Drug Use: No ED ROS GENERAL - Review of Systems Review Of Systems: See Below Constitutional: Reports: No Symptoms HEENT: Reports: No Symptoms Respiratory: Reports: No Symptoms Cardiovascular: Reports: No Symptoms GI/Abdominal: Reports: Abdominal Pain (LLQ). Denies: Black Stool, Bloody Stool , Constipation (no significant BM yet today), Diarrhea, Distension, Flatus, Hematemesis, Hematochezia, Melena, Nausea, Vomiting : Reports: No Symptoms Musculoskeletal: Reports: No Symptoms Skin: Reports: No Symptoms Neurological: Reports: No Symptoms Psychiatric: Reports: No Symptoms ED EXAM, GI/ABD - Physical Exam Exam: See Below Exam Limited By: No Limitations General Appearance: Alert, WD/WN, Anxious Eyes: Bilateral: Normal Appearance Ears: Normal External Exam, Normal Canal, Hearing Loss Nose: Normal Inspection, No Blood Throat/Mouth: Normal Inspection, Normal Lips, Normal Oropharynx, Normal Voice, No Airway Compromise Head: Atraumatic, Normocephalic Neck: Normal Inspection Respiratory/Chest: No Respiratory Distress, Lungs Clear, Normal Breath Sounds, No Accessory Muscle Use Cardiovascular: Regular Rate, Rhythm, No Edema GI/Abdominal Exam: Normal Bowel Sounds, Soft, Non-Tender, No Distention. No: Distended, Guarding, Rigid, Rebound, Tender Extremities: Normal Inspection, Normal Range of Motion, Non-Tender, No Pedal Edema Neurological: Alert, Oriented, CN II-XII Intact, Normal Cognition, No Motor/ Sensory Deficits Psychiatric: Normal Affect, Normal Mood Skin Exam: Warm, Dry, Intact, Normal Color, No Rash Course - Vital Signs Last Recorded V/S: Last Vital Signs Temp 36.8 C 04/10/19 08:26 Pulse 67 04/10/19 08:26 Resp 23 H 04/10/19 08:26 BP 183/96 H 04/10/19 08:26 Pulse Ox 100 04/10/19 08:26 - Orders/Labs/Meds Orders: Active Orders 24 hr Category Date Time Status Abdomen Pelvis wo Cont [CT] Stat Exams 04/10/19 09:29 Taken Lactated Ringers [Ringers, Lactated] 1,000 ml Med 04/10/19 08:45 Active IV ASDIRECTED Medication Orders Lactated Ringer's (Ringers, Lactated) 1,000 mls @ 150 mls/hr IV ASDIRECTED RYDER Last Admin: 04/10/19 08:59 Dose: 150 mls/hr Labs: Laboratory Tests 04/10/19 04/10/19 04/10/19 Range/Units 08:40 08:45 08:45 WBC 7.0 (4.5-11.0) K/uL RBC 4.15 (3.30-5.50) M/uL Hgb 11.6 L (12.0-15.0) g/dL Hct 36.5 (36.0-48.0) % MCV 88 (80-98) fL MCH 28 (27-31) pg MCHC 32 (32-36) % Plt Count 121 L (150-400) K/uL Sodium 139 L (140-148) mmol/L Potassium 4.0 (3.6-5.2) mmol/L Chloride 103 (100-108) mmol/L Carbon Dioxide 24 (21-32) mmol/L Anion Gap 16.0 H (5.0-14.0) mmol/L BUN 19 H D (7-18) mg/dL Creatinine 1.0 (0.6-1.0) mg/dL Est Cr Clr Drug Dosing 37.26 mL/min Estimated GFR (MDRD) 54 L (>60) Glucose 97 (74-106) mg/dL Calcium 9.2 (8.5-10.1) mg/dL C-Reactive Protein (0.0-0.3) mg/dL Urine Color Yellow (YELLOW) Urine Appearance Clear (CLEAR) Urine pH 6.0 (5.0-8.0) Ur Specific Pollard 1.025 (1.008-1.030) Urine Protein 100 H (NEGATIVE) mg/dL Urine Glucose (UA) Negative (NEGATIVE) mg/dL Urine Ketones Negative (NEGATIVE) mg/dL Urine Occult Blood Moderate H (NEGATIVE) Urine Nitrite Negative (NEGATIVE) Urine Bilirubin Negative (NEGATIVE) Urine Urobilinogen 0.2 (0.2-1.0) EU/dL Ur Leukocyte Esterase Trace H (NEGATIVE) Urine RBC 10-20 H (0-5) Urine WBC 5-10 H (0-5) Ur Epithelial Cells Many Amorphous Sediment Few Urine Bacteria Rare Urine Mucus Rare 04/10/19 Range/Units 08:59 WBC (4.5-11.0) K/uL RBC (3.30-5.50) M/uL Hgb (12.0-15.0) g/dL Hct (36.0-48.0) % MCV (80-98) fL MCH (27-31) pg MCHC (32-36) % Plt Count (150-400) K/uL Sodium (140-148) mmol/L Potassium (3.6-5.2) mmol/L Chloride (100-108) mmol/L Carbon Dioxide (21-32) mmol/L Anion Gap (5.0-14.0) mmol/L BUN (7-18) mg/dL Creatinine (0.6-1.0) mg/dL Est Cr Clr Drug Dosing mL/min Estimated GFR (MDRD) (>60) Glucose (74-106) mg/dL Calcium (8.5-10.1) mg/dL C-Reactive Protein 0.07 (0.0-0.3) mg/dL Urine Color (YELLOW) Urine Appearance (CLEAR) Urine pH (5.0-8.0) Ur Specific Pollard (1.008-1.030) Urine Protein (NEGATIVE) mg/dL Urine Glucose (UA) (NEGATIVE) mg/dL Urine Ketones (NEGATIVE) mg/dL Urine Occult Blood (NEGATIVE) Urine Nitrite (NEGATIVE) Urine Bilirubin (NEGATIVE) Urine Urobilinogen (0.2-1.0) EU/dL Ur Leukocyte Esterase (NEGATIVE) Urine RBC (0-5) Urine WBC (0-5) Ur Epithelial Cells Amorphous Sediment Urine Bacteria Urine Mucus Meds: Medications Generic Name Dose Route Start Last Admin Trade Name Freq PRN Reason Stop Dose Admin Lactated Ringer's 1,000 mls @ 150 mls/hr 04/10/19 08:45 04/10/19 08:59 Ringers, Lactated IV 150 mls/hr ASDIRECTED RYDER Administration Discontinued Medications Generic Name Dose Route Start Last Admin Trade Name Freq PRN Reason Stop Dose Admin Glycerin 1 supp 04/10/19 09:05 04/10/19 09:23 Sani-Supp Adult RECTAL 04/10/19 09:06 1 supp ONETIME ONE Administration Ketorolac Tromethamine 15 mg 04/10/19 08:47 04/10/19 09:02 Toradol IVPUSH 04/10/19 08:48 15 mg ONETIME ONE Administration Lorazepam 0.5 mg 04/10/19 08:40 04/10/19 08:58 Ativan IVPUSH 04/10/19 08:41 0.5 mg ONETIME ONE Administration - Radiology Interpretation Free Text/Narrative:: single view abdomen [id number]: Mild gas distention of small bowel and colonic loops is well as the stomach falls within normal limits. Extensive postsurgical changes in the abdomen and pelvis bilaterally. Moderate degenerative and hypertrophic changes in the spine. Mild to moderate compression of mid and lower thoracic vertebral bodies. Moderate osteopenia. No free intraperitoneal air. No radiographic evidence of constipation. Remainder negative. Dictated by Umair Paul MD @ Apr 10 2019 9:34AM CT abd/pelvis without contrast-IMPRESSION: 1. There is no obstructive urolith, hydronephrosis, or perinephric edema. 2. Tiny nephroliths in the lower poles of both kidneys, seen best on coronal reconstruction images. 3. Low-density mass in segment of the liver, which remains suspicious for a metastasis. Dictated by Doe Delcid MD @ 04/10/2019 10:22:[address] Results Date: 04/10/19 - Re-Assessments/Exams Free Text/Narrative Re-Assessment/Exam: 04/10/19 10:24 Pain completely gone in the ER, on her 2nd breakfast tray since feeling better. Will discharge. Departure - Departure Time of Disposition: 10:35 Disposition: Home, Self-Care 01 Condition: Good Clinical Impression: LLQ abdominal pain - Discharge Information *PRESCRIPTION DRUG MONITORING PROGRAM REVIEWED*: No *COPY OF PRESCRIPTION DRUG MONITORING REPORT IN PATIENT KARENA: No Instructions: Abdominal Pain, Adult, [id number] Referrals: Saulo Nichols Sr, MD [Primary Care Provider] - Forms: ED Department Discharge Additional Instructions: Continue your regular medications. F/U with your provider(s) as before. Return as needed. Sepsis Event Note - Evaluation Sepsis Screening Result: No Definite Risk - Focused Exam Vital Signs: Vital Signs Temp Pulse Resp BP Pulse Ox 04/10/19 08:26 36.8 C 67 23 H 183/96 H 100 04/10/19 08:19 36.8 C 89 23 H 190/100 H 98 Date Exam was Performed: 04/10/19 Time Exam was Performed: 10:24 - My Orders Last 24 Hours: My Active Orders 04/10/19 08:45 Lactated Ringers [Ringers, Lactated] 1,000 ml IV ASDIRECTED 04/10/19 09:29 Abdomen Pelvis wo Cont [CT] Stat - Assessment/Plan Last 24 Hours: My Active Orders 04/10/19 08:45 Lactated Ringers [Ringers, Lactated] 1,000 ml IV ASDIRECTED 04/10/19 09:29 Abdomen Pelvis wo Cont [CT] Stat
[2019-04-10] MEDS ORDERED: Glycerin Adult 2.1 GM Supp RECTAL ONE (09:05)
--- NOTE | 2019-04-10 09:37 | CRLCR ---
INDICATION: Left lower quadrant pain. No bowel movement today. TECHNIQUE: Two views abdomen and pelvis. FINDINGS: Mild gas distention of small bowel and colonic loops is well as the stomach falls within normal limits. Extensive postsurgical changes in the abdomen and pelvis bilaterally. Moderate degenerative and hypertrophic changes in the spine. Mild to moderate compression of mid and lower thoracic vertebral bodies. Moderate osteopenia. No free intraperitoneal air. No radiographic evidence of constipation. Remainder negative. Dictated by Umair Paul MD @ Apr 10 2019 9:34AM Signed by Dr. Umair Paul @ Apr 10 2019 9:35AM
--- NOTE | 2019-04-10 10:24 | CRLCT ---
INDICATION: LLQ pain, microscopic hematuria, hx of colon ca HISTORY: Left lower quadrant abdominal pain. Microscopic hematuria. COMPARISON: CT of the chest, abdomen, and pelvis, 03/17/2019. CT of the chest, abdomen, and pelvis, 11/26/2018. TECHNIQUE: CT of the abdomen and pelvis. No intravenous contrast. Coronal/sagittal reconstruction images. FINDINGS: Lung bases: No pleural or pericardial effusion. The heart size is normal. There is bibasilar dependent atelectasis. There is no suspicious pulmonary nodule by either lung base. There is no basilar pneumothorax. Abdomen/pelvis: There is a low-density mass in segment of the liver, which remain suspicious for a metastasis. This lesion measures 3.6 cm on image 29, series 2. There is associated retraction of the capsule at this location. Additional liver lesions are better demonstrated on the contrast-enhanced study from 03/17/2019. There is no adrenal mass. Splenomegaly. No pancreatic mass, pancreatic duct dilation, or glandular atrophy. Normal caliber biliary tree. Tiny nephroliths are present in the lower poles of both kidneys. For example, 1-2 millimeter stone in the lower pole on the left, image 38, series 3. There is no obstructive urolith or perinephric edema. Uterus appears surgically absent. Linear pelvic calcifications are unchanged. Colon appears surgically absent. There is no evidence for a small bowel obstruction. There are nonenlarged lymph nodes present in the left common femoral chain, stable. Degenerative atherosclerotic plaque throughout the abdominal aorta. No abdominal or pelvic lymphadenopathy by size criteria. The bone windows demonstrate degenerative changes at the symphysis pubis. No lytic or blastic bone lesions. The alignment is preserved. The vertebral body heights are maintained. IMPRESSION: 1. There is no obstructive urolith, hydronephrosis, or perinephric edema. 2. Tiny nephroliths in the lower poles of both kidneys, seen best on coronal reconstruction images. 3. Low-density mass in segment of the liver, which remains suspicious for a metastasis. Dictated by Doe Delcid MD @ 04/10/2019 10:22:37 AM Please note that all CT scans at this facility use dose modulation, iterative reconstruction, and/or weight-based dosing when appropriate to reduce radiation dose to as low as reasonably achievable. Dictated by: Doe Delcid MD @ 04/10/2019 10:22:44 (Electronically Signed)
== END 2019-04-10 10:59 | disposition home or self-care (01) ==
LOC: JP.ED 07:58
DX: R10.32 Left lower quadrant pain (principal); I10 Essential (primary) hypertension; I25.2 Old myocardial infarction; E03.9 Hypothyroidism, unspecified; Z79.899 Other long term (current) drug therapy; Z87.891 Personal history of nicotine dependence
CPT/HCPCS: 36415; 74018; 74176; 80048; 81001; 85027; 86140; 96361; 96374; 99284; A9270; C1751; J1642; J1885; J2060; J7120

== ENCOUNTER 2019-04-10 16:34 | Emergency (ER) | payer MEDICARE ==
[2019-04-10] MEDS ORDERED: LORazepam 0.5 MG Tab PO ONE (16:53)
[2019-04-10] MEDS ORDERED: Ketorolac 30 MG/ML SDV IM ONE (17:00)
--- NOTE | 2019-04-10 17:06 | EDM.PDOC ---
ED HPI GENERAL MEDICAL PROBLEM - General Chief Complaint: Abdominal Pain Stated Complaint: LEFT FLANK/BACK PAIN Time Seen by Provider: 04/10/19 16:45 Source of Information: Reports: Patient, Family, Old Records, RN History Limitations: Reports: No Limitations - History of Present Illness INITIAL COMMENTS - FREE TEXT/NARRATIVE: 79 yo female presents with worsening of her LLQ abdominal pain for which she was fully worked up this morning. We gave her IV Ativan and she got 100% better soon afterwards and ate 2 breakfast trays. Her work up this morning included a UA, CBC, CRP, X-rays and a CT scan of her abdomen and pelvis. The only thing that showed up was microscopic hematuria, but her CT did not show any stones. She comes this time accompanied by a daughter. Courtney was not sent home with anything for anxiety and is now anxious again in addition to the LLQ abd pain. Onset: Today, Gradual Onset Date: 04/10/19 Duration: Hour(s):, Constant Location: Reports: Abdomen (LLQ) Quality: Reports: Ache Severity: Moderate Improves with: Reports: Medication (Ativan this morning) Worsens with: Reports: Other (? wearing off of her Ativan) Context: Reports: Other (see HPI) Associated Symptoms: Reports: Other (LLQ pain and anxiety). 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 (see below) (none) - Related Data Allergies Allergy/AdvReac Type Severity Reaction Status Date / Time No Known Allergies Allergy Verified 04/10/19 16:50 Home Meds: Home Meds Levothyroxine 100 mcg PO DAILY 05/04/15 [History] amLODIPine [Norvasc] 10 mg PO DAILY 11/09/18 [History] Loperamide HCl [Loperamide] 2 mg PO ASDIRECTED PRN 11/20/18 [History] Past Medical History HEENT History: Reports: Hard of Hearing, Impaired Vision Other HEENT History: HEARING AIDS BILATERALLY, AND GLASSES Cardiovascular History: Reports: CAD, Hypertension, [place] Gastrointestinal History: Reports: Chronic Constipation, Chronic Diarrhea Genitourinary History: Reports: Urinary Incontinence 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: Musculoskeletal History: Reports: Back Pain, Chronic, Fracture, Other (See Below ) Other Musculoskeletal History: fractured foot Neurological History: Reports: Concussion Psychiatric History: Reports: Anxiety Endocrine/Metabolic History: Reports: Hypothyroidism Hematologic History: Reports: Anemia Oncologic (Cancer) History: Reports: Colon, Ovarian Dermatologic History: Reports: Other (See Below) Other Dermatologic History: white spots on legs - Infectious Disease History Infectious Disease History: Reports: Chicken Pox - Past Surgical History Head Surgeries/Procedures: Reports: None HEENT Surgical History: Reports: None Cardiovascular Surgical History: Reports: None GI Surgical History: Reports: Colonoscopy, Other (See Below) Other GI Surgeries/Procedures: total abdominal colectomy with ileorectal anastomosis, placement gastrostomy, umbilical hernia repair Female Surgical History: Reports: Cystoscopy, Hysterectomy, Salpingo- Oophorectomy, Tubal Ligation, Ureteral Stent, Other (See Below) Other Female Surgeries/Procedures: placement of bilateral ureteral stents Endocrine Surgical History: Reports: None Neurological Surgical History: Reports: None Musculoskeletal Surgical History: Reports: None Oncologic Surgical History: Reports: None Dermatological Surgical History: Reports: Skin Biopsy Social & Family History - Family History HEENT: Reports: Glaucoma, Hearing Impairment Cardiac: Reports: Heart Failure Respiratory: Reports: Asthma GI: Reports: Irritable Bowel Syndrome OBGYN: Reports: Musculoskeletal: Reports: Back pain, Chronic Neurological: Reports: Parkinson's Endocrine/Metabolic: Reports: Hypothyroidism Dermatologic: Reports: Eczema Oncologic: Reports: Brain, Breast - Tobacco Use Smoking Status *Q: Never Smoker Second Hand Smoke Exposure: No - Caffeine Use Caffeine Use: Reports: Coffee - Recreational Drug Use Recreational Drug Use: No ED ROS GENERAL - Review of Systems Review Of Systems: See Below Constitutional: Reports: No Symptoms HEENT: Reports: No Symptoms Respiratory: Reports: No Symptoms Cardiovascular: Reports: No Symptoms GI/Abdominal: Reports: Abdominal Pain. Denies: Black Stool, Bloody Stool, Constipation, Diarrhea, Decreased Appetite, Distension, Flatus, Hematemesis, Hematochezia, Melena, Nausea, Vomiting : Reports: Dysuria (mild) Musculoskeletal: Reports: No Symptoms Skin: Reports: No Symptoms Neurological: Reports: No Symptoms Psychiatric: Reports: Anxiety ED EXAM, GI/ABD - Physical Exam Exam: See Below Exam Limited By: No Limitations General Appearance: Alert, WD/WN, Anxious, Mild Distress Eyes: Bilateral: Normal Appearance Ears: Normal External Exam, Normal Canal, Hearing Grossly Normal Nose: Normal Inspection, No Blood Throat/Mouth: Normal Inspection, Normal Lips, Normal Oropharynx, Normal Voice, No Airway Compromise Head: Atraumatic, Normocephalic Neck: Normal Inspection Respiratory/Chest: No Respiratory Distress, Lungs Clear, Normal Breath Sounds, No Accessory Muscle Use Cardiovascular: Regular Rate, Rhythm, No Edema GI/Abdominal Exam: Normal Bowel Sounds, Soft, No Distention, Tender (LLQ). No: Non-Tender, Distended, Guarding, Rigid, Rebound Back Exam: Normal Inspection. No: CVA Tenderness (R), CVA Tenderness (L) Extremities: Normal Inspection, Normal Range of Motion, Non-Tender, No Pedal Edema Neurological: Alert, Oriented, CN II-XII Intact, Normal Cognition, No Motor/ Sensory Deficits Psychiatric: Anxious Skin Exam: Warm, Dry, Intact, Normal Color, No Rash Course - Vital Signs Text/Narrative:: Better after tx in ER. Sleepy. Last Recorded V/S: Last Vital Signs Temp 36.1 C 04/10/19 16:53 Pulse 78 04/10/19 16:53 Resp 18 04/10/19 16:53 BP 172/87 H 04/10/19 16:53 Pulse Ox 100 04/10/19 16:53 - Orders/Labs/Meds Meds: Medications Discontinued Medications Generic Name Dose Route Start Last Admin Trade Name Freq PRN Reason Stop Dose Admin Ketorolac Tromethamine 30 mg 04/10/19 17:00 04/10/19 17:06 Toradol IM 04/10/19 17:01 30 mg ONETIME ONE Administration Lorazepam 0.5 mg 04/10/19 16:53 04/10/19 17:05 Ativan PO 04/10/19 16:54 0.5 mg ONETIME ONE Administration Olanzapine 5 mg 04/10/19 17:26 04/10/19 17:36 Zyprexa IM 04/10/19 17:27 5 mg ONETIME ONE Administration Departure - Departure Time of Disposition: 18:00 Disposition: Home, Self-Care 01 Condition: Fair Clinical Impression: Anxiety - Discharge Information *PRESCRIPTION DRUG MONITORING PROGRAM REVIEWED*: No *COPY OF PRESCRIPTION DRUG MONITORING REPORT IN PATIENT KARENA: No Instructions: Generalized Anxiety Disorder, Adult Referrals: Saulo Nichols Sr, MD [Primary Care Provider] - Forms: ED Department Discharge Additional Instructions: Use Zyprexa as directed for anxiety. Follow up with your doctor lorenzo. Return as needed. Should have assistance at home, especially tonight, but ongoing. May need assisted living facility. Sepsis Event Note - Evaluation Sepsis Screening Result: No Definite Risk - Focused Exam Vital Signs: Vital Signs Temp Pulse Resp BP Pulse Ox 04/10/19 16:53 36.1 C 78 18 172/87 H 100 04/10/19 16:50 36.1 C 78 18 172/87 H 100 Date Exam was Performed: 04/10/19 Time Exam was Performed: 17:58
[2019-04-10] MEDS ORDERED: OLANZapine 10 MG Vial IM ONE (17:26)
== END 2019-04-10 18:09 | disposition home or self-care (01) ==
LOC: JP.ED 16:34
DX: F41.9 Anxiety disorder, unspecified (principal); I10 Essential (primary) hypertension; I25.2 Old myocardial infarction; E03.9 Hypothyroidism, unspecified; Z79.899 Other long term (current) drug therapy
CPT/HCPCS: 96372; 99283; A9270; J1885; J3490

== ENCOUNTER 2019-06-09 00:35 | Inpatient (IN) | payer MEDICARE ==
[2019-06-09] MEDS ORDERED: LORazepam 2 MG/ML SDV IVPUSH ONE (01:11)
--- NOTE | 2019-06-09 01:25 | EDM.PDOC ---
ED HPI GENERAL MEDICAL PROBLEM - General Chief Complaint: Abdominal Pain Stated Complaint: SEVERE STOMACH PAIN Time Seen by Provider: 06/09/19 01:10 Source of Information: Reports: Patient, Old Records History Limitations: Reports: No Limitations - History of Present Illness INITIAL COMMENTS - FREE TEXT/NARRATIVE: 79 yo female presents with LLQ abdominal pain. Has a pHx of colon surgery. Says she vomited once just before coming into the ER tonight. No fever. Bowels are normal. Emesis did not include blood. Thinks she has blood tonight in her urine or vagina. Is feeling somewhat better on arrival. Has per her report cancer in her abdomen being tx's elsewhere. Seeing a doctor in [place] @ [facility]. Onset: Sudden Onset Date: 06/08/19 Duration: Hour(s):, Waxing/Waning Location: Reports: Abdomen (LLQ) Quality: Reports: Pressure Severity: Moderate Improves with: Reports: None Worsens with: Reports: Other (unknown) Context: Reports: Other (See HPI) Associated Symptoms: Reports: Nausea/Vomiting (x one). Denies: Fever/Chills Treatments INSIDE [employer] SALES: Reports: Other (see below) (none) - Related Data Allergies Allergy/AdvReac Type Severity Reaction Status Date / Time No Known Allergies Allergy Verified 06/09/19 00:52 Home Meds: Home Meds Levothyroxine 100 mcg PO DAILY 05/04/15 [History] amLODIPine [Norvasc] 10 mg PO DAILY 11/09/18 [History] Loperamide HCl [Loperamide] 2 mg PO ASDIRECTED PRN 11/20/18 [History] OLANZapine [ZyPREXA] 2.5 - 5 mg PO BID #20 tab 04/10/19 [Rx] Past Medical History HEENT History: Reports: Hard of Hearing, Impaired Vision Other HEENT History: HEARING AIDS BILATERALLY, AND GLASSES Cardiovascular History: Reports: CAD, Hypertension, [place] Gastrointestinal History: Reports: Chronic Constipation, Chronic Diarrhea Genitourinary History: Reports: Urinary Incontinence 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: Musculoskeletal History: Reports: Back Pain, Chronic, Fracture, Other (See Below ) Other Musculoskeletal History: fractured foot Neurological History: Reports: Concussion Psychiatric History: Reports: Anxiety Endocrine/Metabolic History: Reports: Hypothyroidism Hematologic History: Reports: Anemia Oncologic (Cancer) History: Reports: Colon, Liver, Ovarian Dermatologic History: Reports: Other (See Below) Other Dermatologic History: white spots on legs - Infectious Disease History Infectious Disease History: Reports: Chicken Pox - Past Surgical History Head Surgeries/Procedures: Reports: None HEENT Surgical History: Reports: None Cardiovascular Surgical History: Reports: None GI Surgical History: Reports: Colonoscopy, Other (See Below) Other GI Surgeries/Procedures: total abdominal colectomy with ileorectal anastomosis, placement gastrostomy, umbilical hernia repair Female Surgical History: Reports: Cystoscopy, Hysterectomy, Salpingo- Oophorectomy, Tubal Ligation, Ureteral Stent, Other (See Below) Other Female Surgeries/Procedures: placement of bilateral ureteral stents Endocrine Surgical History: Reports: None Neurological Surgical History: Reports: None Musculoskeletal Surgical History: Reports: None Oncologic Surgical History: Reports: None Dermatological Surgical History: Reports: Skin Biopsy Social & Family History - Family History HEENT: Reports: Glaucoma, Hearing Impairment Cardiac: Reports: Heart Failure Respiratory: Reports: Asthma GI: Reports: Irritable Bowel Syndrome OBGYN: Reports: Musculoskeletal: Reports: Back pain, Chronic Neurological: Reports: Parkinson's Endocrine/Metabolic: Reports: Hypothyroidism Dermatologic: Reports: Eczema Oncologic: Reports: Brain, Breast - Tobacco Use Smoking Status *Q: Former Smoker Used Tobacco, but Quit: Yes Month/Year Tobacco Last Used: 2009 Second Hand Smoke Exposure: No - Caffeine Use Caffeine Use: Reports: Coffee - Recreational Drug Use Recreational Drug Use: No ED ROS GENERAL - Review of Systems Review Of Systems: See Below Constitutional: Reports: No Symptoms HEENT: Reports: No Symptoms Respiratory: Reports: No Symptoms Cardiovascular: Reports: No Symptoms GI/Abdominal: Reports: Abdominal Pain (LLQ), Vomiting (once). Denies: Black Stool, Bloody Stool, Constipation, Diarrhea, Distension, Hematemesis, Hematochezia, Melena : Reports: Hematuria (vs. vaginal source) Musculoskeletal: Reports: No Symptoms Skin: Reports: No Symptoms Neurological: Reports: No Symptoms ED EXAM, GI/ABD - Physical Exam Exam: See Below Exam Limited By: No Limitations General Appearance: Alert, WD/WN, No Apparent Distress Eyes: Bilateral: Normal Appearance Ears: Normal External Exam, Normal Canal, Hearing Grossly Normal Nose: Normal Inspection, No Blood Throat/Mouth: Normal Inspection, Normal Lips, Normal Oropharynx, Normal Voice, No Airway Compromise Head: Atraumatic, Normocephalic Neck: Normal Inspection Respiratory/Chest: No Respiratory Distress, Lungs Clear, Normal Breath Sounds, No Accessory Muscle Use Cardiovascular: Regular Rate, Rhythm, No Edema GI/Abdominal Exam: Normal Bowel Sounds, Soft, No Distention, Tender (LLQ). No: Non-Tender, Distended, Abnormal Bowel Sounds Back Exam: Normal Inspection. No: CVA Tenderness (R), CVA Tenderness (L) Extremities: Normal Inspection, Normal Range of Motion, Non-Tender, No Pedal Edema Neurological: Alert, Oriented, CN II-XII Intact, Normal Cognition, No Motor/ Sensory Deficits Psychiatric: Anxious Skin Exam: Warm, Dry, Intact, Normal Color, No Rash Course - Vital Signs Text/Narrative:: Pain is improved after Ativan and IV fluids, but not gone. Had a "potato sized stool" while in ER. Will get an X-ray of abdomen. Other labs normal. Last Recorded V/S: Last Vital Signs Temp 36.2 C 06/09/19 00:55 Pulse 76 06/09/19 02:49 Resp 16 06/09/19 00:55 BP 184/91 H 06/09/19 02:49 Pulse Ox 99 06/09/19 00:55 - Orders/Labs/Meds Orders: Active Orders 24 hr Category Date Time Status Abdomen 2V AP Flat Upright [CR] Stat Exams 06/09/19 03:36 Taken Sodium Chloride 0.9% [Saline Flush] Med 06/09/19 01:11 Active 10 ml FLUSH ASDIRECTED PRN Saline Lock Insert [OM.PC] Routine Oth 06/09/19 01:11 Ordered Medication Orders Sodium Chloride (Saline Flush) 10 ml FLUSH ASDIRECTED PRN PRN Reason: Keep Vein Open Last Admin: 06/09/19 01:30 Dose: 10 ml Labs: Laboratory Tests 06/09/19 06/09/19 06/09/19 Range/Units 01:25 01:26 01:26 WBC 6.0 (4.5-11.0) K/uL RBC 4.21 (3.30-5.50) M/uL Hgb 11.9 L (12.0-15.0) g/dL Hct 36.8 (36.0-48.0) % MCV 87 (80-98) fL MCH 28 (27-31) pg MCHC 32 (32-36) % Plt Count 145 L (150-400) K/uL Sodium 139 L (140-148) mmol/L Potassium 3.9 (3.6-5.2) mmol/L Chloride 104 (100-108) mmol/L Carbon Dioxide 23 (21-32) mmol/L Anion Gap 15.9 H (5.0-14.0) mmol/L BUN 20 H (7-18) mg/dL Creatinine 1.0 (0.6-1.0) mg/dL Est Cr Clr Drug Dosing 37.26 mL/min Estimated GFR (MDRD) 54 L (>60) Glucose 114 H (74-106) mg/dL Calcium 9.0 (8.5-10.1) mg/dL C-Reactive Protein 0.28 (0.0-0.3) mg/dL Urine Color (YELLOW) Urine Appearance (CLEAR) Urine pH (5.0-8.0) Ur Specific [place] (1.008-1.030) Urine Protein (NEGATIVE) mg/dL Urine Glucose (UA) (NEGATIVE) mg/dL Urine Ketones (NEGATIVE) mg/dL Urine Occult Blood (NEGATIVE) Urine Nitrite (NEGATIVE) Urine Bilirubin (NEGATIVE) Urine Urobilinogen (0.2-1.0) EU/dL Ur Leukocyte Esterase (NEGATIVE) Urine RBC (0-5) Urine WBC (0-5) Ur Epithelial Cells Amorphous Sediment Urine Bacteria Urine Mucus Urine Other 06/09/19 Range/Units 01:36 WBC (4.5-11.0) K/uL RBC (3.30-5.50) M/uL Hgb (12.0-15.0) g/dL Hct (36.0-48.0) % MCV (80-98) fL MCH (27-31) pg MCHC (32-36) % Plt Count (150-400) K/uL Sodium (140-148) mmol/L Potassium (3.6-5.2) mmol/L Chloride (100-108) mmol/L Carbon Dioxide (21-32) mmol/L Anion Gap (5.0-14.0) mmol/L BUN (7-18) mg/dL Creatinine (0.6-1.0) mg/dL Est Cr Clr Drug Dosing mL/min Estimated GFR (MDRD) (>60) Glucose (74-106) mg/dL Calcium (8.5-10.1) mg/dL C-Reactive Protein (0.0-0.3) mg/dL Urine Color Yellow (YELLOW) Urine Appearance Clear (CLEAR) Urine pH 6.0 (5.0-8.0) Ur Specific [place] >= 1.030 (1.008-1.030) Urine Protein 100 H (NEGATIVE) mg/dL Urine Glucose (UA) Negative (NEGATIVE) mg/dL Urine Ketones Negative (NEGATIVE) mg/dL Urine Occult Blood Trace-intact H (NEGATIVE) Urine Nitrite Negative (NEGATIVE) Urine Bilirubin Negative (NEGATIVE) Urine Urobilinogen 0.2 (0.2-1.0) EU/dL Ur Leukocyte Esterase Negative (NEGATIVE) Urine RBC 0-5 (0-5) Urine WBC 0-5 (0-5) Ur Epithelial Cells Rare Amorphous Sediment Not seen Urine Bacteria Rare Urine Mucus Moderate Urine Other Meds: Medications Generic Name Dose Route Start Last Admin Trade Name Freq PRN Reason Stop Dose Admin Sodium Chloride 10 ml 06/09/19 01:11 06/09/19 01:30 Saline Flush FLUSH 10 ml ASDIRECTED PRN Administration Keep Vein Open Discontinued Medications Generic Name Dose Route Start Last Admin Trade Name Freq PRN Reason Stop Dose Admin Lactated Ringer's 1,000 mls @ 1,000 mls/hr 06/09/19 01:56 06/09/19 02:02 Ringers, Lactated IV 06/09/19 02:55 1,000 mls/hr BOLUS ONE Administration Sodium Chloride 70 mls @ 3 mls/sec 06/09/19 04:53 06/09/19 05:04 Normal Saline IV 06/09/19 04:54 3 mls/sec ASDIRECTED STA Administration Iopamidol 80 ml 06/09/19 04:52 06/09/19 05:04 Isovue-300 (61%) IV 06/09/19 04:53 100 ml . DIRECTED STA Administration Lorazepam 0.5 mg 06/09/19 01:11 06/09/19 01:30 Ativan IVPUSH 06/09/19 01:12 0.5 mg ONETIME ONE Administration Metoclopramide HCl 10 mg 06/09/19 04:51 06/09/19 05:01 Reglan IVPUSH 06/09/19 04:52 10 mg ONETIME ONE Administration - Radiology Interpretation Free Text/Narrative:: Flat and upright abdominal X-rays-air/fluid levels CT abd/pelvis with IV contrast- IMPRESSION: 1. Small bowel obstruction. This appears to be high-grade and distal. 2. Multiple masses in the right lobe of the liver consistent with advancing metastatic disease. 3. Retroperitoneal lymphadenopathy. This represents a change since the prior study. 4. Apparent mass in the cul de sac probably metastatic deposit. This appears represent a change since the prior study 5. Enhancing mass in the anterior abdominal wall probably metastatic deposit 6. There are some difficulties in comparing the current study to the prior study as the prior examination was performed without contrast. Departure - Departure Time of Disposition: 07:00 Disposition: DC/Tfer to Acute Hospital 02 Condition: Fair Clinical Impression: SBO (small bowel obstruction) - Discharge Information *PRESCRIPTION DRUG MONITORING PROGRAM REVIEWED*: No *COPY OF PRESCRIPTION DRUG MONITORING REPORT IN PATIENT KARENA: No Referrals: Saulo Nichols Sr, MD [Primary Care Provider] - Forms: ED Department Discharge Sepsis Event Note - Evaluation Sepsis Screening Result: No Definite Risk - Focused Exam Vital Signs: Vital Signs Temp Pulse Resp BP Pulse Ox 06/09/19 02:49 76 184/91 H 06/09/19 01:57 85 198/110 H 06/09/19 00:59 164/90 H 06/09/19 00:55 36.2 C 83 16 198/105 H 99 06/09/19 00:53 36.2 C 83 16 198/105 H 99 Date Exam was Performed: 06/09/19 Time Exam was Performed: 06:20 - My Orders Last 24 Hours: My Active Orders 06/09/19 01:11 Sodium Chloride 0.9% [Saline Flush] 10 ml FLUSH ASDIRECTED PRN Saline Lock Insert [OM.PC] Routine 06/09/19 03:36 Abdomen 2V AP Flat Upright [CR] Stat - Assessment/Plan Last 24 Hours: My Active Orders 06/09/19 01:11 Sodium Chloride 0.9% [Saline Flush] 10 ml FLUSH ASDIRECTED PRN Saline Lock Insert [OM.PC] Routine 06/09/19 03:36 Abdomen 2V AP Flat Upright [CR] Stat
[2019-06-09] MEDS: Sodium Chloride 0.9% 10 ML Syringe FLUSH PRN ×2 (01:30→13:44)
[2019-06-09] MEDS ORDERED: Lactated Ringers 1,000 ML IV ONE (01:56)
[2019-06-09] MEDS ORDERED: Metoclopramide 10 MG/2 ML SDV IVPUSH ONE (04:51)
[2019-06-09] MEDS ORDERED: Iopamidol 612 MG/ML 100 ML Bottle IV STA (04:52)
--- NOTE | 2019-06-09 06:13 | CRLCT ---
INDICATION: Abdominal pain and air-fluid levels with clinical signs and symptoms of a bowel obstruction COMPARISON: April 10, 2019 TECHNIQUE: CT examination of the abdomen and pelvis was performed following the uneventful intravenous administration of 80 cc of Isovue-300. Thin section axial images were obtained from the lung bases through the pubic symphysis. Oral contrast was not administered. Please note that all CT scans at this facility use dose modulation, iterative reconstruction, and/or weight-based dosing when appropriate to reduce radiation dose to as low as reasonably achievable. FINDINGS: LUNG BASES: The heart is enlarged at the lung bases. The lung bases as visualized appear normal LIVER/BILIARY SYSTEM:Multiple masses in the right lobe of the liver. This is probably metastatic disease and the appearance has worsened since the prior exam. No biliary ductal dilatation. ADRENALS: Normal KIDNEYS, URETERS and BLADDER:The kidneys appear normal. No visible mass, calculus or hydronephrosis. The ureters and bladder as visualized appear normal. SPLEEN:Mildly enlarged but no focal mass. Similar in appearance to the prior study. PANCREAS: Appears normal. RETROPERITONEUM and MESENTERY: There appears to be retroperitoneal lymphadenopathy. This is primarily to the left of aorta and is best seen on axial image 38 through 46. This appears to represent a change since the prior study. GASTROINTESTINAL SYSTEM: Extensive postsurgical changes especially regarding the bowel in the pelvis. Dilated loops of small bowel with air-fluid levels consistent with a small-bowel obstruction. PELVIS: There is a soft tissue mass in the cul de sac 1st seen on axial image 106 progressing caudally to approximately image 120. This is irregular and difficult to measure but is in the 6 centimeter range. This probably represents metastatic disease to the cul de sac though it may partially involve the upper vagina and bladder. OSSEOUS STRUCTURES and ABDOMINAL WALL: Enhancing mass in the anterior abdominal wall just to the left of the umbilicus measuring about 18 millimeters consistent with a metastatic deposit. No definite destructive process of bone OTHER: Mild ascites. IMPRESSION: 1. Small bowel obstruction. This appears to be high-grade and distal. 2. Multiple masses in the right lobe of the liver consistent with advancing metastatic disease. 3. Retroperitoneal lymphadenopathy. This represents a change since the prior study. 4. Apparent mass in the cul de sac probably metastatic deposit. This appears represent a change since the prior study 5. Enhancing mass in the anterior abdominal wall probably metastatic deposit 6. There are some difficulties in comparing the current study to the prior study as the prior examination was performed without contrast. Please note that all CT scans at this facility use dose modulation, iterative reconstruction, and/or weight-based dosing when appropriate to reduce radiation dose to as low as reasonably achievable. Dictated by Stanley Carreno MD @ Jun 09 2019 6:03AM Signed by Dr. Stanley Carreno @ Jun 09 2019 6:12AM
[2019-06-09] MEDS ORDERED: HYDROmorphone 0.5 MG/0.5 ML Syringe IVPUSH ONE ×2 (06:28→10:31)
[2019-06-09] MEDS ORDERED: Lactated Ringers 1,000 ML IV SCH (06:30)
[2019-06-09] MEDS ORDERED: Ondansetron 4 MG/2 ML SDV IVPUSH ONE (09:01)
--- NOTE | 2019-06-09 10:24 | CR ---
Abdomen 2V AP Flat Upright CLINICAL HISTORY: Abdominal pain, history of colectomy FINDINGS: There are dilated loops of small bowel in the right abdomen and mid pelvis with scattered air-fluid levels. No free air is identified. Patient has had the extensive abdominal surgery with numerous anastomotic sutures. IMPRESSION: Dilated small bowel suggestive of small bowel obstruction, likely distal Previous abdominal surgery with a history of partial colectomy
--- NOTE | 2019-06-09 10:37 | PCM.HP.2 ---
H&P History of Present Illness - General Date of Service: 06/09/19 Admit Problem/Dx: Admission Diagnosis/Problem Admission Diagnosis/Problem Small bowel obstruction Source of Information: Patient, EMS, Family History Limitations: Reports: No Limitations - History of Present Illness Initial Comments - Free Text/Narative: Courtney is a 79-year-old white female who has a history of cancer of the colon with widespread metastasis. She did have a total abdominal colectomy with ileal cecal anastomosis. She has had chemotherapy. She was told recently that further chemotherapy was not advised. She still wants to have something done and she chooses to be a full code. Yesterday she started to have trouble eating. She was vomiting yesterday and had nausea. She hasn't eaten anything but the pain has been progressive recently and came into the emergency room. CT of the abdomen was done which showed a small bowel obstruction, high-grade in the ileorectal anastomosis area. Duration of Symptoms: Reports: Day(s): Location: Reports: Abdomen Severity: Moderate Associated Symptoms: Reports: Loss of Appetite, Nausea/Vomiting, Weakness - Related Data Allergies/Adverse Reactions: Allergies Allergy/AdvReac Type Severity Reaction Status Date / Time No Known Allergies Allergy Verified 06/09/19 00:52 Home Medications: Home Meds Levothyroxine 100 mcg PO DAILY 05/04/15 [History] amLODIPine [Norvasc] 10 mg PO DAILY 11/09/18 [History] Loperamide HCl [Loperamide] 2 mg PO ASDIRECTED PRN 11/20/18 [History] OLANZapine [ZyPREXA] 2.5 - 5 mg PO BID #20 tab 04/10/19 [Rx] Past Medical History HEENT History: Reports: Hard of Hearing, Impaired Vision Other HEENT History: HEARING AIDS BILATERALLY, AND GLASSES Cardiovascular History: Reports: CAD, Hypertension, [place] Gastrointestinal History: Reports: Chronic Constipation, Chronic Diarrhea Genitourinary History: Reports: Urinary Incontinence [employer] 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: Musculoskeletal History: Reports: Back Pain, Chronic, Fracture, Other (See Below ) Other Musculoskeletal History: fractured foot Neurological History: Reports: Concussion Psychiatric History: Reports: Anxiety Endocrine/Metabolic History: Reports: Hypothyroidism Hematologic History: Reports: Anemia Oncologic (Cancer) History: Reports: Colon, Liver, Ovarian Dermatologic History: Reports: Other (See Below) Other Dermatologic History: white spots on legs - Infectious Disease History Infectious Disease History: Reports: Chicken Pox - Past Surgical History Head Surgeries/Procedures: Reports: None HEENT Surgical History: Reports: None Cardiovascular Surgical History: Reports: None GI Surgical History: Reports: Colonoscopy, Other (See Below) Other GI Surgeries/Procedures: total abdominal colectomy with ileorectal anastomosis, placement gastrostomy, umbilical hernia repair Female Surgical History: Reports: Cystoscopy, Hysterectomy, Salpingo- Oophorectomy, Tubal Ligation, Ureteral Stent, Other (See Below) Other Female Surgeries/Procedures: placement of bilateral ureteral stents Endocrine Surgical History: Reports: None Neurological Surgical History: Reports: None Musculoskeletal Surgical History: Reports: None Oncologic Surgical History: Reports: None Dermatological Surgical History: Reports: Skin Biopsy Social & Family History - Family History HEENT: Reports: Glaucoma, Hearing Impairment Cardiac: Reports: Heart Failure Respiratory: Reports: Asthma GI: Reports: Irritable Bowel Syndrome OBGYN: Reports: Musculoskeletal: Reports: Back pain, Chronic Neurological: Reports: Parkinson's Endocrine/Metabolic: Reports: Hypothyroidism Dermatologic: Reports: Eczema Oncologic: Reports: Brain, Breast - Tobacco Use Smoking Status *Q: Former Smoker Used Tobacco, but Quit: Yes Month/Year Tobacco Last Used: 2009 Second Hand Smoke Exposure: No - Caffeine Use Caffeine Use: Reports: Coffee - Recreational Drug Use Recreational Drug Use: No H&P Review of Systems - Review of Systems: Review Of Systems: See Below General: Reports: Weakness, Weight Loss HEENT: Reports: No Symptoms Pulmonary: Reports: No Symptoms Cardiovascular: Reports: No Symptoms Gastrointestinal: Reports: Abdominal Pain, Decreased Appetite, Nausea, Vomiting Genitourinary: Reports: No Symptoms Musculoskeletal: Reports: No Symptoms Skin: Reports: No Symptoms Psychiatric: Reports: No Symptoms Neurological: Reports: No Symptoms Hematologic/Lymphatic: Reports: No Symptoms Exam - Exam Exam: See Below - Vital Signs Vital Signs: Last Vital Signs Temp 97.1 F 06/09/19 00:55 Pulse 76 06/09/19 02:49 Resp 16 06/09/19 00:55 BP 184/91 H 06/09/19 02:49 Pulse Ox 99 06/09/19 00:55 Weight: 117 lb 1.047 oz - Exam General: Alert, Oriented, 4 HEENT: PERRLA Neck: Supple, Trachea Midline, 2 Lungs: Clear to Auscultation, Normal Respiratory Effort Cardiovascular: Regular Rate, Regular Rhythm GI/Abdominal Exam: Abnormal Bowel Sounds Back Exam: Normal Inspection, Full Range of Motion, NT Extremities: Normal Inspection, Normal Range of Motion, Non-Tender, No Pedal Edema, Normal Capillary Refill Peripheral Pulses: 1+: Radial (L), Radial (R) Skin: Warm, Dry, Intact Neurological: Cranial Nerves Intact, Reflexes Equal Bilateral Neuro Extensive - Mental Status: Alert, Oriented x3, Normal Mood/Affect, Normal Cognition, Memory Intact DTR: 1+: Patella (L), Patella (R) Psychiatric: Alert, Normal Affect, Normal Mood - Patient Data Lab Results Last 24 hrs: Laboratory Results - last 24 hr 06/09/19 06/09/19 06/09/19 Range/Units 01:25 01:26 01:26 WBC 6.0 (4.5-11.0) K/uL RBC 4.21 (3.30-5.50) M/uL Hgb 11.9 L (12.0-15.0) g/dL Hct 36.8 (36.0-48.0) % MCV 87 (80-98) fL MCH 28 (27-31) pg MCHC 32 (32-36) % Plt Count 145 L (150-400) K/uL Sodium 139 L (140-148) mmol/L Potassium 3.9 (3.6-5.2) mmol/L Chloride 104 (100-108) mmol/L Carbon Dioxide 23 (21-32) mmol/L Anion Gap 15.9 H (5.0-14.0) mmol/L BUN 20 H (7-18) mg/dL Creatinine 1.0 (0.6-1.0) mg/dL Est Cr Clr Drug Dosing 37.26 mL/min Estimated GFR (MDRD) 54 L (>60) Glucose 114 H (74-106) mg/dL Lactic Acid (0.4-2.0) mmol/L Calcium 9.0 (8.5-10.1) mg/dL C-Reactive Protein 0.28 (0.0-0.3) mg/dL Urine Color (YELLOW) Urine Appearance (CLEAR) Urine pH (5.0-8.0) Ur Specific [place] (1.008-1.030) Urine Protein (NEGATIVE) mg/dL Urine Glucose (UA) (NEGATIVE) mg/dL Urine Ketones (NEGATIVE) mg/dL Urine Occult Blood (NEGATIVE) Urine Nitrite (NEGATIVE) Urine Bilirubin (NEGATIVE) Urine Urobilinogen (0.2-1.0) EU/dL Ur Leukocyte Esterase (NEGATIVE) Urine RBC (0-5) Urine WBC (0-5) Ur Epithelial Cells Amorphous Sediment Urine Bacteria Urine Mucus Urine Other 06/09/19 06/09/19 Range/Units 01:36 06:45 WBC (4.5-11.0) K/uL RBC (3.30-5.50) M/uL Hgb (12.0-15.0) g/dL Hct (36.0-48.0) % MCV (80-98) fL MCH (27-31) pg MCHC (32-36) % Plt Count (150-400) K/uL Sodium (140-148) mmol/L Potassium (3.6-5.2) mmol/L Chloride (100-108) mmol/L Carbon Dioxide (21-32) mmol/L Anion Gap (5.0-14.0) mmol/L BUN (7-18) mg/dL Creatinine (0.6-1.0) mg/dL Est Cr Clr Drug Dosing mL/min Estimated GFR (MDRD) (>60) Glucose (74-106) mg/dL Lactic Acid 1.1 (0.4-2.0) mmol/L Calcium (8.5-10.1) mg/dL C-Reactive Protein (0.0-0.3) mg/dL Urine Color Yellow (YELLOW) Urine Appearance Clear (CLEAR) Urine pH 6.0 (5.0-8.0) Ur Specific [place] >= 1.030 (1.008-1.030) Urine Protein 100 H (NEGATIVE) mg/dL Urine Glucose (UA) Negative (NEGATIVE) mg/dL Urine Ketones Negative (NEGATIVE) mg/dL Urine Occult Blood Trace-intact H (NEGATIVE) Urine Nitrite Negative (NEGATIVE) Urine Bilirubin Negative (NEGATIVE) Urine Urobilinogen 0.2 (0.2-1.0) EU/dL Ur Leukocyte Esterase Negative (NEGATIVE) Urine RBC 0-5 (0-5) Urine WBC 0-5 (0-5) Ur Epithelial Cells Rare Amorphous Sediment Not seen Urine Bacteria Rare Urine Mucus Moderate Urine Other Result Diagrams: 06/09/19 01:26 06/09/19 01:25 Sepsis Event Note - Evaluation Sepsis Screening Result: No Definite Risk - Focused Exam Vital Signs: Vital Signs Temp Pulse Resp BP Pulse Ox 06/09/19 02:49 76 184/91 H 06/09/19 01:57 85 198/110 H 06/09/19 00:59 164/90 H 06/09/19 00:55 97.1 F 83 16 198/105 H 99 06/09/19 00:53 97.1 F 83 16 198/105 H 99 Date Exam was Performed: 06/09/19 Time Exam was Performed: 10:46 Problem List Initiated/Reviewed/Updated: Yes Orders Last 24hrs: Active Orders 24 hr Category Date Time Status Patient Status [ADT] Routine ADT 06/09/19 10:03 Active Ambulate [RC] QID Care 06/09/19 10:03 Active Oxygen Therapy [RC] PRN Care 06/09/19 10:03 Active VTE/DVT Education [RC] Per Unit Routine Care 06/09/19 10:03 Active Vital Signs [RC] Q4H Care 06/09/19 10:03 Active Nothing per Oral Now Diet [DIET] Diet 06/09/19 Lunch Active Lactated Ringers [Ringers, Lactated] 1,000 ml Med 06/09/19 06:30 Active IV ASDIRECTED Sodium Chloride 0.9% [Saline Flush] Med 06/09/19 01:11 Active 10 ml FLUSH ASDIRECTED PRN Nasogastric Orogastric Tube Insertion [OM.PC] Routine Oth 06/09/19 06:58 Ordered Saline Lock Insert [OM.PC] Routine Oth 06/09/19 01:11 Ordered Resuscitation Status Routine Resus Stat 06/09/19 10:03 Ordered Medication Orders Lactated Ringer's (Ringers, Lactated) 1,000 mls @ 125 mls/hr IV ASDIRECTED RYDER Last Admin: 06/09/19 06:34 Dose: 125 mls/hr Sodium Chloride (Saline Flush) 10 ml FLUSH ASDIRECTED PRN PRN Reason: Keep Vein Open Last Admin: 06/09/19 01:30 Dose: 10 ml Assessment/Plan Comment:: Assessment/plan: #1. Small bowel obstruction, ileorectal anastomosis: I will consult Dr. Jeter. I suspect that she'll need surgery because of the obstruction which is most likely caused by cancer growth. the CT of the abdomen showed multiple masses in the right lobe of the liver consistent with advanced metastatic disease. There was also retroperitoneal lymphadenopathy. He was also an apparent mass in the cul-de-sac from probably metastatic deposit. There is an enhancing mass in the anterior abdominal wall. The sodium was 139, potassium 3.9. Creatinine 1.0 with EGFR 54. Hemoglobin was 11.9 with a white count of 6.0. The urinalysis was unremarkable. #2. Hypertension: Her blood pressure is elevated. We'll give medication as needed. #3. Hypothyroidism. We'll continue with medication as soon as possible. She will be admitted and remained nothing by mouth.
[2019-06-09] MEDS ORDERED: Labetalol 20 MG/4 ML Syringe IV PRN (12:43)
[2019-06-09] MEDS ORDERED: Ondansetron 4 MG/2 ML SDV IVPUSH PRN (12:43)
[2019-06-09] MEDS ORDERED: MVI, Adult with Vitamin K 10 ML, Chromium/Copper/Mang/Selen/Zn 1 ML in Lactated Ringers... IV ONE ×3 (13:15)
[2019-06-09] MEDS: Pantoprazole 40 MG Vial IV SCH (13:43)
[2019-06-09] MEDS ORDERED: Phenol/Sodium Phenolate Spray 180 ML Bottle MUCMEM PRN (14:40)
[2019-06-09] MEDS ORDERED: Lidocaine 2% Viscous Solution 15 ML Cup PO ONE (14:40)
[2019-06-09] MEDS ORDERED: Acetaminophen 1,000 MG in Premix Bag 1 BAG IV ONE (14:50)
[2019-06-09] MEDS: Dextrose 5%-Lactated Ringers 1,000 ML IV SCH (18:16)
[2019-06-10] MEDS: Pantoprazole 40 MG Vial IV SCH ×2 (02:06→14:49)
[2019-06-10] MEDS: Dextrose 5%-Lactated Ringers 1,000 ML IV SCH ×3 (02:07→20:58)
[2019-06-10] MEDS: HYDROmorphone 0.5 MG/0.5 ML Syringe IVPUSH PRN ×3 (04:42→18:09)
[2019-06-10] MEDS ORDERED: Benzocaine/Cetylpyridinium/Menthol Lozenge MUCMEM PRN (07:04)
[2019-06-10] MEDS: Magnesium Sulfate/Water 2 GM in Premix Bag 1 BAG IV SCH ×3 (08:42→20:59)
--- NOTE | 2019-06-10 09:52 | CR ---
CHEST: 2 view CLINICAL HISTORY:Fever COMPARISON:Heart is mildly enlarged. Pulmonary vascular areas normal. There are atherosclerotic changes in the aorta.. Patient has an [place]-c-Zquk catheter from the left subclavian approach. Lungs are generally hyperaerated. FINDINGS: Mild cardiomegaly Emphysematous changes No acute cardiopulmonary process.
--- NOTE | 2019-06-10 09:54 | CR ---
Abdomen 2V AP Flat Upright CLINICAL HISTORY: SBO FINDINGS: No free air is seen. NG tube has been placed in the stomach. There are distended bowel loops in the low abdomen. This may have improved slightly since prior study. Patient has had extensive abdominal surgery IMPRESSION: Interval placement of an NG tube Distended lower abdominal bowel loops appear to have diminished slightly since prior study
--- NOTE | 2019-06-10 13:42 | PN ---
DATE OF SERVICE: 06/10/2019 SUBJECTIVE: Stanley Jeter MD, saw Courtney yesterday after she was admitted for partial small bowel obstruction. In followup today, Courtney states that she does not like her NG tube, has a headache from no caffeine, and feels her abdominal pain has improved. She was admitted yesterday after nausea, vomiting, and abdominal pain. A CT did show small bowel obstruction, high-grade, in the ileorectal anastomosis. Known history of colon cancer with widespread metastasis. She did have a total abdominal colectomy with ileocecal anastomosis and chemotherapy. Other symptoms, loss of appetite and weakness. She did have a temperature max yesterday of 101.9. Since admission, the patient has had 11 bowel movements, which is her normal. OBJECTIVE: GENERAL: Courtney is a pleasant 79-year-old female. VITAL SIGNS: TPR at 0238; 99.6, 78, 18, and blood pressure 157/83. HEENT: Negative. NECK: Supple. HEART: Regular rate and rhythm. LUNGS: Clear. ABDOMEN: Soft and nontender, shown improvement from yesterday. NG is intact. EXTREMITIES: Without peripheral edema. ASSESSMENT: 1. Partial small bowel obstruction. CT confirmation, high-grade, in the ileorectal anastomosis area. 2. Colon cancer. 3. Hypertension. 4. Hypothyroidism. PLAN: 1. Decrease IV to 100 mL per hour. 2. Magnesium 2 g q.6 hours x72 hours. 3. May have sips of coffee to avoid getting a headache. 4. Check CBC, CMP, and phos in a.m. 5. Abdominal x-ray, flat and upright, has already been ordered. This will be done at 0400 on 06/11/2019. Continue to encourage the patient to use incentive spirometer. 6. Cepacol throat lozenges one 6 times a day p.r.n. sore throat. May have at bedside. 7. We will evaluate p.r.n. or in a.m. Nelly Burnett PA-C /[id number]
--- NOTE | 2019-06-10 15:14 | PCM.PN ---
- General Info Date of Service: 06/10/19 Functional Status: Reports: Pain Controlled - Review of Systems General: Reports: Weakness HEENT: Reports: No Symptoms Pulmonary: Reports: No Symptoms Cardiovascular: Reports: No Symptoms Gastrointestinal: Reports: Abdominal Pain, Decreased Appetite Genitourinary: Reports: No Symptoms Musculoskeletal: Reports: No Symptoms Skin: Reports: No Symptoms Neurological: Reports: No Symptoms - Patient Data Vitals - Most Recent: Last Vital Signs Temp 99.3 F 06/10/19 11:14 Pulse 77 06/10/19 11:14 Resp 16 06/10/19 11:14 BP 179/91 H 06/10/19 11:14 Pulse Ox 98 06/10/19 11:14 Weight - Most Recent: 120 lb 2.995 oz I&O - Last 24 Hours: Intake & Output 06/10/19 06/10/19 06/10/19 06:59 14:59 22:59 Intake Total 1486 Output Total 800 100 Balance 686 -100 Lab Results Last 24 Hours: Laboratory Results - last 24 hr 06/10/19 06/10/19 Range/Units 04:12 04:12 WBC 2.6 L (4.5-11.0) K/uL RBC 4.21 (3.30-5.50) M/uL Hgb 12.4 (12.0-15.0) g/dL Hct 37.4 (36.0-48.0) % MCV 89 (80-98) fL MCH 30 (27-31) pg MCHC 33 (32-36) % Plt Count 143 L (150-400) K/uL Neut % (Auto) 41 (36-66) % Lymph % (Auto) 41 (24-44) % [place] % (Auto) 17 H (2-6) % Eos % (Auto) 1 L (2-4) % Baso % (Auto) 0 (0-1) % Sodium 141 (140-148) mmol/L Potassium 3.7 (3.6-5.2) mmol/L Chloride 102 (100-108) mmol/L Carbon Dioxide 30 (21-32) mmol/L Anion Gap 9.3 (5.0-14.0) mmol/L BUN 13 (7-18) mg/dL Creatinine 1.0 (0.6-1.0) mg/dL Est Cr Clr Drug Dosing 36.94 mL/min Estimated GFR (MDRD) 54 L (>60) Glucose 107 H (74-106) mg/dL Calcium 8.6 (8.5-10.1) mg/dL Phosphorus 2.5 (2.5-4.9) mg/dL Magnesium 1.7 L (1.8-2.4) mg/dL Total Bilirubin 1.0 D (0.2-1.0) mg/dL AST 25 (15-37) U/L ALT 26 (12-78) U/L Alkaline Phosphatase 38 L (46-116) U/L NT-Pro-B Natriuret Pep 204 (5-450) pg/mL Total Protein 6.5 (6.4-8.2) g/dL Albumin 3.3 L (3.4-5.0) g/dL Globulin 3.2 (2.3-3.5) g/dL Albumin/Globulin Ratio 1.0 L (1.2-2.2) TSH, Ultra Sensitive 4.598 H (0.358-3.740) uIU/mL Med Orders - Current: Current Medications Benzocaine/Menthol (Cepacol Sore Throat) 1 lozenge MUCMEM 6XDAY PRN PRN Reason: sorethroat from NG Last Admin: 06/10/19 12:28 Dose: 1 steve Hydromorphone HCl (Dilaudid) 0.5 mg IVPUSH Q2H PRN PRN Reason: Pain Last Admin: 06/10/19 14:50 Dose: 0.5 mg Magnesium Sulfate 2 gm/ Premix 50 mls @ 25 mls/hr IV Q6H [facility] Stop: 06/13/19 04:59 Last Admin: 06/10/19 15:09 Dose: 25 mls/hr Dextrose/Lactated Ringer's (Dextrose 5%-Lactated Ringers) 1,000 mls @ 100 mls/ hr IV ASDIRECTED [facility] Last Admin: 06/10/19 08:43 Dose: 100 mls/hr Labetalol HCl (Normodyne) 5 - 10 mg IV Q2H PRN PRN Reason: SBP > 165 OR DBP > 95 Ondansetron HCl (Zofran) 4 mg IVPUSH Q4H PRN PRN Reason: Nausea Pantoprazole Sodium (Protonix Iv) 40 mg IV Q12H [facility] Last Admin: 06/10/19 14:49 Dose: 40 mg Phenol (Phenaseptic Liquid) 0 ml MUCMEM Q2H PRN PRN Reason: Pain Last Admin: 06/09/19 18:39 Dose: 1 spray Sodium Chloride (Saline Flush) 10 ml FLUSH ASDIRECTED PRN PRN Reason: Keep Vein Open Last Admin: 06/09/19 13:44 Dose: 10 ml Discontinued Medications Hydromorphone HCl (Dilaudid) 0.25 mg IVPUSH ONETIME ONE Stop: 06/09/19 06:29 Last Admin: 06/09/19 06:35 Dose: 0.25 mg Hydromorphone HCl (Dilaudid) 0.5 mg IVPUSH ONETIME ONE Stop: 06/09/19 10:32 Last Admin: 06/09/19 10:39 Dose: 0.5 mg Lactated Ringer's (Ringers, Lactated) 1,000 mls @ 1,000 mls/hr IV BOLUS ONE Stop: 06/09/19 02:55 Last Admin: 06/09/19 02:02 Dose: 1,000 mls/hr Sodium Chloride (Normal Saline) 70 mls @ 3 mls/sec IV ASDIRECTED STA Stop: 06/09/19 04:54 Last Admin: 06/09/19 05:04 Dose: 3 mls/sec Lactated Ringer's (Ringers, Lactated) 1,000 mls @ 125 mls/hr IV ASDIRECTED [facility] Stop: 06/09/19 13:15 Last Admin: 06/09/19 06:34 Dose: 125 mls/hr Multivitamins/Minerals 10 ml/Chromium/Copper/Manganese/Seleni/Zn 1 ml/ Lactated Ringer's 1,011 mls @ 337 mls/hr IV ONETIME ONE Stop: 06/09/19 16:14 Last Admin: 06/09/19 13:43 Dose: 337 mls/hr Dextrose/Lactated Ringer's (Dextrose 5%-Lactated Ringers) 1,000 mls @ 125 mls/ hr IV ASDIRECTED [facility] Last Admin: 06/10/19 02:07 Dose: 125 mls/hr Acetaminophen 1,000 mg/ Premix 100 mls @ 400 mls/hr IV NOW ONE Stop: 06/09/19 15:04 Last Admin: 06/09/19 15:30 Dose: 400 mls/hr Iopamidol (Isovue-300 (61%)) 80 ml IV . DIRECTED STA Stop: 06/09/19 04:53 Last Admin: 06/09/19 05:04 Dose: 100 ml Lidocaine HCl (Xylocaine 2% Viscous) 15 ml PO ONETIME ONE Stop: 06/09/19 14:41 Last Admin: 06/09/19 15:37 Dose: 15 ml Lorazepam (Ativan) 0.5 mg IVPUSH ONETIME ONE Stop: 06/09/19 01:12 Last Admin: 06/09/19 01:30 Dose: 0.5 mg Metoclopramide HCl (Reglan) 10 mg IVPUSH ONETIME ONE Stop: 06/09/19 04:52 Last Admin: 06/09/19 05:01 Dose: 10 mg Ondansetron HCl (Zofran) 4 mg IVPUSH ONETIME ONE Stop: 06/09/19 09:02 Last Admin: 06/09/19 09:06 Dose: 4 mg - Exam General: Alert, Oriented Lungs: Clear to Auscultation, Normal Respiratory Effort Cardiovascular: Regular Rate, Regular Rhythm GI/Abdominal Exam: Soft Peripheral Pulses: 1+: Radial (L), Radial (R) Skin: Warm, Dry, Intact Sepsis Event Note - Evaluation Sepsis Screening Result: No Definite Risk - Focused Exam Vital Signs: Vital Signs Temp Pulse Resp BP BP Pulse Ox 06/10/19 11:14 99.3 F 77 16 179/91 H 98 06/10/19 08:36 98.3 F 79 18 165/82 H 96 Date Exam was Performed: 06/10/19 Time Exam was Performed: 15:09 - Problem List Review Problem List Initiated/Reviewed/Updated: Yes - My Orders Last 24 Hours: My Active Orders 06/09/19 17:41 CULTURE URINE [RM] Routine 06/09/19 23:50 SCD [Sequential Compression Device] [OM.PC] Routine - Plan Plan:: Assessment/plan: #1. Small bowel obstruction, ileorectal anastomosis: WBC is 2.6 Hb 12.4. She is having diarrhea presently and improving. She is pushing to go home as soon as possible. #2. Hypertension: Her blood pressure is elevated. We'll give medication as by mouth. #3. Hypothyroidism. We'll continue with medication as soon as possible.
[2019-06-10] MEDS ORDERED: Acetaminophen 650 MG Supp RECTAL PRN (18:27)
[2019-06-11] MEDS: HYDROmorphone 0.5 MG/0.5 ML Syringe IVPUSH PRN (01:41)
[2019-06-11] MEDS: Pantoprazole 40 MG Vial IV SCH (01:43)
[2019-06-11] MEDS: Magnesium Sulfate/Water 2 GM in Premix Bag 1 BAG IV SCH ×2 (03:19→08:07)
[2019-06-11] MEDS ORDERED: Potassium Phos in 0.9 % NaCl 15 MMOL in Premix Bag 1 BAG IV SCH ×2 (09:00)
[2019-06-11] MEDS ORDERED: LEVOTHYROXINE 100 MCG PO SCH (12:45)
--- NOTE | 2019-06-11 12:46 | PCM.PN ---
- General Info Date of Service: 06/11/19 Functional Status: Reports: Pain Controlled - Review of Systems General: Reports: Weakness HEENT: Reports: No Symptoms Pulmonary: Reports: No Symptoms Cardiovascular: Reports: No Symptoms Gastrointestinal: Reports: No Symptoms Genitourinary: Reports: No Symptoms Musculoskeletal: Reports: No Symptoms Skin: Reports: No Symptoms Neurological: Reports: No Symptoms Psychiatric: Reports: No Symptoms - Patient Data Vitals - Most Recent: Last Vital Signs Temp 102 F H 06/11/19 11:34 Pulse 84 06/11/19 11:34 Resp 16 06/11/19 11:34 BP 156/86 H 06/11/19 11:34 Pulse Ox 96 06/11/19 11:34 Weight - Most Recent: 120 lb 2.995 oz I&O - Last 24 Hours: Intake & Output 06/10/19 06/11/19 06/11/19 22:59 06:59 14:59 Intake Total 1488 1262 960 Output Total 1175 850 200 Balance 313 412 760 Lab Results Last 24 Hours: Laboratory Results - last 24 hr 06/10/19 06/11/19 06/11/19 Range/Units 04:12 04:17 04:17 WBC 4.2 L (4.5-11.0) K/uL RBC 3.76 (3.30-5.50) M/uL Hgb 11.0 L (12.0-15.0) g/dL Hct 33.9 L (36.0-48.0) % MCV 90 (80-98) fL MCH 29 (27-31) pg MCHC 32 (32-36) % Plt Count 112 L (150-400) K/uL Sodium 141 (140-148) mmol/L Potassium 3.7 (3.6-5.2) mmol/L Chloride 102 (100-108) mmol/L Carbon Dioxide 32 (21-32) mmol/L Anion Gap 7.1 (5.0-14.0) mmol/L BUN 8 (7-18) mg/dL Creatinine 0.9 (0.6-1.0) mg/dL Est Cr Clr Drug Dosing 41.04 mL/min Estimated GFR (MDRD) > 60 (>60) Glucose 121 H (74-106) mg/dL Calcium 8.3 L (8.5-10.1) mg/dL Phosphorus 2.8 (2.5-4.9) mg/dL Total Bilirubin 0.7 (0.2-1.0) mg/dL AST 21 (15-37) U/L ALT 23 (12-78) U/L Alkaline Phosphatase 36 L (46-116) U/L Total Protein 6.0 L (6.4-8.2) g/dL Albumin 3.0 L (3.4-5.0) g/dL Globulin 3.0 (2.3-3.5) g/dL Albumin/Globulin Ratio 1.0 L (1.2-2.2) Carcinoembryonic Ag 81.3 H (0.0-4.7) ng/mL Suresh Results Last 24 Hours: Microbiology 06/09/19 17:41 Urine Culture - Preliminary Urine, Clean Catch NO GROWTH AFTER 1 DAY Med Orders - Current: Current Medications Acetaminophen (Tylenol) 650 mg RECTAL Q4H PRN PRN Reason: Temperature Last Admin: 06/10/19 20:27 Dose: 650 mg Acetaminophen (Tylenol Bulk Bottle) 325 mg PO Q4H PRN PRN Reason: Abdominal Pain Amlodipine Besylate (Norvasc) 5 mg PO DAILY [facility] Benzocaine/Menthol (Cepacol Sore Throat) 1 lozenge MUCMEM 6XDAY PRN PRN Reason: sorethroat from NG Last Admin: 06/10/19 12:28 Dose: 1 steve Non-Formulary Medication (Levothyroxine [Levothyroxine]) 100 mcg PO DAILY [facility] Phenol (Phenaseptic Liquid) 0 ml MUCMEM Q2H PRN PRN Reason: Pain Last Admin: 06/09/19 18:39 Dose: 1 spray Discontinued Medications Hydromorphone HCl (Dilaudid) 0.25 mg IVPUSH ONETIME ONE Stop: 06/09/19 06:29 Last Admin: 06/09/19 06:35 Dose: 0.25 mg Hydromorphone HCl (Dilaudid) 0.5 mg IVPUSH ONETIME ONE Stop: 06/09/19 10:32 Last Admin: 06/09/19 10:39 Dose: 0.5 mg Hydromorphone HCl (Dilaudid) 0.5 mg IVPUSH Q2H PRN PRN Reason: Pain Last Admin: 06/11/19 01:41 Dose: 0.5 mg Lactated Ringer's (Ringers, Lactated) 1,000 mls @ 1,000 mls/hr IV BOLUS ONE Stop: 06/09/19 02:55 Last Admin: 06/09/19 02:02 Dose: 1,000 mls/hr Sodium Chloride (Normal Saline) 70 mls @ 3 mls/sec IV ASDIRECTED [facility] Stop: 06/09/19 04:54 Last Admin: 06/09/19 05:04 Dose: 3 mls/sec Lactated Ringer's (Ringers, Lactated) 1,000 mls @ 125 mls/hr IV ASDIRECTED [facility] Stop: 06/09/19 13:15 Last Admin: 06/09/19 06:34 Dose: 125 mls/hr Multivitamins/Minerals 10 ml/Chromium/Copper/Manganese/Seleni/Zn 1 ml/ Lactated Ringer's 1,011 mls @ 337 mls/hr IV ONETIME ONE Stop: 06/09/19 16:14 Last Admin: 06/09/19 13:43 Dose: 337 mls/hr Dextrose/Lactated Ringer's (Dextrose 5%-Lactated Ringers) 1,000 mls @ 125 mls/ hr IV ASDIRECTED [facility] Last Admin: 06/10/19 02:07 Dose: 125 mls/hr Acetaminophen 1,000 mg/ Premix 100 mls @ 400 mls/hr IV NOW ONE Stop: 06/09/19 15:04 Last Admin: 06/09/19 15:30 Dose: 400 mls/hr Magnesium Sulfate 2 gm/ Premix 50 mls @ 25 mls/hr IV Q6H [facility] Stop: 06/13/19 04:59 Last Admin: 06/11/19 08:07 Dose: 25 mls/hr Dextrose/Lactated Ringer's (Dextrose 5%-Lactated Ringers) 1,000 mls @ 100 mls/ hr IV ASDIRECTED [facility] Last Admin: 06/10/19 20:58 Dose: 100 mls/hr Potassium Phosphate 15 mmol/ (Premix) 250 mls @ 84 mls/hr IV Q3H [facility] Stop: 06/11/19 14:59 Last Admin: 06/11/19 09:58 Dose: Not Given Iopamidol (Isovue-300 (61%)) 80 ml IV . DIRECTED STA Stop: 06/09/19 04:53 Last Admin: 06/09/19 05:04 Dose: 100 ml Labetalol HCl (Normodyne) 5 - 10 mg IV Q2H PRN PRN Reason: SBP > 165 OR DBP > 95 Last Admin: 06/10/19 17:38 Dose: 5 mg Lidocaine HCl (Xylocaine 2% Viscous) 15 ml PO ONETIME ONE Stop: 06/09/19 14:41 Last Admin: 06/09/19 15:37 Dose: 15 ml Lorazepam (Ativan) 0.5 mg IVPUSH ONETIME ONE Stop: 06/09/19 01:12 Last Admin: 06/09/19 01:30 Dose: 0.5 mg Metoclopramide HCl (Reglan) 10 mg IVPUSH ONETIME ONE Stop: 06/09/19 04:52 Last Admin: 06/09/19 05:01 Dose: 10 mg Ondansetron HCl (Zofran) 4 mg IVPUSH ONETIME ONE Stop: 06/09/19 09:02 Last Admin: 06/09/19 09:06 Dose: 4 mg Ondansetron HCl (Zofran) 4 mg IVPUSH Q4H PRN PRN Reason: Nausea Last Admin: 06/11/19 01:35 Dose: 4 mg Pantoprazole Sodium (Protonix Iv) 40 mg IV Q12H [facility]YDER Last Admin: 06/11/19 01:43 Dose: 40 mg Sodium Chloride (Saline Flush) 10 ml FLUSH ASDIRECTED PRN PRN Reason: Keep Vein Open Last Admin: 06/09/19 13:44 Dose: 10 ml - Exam General: Alert, Oriented HEENT: Pupils Equal, Pupils Reactive, EOMI, Mucous Membr. Moist/[place] Neck: Supple Lungs: Clear to Auscultation, Normal Respiratory Effort Cardiovascular: Regular Rate, Regular Rhythm GI/Abdominal Exam: Normal Bowel Sounds, Soft, Non-Tender, No Organomegaly, No Distention, No Abnormal Bruit, No Mass, Pelvis Stable Extremities: Normal Inspection, Normal Range of Motion, Non-Tender, No Pedal Edema, Normal Capillary Refill Peripheral Pulses: 1+: Radial (L), Radial (R) Sepsis Event Note - Evaluation Sepsis Screening Result: No Definite Risk - Focused Exam Vital Signs: Vital Signs Temp Pulse Resp BP Pulse Ox 06/11/19 11:34 102 F H 84 16 156/86 H 96 06/11/19 08:03 101.3 F H 71 16 160/83 H 95 06/11/19 03:03 99.1 F 74 16 153/72 H 96 Date Exam was Performed: 06/11/19 Time Exam was Performed: 12:44 - Problem List Review Problem List Initiated/Reviewed/Updated: Yes - My Orders Last 24 Hours: My Active Orders 06/11/19 12:42 Acetaminophen [Tylenol Bulk Bottle] 325 mg PO Q4H PRN 06/11/19 12:45 Levothyroxine [Levothyroxine] 100 mcg PO DAILY amLODIPine [Norvasc] 5 mg PO DAILY - Plan Plan:: Assessment/plan: #1. Small bowel obstruction, ileorectal anastomosis: NG tube is out and improving as possible #2. Hypertension: Her blood pressure is elevated. We'll restart medication as by mouth. #3. Hypothyroidism. We'll restart medication today.
[2019-06-11] MEDS: Acetaminophen 325 MG Tab PO PRN ×2 (13:13→22:16)
[2019-06-11] MEDS: Levothyroxine 100 MCG Tab PO SCH (14:18)
[2019-06-11] MEDS: amLODIPine 5 MG Tab PO SCH (14:18)
--- NOTE | 2019-06-12 09:03 | PCM.PN ---
- General Info Date of Service: 06/12/19 Subjective Update: She is upset wanting to ear a regular diet. Functional Status: Reports: Pain Controlled - Review of Systems General: Reports: Weakness HEENT: Reports: No Symptoms Pulmonary: Reports: No Symptoms Cardiovascular: Reports: No Symptoms Gastrointestinal: Reports: Abdominal Pain Genitourinary: Reports: No Symptoms Musculoskeletal: Reports: No Symptoms Skin: Reports: No Symptoms Neurological: Reports: No Symptoms Psychiatric: Reports: Anxiety - Patient Data Vitals - Most Recent: Last Vital Signs Temp 99.5 F 06/12/19 08:11 Pulse 67 06/12/19 08:11 Resp 16 06/12/19 08:11 BP 138/85 06/12/19 08:11 Pulse Ox 100 06/12/19 08:11 Weight - Most Recent: 120 lb 2.995 oz I&O - Last 24 Hours: Intake & Output 06/11/19 06/12/19 06/12/19 22:59 06:59 14:59 Intake Total 820 520 Balance 820 520 Lab Results Last 24 Hours: Laboratory Results - last 24 hr 06/12/19 06/12/19 Range/Units 04:08 04:08 WBC 5.1 (4.5-11.0) K/uL RBC 3.99 (3.30-5.50) M/uL Hgb 11.5 L (12.0-15.0) g/dL Hct 35.4 L (36.0-48.0) % MCV 89 (80-98) fL MCH 29 (27-31) pg MCHC 33 (32-36) % Plt Count 132 L (150-400) K/uL Sodium 139 L (140-148) mmol/L Potassium 3.9 (3.6-5.2) mmol/L Chloride 103 (100-108) mmol/L Carbon Dioxide 29 (21-32) mmol/L Anion Gap 10.9 (5.0-14.0) mmol/L BUN 8 (7-18) mg/dL Creatinine 0.9 (0.6-1.0) mg/dL Est Cr Clr Drug Dosing 41.04 mL/min Estimated GFR (MDRD) > 60 (>60) Glucose 94 (74-106) mg/dL Calcium 8.6 (8.5-10.1) mg/dL Phosphorus 2.7 (2.5-4.9) mg/dL Magnesium 2.3 D (1.8-2.4) mg/dL Total Bilirubin 0.7 (0.2-1.0) mg/dL AST 17 (15-37) U/L ALT 24 (12-78) U/L Alkaline Phosphatase 40 L (46-116) U/L Total Protein 6.6 (6.4-8.2) g/dL Albumin 3.2 L (3.4-5.0) g/dL Globulin 3.4 (2.3-3.5) g/dL Albumin/Globulin Ratio 0.9 L (1.2-2.2) Suresh Results Last 24 Hours: Microbiology 06/09/19 17:41 Urine Culture - Final Urine, Clean Catch NO GROWTH AFTER 2 DAYS Med Orders - Current: Current Medications Acetaminophen (Tylenol) 650 mg RECTAL Q4H PRN PRN Reason: Temperature Last Admin: 06/10/19 20:27 Dose: 650 mg Acetaminophen (Tylenol) 325 mg PO Q4H PRN PRN Reason: PAIN Last Admin: 06/11/19 22:16 Dose: 325 mg Amlodipine Besylate (Norvasc) 5 mg PO DAILY [facility] Last Admin: 06/11/19 14:18 Dose: 5 mg Benzocaine/Menthol (Cepacol Sore Throat) 1 lozenge MUCMEM 6XDAY PRN PRN Reason: sorethroat from NG Last Admin: 06/10/19 12:28 Dose: 1 steve Levothyroxine Sodium (Synthroid) 100 mcg PO ACBREAKFAST [facility] Last Admin: 06/11/19 14:18 Dose: 100 mcg Phenol (Phenaseptic Liquid) 0 ml MUCMEM Q2H PRN PRN Reason: Pain Last Admin: 06/09/19 18:39 Dose: 1 spray Sodium Phosphate (Neutra-Phos) 250 mg PO QID [facility] Discontinued Medications Hydromorphone HCl (Dilaudid) 0.25 mg IVPUSH ONETIME ONE Stop: 06/09/19 06:29 Last Admin: 06/09/19 06:35 Dose: 0.25 mg Hydromorphone HCl (Dilaudid) 0.5 mg IVPUSH ONETIME ONE Stop: 06/09/19 10:32 Last Admin: 06/09/19 10:39 Dose: 0.5 mg Hydromorphone HCl (Dilaudid) 0.5 mg IVPUSH Q2H PRN PRN Reason: Pain Last Admin: 06/11/19 01:41 Dose: 0.5 mg Lactated Ringer's (Ringers, Lactated) 1,000 mls @ 1,000 mls/hr IV BOLUS ONE Stop: 06/09/19 02:55 Last Admin: 06/09/19 02:02 Dose: 1,000 mls/hr Sodium Chloride (Normal Saline) 70 mls @ 3 mls/sec IV ASDIRECTED [facility] Stop: 06/09/19 04:54 Last Admin: 06/09/19 05:04 Dose: 3 mls/sec Lactated Ringer's (Ringers, Lactated) 1,000 mls @ 125 mls/hr IV ASDIRECTED [facility] Stop: 06/09/19 13:15 Last Admin: 06/09/19 06:34 Dose: 125 mls/hr Multivitamins/Minerals 10 ml/Chromium/Copper/Manganese/Seleni/Zn 1 ml/ Lactated Ringer's 1,011 mls @ 337 mls/hr IV ONETIME ONE Stop: 06/09/19 16:14 Last Admin: 06/09/19 13:43 Dose: 337 mls/hr Dextrose/Lactated Ringer's (Dextrose 5%-Lactated Ringers) 1,000 mls @ 125 mls/ hr IV ASDIRECTED [facility] Last Admin: 06/10/19 02:07 Dose: 125 mls/hr Acetaminophen 1,000 mg/ Premix 100 mls @ 400 mls/hr IV NOW ONE Stop: 06/09/19 15:04 Last Admin: 06/09/19 15:30 Dose: 400 mls/hr Magnesium Sulfate 2 gm/ Premix 50 mls @ 25 mls/hr IV Q6H [facility] Stop: 06/13/19 04:59 Last Admin: 06/11/19 08:07 Dose: 25 mls/hr Dextrose/Lactated Ringer's (Dextrose 5%-Lactated Ringers) 1,000 mls @ 100 mls/ hr IV ASDIRECTED [facility] Last Admin: 06/10/19 20:58 Dose: 100 mls/hr Potassium Phosphate 15 mmol/ (Premix) 250 mls @ 84 mls/hr IV Q3H [facility] Stop: 06/11/19 14:59 Last Admin: 06/11/19 09:58 Dose: Not Given Iopamidol (Isovue-300 (61%)) 80 ml IV . DIRECTED STA Stop: 06/09/19 04:53 Last Admin: 06/09/19 05:04 Dose: 100 ml Labetalol HCl (Normodyne) 5 - 10 mg IV Q2H PRN PRN Reason: SBP > 165 OR DBP > 95 Last Admin: 06/10/19 17:38 Dose: 5 mg Lidocaine HCl (Xylocaine 2% Viscous) 15 ml PO ONETIME ONE Stop: 06/09/19 14:41 Last Admin: 06/09/19 15:37 Dose: 15 ml Lorazepam (Ativan) 0.5 mg IVPUSH ONETIME ONE Stop: 06/09/19 01:12 Last Admin: 06/09/19 01:30 Dose: 0.5 mg Metoclopramide HCl (Reglan) 10 mg IVPUSH ONETIME ONE Stop: 06/09/19 04:52 Last Admin: 06/09/19 05:01 Dose: 10 mg Ondansetron HCl (Zofran) 4 mg IVPUSH ONETIME ONE Stop: 06/09/19 09:02 Last Admin: 06/09/19 09:06 Dose: 4 mg Ondansetron HCl (Zofran) 4 mg IVPUSH Q4H PRN PRN Reason: Nausea Last Admin: 06/11/19 01:35 Dose: 4 mg Pantoprazole Sodium (Protonix Iv) 40 mg IV Q12H [facility] Last Admin: 06/11/19 01:43 Dose: 40 mg Sodium Chloride (Saline Flush) 10 ml FLUSH ASDIRECTED PRN PRN Reason: Keep Vein Open Last Admin: 06/09/19 13:44 Dose: 10 ml - Exam General: Alert, Oriented HEENT: Pupils Equal, Pupils Reactive, EOMI, Mucous Membr. Moist/[place] Neck: Supple Lungs: Clear to Auscultation, Normal Respiratory Effort Cardiovascular: Regular Rate, Regular Rhythm GI/Abdominal Exam: Soft, Abnormal Bowel Sounds Back Exam: Normal Inspection, Full Range of Motion Extremities: Normal Inspection, Normal Range of Motion, Non-Tender, No Pedal Edema, Normal Capillary Refill Skin: Warm Neurological: Cranial Nerves Intact Psy/Mental Status: Alert, Anxious Sepsis Event Note - Evaluation Sepsis Screening Result: No Definite Risk - Focused Exam Vital Signs: Vital Signs Temp Temp Pulse Resp BP Pulse Ox 06/12/19 08:11 99.5 F 67 16 138/85 100 06/12/19 03:00 98.7 F 60 18 155/78 H 96 06/11/19 22:46 98.8 F 06/11/19 22:16 99.9 F 06/11/19 22:13 100.1 F 68 18 139/81 97 Date Exam was Performed: 06/12/19 Time Exam was Performed: 08:59 - Problem List Review Problem List Initiated/Reviewed/Updated: Yes - My Orders Last 24 Hours: My Active Orders 06/11/19 12:58 Acetaminophen [Tylenol] 325 mg PO Q4H PRN 06/11/19 13:15 Levothyroxine [Synthroid] 100 mcg PO ACBREAKFAST amLODIPine [Norvasc] 5 mg PO DAILY - Plan Plan:: Assessment/plan: #1. Small bowel obstruction, ileorectal anastomosis: NG tube is out. Still air in the abd. in the lower right pelvis going across the entire abd. #2. Hypertension: Her blood pressure is improved with meds started yesterday. We'll restart medication as by mouth. #3. Hypothyroidism. On Medicine.
[2019-06-12] MEDS: amLODIPine 5 MG Tab PO SCH (10:20)
[2019-06-12] MEDS: Phosphorus #1 250 MG Tab PO SCH ×3 (10:21→21:06)
[2019-06-12] MEDS: Levothyroxine 100 MCG Tab PO SCH (10:21)
--- NOTE | 2019-06-12 13:03 | PN ---
DATE OF SERVICE: 06/12/2019 The patient's T-max 100.1. Vital signs are otherwise stable. Oral intake with full-liquid diet has been fairly good and she continues to move her bowels. Abdominal x-rays are a little bit concerning in terms of the occurrence of large area of distended small bowel in the right lower abdomen and pelvis. Given this, I think we will hold her 1 more day to make sure there is no involvement of overt bowel obstruction. Otherwise, continue on full-liquid diet. Labs are unremarkable, although phosphate continues to be somewhat low. With her IV out now, we will give her Neutra-Phos orally to supplement that. If she continues to be satisfactorily moving her bowels, she will be ready for discharge home tomorrow. Home care is being established in the meantime. Stanley Jeter MD /[id number]
[2019-06-13] MEDS: Phosphorus #1 250 MG Tab PO SCH ×2 (06:00→09:47)
[2019-06-13] MEDS: Levothyroxine 100 MCG Tab PO SCH (07:11)
--- NOTE | 2019-06-13 08:45 | DISCH ---
ADMISSION DIAGNOSES: 1. Partial small bowel obstruction, high-grade in the ileorectal anastomosis area. 2. Cancer of the colon with widespread metastasis. 3. Impaired hearing. 4. Coronary artery disease. 5. Hypertension. 6. History of myocardial infarction. 7. 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 8. Chronic back pain. 9. Hypothyroidism. 10.Anemia. 11.Anxiety. 12.Dementia/memory loss. DISCHARGE DIAGNOSIS: Resolution of partial small bowel obstruction. HISTORY: Courtney Dunbar is a pleasant 79-year-old female who has a history of cancer of the colon with widespread metastasis. She has had a total abdominal colectomy with ileocecal anastomosis followed by chemotherapy. She presented to the emergency room with nausea, vomiting, and increasing abdominal pain. She thinks that prior to admission, the pain was 3-4 days. In the emergency room, a CT of the abdomen showed a small bowel obstruction high-grade in the ileorectal anastomosis area. HOSPITAL COURSE: Courtney was admitted to [facility] on 06/09/2019. She had a surgical consult that evening and it was elected to treat nonsurgical. She had NG in and was watched closely with abdominal flat and upright x-rays. On 06/10/2019, she did have a headache which she states was related to having no coffee. Temperature max of 101.9. She did have 11 bowel movements in the first 24 hours. Magnesium was replaced. On 06/10, the NG was discontinued, pain was controlled, and her vital signs remained stable. On 06/11, she had a temperature max of 100.1. Vital signs were otherwise stable. Oral intake on a full liquid diet was good. Abdominal x-ray showed a large area of distended small bowel in the right lower abdomen and she was given Neutra-Phos orally to supplement a low phosphate. On 06/13/2019, x-ray was reviewed by Stanley Jeter MD, continued to show the same pattern, but the patient was having bowel movements, her vital signs were stable, temperature max of 99.7. She was having bowel movements and denied any abdominal pain. She was able to be discharged to either her home or her son's home with home health care. Remainder of review of systems negative for any other pertinent positives and negatives. OBJECTIVE: GENERAL: Courtney Dunbar is a pleasant 79-year-old female. VITAL SIGNS: Height is 5 feet 1.81 inches, weight is 120 pounds. TPR at 0400, 99.5; 66; 18; blood pressure 164/85. HEENT: Negative. NECK: Supple. HEART: Regular rate and rhythm. LUNGS: Clear. ABDOMEN: Soft, nontender. EXTREMITIES: Without peripheral edema. NEUROLOGIC: Intact. Memory impaired. SKIN: Without rash. DISPOSITION: Discharged to home with home health care. Appointment with senior JACOB Olivas in a week. Appointment will be made per nursing staff. MEDICATIONS: To resume home medications; Norvasc 5 mg p.o. daily, loperamide 2 mg p.o. as directed p.r.n. diarrhea, levothyroxine 100 mcg p.o. daily, Tylenol 325 mg every 4 hours p.r.n. fever or pain. DIET: Full liquid diet for 1 week, then advanced to GI soft, low residue, low-fiber diet. ACTIVITY: As tolerated. Shower/bathing: May shower. DISCHARGE INSTRUCTIONS: Notify provider if any fever, increased pain, nausea, or vomiting.
[2019-06-13] MEDS: amLODIPine 5 MG Tab PO SCH (09:47)
--- NOTE | 2019-06-13 10:10 | CR ---
Abdomen 2V AP Flat Upright CLINICAL HISTORY: Follow-up SBO FINDINGS: NG tube remains in the stomach. There is persistent small bowel distention. This may have increased slightly since prior study. No free air is identified. IMPRESSION: Small bowel distention is slightly increased when compared to prior day study NG tube remains in place
--- NOTE | 2019-06-13 10:18 | CR ---
Abdomen 2V AP Flat Upright CLINICAL HISTORY: Follow-up SBO FINDINGS: There is persistent distention of right lower abdominal small bowel loops. This is similar to prior study. NG tube is been removed. There is some blunting left costophrenic angle. IMPRESSION: Persistent small bowel distention with scattered air-fluid levels similar to prior study. Minimal left pleural effusion NG tube has been removed
--- NOTE | 2019-06-13 11:30 | CR ---
Abdomen 2V AP Flat Upright CLINICAL HISTORY: SBO FINDINGS: There is persistent distention of bowel loops in the lower abdomen greater on the right. Patient has had is significant the intra-abdominal surgery with a history of subtotal colectomy. There is a small amount of air in the rectum. IMPRESSION: Persistent moderate small bowel distention suggesting at least a moderate partial distal small bowel obstruction. There is now some air in the rectum.
--- NOTE | 2019-06-13 12:42 | PN ---
DATE OF SERVICE: 06/11/2019 The patient had single elevated temperature last night, which was treated with Tylenol suppository. Other than that, she has been afebrile with stable vital signs. NG output is moderate, but she is taking in a fair bit of coffee and such, and the abdominal x-ray continues to have some air-fluid level, but apparently some air in the rectum, and she is moving her bowels having had 3 bowel movements over the last 24 hours. At this point, we will empirically take the NG tube out, let her have a clear-liquid diet, and she will have abdominal x-rays tomorrow. Her phosphate is quite low, is still on the lower end of normal, we will give her some K-Phos IV today, recheck some labs and abdominal x-ray in the morning. If the bowel obstruction recurs symptomatically, at that point we may consider doing something operatively. Stanley Jeter MD /[id number]
== END 2019-06-13 11:18 | disposition home health service (06) | DRG 437 ==
LOC: JP.ED 00:35 → JP.MS 10:03
PROVIDERS: ADMIT Internal Medicine; ATTEND Internal Medicine
DX: C78.7 Secondary malignant neoplasm of liver and intrahepatic bile duct (principal); H54.7 Unspecified visual loss; H91.93 Unspecified hearing loss, bilateral; I25.10 Atherosclerotic heart disease of native coronary artery without angina pectoris; I10 Essential (primary) hypertension; K59.09 Other constipation; K52.9 Noninfective gastroenteritis and colitis, unspecified; F41.9 Anxiety disorder, unspecified; R32 Unspecified urinary incontinence; G89.29 Other chronic pain; M54.9 Dorsalgia, unspecified; R41.9 Unspecified symptoms and signs involving cognitive functions and awareness; E03.9 Hypothyroidism, unspecified; Z85.038 Personal history of other malignant neoplasm of large intestine; Z85.43 Personal history of malignant neoplasm of ovary; Z85.05 Personal history of malignant neoplasm of liver; I25.2 Old myocardial infarction; Z90.49 Acquired absence of other specified parts of digestive tract; Z80.3 Family history of malignant neoplasm of breast; Z80.8 Family history of malignant neoplasm of other organs or systems; Z87.891 Personal history of nicotine dependence; Z79.890 Hormone replacement therapy; Z79.899 Other long term (current) drug therapy; Z90.710 Acquired absence of both cervix and uterus; Z85.3 Personal history of malignant neoplasm of breast
CPT/HCPCS: 36415; 74019 ×2; 74177; 80048; 81001; 83605; 85027; 86140; 96361; 96374; 96375; 99284; 99285; J1170; J2060; J2405; J2765; J7050; J7120 ×2; Q9967; 71046; 71046-26; 80053; 82378; 83735; 83880; 84100; 84443; 85025; 87086; 96376; A9270-GY; C9113; J0131; J3475; J3490; J7121

== ENCOUNTER 2019-06-26 10:50 | Inpatient (IN) | payer MEDICARE ==
[2019-06-26] MEDS ORDERED: HYDROmorphone 0.5 MG/0.5 ML Syringe IVPUSH ONE (11:51)
[2019-06-26] MEDS ORDERED: Ondansetron 4 MG/2 ML SDV IVPUSH ONE (11:51)
[2019-06-26] MEDS ORDERED: Lactated Ringers 1,000 ML IV SCH (12:00)
--- NOTE | 2019-06-26 12:12 | EDM.PDOC ---
ED HPI GENERAL MEDICAL PROBLEM - General Chief Complaint: Gastrointestinal Problem Stated Complaint: VOMITING,ABD PAIN Time Seen by Provider: 06/26/19 11:20 Source of Information: Reports: Patient, Family History Limitations: Reports: No Limitations - History of Present Illness INITIAL COMMENTS - FREE TEXT/NARRATIVE: This is a 79 yo with hx of colon cancer and prior bowel resection who presents with concerns of abdominal pain and bloating. Symptoms started earlier today. Has been accompanied by nausea and vomiting. Also has the sensation she needs to defecate but unable to do so. Pain is diffuse. Achy. Severe. No fever. - Related Data Allergies Allergy/AdvReac Type Severity Reaction Status Date / Time No Known Allergies Allergy Verified 06/26/19 11:04 Home Meds: Home Meds Levothyroxine 125 mcg PO DAILY 05/04/15 [History] amLODIPine [Norvasc] 5 mg PO DAILY 11/09/18 [History] Loperamide HCl [Loperamide] 2 mg PO ASDIRECTED PRN 11/20/18 [History] Past Medical History HEENT History: Reports: Hard of Hearing, Impaired Vision Other HEENT History: HEARING AIDS BILATERALLY, AND GLASSES Cardiovascular History: Reports: CAD, Hypertension, [place] Gastrointestinal History: Reports: Chronic Constipation, Chronic Diarrhea Genitourinary History: Reports: Urinary Incontinence 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: Musculoskeletal History: Reports: Back Pain, Chronic, Fracture, Other (See Below ) Other Musculoskeletal History: fractured foot Neurological History: Reports: Concussion Psychiatric History: Reports: Anxiety Endocrine/Metabolic History: Reports: Hypothyroidism Hematologic History: Reports: Anemia Oncologic (Cancer) History: Reports: Colon, Liver, Ovarian Dermatologic History: Reports: Other (See Below) Other Dermatologic History: white spots on legs - Infectious Disease History Infectious Disease History: Reports: Chicken Pox - Past Surgical History Head Surgeries/Procedures: Reports: None HEENT Surgical History: Reports: None Cardiovascular Surgical History: Reports: None GI Surgical History: Reports: Colonoscopy, Other (See Below) Other GI Surgeries/Procedures: total abdominal colectomy with ileorectal anastomosis, placement gastrostomy, umbilical hernia repair Female Surgical History: Reports: Cystoscopy, Hysterectomy, Salpingo- Oophorectomy, Tubal Ligation, Ureteral Stent, Other (See Below) Other Female Surgeries/Procedures: placement of bilateral ureteral stents Endocrine Surgical History: Reports: None Neurological Surgical History: Reports: None Musculoskeletal Surgical History: Reports: None Oncologic Surgical History: Reports: None Dermatological Surgical History: Reports: Skin Biopsy Social & Family History - Family History HEENT: Reports: Glaucoma, Hearing Impairment Cardiac: Reports: Heart Failure Respiratory: Reports: Asthma GI: Reports: Irritable Bowel Syndrome OBGYN: Reports: Musculoskeletal: Reports: Back pain, Chronic Neurological: Reports: Parkinson's Endocrine/Metabolic: Reports: Hypothyroidism Dermatologic: Reports: Eczema Oncologic: Reports: Brain, Breast - Tobacco Use Smoking Status *Q: Never Smoker - Caffeine Use Caffeine Use: Reports: Coffee ED ROS GENERAL - Review of Systems Review Of Systems: See Below Constitutional: Reports: No Symptoms HEENT: Reports: No Symptoms Respiratory: Reports: No Symptoms Cardiovascular: Reports: No Symptoms Endocrine: Reports: No Symptoms GI/Abdominal: Reports: Abdominal Pain, Nausea, Vomiting : Reports: No Symptoms Musculoskeletal: Reports: No Symptoms Skin: Reports: No Symptoms Neurological: Reports: No Symptoms Psychiatric: Reports: No Symptoms Hematologic/Lymphatic: Reports: No Symptoms Immunologic: Reports: No Symptoms ED EXAM, GI/ABD - Physical Exam Exam: See Below Exam Limited By: No Limitations General Appearance: Alert, No Apparent Distress Ears: Normal External Exam Nose: Normal Inspection Throat/Mouth: Normal Inspection Head: Atraumatic, Normocephalic Neck: Normal Inspection Respiratory/Chest: Lungs Clear Cardiovascular: Regular Rate, Rhythm GI/Abdominal Exam: No Distention, Tender (mild diffuse tenderness, no guarding or rebound) Back Exam: Normal Inspection Extremities: Normal Inspection Neurological: Alert, Oriented Psychiatric: Normal Affect, Normal Mood Skin Exam: Warm, Dry Course - Vital Signs Last Recorded V/S: Last Vital Signs Temp 37.0 C 06/26/19 11:07 Pulse 77 06/26/19 11:07 Resp 20 06/26/19 11:07 BP 145/84 H 06/26/19 11:07 Pulse Ox 99 06/26/19 11:07 - Orders/Labs/Meds Orders: Active Orders 24 hr Category Date Time Status Iopamidol [Isovue-300 (61%)] Med 06/26/19 12:24 Active 81 ml IV . DIRECTED PRN Lactated Ringers [Ringers, Lactated] 1,000 ml Med 06/26/19 12:00 Active IV BOLUS Sodium Chloride 0.9% [Normal Saline] 70 ml Med 06/26/19 12:30 Active IV ASDIRECTED Medication Orders Lactated Ringer's (Ringers, Lactated) 1,000 mls @ 500 mls/hr IV BOLUS RYDER Last Admin: 06/26/19 12:08 Dose: 500 mls/hr Sodium Chloride (Normal Saline) 70 mls @ 3 mls/sec IV ASDIRECTED RYDER Last Admin: 06/26/19 12:44 Dose: 3 mls/sec Iopamidol (Isovue-300 (61%)) 81 ml IV . DIRECTED PRN PRN Reason: RADIOLOGY EXAM Stop: 06/27/19 12:25 Last Admin: 06/26/19 12:44 Dose: 81 ml Labs: Laboratory Tests 06/26/19 06/26/19 06/26/19 Range/Units 11:27 11:27 11:27 WBC 7.8 (4.5-11.0) K/uL RBC 4.37 (3.30-5.50) M/uL Hgb 12.4 (12.0-15.0) g/dL Hct 37.9 (36.0-48.0) % MCV 87 (80-98) fL MCH 28 (27-31) pg MCHC 33 (32-36) % Plt Count 204 (150-400) K/uL Sodium 136 L (140-148) mmol/L Potassium 4.1 (3.6-5.2) mmol/L Chloride 99 L (100-108) mmol/L Carbon Dioxide 25 (21-32) mmol/L Anion Gap 16.1 H (5.0-14.0) mmol/L BUN 19 H D (7-18) mg/dL Creatinine 1.0 (0.6-1.0) mg/dL Est Cr Clr Drug Dosing 37.26 mL/min Estimated GFR (MDRD) 54 L (>60) Glucose 101 (74-106) mg/dL Lactic Acid 1.8 (0.4-2.0) mmol/L Calcium 9.2 (8.5-10.1) mg/dL Total Bilirubin 0.7 (0.2-1.0) mg/dL AST 30 (15-37) U/L ALT 67 D (12-78) U/L Alkaline Phosphatase 65 (46-116) U/L Total Protein 7.1 (6.4-8.2) g/dL Albumin 3.6 (3.4-5.0) g/dL Globulin 3.5 (2.3-3.5) g/dL Albumin/Globulin Ratio 1.0 L (1.2-2.2) Lipase 381 (73-393) U/L Meds: Medications Generic Name Dose Route Start Last Admin Trade Name Josuéq PRN Reason Stop Dose Admin Lactated Ringer's 1,000 mls @ 500 mls/hr 06/26/19 12:00 06/26/19 12:08 Ringers, Lactated IV 500 mls/hr BOLUS RYDER Administration Sodium Chloride 70 mls @ 3 mls/sec 06/26/19 12:30 06/26/19 12:44 Normal Saline IV 3 mls/sec ASDIRECTED RYDER Administration Iopamidol 81 ml 06/26/19 12:24 06/26/19 12:44 Isovue-300 (61%) IV 06/27/19 12:25 81 ml . DIRECTED PRN Administration RADIOLOGY EXAM Discontinued Medications Generic Name Dose Route Start Last Admin Trade Name Navjot PRN Reason Stop Dose Admin Hydromorphone HCl 0.5 mg 06/26/19 11:51 06/26/19 12:04 Dilaudid IVPUSH 06/26/19 11:52 0.5 mg ONETIME ONE Administration Ondansetron HCl 4 mg 06/26/19 11:51 06/26/19 12:06 Zofran IVPUSH 06/26/19 11:52 4 mg ONETIME ONE Administration - Re-Assessments/Exams Free Text/Narrative Re-Assessment/Exam: 79-year-old presents with abdominal pain and distention. Has extensive medical history, including small bowel obstruction, colon cancer, and colectomy. On exam she is noted to have normal vitals, it is difficult to get a good abdominal exam as she will not relax her abdominal muscles, but I do not think that she has guarding. She is very anxious. Her labs are generally unremarkable. Given her surgical history and risk for bowel obstruction or other acute intra- abdominal process we will proceed with a CT of her abdomen. She has been administered IV fluids, IV pain medications and antiemetics. 06/26/19 12:28 Free Text/Narrative Re-Assessment/Exam: CT shows small bowel obstruction as well as worsening metastatic disease. Patient appears markedly more comfortable. She actually has some appetite now. Will defer NG tube placement to her admitting physician, Dr. Nichols, who is in route to admit the patient for further work-up. 06/26/19 14:24 Departure - Departure Time of Disposition: 14:25 Disposition: Admitted As Inpatient 68 Clinical Impression: Small bowel obstruction - Discharge Information Referrals: PCP,None [Primary Care Provider] - Forms: ED Department Discharge Sepsis Event Note - Evaluation Sepsis Screening Result: No Definite Risk - Focused Exam Vital Signs: Vital Signs Temp Pulse Resp BP Pulse Ox 06/26/19 11:07 37.0 C 77 20 145/84 H 99 Date Exam was Performed: 06/26/19 Time Exam was Performed: 14:24 - My Orders Last 24 Hours: My Active Orders 06/26/19 12:00 Lactated Ringers [Ringers, Lactated] 1,000 ml IV BOLUS 06/26/19 12:24 Iopamidol [Isovue-300 (61%)] 81 ml IV . DIRECTED PRN 06/26/19 12:30 Sodium Chloride 0.9% [Normal Saline] 70 ml IV ASDIRECTED - Assessment/Plan Last 24 Hours: My Active Orders 06/26/19 12:00 Lactated Ringers [Ringers, Lactated] 1,000 ml IV BOLUS 06/26/19 12:24 Iopamidol [Isovue-300 (61%)] 81 ml IV . DIRECTED PRN 06/26/19 12:30 Sodium Chloride 0.9% [Normal Saline] 70 ml IV ASDIRECTED
[2019-06-26] MEDS ORDERED: Iopamidol 612 MG/ML 100 ML Bottle IV PRN (12:24)
--- NOTE | 2019-06-26 14:08 | CRLCT ---
Indication: Diffuse abdominal pain and distension. Technique: CT from the lung bases to the pubic symphysis obtained after the uneventful administration of intravenous contrast. Contrast: 81 cc contrast IV. Please note that all CT scans at this facility use dose modulation, iterative reconstruction, and/or weight-based dosing when appropriate to reduce radiation dose to as low as reasonably achievable. Comparison: CT abdomen and pelvis 04/10/2019 Findings: Hepatobiliary: There is a large mass in the right lobe of the liver that measures 5.0 x 2.8 centimeters. Multiple low-attenuation smaller masses consist with daughter masses are also seen in the right lobe of the liver. These are increased in number and size compared to 04/10/2019. Left lobe of the liver demonstrates normal enhancement. Gallbladder is normal. Spleen: Spleen is normal. Pancreas: There is a 1.5 centimeter mass adjacent to or at the edge of the head of the pancreas (best seen on image 37, series 2). Remaining portions of the pancreas demonstrate normal enhancement. Pancreatic duct is normal in caliber. Adrenal glands: Right and left adrenal glands are normal in size. Kidneys: Right and left kidneys are normal. There is no hydronephrosis, calculus, or suspicious mass. Pelvis: Urinary bladder is normal. There are changes from prior hysterectomy. GI: There are postoperative changes in the sigmoid colon, as well as surgical changes in the left upper quadrant. Dilated loops of small bowel are seen, measuring up to 3.3 centimeters. There is no abdominal free air. Vessels/lymph nodes: The hepatic veins are patent. The main portal vein, and the right and left portal veins are patent. The abdominal aorta and the major branching vessels are normal. Soft tissues: Subcutaneous soft tissues are normal. There is no evidence of abdominal hernia. Bones: There are no lytic or blastic bone lesions. Lung bases: Clear Impression: 1. Large dominant mass in the right lobe of the liver, with multiple smaller daughter masses in the right lobe. These are increased in size and number compared to 04/10/2019, consistent with metastatic disease. 2. Dilated loops of small bowel, new from 04/10/2019 consistent with small bowel obstruction. There is no evidence of perforation. 3. Soft tissue mass either adjacent to or within the head of the pancreas, unchanged from 04/10/2019. This likely represents either metastatic disease or primary malignancy. 4. Postoperative changes in the small bowel and colon, stable. Please note that all CT scans at this facility use dose modulation, iterative reconstruction, and/or weight-based dosing when appropriate to reduce radiation dose to as low as reasonably achievable. Dictated by Savage Barrientos MD @ Jun 26 2019 1:53PM Signed by Dr. Savage Barrientos @ Jun 26 2019 2:06PM
--- NOTE | 2019-06-26 15:14 | PCM.HP.2 ---
H&P History of Present Illness - General Date of Service: 06/26/19 Source of Information: Patient, EMS, Family History Limitations: Reports: No Limitations - History of Present Illness Initial Comments - Free Text/Narative: Started to vomit and having abd. pain today. She was recently in the hospital with a small bowel obstruction and now has reoccurred. Also having abd. pain similar to what she had at her last visit. Duration of Symptoms: Reports: Day(s): Location: Reports: Abdomen Improves with: Reports: Rest Worsens with: Reports: Eating Associated Symptoms: Reports: Nausea/Vomiting, Weakness - Related Data Allergies/Adverse Reactions: Allergies Allergy/AdvReac Type Severity Reaction Status Date / Time No Known Allergies Allergy Verified 06/26/19 11:04 Home Medications: Home Meds Levothyroxine 125 mcg PO DAILY 05/04/15 [History] amLODIPine [Norvasc] 5 mg PO DAILY 11/09/18 [History] Loperamide HCl [Loperamide] 2 mg PO ASDIRECTED PRN 11/20/18 [History] Past Medical History HEENT History: Reports: Hard of Hearing, Impaired Vision Other HEENT History: HEARING AIDS BILATERALLY, AND GLASSES Cardiovascular History: Reports: CAD, Hypertension, [place] Gastrointestinal History: Reports: Chronic Constipation, Chronic Diarrhea Genitourinary History: Reports: Urinary Incontinence 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: Musculoskeletal History: Reports: Back Pain, Chronic, Fracture, Other (See Below ) Other Musculoskeletal History: fractured foot Neurological History: Reports: Concussion Psychiatric History: Reports: Anxiety Endocrine/Metabolic History: Reports: Hypothyroidism Hematologic History: Reports: Anemia Oncologic (Cancer) History: Reports: Colon, Liver, Ovarian Dermatologic History: Reports: Other (See Below) Other Dermatologic History: white spots on legs - Infectious Disease History Infectious Disease History: Reports: Chicken Pox - Past Surgical History Head Surgeries/Procedures: Reports: None HEENT Surgical History: Reports: None Cardiovascular Surgical History: Reports: None GI Surgical History: Reports: Colonoscopy, Other (See Below) Other GI Surgeries/Procedures: total abdominal colectomy with ileorectal anastomosis, placement gastrostomy, umbilical hernia repair Female Surgical History: Reports: Cystoscopy, Hysterectomy, Salpingo- Oophorectomy, Tubal Ligation, Ureteral Stent, Other (See Below) Other Female Surgeries/Procedures: placement of bilateral ureteral stents Endocrine Surgical History: Reports: None Neurological Surgical History: Reports: None Musculoskeletal Surgical History: Reports: None Oncologic Surgical History: Reports: None Dermatological Surgical History: Reports: Skin Biopsy Social & Family History - Family History HEENT: Reports: Glaucoma, Hearing Impairment Cardiac: Reports: Heart Failure Respiratory: Reports: Asthma GI: Reports: Irritable Bowel Syndrome OBGYN: Reports: Musculoskeletal: Reports: Back pain, Chronic Neurological: Reports: Parkinson's Endocrine/Metabolic: Reports: Hypothyroidism Dermatologic: Reports: Eczema Oncologic: Reports: Brain, Breast - Tobacco Use Smoking Status *Q: Never Smoker - Caffeine Use Caffeine Use: Reports: Coffee H&P Review of Systems - Review of Systems: Review Of Systems: See Below General: Reports: Weakness, Decreased Appetite HEENT: Reports: No Symptoms Pulmonary: Reports: No Symptoms Cardiovascular: Reports: No Symptoms Gastrointestinal: Reports: Abdominal Pain, Decreased Appetite, Hematochezia, Nausea, Stool Incontinence, Vomiting Genitourinary: Reports: No Symptoms Musculoskeletal: Reports: No Symptoms Skin: Reports: No Symptoms Psychiatric: Reports: Anxiety Neurological: Reports: Weakness Exam - Exam Exam: See Below - Vital Signs Vital Signs: Last Vital Signs Temp 98.6 F 06/26/19 11:07 Pulse 77 06/26/19 11:07 Resp 20 06/26/19 11:07 BP 145/84 H 06/26/19 11:07 Pulse Ox 99 06/26/19 11:07 Weight: 120 lb - Exam General: Alert, Oriented, 4 HEENT: PERRLA, Hearing Intact, Mucosa Moist & [place], Nares Patent, Normal Nasal Septum, Posterior Pharynx Clear, Conjunctiva Clear, EOMI, EACs Clear, TMs Clear Neck: Supple, Trachea Midline, 2 Lungs: Clear to Auscultation, Normal Respiratory Effort Cardiovascular: Regular Rate GI/Abdominal Exam: Soft, Guarding, Abnormal Bowel Sounds Extremities: Normal Inspection Peripheral Pulses: 1+: Radial (L), Radial (R) Skin: Warm, Dry, Intact Neuro Extensive - Mental Status: Alert, Oriented x3, Normal Mood/Affect, Normal Cognition DTR: 1+: Patella (L), Patella (R) Psychiatric: Alert, Normal Affect, Anxious - Patient Data Lab Results Last 24 hrs: Laboratory Results - last 24 hr 06/26/19 06/26/19 06/26/19 Range/Units 11:27 11:27 11:27 WBC 7.8 (4.5-11.0) K/uL RBC 4.37 (3.30-5.50) M/uL Hgb 12.4 (12.0-15.0) g/dL Hct 37.9 (36.0-48.0) % MCV 87 (80-98) fL MCH 28 (27-31) pg MCHC 33 (32-36) % Plt Count 204 (150-400) K/uL Sodium 136 L (140-148) mmol/L Potassium 4.1 (3.6-5.2) mmol/L Chloride 99 L (100-108) mmol/L Carbon Dioxide 25 (21-32) mmol/L Anion Gap 16.1 H (5.0-14.0) mmol/L BUN 19 H D (7-18) mg/dL Creatinine 1.0 (0.6-1.0) mg/dL Est Cr Clr Drug Dosing 37.26 mL/min Estimated GFR (MDRD) 54 L (>60) Glucose 101 (74-106) mg/dL Lactic Acid 1.8 (0.4-2.0) mmol/L Calcium 9.2 (8.5-10.1) mg/dL Total Bilirubin 0.7 (0.2-1.0) mg/dL AST 30 (15-37) U/L ALT 67 D (12-78) U/L Alkaline Phosphatase 65 (46-116) U/L Total Protein 7.1 (6.4-8.2) g/dL Albumin 3.6 (3.4-5.0) g/dL Globulin 3.5 (2.3-3.5) g/dL Albumin/Globulin Ratio 1.0 L (1.2-2.2) Lipase 381 (73-393) U/L Result Diagrams: 06/26/19 11:27 06/26/19 11:27 Sepsis Event Note - Evaluation Sepsis Screening Result: No Definite Risk - Focused Exam Vital Signs: Vital Signs Temp Pulse Resp BP Pulse Ox 06/26/19 11:07 98.6 F 77 20 145/84 H 99 Date Exam was Performed: 06/26/19 Time Exam was Performed: 15:09 Problem List Initiated/Reviewed/Updated: Yes Orders Last 24hrs: Active Orders 24 hr Category Date Time Status Iopamidol [Isovue-300 (61%)] Med 06/26/19 12:24 Active 81 ml IV . DIRECTED PRN Lactated Ringers [Ringers, Lactated] 1,000 ml Med 06/26/19 12:00 Active IV BOLUS Sodium Chloride 0.9% [Normal Saline] 70 ml Med 06/26/19 12:30 Active IV ASDIRECTED Medication Orders Lactated Ringer's (Ringers, Lactated) 1,000 mls @ 500 mls/hr IV BOLUS [facility] Last Admin: 06/26/19 12:08 Dose: 500 mls/hr Sodium Chloride (Normal Saline) 70 mls @ 3 mls/sec IV ASDIRECTED RYDER Last Admin: 06/26/19 12:44 Dose: 3 mls/sec Iopamidol (Isovue-300 (61%)) 81 ml IV . DIRECTED PRN PRN Reason: RADIOLOGY EXAM Stop: 06/27/19 12:25 Last Admin: 06/26/19 12:44 Dose: 81 ml Assessment/Plan Comment:: Assessment/plan: #1. Small bowel obstruction: Will admit to the Hospital and begin low suction and consult Dr. Jeter. Obstruction confirmed with CT of the Abd. #2. Ca of Colon with Mets. #3. HTN: Will treat as indicated.
[2019-06-26] MEDS ORDERED: Ondansetron 4 MG/2 ML SDV IVPUSH PRN (16:13)
[2019-06-26] MEDS: LORazepam 2 MG/ML SDV IVPUSH PRN ×2 (16:35→22:32)
[2019-06-26] MEDS: HYDROmorphone 0.5 MG/0.5 ML Syringe IVPUSH PRN ×2 (16:35→22:33)
[2019-06-26] MEDS: Sodium Chloride 0.9% 1,000 ML IV SCH (16:36)
--- NOTE | 2019-06-26 18:24 | CRLCR ---
INDICATION: NG tube placement TECHNIQUE: Frontal view of the chest. COMPARISON: Two-view chest radiographs 06/10/2019 FINDINGS: Nasogastric tube coils in the distal esophagus and terminates above the gastroesophageal junction. The lungs are clear. There is no sizable pleural effusion or pneumothorax. The cardiomediastinal silhouette is normal. The visualized osseous structures are unremarkable. IMPRESSION: Nasogastric tube coils in the distal esophagus and terminates above the gastroesophageal junction. Repositioning is recommended. Dictated by Donn Call MD @ Jun 26 2019 6:20PM Signed by Dr. Donn Call @ Jun 26 2019 6:23PM
[2019-06-26] MEDS ORDERED: Lidocaine 2% Viscous Solution 15 ML Cup PO ONE (20:00)
[2019-06-27] MEDS: Sodium Chloride 0.9% 1,000 ML IV SCH (00:34)
[2019-06-27] MEDS: HYDROmorphone 0.5 MG/0.5 ML Syringe IVPUSH PRN ×5 (01:02→22:15)
[2019-06-27] MEDS: LORazepam 2 MG/ML SDV IVPUSH PRN (03:09)
--- NOTE | 2019-06-27 07:17 | PCM.CONS ---
H&P History of Present Illness - General Date of Service: 06/27/19 Admit Problem/Dx: Admission Diagnosis/Problem Admission Diagnosis/Problem Small bowel obstruction Source of Information: Patient, Other (ED and PCP documentation ) History Limitations: Reports: Altered Mental Status - History of Present Illness Initial Comments - Free Text/Narative: Courtney presents to the ED for abdominal pain and vomiting. She states it is the same thing she always gets. Hospitalized for partial small bowel obstruction that resolved medically a couple weeks ago. Abdominal Pain Score (Numeric/FACES): 0 - Related Data Allergies/Adverse Reactions: Allergies Allergy/AdvReac Type Severity Reaction Status Date / Time No Known Allergies Allergy Verified 06/26/19 11:04 Home Medications: Home Meds Levothyroxine 125 mcg PO DAILY 05/04/15 [History] amLODIPine [Norvasc] 5 mg PO DAILY 11/09/18 [History] Loperamide HCl [Loperamide] 2 mg PO ASDIRECTED PRN 11/20/18 [History] Past Medical History HEENT History: Reports: Hard of Hearing, Impaired Vision Other HEENT History: HEARING AIDS BILATERALLY, AND GLASSES Cardiovascular History: Reports: CAD, Hypertension, [place] Gastrointestinal History: Reports: Chronic Constipation, Chronic Diarrhea Genitourinary History: Reports: Urinary Incontinence 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: Musculoskeletal History: Reports: Back Pain, Chronic, Fracture, Other (See Below ) Other Musculoskeletal History: fractured foot Neurological History: Reports: Concussion Psychiatric History: Reports: Anxiety Endocrine/Metabolic History: Reports: Hypothyroidism Hematologic History: Reports: Anemia Oncologic (Cancer) History: Reports: Colon, Liver, Ovarian Dermatologic History: Reports: Other (See Below) Other Dermatologic History: white spots on legs - Infectious Disease History Infectious Disease History: Reports: Chicken Pox - Past Surgical History Head Surgeries/Procedures: Reports: None HEENT Surgical History: Reports: None Cardiovascular Surgical History: Reports: None GI Surgical History: Reports: Colonoscopy, Other (See Below) Other GI Surgeries/Procedures: total abdominal colectomy with ileorectal anastomosis, placement gastrostomy, umbilical hernia repair Female Surgical History: Reports: Cystoscopy, Hysterectomy, Salpingo- Oophorectomy, Tubal Ligation, Ureteral Stent, Other (See Below) Other Female Surgeries/Procedures: placement of bilateral ureteral stents Endocrine Surgical History: Reports: None Neurological Surgical History: Reports: None Musculoskeletal Surgical History: Reports: None Oncologic Surgical History: Reports: None Dermatological Surgical History: Reports: Skin Biopsy Social & Family History - Family History HEENT: Reports: Glaucoma, Hearing Impairment Cardiac: Reports: Heart Failure Respiratory: Reports: Asthma GI: Reports: Irritable Bowel Syndrome OBGYN: Reports: Musculoskeletal: Reports: Back pain, Chronic Neurological: Reports: Parkinson's Endocrine/Metabolic: Reports: Hypothyroidism Dermatologic: Reports: Eczema Oncologic: Reports: Brain, Breast - Tobacco Use Smoking Status *Q: Former Smoker Used Tobacco, but Quit: Yes Month/Year Tobacco Last Used: 1994 Second Hand Smoke Exposure: No - Caffeine Use Caffeine Use: Reports: Coffee, Tea - Recreational Drug Use Recreational Drug Use: No H&P Review of Systems - Review of Systems: Review Of Systems: Comprehensive ROS is negative, except as noted in HPI. Exam - Exam Exam: See Below - Vital Signs Vital Signs: Last Vital Signs Temp 98 F 06/27/19 02:56 Pulse 86 06/27/19 02:56 Resp 16 06/27/19 02:56 BP 143/67 H 06/27/19 03:54 Pulse Ox 97 06/27/19 02:56 Weight: 120 lb - Exam General: Cooperative HEENT: PERRLA Neck: Supple, Trachea Midline Lungs: Clear to Auscultation, Normal Respiratory Effort Cardiovascular: Regular Rate, Regular Rhythm GI/Abdominal Exam: Soft, Tender (minimally tender in lower quadrants. ) (Female) Exam: Deferred Rectal (Female) Exam: Deferred Back Exam: Normal Inspection, Full Range of Motion Extremities: Normal Inspection Skin: Warm, Dry, Intact Neurological: Cranial Nerves Intact, Reflexes Equal Bilateral Neuro Extensive - Mental Status: Normal Mood/Affect, Memory Loss-Remote Events Neuro Extensive - Motor, Sensory, Reflexes: CN II-XII Intact Psychiatric: Normal Affect, Anxious - Patient Data Lab Results Last 24 hrs: Laboratory Results - last 24 hr 06/26/19 06/26/19 06/26/19 Range/Units 11:27 11:27 11:27 WBC 7.8 (4.5-11.0) K/uL RBC 4.37 (3.30-5.50) M/uL Hgb 12.4 (12.0-15.0) g/dL Hct 37.9 (36.0-48.0) % MCV 87 (80-98) fL MCH 28 (27-31) pg MCHC 33 (32-36) % Plt Count 204 (150-400) K/uL Neut % (Auto) (36-66) % Lymph % (Auto) (24-44) % [place] % (Auto) (2-6) % Eos % (Auto) (2-4) % Baso % (Auto) (0-1) % Sodium 136 L (140-148) mmol/L Potassium 4.1 (3.6-5.2) mmol/L Chloride 99 L (100-108) mmol/L Carbon Dioxide 25 (21-32) mmol/L Anion Gap 16.1 H (5.0-14.0) mmol/L BUN 19 H D (7-18) mg/dL Creatinine 1.0 (0.6-1.0) mg/dL Est Cr Clr Drug Dosing 37.26 mL/min Estimated GFR (MDRD) 54 L (>60) Glucose 101 (74-106) mg/dL Lactic Acid 1.8 (0.4-2.0) mmol/L Calcium 9.2 (8.5-10.1) mg/dL Total Bilirubin 0.7 (0.2-1.0) mg/dL AST 30 (15-37) U/L ALT 67 D (12-78) U/L Alkaline Phosphatase 65 (46-116) U/L Total Protein 7.1 (6.4-8.2) g/dL Albumin 3.6 (3.4-5.0) g/dL Globulin 3.5 (2.3-3.5) g/dL Albumin/Globulin Ratio 1.0 L (1.2-2.2) Lipase 381 (73-393) U/L 06/27/19 06/27/19 Range/Units 04:00 04:00 WBC 2.5 L (4.5-11.0) K/uL RBC 3.59 (3.30-5.50) M/uL Hgb 10.4 L D (12.0-15.0) g/dL Hct 32.1 L (36.0-48.0) % MCV 89 (80-98) fL MCH 29 (27-31) pg MCHC 32 (32-36) % Plt Count 152 (150-400) K/uL Neut % (Auto) 43 (36-66) % Lymph % (Auto) 37 (24-44) % [place] % (Auto) 17 H (2-6) % Eos % (Auto) 2 (2-4) % Baso % (Auto) 0 (0-1) % Sodium 137 L (140-148) mmol/L Potassium 3.8 (3.6-5.2) mmol/L Chloride 103 (100-108) mmol/L Carbon Dioxide 26 (21-32) mmol/L Anion Gap 11.8 (5.0-14.0) mmol/L BUN 15 (7-18) mg/dL Creatinine 0.8 (0.6-1.0) mg/dL Est Cr Clr Drug Dosing 46.58 mL/min Estimated GFR (MDRD) > 60 (>60) Glucose 84 (74-106) mg/dL Lactic Acid (0.4-2.0) mmol/L Calcium 8.3 L (8.5-10.1) mg/dL Total Bilirubin 0.7 (0.2-1.0) mg/dL AST 26 (15-37) U/L ALT 52 (12-78) U/L Alkaline Phosphatase 53 (46-116) U/L Total Protein 5.9 L (6.4-8.2) g/dL Albumin 2.9 L (3.4-5.0) g/dL Globulin 3.0 (2.3-3.5) g/dL Albumin/Globulin Ratio 1.0 L (1.2-2.2) Lipase (73-393) U/L Result Diagrams: 06/27/19 04:00 06/27/19 04:00 Sepsis Event Note - Evaluation Sepsis Screening Result: No Definite Risk - Focused Exam Vital Signs: Vital Signs Temp Pulse Resp BP Pulse Ox 06/27/19 03:54 143/67 H 06/27/19 02:56 98 F 86 16 170/90 H 97 06/26/19 22:41 98.4 F 74 16 145/73 H 100 Date Exam was Performed: 06/27/19 Time Exam was Performed: 07:09 Consult PN Assessment/Plan Procedures: Procedures AGENT NOS ASSAY W/OPTIC (11/02/17) AIRWAY INHALATION TREATMENT (11/02/17) ASSAY OF FREE THYROXINE (11/02/17) ASSAY OF LACTIC ACID (06/09/19) ASSAY OF MAGNESIUM (06/09/19) ASSAY OF NATRIURETIC PEPTIDE (06/09/19) ASSAY OF PHOSPHORUS (06/09/19) ASSAY OF TROPONIN QUANT (03/17/18) ASSAY THYROID STIM HORMONE (06/09/19) BLOOD TRANSFUSION SERVICE (11/02/17) BLOOD TYPING SEROLOGIC ABO (11/02/17) BLOOD TYPING SEROLOGIC RH(D) (11/02/17) C DIFF AMPLIFIED PROBE (11/02/17) C-REACTIVE PROTEIN (06/09/19) CARCINOEMBRYONIC ANTIGEN (06/09/19) COMPATIBILITY TEST ANTIGLOB (11/02/17) COMPATIBILITY TEST SPIN (11/02/17) COMPLETE CBC AUTOMATED (06/09/19) COMPLETE CBC W/AUTO DIFF WBC (06/09/19) COMPREHEN METABOLIC PANEL (06/09/19) CT ABD & PELV W/CONTRAST (06/09/19) CT ABD & PELVIS W/O CONTRAST (04/10/19) CT HEAD/BRAIN W/O DYE (11/02/17) CT THORAX W/DYE (03/17/19) CYSTOSCOPY AND TREATMENT (12/14/17) CYTOPATH CELL ENHANCE TECH (11/02/17) DIAGNOSTIC COLONOSCOPY (10/29/17) ECHO EXAM OF ABDOMEN (04/25/15) ELECTROCARDIOGRAM TRACING (03/17/18) EMERGENCY DEPT VISIT (06/09/19) EMERGENCY DEPT VISIT (06/09/19) EMERGENCY DEPT VISIT (04/10/19) EMERGENCY DEPT VISIT (04/10/19) EMERGENCY DEPT VISIT (11/09/18) EMERGENCY DEPT VISIT (03/17/18) EXTRACRANIAL BILAT STUDY (12/27/13) HYDRATE IV INFUSION ADD-ON (06/09/19) IMMUNOASSAY TUMOR CA 125 (10/29/17) IMMUNOHISTO ANTB 1ST STAIN (11/02/17) IMMUNOHISTO ANTB ADDL SLIDE (11/02/17) INSERT TEMP BLADDER CATH (11/02/17) INSERT TUNNELED CV CATH (12/14/17) MEASURE BLOOD OXYGEN LEVEL (11/02/17) METABOLIC PANEL TOTAL CA (06/09/19) MICROBE SUSCEPTIBLE DEL (11/02/17) MICRODISSECTION MANUAL (11/02/17) MICROSATELLITE INSTABILITY (11/02/17) OT EVAL MOD COMPLEX 45 MIN (11/30/18) PT EVAL MOD COMPLEX 30 MIN (11/02/17) RBC ANTIBODY SCREEN (11/02/17) REPAIR STOMACH OPENING (12/14/17) ROUTINE VENIPUNCTURE (06/09/19) SPECIAL STAINS GROUP 2 (11/02/17) STOOL CULTR AEROBIC BACT EA (11/02/17) SURGICAL PATH GROSS (12/14/17) THER/PROPH/DIAG INJ IV PUSH (06/09/19) THER/PROPH/DIAG INJ SC/IM (04/10/19) THERAPEUTIC ACTIVITIES (11/02/17) THERAPEUTIC EXERCISES (11/02/17) TISSUE EXAM BY PATHOLOGIST (11/02/17) TISSUE EXAM BY PATHOLOGIST (11/02/17) TISSUE EXAM BY PATHOLOGIST (11/02/17) TISSUE EXAM BY PATHOLOGIST (11/02/17) TX/PRO/DX INJ NEW DRUG ADDON (06/09/19) TX/PRO/DX INJ SAME DRUG DIRECTOR OF ENTERPRISE ARCHITECTURE (06/09/19) URINALYSIS AUTO W/SCOPE (06/09/19) URINE BACTERIA CULTURE (11/02/17) URINE CULTURE/COLONY COUNT (06/09/19) X-RAY EXAM ABDOMEN 1 VIEW (04/10/19) X-RAY EXAM ABDOMEN 2 VIEWS (06/09/19) X-RAY EXAM CHEST 1 VIEW (11/02/17) X-RAY EXAM CHEST 2 VIEWS (06/09/19) X-RAY EXAM L-S SPINE 2/3 VWS (03/17/18) X-RAY EXAM OF PELVIS (03/17/18) X-RAY EXAM OF WRIST (12/24/16) Problem List Initiated/Reviewed/Updated: Yes My Orders Last 24 Hours: My Active Orders 06/27/19 06:59 CEA Urgent 06/27/19 07:00 Dextrose 5%-Lactated Ringers 1,000 ml IV ASDIRECTED 06/28/19 04:00 Abdomen 2V AP Flat Upright [CR] DAILY CBC W/O DIFF,HEMOGRAM [HEME] Timed COMPREHENSIVE METABOLIC PN,CMP [CHEM] Timed MAGNESIUM [CHEM] Timed PHOSPHORUS [CHEM] Timed PRO B-TYPE NATRIUR PEPT,BNPPRO [CHEM] Timed 06/29/19 04:00 Abdomen 2V AP Flat Upright [CR] DAILY 06/30/19 04:00 Abdomen 2V AP Flat Upright [CR] DAILY Assessment: Partial Small Bowel Obstruction Colon Cancer Plan: Stanley Jeter MD discussed plan with son. Will observe today and if bowel obstruction not resolving by the morning will plan on doing surgery. See above orders. Will Evaluate prn or in AM Thank you for this consult. Nelly Campbell
[2019-06-27] MEDS: Dextrose 5%-Lactated Ringers 1,000 ML IV SCH ×2 (07:44→17:02)
--- NOTE | 2019-06-27 12:42 | PCM.PN ---
- General Info Date of Service: 06/27/19 Functional Status: Reports: Pain Controlled - Review of Systems General: Reports: Weakness HEENT: Reports: No Symptoms Pulmonary: Reports: No Symptoms Cardiovascular: Reports: No Symptoms Gastrointestinal: Reports: Abdominal Pain Genitourinary: Reports: No Symptoms Musculoskeletal: Reports: No Symptoms Skin: Reports: No Symptoms Neurological: Reports: No Symptoms - Patient Data Vitals - Most Recent: Last Vital Signs Temp 98.2 F 06/27/19 10:21 Pulse 82 06/27/19 10:21 Resp 16 06/27/19 10:21 BP 171/89 H 06/27/19 10:21 Pulse Ox 96 06/27/19 10:21 Weight - Most Recent: 120 lb I&O - Last 24 Hours: Intake & Output 06/26/19 06/27/19 06/27/19 22:59 06:59 14:59 Intake Total 1572 Output Total 715 963 0430 Balance -300 872 -1000 Lab Results Last 24 Hours: Laboratory Results - last 24 hr 06/27/19 06/27/19 Range/Units 04:00 04:00 WBC 2.5 L (4.5-11.0) K/uL RBC 3.59 (3.30-5.50) M/uL Hgb 10.4 L D (12.0-15.0) g/dL Hct 32.1 L (36.0-48.0) % MCV 89 (80-98) fL MCH 29 (27-31) pg MCHC 32 (32-36) % Plt Count 152 (150-400) K/uL Neut % (Auto) 43 (36-66) % Lymph % (Auto) 37 (24-44) % [place] % (Auto) 17 H (2-6) % Eos % (Auto) 2 (2-4) % Baso % (Auto) 0 (0-1) % Sodium 137 L (140-148) mmol/L Potassium 3.8 (3.6-5.2) mmol/L Chloride 103 (100-108) mmol/L Carbon Dioxide 26 (21-32) mmol/L Anion Gap 11.8 (5.0-14.0) mmol/L BUN 15 (7-18) mg/dL Creatinine 0.8 (0.6-1.0) mg/dL Est Cr Clr Drug Dosing 46.58 mL/min Estimated GFR (MDRD) > 60 (>60) Glucose 84 (74-106) mg/dL Calcium 8.3 L (8.5-10.1) mg/dL Total Bilirubin 0.7 (0.2-1.0) mg/dL AST 26 (15-37) U/L ALT 52 (12-78) U/L Alkaline Phosphatase 53 (46-116) U/L Total Protein 5.9 L (6.4-8.2) g/dL Albumin 2.9 L (3.4-5.0) g/dL Globulin 3.0 (2.3-3.5) g/dL Albumin/Globulin Ratio 1.0 L (1.2-2.2) Med Orders - Current: Current Medications Hydromorphone HCl (Dilaudid) 0.5 mg IVPUSH Q1H PRN PRN Reason: Pain Last Admin: 06/27/19 03:08 Dose: 0.5 mg Lactated Ringer's (Ringers, Lactated) 1,000 mls @ 500 mls/hr IV BOLUS [facility] Last Admin: 06/26/19 12:08 Dose: 500 mls/hr Sodium Chloride (Normal Saline) 1,000 mls @ 125 mls/hr IV ASDIRECTED [facility] Last Admin: 06/27/19 00:34 Dose: 125 mls/hr Dextrose/Lactated Ringer's (Dextrose 5%-Lactated Ringers) 1,000 mls @ 125 mls/ hr IV ASDIRECTED [facility] Last Admin: 06/27/19 07:44 Dose: 125 mls/hr Lorazepam (Ativan) 0.5 - 1 mg IVPUSH Q2H PRN PRN Reason: Anxiety Last Admin: 06/27/19 03:09 Dose: 1 mg Ondansetron HCl (Zofran) 4 mg IVPUSH Q4H PRN PRN Reason: Nausea/Vomiting Discontinued Medications Hydromorphone HCl (Dilaudid) 0.5 mg IVPUSH ONETIME ONE Stop: 06/26/19 11:52 Last Admin: 06/26/19 12:04 Dose: 0.5 mg Sodium Chloride (Normal Saline) 70 mls @ 80 mls/hr IV ASDIRECTED [facility] Last Admin: 06/26/19 12:44 Dose: 3 mls/sec Iopamidol (Isovue-300 (61%)) 81 ml IV . DIRECTED PRN PRN Reason: RADIOLOGY EXAM Stop: 06/27/19 12:25 Last Admin: 06/26/19 12:44 Dose: 81 ml Lidocaine HCl (Xylocaine 2% Viscous) 15 ml PO ONETIME ONE Stop: 06/26/19 20:01 Last Admin: 06/26/19 20:45 Dose: 15 ml Ondansetron HCl (Zofran) 4 mg IVPUSH ONETIME ONE Stop: 06/26/19 11:52 Last Admin: 06/26/19 12:06 Dose: 4 mg - Exam General: Alert, Oriented, Cooperative, Mild Distress HEENT: Pupils Equal, Pupils Reactive, EOMI, Mucous Membr. Moist/[place] Neck: Supple Lungs: Clear to Auscultation, Normal Respiratory Effort Cardiovascular: Regular Rate, Regular Rhythm GI/Abdominal Exam: Tender Extremities: Normal Inspection, Normal Range of Motion, Non-Tender, No Pedal Edema, Normal Capillary Refill Peripheral Pulses: 1+: Radial (L), Radial (R) Skin: Warm, Dry, Intact Neurological: No New Focal Deficit Sepsis Event Note - Evaluation Sepsis Screening Result: No Definite Risk - Focused Exam Vital Signs: Vital Signs Temp Pulse Resp BP BP Pulse Ox 06/27/19 10:21 98.2 F 82 16 171/89 H 96 06/27/19 08:12 158/84 H 06/27/19 07:00 98.2 F 75 20 172/91 H 96 06/27/19 03:54 143/67 H 06/27/19 02:56 98 F 86 16 170/90 H 97 Date Exam was Performed: 06/27/19 Time Exam was Performed: 12:35 - Problem List Review Problem List Initiated/Reviewed/Updated: Yes - My Orders Last 24 Hours: My Active Orders 06/26/19 15:00 Patient Status [ADT] Routine May Shower [RC] ASDIRECTED Oxygen Therapy [RC] PRN Up With Assistance [RC] ASDIRECTED VTE/DVT Education [RC] Per Unit Routine Vital Signs [RC] Q4H Resuscitation Status Routine 06/26/19 15:04 Sequential Compression Device [OM.PC] Per Unit Routine 06/26/19 15:32 Consult to Physician [CONS] Routine Gastric Tube Care Education [OM.PC] Routine 06/26/19 15:34 Notify Provider Consults [RC] ASDIRECTED 06/26/19 15:50 NG [Nasogastric Orogastric Tube Insertion] [OM.PC] Routine 06/26/19 16:13 HYDROmorphone [Dilaudid] 0.5 mg IVPUSH Q1H PRN LORazepam [Ativan] 0.5 - 1 mg IVPUSH Q2H PRN Ondansetron [Zofran] 4 mg IVPUSH Q4H PRN 06/26/19 16:19 Nasogastric Tube Management [Gastrointestinal Tube Mgmt] [RC] ASDIRECTED 06/26/19 16:30 Sodium Chloride 0.9% [Normal Saline] 1,000 ml IV ASDIRECTED - Plan Plan:: Assessment/plan: #1. Small bowel obstruction: Is on low suction possible surgery by Dr. Jeter in the morning. Obstruction confirmed with CT of the Abd. #2. Ca of Colon with Mets. #3. HTN: Will treat as indicated when possible but BP is elevated.
[2019-06-28] MEDS: Dextrose 5%-Lactated Ringers 1,000 ML IV SCH (00:44)
[2019-06-28] MEDS: HYDROmorphone 0.5 MG/0.5 ML Syringe IVPUSH PRN (00:47)
[2019-06-28] MEDS ORDERED: Potassium Chloride 20 MEQ in Premix Bag 1 BAG IV ONE (06:38)
[2019-06-28] MEDS ORDERED: fentaNYL 250 MCG/5 ML SDV ONE (07:30)
[2019-06-28] MEDS ORDERED: Propofol 200 MG/20 ML SDV ONE (07:31)
[2019-06-28] MEDS ORDERED: Dexamethasone 4 MG/ML SDV ONE (07:31)
[2019-06-28] MEDS ORDERED: Rocuronium 50 MG/5 ML Vial ONE ×2 (07:31→11:20)
[2019-06-28] MEDS ORDERED: Ondansetron 4 MG/2 ML SDV ONE (07:31)
[2019-06-28] MEDS ORDERED: Succinylcholine 200 MG/10 ML MDV ONE (07:31)
[2019-06-28] MEDS ORDERED: Glycopyrrolate 0.2 MG/ML 5 ML MDV ONE (07:31)
[2019-06-28] MEDS ORDERED: Neostigmine Methylsulfate 1 MG/ML 5 ML Syringe ONE (07:31)
[2019-06-28] MEDS ORDERED: Meropenem 500 MG SDV ONE (07:33)
[2019-06-28] MEDS ORDERED: Lidocaine 1% with EPINEPHrine 1:100,000 50 ML MDV ONE (07:33)
[2019-06-28] MEDS ORDERED: Bupivacaine 0.5% 50 ML MDV ONE (07:33)
[2019-06-28] MEDS ORDERED: Potassium Chloride 20 MEQ, Lidocaine 1% 2 ML in Sodium Chloride 0.9% 100 ML IV ONE (07:45)
--- NOTE | 2019-06-28 08:28 | PN ---
DATE OF SERVICE: 06/28/2019 SUBJECTIVE: Courtney's flat and upright abdominal film continued to show a partial small bowel obstruction. Temp max of 99.4. Oral intake, she has been n.p.o. Urine output, 1900. She has had 3 bowel movements and NG put out 125 mL. Denies pain at this time. REVIEW OF SYSTEMS: Remainder of review of systems negative for any other pertinent positives and negatives. OBJECTIVE: GENERAL: Courtney Dunbar is a pleasant 79-year-old female. VITAL SIGNS: TPR at 0200 is 98.8, 81, 16. Blood pressure 163/85. HEENT: Negative. NECK: Supple. HEART: Regular rate and rhythm. LUNGS: Clear. ABDOMEN: Minimal generalized tenderness in all 4 quadrants with an increase in pain in the periumbilical area. EXTREMITIES: Without peripheral edema. ASSESSMENT: 1. Partial small-bowel obstruction. 2. 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 PLAN: 1. Schedule and have consent signed for exploratory laparotomy with release of partial small-bowel obstruction and possible small bowel resection. General anesthesia, TAP block. Case to follow. Surgeon, Stanley Jeter MD. 2. Cefoxitin 2 g IV on-call to OR. We will evaluate p.r.n. or in a.m. Orders to be written postoperatively, and her magnesium and potassium will be replaced at that time. Stanley Jeter MD called Jet Dunbar, and consent will be given by him, as Courtney has dementia. He explained surgical procedure, and after preoperative evaluation, discussion of possible risks and complications to patient to the best of her ability and mental status, and to son, they wished to proceed with surgical procedure. Nelly Burnett PA-C /[id number]
[2019-06-28] MEDS ORDERED: cefOXitin 2 GM in Sodium Chloride 0.9% 50 ML IV ONE (09:00)
[2019-06-28] MEDS ORDERED: Lactated Ringers 1,000 ML ONE ×2 (09:48→11:55)
--- NOTE | 2019-06-28 10:17 | CR ---
Abdomen 2V AP Flat Upright CLINICAL HISTORY: Postoperative ileus FINDINGS: No free air is identified. There is an NG tube in the stomach. There are postsurgical changes in the abdomen. There is some dilated small bowel in the lower abdomen. This is diminished when compared to 06/13/2019. There is some gas in the left colon. There is a questionable thumbprinting pattern in the left lower quadrant which could be some colonic wall thickening. IMPRESSION: Small bowel distention in the low abdomen and pelvis diminished since prior study Questionable thickening of the descending colon.
[2019-06-28] MEDS ORDERED: fentaNYL 100 MCG/2 ML SDV ONE (11:34)
[2019-06-28] MEDS ORDERED: Labetalol 20 MG/4 ML Syringe ONE (12:25)
[2019-06-28] MEDS ORDERED: HYDROmorphone/Normal Saline 15 MG/30 ML PCA IV PRN (12:55)
[2019-06-28] MEDS ORDERED: Naloxone 0.4 MG/ML SDV IV PRN (12:55)
[2019-06-28] MEDS ORDERED: hydrOXYzine HCL 100 MG/2 ML SDV IM PRN (13:51)
[2019-06-28] MEDS ORDERED: Labetalol 20 MG/4 ML Syringe IVPUSH PRN (13:53)
[2019-06-28] MEDS: Potassium Chloride 10 MEQ in Dextrose 5%-Lactated Ringers 1,000 ML IV SCH ×2 (14:53→22:41)
[2019-06-28] MEDS: Pantoprazole 40 MG Vial IV SCH (15:38)
--- NOTE | 2019-06-28 16:10 | PCM.PN ---
- General Info Date of Service: 06/28/19 Subjective Update: Mentally alert with pain controlled Functional Status: Reports: Pain Controlled - Review of Systems General: Reports: Weakness HEENT: Reports: No Symptoms Pulmonary: Reports: No Symptoms Cardiovascular: Reports: No Symptoms Gastrointestinal: Reports: Abdominal Pain Genitourinary: Reports: No Symptoms Musculoskeletal: Reports: No Symptoms Skin: Reports: No Symptoms Neurological: Reports: No Symptoms Psychiatric: Reports: No Symptoms - Patient Data Vitals - Most Recent: Last Vital Signs Temp 99.4 F 06/28/19 15:30 Pulse 82 06/28/19 15:30 Resp 16 06/28/19 15:30 BP 129/82 06/28/19 15:30 Pulse Ox 96 06/28/19 15:30 Weight - Most Recent: 119 lb 15.997 oz I&O - Last 24 Hours: Intake & Output 06/28/19 06/28/19 06/28/19 06:59 14:59 22:59 Intake Total 1508 100 Output Total 50 1305 150 Balance 1458 -1205 -150 Lab Results Last 24 Hours: Laboratory Results - last 24 hr 06/27/19 06/28/19 06/28/19 Range/Units 06:59 04:15 04:15 WBC 4.3 L (4.5-11.0) K/uL RBC 3.86 (3.30-5.50) M/uL Hgb 11.1 L (12.0-15.0) g/dL Hct 34.4 L (36.0-48.0) % MCV 89 (80-98) fL MCH 29 (27-31) pg MCHC 32 (32-36) % Plt Count 152 (150-400) K/uL Sodium 138 L (140-148) mmol/L Potassium 3.3 L (3.6-5.2) mmol/L Chloride 101 (100-108) mmol/L Carbon Dioxide 29 (21-32) mmol/L Anion Gap 11.3 (5.0-14.0) mmol/L BUN 7 D (7-18) mg/dL Creatinine 0.8 (0.6-1.0) mg/dL Est Cr Clr Drug Dosing 46.17 mL/min Estimated GFR (MDRD) > 60 (>60) Glucose 122 H (74-106) mg/dL Calcium 8.9 (8.5-10.1) mg/dL Phosphorus 2.7 (2.5-4.9) mg/dL Magnesium 1.6 L (1.8-2.4) mg/dL Total Bilirubin 0.7 (0.2-1.0) mg/dL AST 28 (15-37) U/L ALT 45 (12-78) U/L Alkaline Phosphatase 51 (46-116) U/L NT-Pro-B Natriuret Pep 644 H (5-450) pg/mL Total Protein 6.3 L (6.4-8.2) g/dL Albumin 3.0 L (3.4-5.0) g/dL Globulin 3.3 (2.3-3.5) g/dL Albumin/Globulin Ratio 0.9 L (1.2-2.2) Carcinoembryonic Ag 178.0 H (0.0-4.7) ng/mL Blood Type Gel Antibody Screen Crossmatch 06/28/19 Range/Units 04:20 WBC (4.5-11.0) K/uL RBC (3.30-5.50) M/uL Hgb (12.0-15.0) g/dL Hct (36.0-48.0) % MCV (80-98) fL MCH (27-31) pg MCHC (32-36) % Plt Count (150-400) K/uL Sodium (140-148) mmol/L Potassium (3.6-5.2) mmol/L Chloride (100-108) mmol/L Carbon Dioxide (21-32) mmol/L Anion Gap (5.0-14.0) mmol/L BUN (7-18) mg/dL Creatinine (0.6-1.0) mg/dL Est Cr Clr Drug Dosing mL/min Estimated GFR (MDRD) (>60) Glucose (74-106) mg/dL Calcium (8.5-10.1) mg/dL Phosphorus (2.5-4.9) mg/dL Magnesium (1.8-2.4) mg/dL Total Bilirubin (0.2-1.0) mg/dL AST (15-37) U/L ALT (12-78) U/L Alkaline Phosphatase (46-116) U/L NT-Pro-B Natriuret Pep (5-450) pg/mL Total Protein (6.4-8.2) g/dL Albumin (3.4-5.0) g/dL Globulin (2.3-3.5) g/dL Albumin/Globulin Ratio (1.2-2.2) Carcinoembryonic Ag (0.0-4.7) ng/mL Blood Type A POSITIVE Gel Antibody Screen Negative Crossmatch See Detail Med Orders - Current: Current Medications Hydromorphone HCl (Dilaudid Electrician Journeyman Wireman 15 Mg In Ns 30 Ml) 0 mg IV ASDIRECTED PRN; Protocol PRN Reason: [employer]LE[employer] PAIN CONTROL Last Admin: 06/28/19 13:44 Dose: 15 mg Hydroxyzine HCl (Vistaril) 50 - 75 mg IM Q4H PRN PRN Reason: 50MG = MODERATE 75MG = SEVERE Potassium Chloride 10 meq/ (Dextrose/Lactated Ringer's) 1,005 mls @ 175 mls/hr IV ASDIRECTED ON LICENSE OF [facility] Last Admin: 06/28/19 14:53 Dose: 175 mls/hr Cefoxitin Sodium 2 gm/ Sodium (Chloride) 50 mls @ 100 mls/hr IV Q6H ON LICENSE OF [facility] Labetalol HCl (Normodyne) 5 mg IVPUSH Q2H PRN PRN Reason: SBP >/= 160 OR DBP >/= 95 Naloxone HCl (Narcan) 0.1 mg IV ASDIRECTED PRN PRN Reason: decreased respiratory rate Ondansetron HCl (Zofran) 4 mg IVPUSH Q4H PRN PRN Reason: Nausea/Vomiting Pantoprazole Sodium (Protonix Iv) 40 mg IV Q24H ON LICENSE OF [facility] Last Admin: 06/28/19 15:38 Dose: 40 mg Discontinued Medications Bupivacaine HCl (Marcaine 0.5%) Confirm Administered Dose 50 ml .ROUTE .STK-MED ONE Stop: 06/28/19 07:34 Ropivacaine 27 ml/Dexamethasone 8 mg/Epinephrine HCl 0.4 mg/ Sodium Chloride 50.6 ml 0 ml NERVRT ASDIRECTED ON LICENSE OF [facility] Last Admin: 06/28/19 09:41 Dose: 80 syringe Dexamethasone (Dexamethasone) Confirm Administered Dose 4 mg .ROUTE .STK-MED ONE Stop: 06/28/19 07:32 Fentanyl (Sublimaze) Confirm Administered Dose 250 mcg .ROUTE .STK-MED ONE Stop: 06/28/19 07:31 Fentanyl (Sublimaze) Confirm Administered Dose 100 mcg .ROUTE .STK-MED ONE Stop: 06/28/19 11:35 Glycopyrrolate (Robinul) Confirm Administered Dose 1 mg .ROUTE .STK-MED ONE Stop: 06/28/19 07:32 Hydromorphone HCl (Dilaudid) 0.5 mg IVPUSH ONETIME ONE Stop: 06/26/19 11:52 Last Admin: 06/26/19 12:04 Dose: 0.5 mg Hydromorphone HCl (Dilaudid) 0.5 mg IVPUSH Q1H PRN PRN Reason: Pain Last Admin: 06/28/19 00:47 Dose: 0.5 mg Lactated Ringer's (Ringers, Lactated) 1,000 mls @ 500 mls/hr IV BOLUS ON LICENSE OF [facility] Last Admin: 06/26/19 12:08 Dose: 500 mls/hr Sodium Chloride (Normal Saline) 70 mls @ 80 mls/hr IV ASDIRECTED ON LICENSE OF [facility] Last Admin: 06/26/19 12:44 Dose: 3 mls/sec Sodium Chloride (Normal Saline) 1,000 mls @ 125 mls/hr IV ASDIRECTED ON LICENSE OF [facility] Last Admin: 06/27/19 00:34 Dose: 125 mls/hr Dextrose/Lactated Ringer's (Dextrose 5%-Lactated Ringers) 1,000 mls @ 125 mls/ hr IV ASDIRECTED ON LICENSE OF [facility] Last Admin: 06/28/19 00:44 Dose: 125 mls/hr Potassium Chloride 20 meq/ (Premix) 100 mls @ 50 mls/hr IV ONETIME ONE Stop: 06/28/19 08:37 Last Admin: 06/28/19 11:40 Dose: Not Given Cefoxitin Sodium 2 gm/ Sodium (Chloride) 50 mls @ 100 mls/hr IV ONETIME ONE Stop: 06/28/19 09:29 Last Admin: 06/28/19 08:36 Dose: 100 mls/hr Potassium Chloride 20 meq/Lidocaine HCl 2 ml/ Sodium Chloride 112 mls @ 56 mls/ hr IV ONETIME ONE Stop: 06/28/19 09:44 Last Admin: 06/28/19 08:10 Dose: 56 mls/hr Lactated Ringer's (Ringers, Lactated) Confirm Administered Dose 1,000 mls @ as directed .ROUTE .STK-MED ONE Stop: 06/28/19 09:49 Lactated Ringer's (Ringers, Lactated) Confirm Administered Dose 1,000 mls @ as directed .ROUTE .STK-MED ONE Stop: 06/28/19 11:56 Iopamidol (Isovue-300 (61%)) 81 ml IV . DIRECTED PRN PRN Reason: RADIOLOGY EXAM Stop: 06/27/19 12:25 Last Admin: 06/26/19 12:44 Dose: 81 ml Labetalol HCl (Normodyne) Confirm Administered Dose 20 mg .ROUTE .STK-MED ONE Stop: 06/28/19 12:26 Lidocaine HCl (Xylocaine 2% Viscous) 15 ml PO ONETIME ONE Stop: 06/26/19 20:01 Last Admin: 06/26/19 20:45 Dose: 15 ml Lidocaine/Epinephrine (Xylocaine 1% With Epinephrine 1:100,000) Confirm Administered Dose 50 ml .ROUTE .STK-MED ONE Stop: 06/28/19 07:34 Lorazepam (Ativan) 0.5 - 1 mg IVPUSH Q2H PRN PRN Reason: Anxiety Last Admin: 06/27/19 03:09 Dose: 1 mg Meropenem (Merrem) Confirm Administered Dose 500 mg .ROUTE .STK-MED ONE Stop: 06/28/19 07:34 Last Admin: 06/28/19 09:46 Dose: 500 mg Neostigmine Methylsulfate (Neostigmine) Confirm Administered Dose 5 mg .ROUTE .STK-MED ONE Stop: 06/28/19 07:32 Non-Formulary Medication (Tap Block, Pharmacy To Dose) 0 ml NERVRT ONETIME ONE Stop: 06/28/19 09:01 Last Admin: 06/28/19 14:48 Dose: Not Given Ondansetron HCl (Zofran) 4 mg IVPUSH ONETIME ONE Stop: 06/26/19 11:52 Last Admin: 06/26/19 12:06 Dose: 4 mg Ondansetron HCl (Zofran) Confirm Administered Dose 4 mg .ROUTE .STK-MED ONE Stop: 06/28/19 07:32 Propofol (Diprivan 20 Ml) Confirm Administered Dose 200 mg .ROUTE .STK-MED ONE Stop: 06/28/19 07:32 Rocuronium Agness (Zemuron) Confirm Administered Dose 50 mg .ROUTE .STK-MED ONE Stop: 06/28/19 07:32 Rocuronium Agness (Zemuron) Confirm Administered Dose 50 mg .ROUTE .STK-MED ONE Stop: 06/28/19 11:21 Succinylcholine Chloride (Quelicin) Confirm Administered Dose 200 mg .ROUTE .STK -MED ONE Stop: 06/28/19 07:32 - Exam General: Alert, Oriented HEENT: Pupils Equal, Pupils Reactive, EOMI, Mucous Membr. Moist/[place] Neck: Supple Lungs: Clear to Auscultation, Normal Respiratory Effort Cardiovascular: Regular Rate, Regular Rhythm GI/Abdominal Exam: Tender Extremities: Normal Inspection, Normal Range of Motion, Non-Tender, No Pedal Edema, Normal Capillary Refill Peripheral Pulses: 1+: Radial (L), Radial (R) Skin: Warm, Dry, Intact Neurological: No New Focal Deficit Sepsis Event Note - Evaluation Sepsis Screening Result: No Definite Risk - Focused Exam Vital Signs: Vital Signs Temp Pulse Resp BP BP Pulse Ox Pulse Ox 06/28/19 15:30 99.4 F 82 16 129/82 96 06/28/19 15:00 99.2 F 82 16 147/74 H 97 97 06/28/19 14:30 99.5 F 66 18 133/67 96 06/28/19 14:00 67 16 145/72 H 97 06/28/19 13:52 95 06/28/19 13:45 66 16 166/79 H 96 06/28/19 13:30 99.8 F 66 18 162/76 H 96 06/28/19 13:15 66 18 158/97 H 98 06/28/19 13:00 16 155/81 H 96 06/28/19 12:55 98 F 16 174/85 H 99 06/28/19 12:50 158/79 H 06/28/19 12:45 16 154/81 H 98 06/28/19 12:40 15 150/78 H 98 06/28/19 12:35 16 182/94 H 99 06/28/19 12:30 15 168/95 H 100 06/28/19 12:25 15 192/94 H 100 06/28/19 12:20 98.1 F 78 15 201/103 H 99 06/28/19 11:25 17 181/98 H 99 06/28/19 07:58 99.8 F 97 16 161/91 H 96 Date Exam was Performed: 06/28/19 Time Exam was Performed: 16:10 - Problem List Review Problem List Initiated/Reviewed/Updated: Yes - Plan Plan:: Assessment/plan: #1. Small bowel obstruction: Is S/P surgery with coloscopy. #2. Ca of Colon with Mets. #3. HTN: good presently 129 systolic
[2019-06-28] MEDS: cefOXitin 2 GM in Sodium Chloride 0.9% 50 ML IV SCH ×2 (16:12→22:41)
[2019-06-29] MEDS ORDERED: Lactated Ringers 500 ML IV SCH (02:15)
[2019-06-29] MEDS: Potassium Chloride 10 MEQ in Dextrose 5%-Lactated Ringers 1,000 ML IV SCH (04:39)
[2019-06-29] MEDS: cefOXitin 2 GM in Sodium Chloride 0.9% 50 ML IV SCH ×4 (04:44→21:09)
--- NOTE | 2019-06-29 08:35 | PN ---
DATE OF SERVICE: 06/29/2019 SUBJECTIVE: Courtney is postop day 1. Hemoglobin was 9.8. Phosphorus is 2.4. She is getting magnesium supplements. Pain has been controlled. She does forget to use her KEG INSPECTOR, so staff has been reminding her. Temp max of 99.4. Urine output was decreased, so she was given 500 mL lactated Ringer bolus. Oral intake 0, n.p.o. Urine output via Tello catheter is 1150. NG put out 300 mL and PRERNA drain put out 230 mL of a light red drainage. REVIEW OF SYSTEMS: Remainder of review of systems negative for any pertinent positives and negatives. OBJECTIVE: GENERAL: Courtney Dunbar is a pleasant 79-year-old female. VITAL SIGNS: TPR at 0729 is 99.4, 70, 16, blood pressure 155/72. HEENT: Negative. NECK: Supple. HEART: Regular rate and rhythm. LUNGS: Clear. ABDOMEN: Dressings dry and intact. Abdominal binder is on. Ileostomy bag intact and there is no drainage. EXTREMITIES: Without peripheral edema. ASSESSMENT: Exploratory laparotomy with extensive recurrent colon carcinoma, abdominal wall with multiple small bowel obstructions, confluent adverse obstruction of intrarectal anastomosis. Date of surgery: 06/28/2019. Surgeon: Stanley Jeter MD. PLAN: 1. DC NG. 2. Decrease IV to 100 mL per hour at 12 noon today. 3. Schedule and have consent signed for delayed primary closure on , 06/30/2019, with IV local and TAP block. N.p.o. after midnight. Surgeon: Stanley Jeter MD. 4. K-Phos 45 mmol IV today. 5. Check CBC, CMP, mag, phos, and BNP in a.m. Leave Tello catheter in to measure accurate output. 6. Incentive spirometer 10 times every hour while awake and will evaluate p.r.n. or in a.m. Nelly Burnett PA-C /[id number]
[2019-06-29] MEDS: Potassium Phos in 0.9 % NaCl 15 MMOL in Premix Bag 1 BAG IV SCH ×6 (10:22→14:32)
[2019-06-29] MEDS: Magnesium Sulfate/Water 2 GM in Premix Bag 1 BAG IV SCH ×3 (10:23→20:50)
--- NOTE | 2019-06-29 11:58 | OR ---
DATE OF PROCEDURE: 06/28/2019 SURGEON: Stanley Jeter MD PREOPERATIVE DIAGNOSES: 1. Extensive recurrent colon carcinoma involving abdominal wall and diffusely within the abdomen and pelvis, causing multiple areas of small bowel obstruction. 2. 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 OPERATIVE PROCEDURES: Exploratory laparotomy with: 1. Excision of portion of abdominal wall midline incision involving multiple sites of recurrence (83132). 2. Excision of intraperitoneal metastatic nodule of lower abdominal wall (1 cm) (97725). 3. Excision of area of confluent tumor (10.5 cm) left lateral abdominal wall (57559). 4. Small bowel stricturoplasty (09875). 5. Formation of enteroenterostomy between dilated loops of small bowel in the pelvis and the small bowel used for the loop ileostomy (48541). 6. Formation of secondary enteroenterostomy between small bowel loop used for ileostomy and more proximal nondilated small bowel (61079). 7. Formation of loop ileostomy (88337). 8. Placement of Interceed mesh to limit recurrent adhesion formation between pelvic and abdominal wall and underlying viscera (11207). ANESTHESIA: General. MANAGER ETL: Nelly Burnett PA-C INDICATIONS FOR PROCEDURE: This is a 79-year-old woman, who is now about 15 years' status post total abdominal colectomy with ileorectal anastomosis for extensive colon carcinoma. 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 The patient had done well up until recent weeks, when she was noted to have some liver metastases and other metastatic disease in both the abdominal wall and intra- abdominally and was just discharged recently from a small-bowel obstruction. She now presents with persistent bowel obstruction, and the plan will be to proceed with exploratory laparotomy and palliative bypass. The potential risks of the procedure including bleeding, infection, injury to underlying viscera, leaks from various GI tract closures, the likelihood that the process will progress to the point that she might develop new obstructions in the relatively near future, along with possibility of cardiopulmonary, septic, or hemorrhagic complications leading to were all discussed with the patient's daughter, and they wished to proceed. The patient herself has significant dementia and would not be competent to give a consent. DETAIL OF PROCEDURE: The patient was taken to the operating room, and after general endotracheal anesthesia was induced, a Tello catheter was inserted, and the abdomen prepped and draped. The patient was noted to have multiple probable metastatic lesions on her lower midline incision extending up to underneath the umbilicus and slightly superior to the umbilicus. Some of these were so close to the skin that, using this incision and closing it, would almost result in significant areas of ulceration due to the tumor eroding through the skin. Given this, a 13 cm segment of the previous incision was excised, including full- thickness abdominal wall. This included the umbilicus as well and that specimen then delivered from the field. Upon entering the peritoneal cavity, the patient was noted to have fairly dense adhesions but reasonably easy to dissect. The patient had multiple sites of tumor scattered in the anterior abdominal wall. There was one area in the lower mid abdominal wall just below the incision that appeared to have some ongoing bleeding after minimal manipulation, and this was excised using electrocautery. In the left lateral abdominal wall, there was a 10.5 cm segment which also appeared to be having some ongoing oozing of blood with any sort of manipulation, and this was excised by means of a MACK stapler. Eventually, the dissection showed an area of stricture related to tumor, which was treated with a stricturoplasty with internal firing of the MACK stapler. Common opening was closed transversely with the same stapler and angles of anastomosis reinforced with 3-0 Vicryl stitch. As one extended into the pelvis, the entire pelvis was more or less frozen with tumor at this point, and it appeared evident that the ileocolic anastomosis was obstructed and this would not be amenable to treatment, given the extent of the frozen pelvis, and we at that point decided to proceed with a loop ileostomy. The patient had one fairly dilated loop next to the loop that was selected for the loop ileostomy, which was more or less roughly 20 cm proximal to the ileocolic anastomosis, and this was felt to be partially obstructed and could develop into a closed loop obstruction. Given this, an enteroenterostomy between the small bowel somewhat below the point where the bowel would be brought up for ileostomy was accomplished with internal firing of the MACK stapler between that dilated loop and the adjacent small bowel with internal firing of the Endo-MACK stapler. The common opening was closed transversely with same stapler. It was felt that this loop that was dilated at some point may become more proximally fully obstructed. Given this, we resected the area more or less in the mid small bowel, which was not at all dilated, for a second anastomosis between the other side of the loop of the small bowel being used for the ileostomy. This same sequence of delia was undertaken, and both areas were reinforced with some 3-0 Vicryl seromuscular stitch. At this point, in the right mid abdominal wall, which was in the area where the loop being used for the ileostomy came up fairly well and into an area of fairly smooth abdominal wall contour, a circular incision was made and carried down through the skin and subcutaneous tissue. The rectus sheath was then incised vertically, and the area was spread. We intentionally made this ileostomy fairly loose, as the patient's small bowel motility over time would likely become progressively impaired, making this ileostomy much of a looser fit than a typical ileostomy. Once this was then pulled up and initially secured to the abdominal wall with some 3-0 Vicryl stitch, the abdomen was irrigated with an antibiotic- containing saline solution. Two Kalen-Aggarwal drains were then placed through stab wounds in the left abdomen and taken down into the area of the pelvis. Interceed mesh was then placed underneath the incision and from there down toward the pelvis to limit recurrent adhesion formation. The midline fascia was then approximated with #2 Vicryl stitch. Skin and subcutaneous tissue were left open for a planned delayed primary closure within 48 to 72 hours. Once the midline fascia was closed, the ileostomy was then matured, using standard technique using 3-0 Vicryl stitch, and an appliance placed. The patient was taken to the recovery room in satisfactory condition. During the procedure, when the decision was made to proceed with the ileostomy, both the patient's daughter, who is the [id number], as well as son were contacted, and they agreed with the idea that the ileostomy would be appropriate and necessary. Physician rehab care assistant, Nelly Burnett, played an essential role in assisting in this case, helping to position the patient, retract structures as needed, as well as suturing and cutting sutures when indicated. Her presence improved patient safety and decreased operative time. Stanley Jeter MD /[id number]
[2019-06-29] MEDS: Pantoprazole 40 MG Vial IV SCH (16:37)
[2019-06-30] MEDS: Magnesium Sulfate/Water 2 GM in Premix Bag 1 BAG IV SCH ×3 (02:33→19:58)
[2019-06-30] MEDS: cefOXitin 2 GM in Sodium Chloride 0.9% 50 ML IV SCH ×4 (03:56→23:17)
[2019-06-30] MEDS ORDERED: Meropenem 500 MG SDV ONE (06:35)
[2019-06-30] MEDS ORDERED: Bupivacaine 0.5% 50 ML MDV ONE (06:35)
[2019-06-30] MEDS ORDERED: Lidocaine 1% with EPINEPHrine 1:100,000 50 ML MDV ONE (06:35)
[2019-06-30] MEDS ORDERED: Sodium Chloride 0.9% 10 ML ONE (06:43)
[2019-06-30] MEDS ORDERED: fentaNYL 100 MCG/2 ML SDV ONE (06:59)
[2019-06-30] MEDS ORDERED: Propofol 200 MG/20 ML SDV ONE ×2 (07:00→08:31)
--- NOTE | 2019-06-30 07:41 | PN ---
DATE OF SERVICE: 06/30/2019 SUBJECTIVE: Courtney is n.p.o. She will be having delayed primary closure today. Pain is controlled. She is up ambulating. Labs this morning, hemoglobin 10.4 and phosphorus is 2.1. REVIEW OF SYSTEMS: Remainder of review of systems negative for any pertinent positives and negatives. OBJECTIVE: GENERAL: Courtney Dunbar is a pleasant 79-year-old female. VITAL SIGNS: TPR at 0231; 100.1, 81, 16, and blood pressure 162/83. HEENT: Negative. NECK: Supple. HEART: Regular rate and rhythm. LUNGS: Clear. ABDOMEN: Dressing is dry and intact. Ileostomy bag has a small amount in the bottom of the bag. PRERNA drain put out 80 mL of a light pink drainage. GENITOURINARY: Urine output via Tello catheter, 2750. EXTREMITIES: Without peripheral edema. ASSESSMENT: Exploratory laparotomy with; 1. Excision of the portion of abdominal wall, midline incision, involving multiple sites of reoccurrence. 2. Excision of intraperitoneal metastatic nodule of lower abdominal wall, 1 cm. 3. Excision of area of confluent tumor, 10.5 cm left lateral abdominal wall. 4. Small bowel strictureplasty. 5. Formation of enteroenterostomy between dilated loops of small bowel in the pelvis and the small bowel used for the loop ileostomy. 6. Formation of secondary enteroenterostomy between the small bowel loops use for ileostomy and more proximal nondilated small bowel. 7. Formation of loop ileostomy. 8. Placement of Interceed mesh to limit recurrent adhesion formation between pelvic and abdominal wall and underlying viscera. POSTOPERATIVE DIAGNOSES: 1. 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 2. 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 3. Date of surgery: 06/28/2019. Surgeon: Stanley Jeter MD. PLAN: 1. Orders to be written after delayed primary closure. 2. K-Phos 45 millimoles IV 1 time. 3. Check CBC, CMP, BNP, and phosphorus. 4. Encouraged use of incentive spirometer. 5. We will evaluate p.r.n. or in the a.m. Nelly Burnett PA-C /[id number]
[2019-06-30] MEDS: Potassium Phos in 0.9 % NaCl 15 MMOL in Premix Bag 1 BAG IV SCH ×6 (13:25→23:54)
--- NOTE | 2019-06-30 15:05 | PCM.PN ---
- General Info Date of Service: 06/29/19 Functional Status: Reports: Pain Controlled - Review of Systems General: Reports: Weakness Pulmonary: Reports: No Symptoms Cardiovascular: Reports: No Symptoms Gastrointestinal: Reports: Abdominal Pain Genitourinary: Reports: No Symptoms Musculoskeletal: Reports: No Symptoms Skin: Reports: Other (Left arm pain) Psychiatric: Reports: No Symptoms - Patient Data Vitals - Most Recent: Last Vital Signs Temp 98.4 F 06/30/19 10:15 Pulse 79 06/30/19 14:51 Resp 16 06/30/19 14:51 BP 128/85 06/30/19 14:51 Pulse Ox 98 06/30/19 14:51 Weight - Most Recent: 119 lb 15.997 oz I&O - Last 24 Hours: Intake & Output 06/30/19 06/30/19 06/30/19 06:59 14:59 22:59 Intake Total 1225 340 Output Total 1780 530 Balance -555 -190 Lab Results Last 24 Hours: Laboratory Results - last 24 hr 06/30/19 06/30/19 Range/Units 04:38 04:38 WBC 5.0 (4.5-11.0) K/uL RBC 3.60 (3.30-5.50) M/uL Hgb 10.4 L (12.0-15.0) g/dL Hct 32.3 L (36.0-48.0) % MCV 90 (80-98) fL MCH 29 (27-31) pg MCHC 32 (32-36) % Plt Count 152 (150-400) K/uL Sodium 135 L (140-148) mmol/L Potassium 4.1 (3.6-5.2) mmol/L Chloride 100 (100-108) mmol/L Carbon Dioxide 29 (21-32) mmol/L Anion Gap 10.1 (5.0-14.0) mmol/L BUN 7 (7-18) mg/dL Creatinine 0.9 (0.6-1.0) mg/dL Est Cr Clr Drug Dosing 41.04 mL/min Estimated GFR (MDRD) > 60 (>60) Glucose 112 H (74-106) mg/dL Calcium 8.0 L (8.5-10.1) mg/dL Phosphorus 2.1 L (2.5-4.9) mg/dL Total Bilirubin 0.7 (0.2-1.0) mg/dL AST 28 (15-37) U/L ALT 35 (12-78) U/L Alkaline Phosphatase 46 (46-116) U/L NT-Pro-B Natriuret Pep 552 H (5-450) pg/mL Total Protein 5.7 L (6.4-8.2) g/dL Albumin 2.5 L (3.4-5.0) g/dL Globulin 3.2 (2.3-3.5) g/dL Albumin/Globulin Ratio 0.8 L (1.2-2.2) Med Orders - Current: Current Medications Hydromorphone HCl (Dilaudid Lead Software Architect 15 Mg In Ns 30 Ml) 0 mg IV ASDIRECTED PRN; Protocol PRN Reason: [employer] PAIN CONTROL Last Admin: 06/28/19 13:44 Dose: 15 mg Hydroxyzine HCl (Vistaril) 50 - 75 mg IM Q4H PRN PRN Reason: 50MG = MODERATE 75MG = SEVERE Cefoxitin Sodium 2 gm/ Sodium (Chloride) 50 mls @ 100 mls/hr IV Q6H [facility] Last Admin: 06/30/19 10:26 Dose: 100 mls/hr Potassium Chloride 10 meq/ (Dextrose/Lactated Ringer's) 1,005 mls @ 100 mls/hr IV .Q10H3M [facility] Last Admin: 06/30/19 10:26 Dose: 100 mls/hr Potassium Phosphate 15 mmol/ (Premix) 250 mls @ 125 mls/hr IV Q2H [facility] Stop: 06/30/19 17:59 Last Admin: 06/30/19 13:25 Dose: 125 mls/hr Magnesium Sulfate 2 gm/ Premix 50 mls @ 25 mls/hr IV Q6H [facility] Stop: 07/02/19 07:59 Labetalol HCl (Normodyne) 5 mg IVPUSH Q2H PRN PRN Reason: SBP >/= 160 OR DBP >/= 95 Naloxone HCl (Narcan) 0.1 mg IV ASDIRECTED PRN PRN Reason: decreased respiratory rate Ondansetron HCl (Zofran) 4 mg IVPUSH Q4H PRN PRN Reason: Nausea/Vomiting Pantoprazole Sodium (Protonix Iv) 40 mg IV Q24H [facility] Last Admin: 06/29/19 16:37 Dose: 40 mg Discontinued Medications Bupivacaine HCl (Marcaine 0.5%) Confirm Administered Dose 50 ml .ROUTE .STK-MED ONE Stop: 06/28/19 07:34 Bupivacaine HCl (Marcaine 0.5%) Confirm Administered Dose 50 ml .ROUTE .STK-MED ONE Stop: 06/30/19 06:36 Last Admin: 06/30/19 13:14 Dose: 20 ml Ropivacaine 27 ml/Dexamethasone 8 mg/Epinephrine HCl 0.4 mg/ Sodium Chloride 50.6 ml 0 ml NERVRT ASDIRECTED [facility] Last Admin: 06/28/19 09:41 Dose: 80 syringe Ropivacaine 27 ml/Dexamethasone 8 mg/Epinephrine HCl 0.4 mg/ Sodium Chloride 50.6 ml 0 ml NERVRT ASDIRECTED [facility] Last Admin: 06/30/19 13:52 Dose: 80 syringe Dexamethasone (Dexamethasone) Confirm Administered Dose 4 mg .ROUTE .STK-MED ONE Stop: 06/28/19 07:32 Fentanyl (Sublimaze) Confirm Administered Dose 250 mcg .ROUTE .STK-MED ONE Stop: 06/28/19 07:31 Fentanyl (Sublimaze) Confirm Administered Dose 100 mcg .ROUTE .STK-MED ONE Stop: 06/28/19 11:35 Fentanyl (Sublimaze) Confirm Administered Dose 100 mcg .ROUTE .STK-MED ONE Stop: 06/30/19 07:00 Glycopyrrolate (Robinul) Confirm Administered Dose 1 mg .ROUTE .STK-MED ONE Stop: 06/28/19 07:32 Hydromorphone HCl (Dilaudid) 0.5 mg IVPUSH ONETIME ONE Stop: 06/26/19 11:52 Last Admin: 06/26/19 12:04 Dose: 0.5 mg Hydromorphone HCl (Dilaudid) 0.5 mg IVPUSH Q1H PRN PRN Reason: Pain Last Admin: 06/28/19 00:47 Dose: 0.5 mg Lactated Ringer's (Ringers, Lactated) 1,000 mls @ 500 mls/hr IV BOLUS [facility] Last Admin: 06/26/19 12:08 Dose: 500 mls/hr Sodium Chloride (Normal Saline) 70 mls @ 80 mls/hr IV ASDIRECTED [facility] Last Admin: 06/26/19 12:44 Dose: 3 mls/sec Sodium Chloride (Normal Saline) 1,000 mls @ 125 mls/hr IV ASDIRECTED [facility] Last Admin: 06/27/19 00:34 Dose: 125 mls/hr Dextrose/Lactated Ringer's (Dextrose 5%-Lactated Ringers) 1,000 mls @ 125 mls/ hr IV ASDIRECTED [facility] Last Admin: 06/28/19 00:44 Dose: 125 mls/hr Potassium Chloride 20 meq/ (Premix) 100 mls @ 50 mls/hr IV ONETIME ONE Stop: 06/28/19 08:37 Last Admin: 06/28/19 11:40 Dose: Not Given Cefoxitin Sodium 2 gm/ Sodium (Chloride) 50 mls @ 100 mls/hr IV ONETIME ONE Stop: 06/28/19 09:29 Last Admin: 06/28/19 08:36 Dose: 100 mls/hr Potassium Chloride 20 meq/Lidocaine HCl 2 ml/ Sodium Chloride 112 mls @ 56 mls/ hr IV ONETIME ONE Stop: 06/28/19 09:44 Last Admin: 06/28/19 08:10 Dose: 56 mls/hr Lactated Ringer's (Ringers, Lactated) Confirm Administered Dose 1,000 mls @ as directed .ROUTE .STK-MED ONE Stop: 06/28/19 09:49 Lactated Ringer's (Ringers, Lactated) Confirm Administered Dose 1,000 mls @ as directed .ROUTE .STK-MED ONE Stop: 06/28/19 11:56 Potassium Chloride 10 meq/ (Dextrose/Lactated Ringer's) 1,005 mls @ 175 mls/hr IV ASDIRECTED [facility] Last Admin: 06/29/19 04:39 Dose: 175 mls/hr Lactated Ringer's (Ringers, Lactated) 500 mls @ 500 mls/hr IV .BOLUS [facility] Last Admin: 06/29/19 02:15 Dose: 500 mls/hr Potassium Phosphate 15 mmol/ (Premix) 250 mls @ 125 mls/hr IV Q2H [facility] Stop: 06/29/19 14:59 Last Admin: 06/29/19 14:32 Dose: 125 mls/hr Potassium Chloride 10 meq/ (Dextrose/Lactated Ringer's) 1,005 mls @ 100 mls/hr IV .Q10H3M [facility] Stop: 06/29/19 20:00 Last Admin: 06/29/19 14:33 Dose: 100 mls/hr Magnesium Sulfate 2 gm/ Premix 50 mls @ 25 mls/hr IV Q6H [facility] Stop: 07/02/19 04:59 Last Admin: 06/30/19 10:57 Dose: 25 mls/hr Sodium Chloride (Normal Saline) Confirm Administered Dose 10 mls @ as directed .ROUTE .STK-MED ONE Stop: 06/30/19 06:44 Iopamidol (Isovue-300 (61%)) 81 ml IV . DIRECTED PRN PRN Reason: RADIOLOGY EXAM Stop: 06/27/19 12:25 Last Admin: 06/26/19 12:44 Dose: 81 ml Labetalol HCl (Normodyne) Confirm Administered Dose 20 mg .ROUTE .STK-MED ONE Stop: 06/28/19 12:26 Lidocaine HCl (Xylocaine 2% Viscous) 15 ml PO ONETIME ONE Stop: 06/26/19 20:01 Last Admin: 06/26/19 20:45 Dose: 15 ml Lidocaine/Epinephrine (Xylocaine 1% With Epinephrine 1:100,000) Confirm Administered Dose 50 ml .ROUTE .STK-MED ONE Stop: 06/28/19 07:34 Lidocaine/Epinephrine (Xylocaine 1% With Epinephrine 1:100,000) Confirm Administered Dose 50 ml .ROUTE .STK-MED ONE Stop: 06/30/19 06:36 Last Admin: 06/30/19 13:14 Dose: 20 ml Lorazepam (Ativan) 0.5 - 1 mg IVPUSH Q2H PRN PRN Reason: Anxiety Last Admin: 06/27/19 03:09 Dose: 1 mg Meropenem (Merrem) Confirm Administered Dose 500 mg .ROUTE .STK-MED ONE Stop: 06/28/19 07:34 Last Admin: 06/28/19 09:46 Dose: 500 mg Meropenem (Merrem) Confirm Administered Dose 500 mg .ROUTE .STK-MED ONE Stop: 06/30/19 06:36 Last Admin: 06/30/19 13:14 Dose: 500 mg Neostigmine Methylsulfate (Neostigmine) Confirm Administered Dose 5 mg .ROUTE .STK-MED ONE Stop: 06/28/19 07:32 Non-Formulary Medication (Tap Block, Pharmacy To Dose) 0 ml NERVRT ONETIME ONE Stop: 06/28/19 09:01 Last Admin: 06/28/19 14:48 Dose: Not Given Ondansetron HCl (Zofran) 4 mg IVPUSH ONETIME ONE Stop: 06/26/19 11:52 Last Admin: 06/26/19 12:06 Dose: 4 mg Ondansetron HCl (Zofran) Confirm Administered Dose 4 mg .ROUTE .STK-MED ONE Stop: 06/28/19 07:32 Propofol (Diprivan 20 Ml) Confirm Administered Dose 200 mg .ROUTE .STK-MED ONE Stop: 06/28/19 07:32 Propofol (Diprivan 20 Ml) Confirm Administered Dose 200 mg .ROUTE .STK-MED ONE Stop: 06/30/19 07:01 Propofol (Diprivan 20 Ml) Confirm Administered Dose 200 mg .ROUTE .STK-MED ONE Stop: 06/30/19 08:32 Rocuronium [place] (Zemuron) Confirm Administered Dose 50 mg .ROUTE .STK-MED ONE Stop: 06/28/19 07:32 Rocuronium [place] (Zemuron) Confirm Administered Dose 50 mg .ROUTE .STK-MED ONE Stop: 06/28/19 11:21 Succinylcholine Chloride (Quelicin) Confirm Administered Dose 200 mg .ROUTE .STK -MED ONE Stop: 06/28/19 07:32 - Exam General: Alert, Oriented HEENT: Pupils Equal, Pupils Reactive, EOMI, Mucous Membr. Moist/[place] Lungs: Clear to Auscultation, Normal Respiratory Effort Cardiovascular: Regular Rate, Regular Rhythm GI/Abdominal Exam: Normal Bowel Sounds, Soft, Non-Tender, No Organomegaly, No Distention, No Abnormal Bruit, No Mass, Pelvis Stable Extremities: Normal Inspection, Normal Range of Motion, Non-Tender, No Pedal Edema, Normal Capillary Refill Peripheral Pulses: 1+: Radial (L), Radial (R) Skin: Warm, Dry, Intact Sepsis Event Note - Evaluation Sepsis Screening Result: No Definite Risk - Focused Exam Vital Signs: Vital Signs Temp Pulse Resp BP BP Pulse Ox Pulse Ox 06/30/19 14:51 79 16 128/85 98 06/30/19 14:50 79 16 135/96 H 100 06/30/19 14:48 87 16 120/65 98 06/30/19 13:15 74 16 143/74 H 97 06/30/19 12:08 98 06/30/19 12:07 98 06/30/19 11:15 89 16 127/61 97 06/30/19 10:15 98.4 F 81 16 151/67 H 95 06/30/19 09:50 16 131/64 97 06/30/19 09:35 78 16 129/61 98 06/30/19 09:20 97.6 F 76 16 132/63 96 06/30/19 09:05 16 123/67 97 06/30/19 09:00 15 135/62 97 95 06/30/19 08:55 15 132/62 99 06/30/19 08:50 15 122/55 L 99 06/30/19 08:45 97.7 F 13 119/59 L 100 06/30/19 07:20 98 06/30/19 07:00 99.4 F 80 18 142/89 H 97 Date Exam was Performed: 06/30/19 Time Exam was Performed: 15:01 - Problem List Review Problem List Initiated/Reviewed/Updated: Yes - Plan Plan:: Assessment/plan: #1. Small bowel obstruction: Is S/P surgery with coloscopy. Good progress #2. Ca of Colon with Mets. #3. HTN: good presently 139/71 systolic. Left arm pain caused by IV infiltrate. She called me concerned about the problem.
--- NOTE | 2019-06-30 15:08 | PCM.PN ---
- General Info Date of Service: 06/30/19 Functional Status: Reports: Pain Controlled - Review of Systems General: Reports: Weakness HEENT: Reports: No Symptoms Pulmonary: Reports: No Symptoms Cardiovascular: Reports: No Symptoms Gastrointestinal: Reports: No Symptoms Genitourinary: Reports: No Symptoms Musculoskeletal: Reports: No Symptoms Skin: Reports: No Symptoms Neurological: Reports: No Symptoms Psychiatric: Reports: No Symptoms - Patient Data Vitals - Most Recent: Last Vital Signs Temp 98.4 F 06/30/19 10:15 Pulse 79 06/30/19 14:51 Resp 16 06/30/19 14:51 BP 128/85 06/30/19 14:51 Pulse Ox 98 06/30/19 14:51 Weight - Most Recent: 119 lb 15.997 oz I&O - Last 24 Hours: Intake & Output 06/30/19 06/30/19 06/30/19 06:59 14:59 22:59 Intake Total 1225 340 Output Total 1780 530 Balance -555 -190 Lab Results Last 24 Hours: Laboratory Results - last 24 hr 06/30/19 06/30/19 Range/Units 04:38 04:38 WBC 5.0 (4.5-11.0) K/uL RBC 3.60 (3.30-5.50) M/uL Hgb 10.4 L (12.0-15.0) g/dL Hct 32.3 L (36.0-48.0) % MCV 90 (80-98) fL MCH 29 (27-31) pg MCHC 32 (32-36) % Plt Count 152 (150-400) K/uL Sodium 135 L (140-148) mmol/L Potassium 4.1 (3.6-5.2) mmol/L Chloride 100 (100-108) mmol/L Carbon Dioxide 29 (21-32) mmol/L Anion Gap 10.1 (5.0-14.0) mmol/L BUN 7 (7-18) mg/dL Creatinine 0.9 (0.6-1.0) mg/dL Est Cr Clr Drug Dosing 41.04 mL/min Estimated GFR (MDRD) > 60 (>60) Glucose 112 H (74-106) mg/dL Calcium 8.0 L (8.5-10.1) mg/dL Phosphorus 2.1 L (2.5-4.9) mg/dL Total Bilirubin 0.7 (0.2-1.0) mg/dL AST 28 (15-37) U/L ALT 35 (12-78) U/L Alkaline Phosphatase 46 (46-116) U/L NT-Pro-B Natriuret Pep 552 H (5-450) pg/mL Total Protein 5.7 L (6.4-8.2) g/dL Albumin 2.5 L (3.4-5.0) g/dL Globulin 3.2 (2.3-3.5) g/dL Albumin/Globulin Ratio 0.8 L (1.2-2.2) Med Orders - Current: Current Medications Hydromorphone HCl (Dilaudid Bank Representative 15 Mg In Ns 30 Ml) 0 mg IV ASDIRECTED PRN; Protocol 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 Last Admin: 06/28/19 13:44 Dose: 15 mg Hydroxyzine HCl (Vistaril) 50 - 75 mg IM Q4H PRN PRN Reason: 50MG = MODERATE 75MG = SEVERE Cefoxitin Sodium 2 gm/ Sodium (Chloride) 50 mls @ 100 mls/hr IV Q6H [facility] Last Admin: 06/30/19 10:26 Dose: 100 mls/hr Potassium Chloride 10 meq/ (Dextrose/Lactated Ringer's) 1,005 mls @ 100 mls/hr IV .Q10H3M [facility] Last Admin: 06/30/19 10:26 Dose: 100 mls/hr Potassium Phosphate 15 mmol/ (Premix) 250 mls @ 125 mls/hr IV Q2H [facility] Stop: 06/30/19 17:59 Last Admin: 06/30/19 13:25 Dose: 125 mls/hr Magnesium Sulfate 2 gm/ Premix 50 mls @ 25 mls/hr IV Q6H [facility] Stop: 07/02/19 07:59 Labetalol HCl (Normodyne) 5 mg IVPUSH Q2H PRN PRN Reason: SBP >/= 160 OR DBP >/= 95 Naloxone HCl (Narcan) 0.1 mg IV ASDIRECTED PRN PRN Reason: decreased respiratory rate Ondansetron HCl (Zofran) 4 mg IVPUSH Q4H PRN PRN Reason: Nausea/Vomiting Pantoprazole Sodium (Protonix Iv) 40 mg IV Q24H [facility] Last Admin: 06/29/19 16:37 Dose: 40 mg Discontinued Medications Bupivacaine HCl (Marcaine 0.5%) Confirm Administered Dose 50 ml .ROUTE .STK-MED ONE Stop: 06/28/19 07:34 Bupivacaine HCl (Marcaine 0.5%) Confirm Administered Dose 50 ml .ROUTE .STK-MED ONE Stop: 06/30/19 06:36 Last Admin: 06/30/19 13:14 Dose: 20 ml Ropivacaine 27 ml/Dexamethasone 8 mg/Epinephrine HCl 0.4 mg/ Sodium Chloride 50.6 ml 0 ml NERVRT ASDIRECTED [facility] Last Admin: 06/28/19 09:41 Dose: 80 syringe Ropivacaine 27 ml/Dexamethasone 8 mg/Epinephrine HCl 0.4 mg/ Sodium Chloride 50.6 ml 0 ml NERVRT ASDIRECTED [facility] Last Admin: 06/30/19 13:52 Dose: 80 syringe Dexamethasone (Dexamethasone) Confirm Administered Dose 4 mg .ROUTE .STK-MED ONE Stop: 06/28/19 07:32 Fentanyl (Sublimaze) Confirm Administered Dose 250 mcg .ROUTE .STK-MED ONE Stop: 06/28/19 07:31 Fentanyl (Sublimaze) Confirm Administered Dose 100 mcg .ROUTE .STK-MED ONE Stop: 06/28/19 11:35 Fentanyl (Sublimaze) Confirm Administered Dose 100 mcg .ROUTE .STK-MED ONE Stop: 06/30/19 07:00 Glycopyrrolate (Robinul) Confirm Administered Dose 1 mg .ROUTE .STK-MED ONE Stop: 06/28/19 07:32 Hydromorphone HCl (Dilaudid) 0.5 mg IVPUSH ONETIME ONE Stop: 06/26/19 11:52 Last Admin: 06/26/19 12:04 Dose: 0.5 mg Hydromorphone HCl (Dilaudid) 0.5 mg IVPUSH Q1H PRN PRN Reason: Pain Last Admin: 06/28/19 00:47 Dose: 0.5 mg Lactated Ringer's (Ringers, Lactated) 1,000 mls @ 500 mls/hr IV BOLUS [facility] Last Admin: 06/26/19 12:08 Dose: 500 mls/hr Sodium Chloride (Normal Saline) 70 mls @ 80 mls/hr IV ASDIRECTED [facility] Last Admin: 06/26/19 12:44 Dose: 3 mls/sec Sodium Chloride (Normal Saline) 1,000 mls @ 125 mls/hr IV ASDIRECTED [facility] Last Admin: 06/27/19 00:34 Dose: 125 mls/hr Dextrose/Lactated Ringer's (Dextrose 5%-Lactated Ringers) 1,000 mls @ 125 mls/ hr IV ASDIRECTED [facility] Last Admin: 06/28/19 00:44 Dose: 125 mls/hr Potassium Chloride 20 meq/ (Premix) 100 mls @ 50 mls/hr IV ONETIME ONE Stop: 06/28/19 08:37 Last Admin: 06/28/19 11:40 Dose: Not Given Cefoxitin Sodium 2 gm/ Sodium (Chloride) 50 mls @ 100 mls/hr IV ONETIME ONE Stop: 06/28/19 09:29 Last Admin: 06/28/19 08:36 Dose: 100 mls/hr Potassium Chloride 20 meq/Lidocaine HCl 2 ml/ Sodium Chloride 112 mls @ 56 mls/ hr IV ONETIME ONE Stop: 06/28/19 09:44 Last Admin: 06/28/19 08:10 Dose: 56 mls/hr Lactated Ringer's (Ringers, Lactated) Confirm Administered Dose 1,000 mls @ as directed .ROUTE .[facility] ONE Stop: 06/28/19 09:49 Lactated Ringer's (Ringers, Lactated) Confirm Administered Dose 1,000 mls @ as directed .ROUTE .[facility] ONE Stop: 06/28/19 11:56 Potassium Chloride 10 meq/ (Dextrose/Lactated Ringer's) 1,005 mls @ 175 mls/hr IV ASDIRECTED [facility] Last Admin: 06/29/19 04:39 Dose: 175 mls/hr Lactated Ringer's (Ringers, Lactated) 500 mls @ 500 mls/hr IV .[facility]OLUS [facility] Last Admin: 06/29/19 02:15 Dose: 500 mls/hr Potassium Phosphate 15 mmol/ (Premix) 250 mls @ 125 mls/hr IV Q2H [facility] Stop: 06/29/19 14:59 Last Admin: 06/29/19 14:32 Dose: 125 mls/hr Potassium Chloride 10 meq/ (Dextrose/Lactated Ringer's) 1,005 mls @ 100 mls/hr IV .Q10H3M [facility] Stop: 06/29/19 20:00 Last Admin: 06/29/19 14:33 Dose: 100 mls/hr Magnesium Sulfate 2 gm/ Premix 50 mls @ 25 mls/hr IV Q6H [facility] Stop: 07/02/19 04:59 Last Admin: 06/30/19 10:57 Dose: 25 mls/hr Sodium Chloride (Normal Saline) Confirm Administered Dose 10 mls @ as directed .ROUTE .STK-MED ONE Stop: 06/30/19 06:44 Iopamidol (Isovue-300 (61%)) 81 ml IV . DIRECTED PRN PRN Reason: RADIOLOGY EXAM Stop: 06/27/19 12:25 Last Admin: 06/26/19 12:44 Dose: 81 ml Labetalol HCl (Normodyne) Confirm Administered Dose 20 mg .ROUTE .STK-MED ONE Stop: 06/28/19 12:26 Lidocaine HCl (Xylocaine 2% Viscous) 15 ml PO ONETIME ONE Stop: 06/26/19 20:01 Last Admin: 06/26/19 20:45 Dose: 15 ml Lidocaine/Epinephrine (Xylocaine 1% With Epinephrine 1:100,000) Confirm Administered Dose 50 ml .ROUTE .STK-MED ONE Stop: 06/28/19 07:34 Lidocaine/Epinephrine (Xylocaine 1% With Epinephrine 1:100,000) Confirm Administered Dose 50 ml .ROUTE .STK-MED ONE Stop: 06/30/19 06:36 Last Admin: 06/30/19 13:14 Dose: 20 ml Lorazepam (Ativan) 0.5 - 1 mg IVPUSH Q2H PRN PRN Reason: Anxiety Last Admin: 06/27/19 03:09 Dose: 1 mg Meropenem (Merrem) Confirm Administered Dose 500 mg .ROUTE .STK-MED ONE Stop: 06/28/19 07:34 Last Admin: 06/28/19 09:46 Dose: 500 mg Meropenem (Merrem) Confirm Administered Dose 500 mg .ROUTE .STK-MED ONE Stop: 06/30/19 06:36 Last Admin: 06/30/19 13:14 Dose: 500 mg Neostigmine Methylsulfate (Neostigmine) Confirm Administered Dose 5 mg .ROUTE .STK-MED ONE Stop: 06/28/19 07:32 Non-Formulary Medication (Tap Block, Pharmacy To Dose) 0 ml NERVRT ONETIME ONE Stop: 06/28/19 09:01 Last Admin: 06/28/19 14:48 Dose: Not Given Ondansetron HCl (Zofran) 4 mg IVPUSH ONETIME ONE Stop: 06/26/19 11:52 Last Admin: 06/26/19 12:06 Dose: 4 mg Ondansetron HCl (Zofran) Confirm Administered Dose 4 mg .ROUTE .STK-MED ONE Stop: 06/28/19 07:32 Propofol (Diprivan 20 Ml) Confirm Administered Dose 200 mg .ROUTE .STK-MED ONE Stop: 06/28/19 07:32 Propofol (Diprivan 20 Ml) Confirm Administered Dose 200 mg .ROUTE .STK-MED ONE Stop: 06/30/19 07:01 Propofol (Diprivan 20 Ml) Confirm Administered Dose 200 mg .ROUTE .STK-MED ONE Stop: 06/30/19 08:32 Rocuronium [place] (Zemuron) Confirm Administered Dose 50 mg .ROUTE .STK-MED ONE Stop: 06/28/19 07:32 Rocuronium [place] (Zemuron) Confirm Administered Dose 50 mg .ROUTE .STK-MED ONE Stop: 06/28/19 11:21 Succinylcholine Chloride (Quelicin) Confirm Administered Dose 200 mg .ROUTE .STK -MED ONE Stop: 06/28/19 07:32 - Exam General: Alert, Oriented HEENT: Pupils Equal, Pupils Reactive, EOMI, Mucous Membr. Moist/[place] Neck: Supple Lungs: Clear to Auscultation, Normal Respiratory Effort Cardiovascular: Regular Rate, Regular Rhythm GI/Abdominal Exam: Normal Bowel Sounds, Soft, No Distention, No Mass, Pelvis Stable Extremities: Normal Inspection, Normal Range of Motion, Non-Tender, No Pedal Edema, Normal Capillary Refill Sepsis Event Note - Evaluation Sepsis Screening Result: No Definite Risk - Focused Exam Vital Signs: Vital Signs Temp Pulse Resp BP BP Pulse Ox Pulse Ox 06/30/19 14:51 79 16 128/85 98 06/30/19 14:50 79 16 135/96 H 100 06/30/19 14:48 87 16 120/65 98 06/30/19 13:15 74 16 143/74 H 97 06/30/19 12:08 98 06/30/19 12:07 98 06/30/19 11:15 89 16 127/61 97 06/30/19 10:15 98.4 F 81 16 151/67 H 95 06/30/19 09:50 16 131/64 97 06/30/19 09:35 78 16 129/61 98 06/30/19 09:20 97.6 F 76 16 132/63 96 06/30/19 09:05 16 123/67 97 06/30/19 09:00 15 135/62 97 95 06/30/19 08:55 15 132/62 99 06/30/19 08:50 15 122/55 L 99 06/30/19 08:45 97.7 F 13 119/59 L 100 06/30/19 07:20 98 06/30/19 07:00 99.4 F 80 18 142/89 H 97 Date Exam was Performed: 06/30/19 Time Exam was Performed: 15:05 - Problem List Review Problem List Initiated/Reviewed/Updated: Yes - Plan Plan:: Assessment/plan: #1. Small bowel obstruction: Is S/P surgery with coloscopy. Good progress #2. Ca of Colon with Mets. #3. HTN: good presently 128/85 systolic. Medically stable.
[2019-06-30] MEDS: Pantoprazole 40 MG Vial IV SCH (16:24)
[2019-07-01] MEDS: Magnesium Sulfate/Water 2 GM in Premix Bag 1 BAG IV SCH ×5 (02:16→23:56)
[2019-07-01] MEDS: cefOXitin 2 GM in Sodium Chloride 0.9% 50 ML IV SCH ×2 (04:44→12:13)
--- NOTE | 2019-07-01 09:21 | PN ---
DATE OF SERVICE: 07/01/2019 SUBJECTIVE: Courtney's vital signs have been stable. She has been up ambulating. She has had 250 mL of liquid stool in her ileostomy. Her PRERNA drain put out 30 mL. Oral intake 1300. Urine output 1150 plus 3 voids where she missed the hat. REVIEW OF SYSTEMS: Remainder of review of systems negative for any pertinent positives and negatives. OBJECTIVE: GENERAL: Courtney Dunbar is a 79-year-old female, forgetful. VITAL SIGNS: TPR 98.5, 74, 16, blood pressure 170/79. HEENT: Negative. NECK: Supple. HEART: Regular rate and rhythm. LUNGS: Clear. ABDOMEN: Dressings dry and intact. Ileostomy intact. Abdominal binder is on. EXTREMITIES: Without peripheral edema. ASSESSMENT: Exploratory laparotomy with: 1. Excision of portion of abdominal wall midline incision involving multiple sites of recurrence. 2. Excision of intraperitoneal metastatic nodule of lower abdominal wall 1 cm. 3. Excision of area of confluent tumor 10.5 cm left lateral wall. 4. Small bowel strictureplasty. 5. Formation of enterostomy between dilated loops of small bowel in the pelvis and small bowel used for loop ileostomy. 6. Formation of secondary enterostomy between the small bowel loops used for ileostomy and more proximal nondilated small bowel. 7. Formation of loop ileostomy. 8. Placement of Interceed mesh to limit recurrent adhesion formation between pelvic and abdominal wall. POSTOPERATIVE DIAGNOSES: 1. 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 2. 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 3. Date of surgery: 06/28/2019. Surgeon: Stanley Jeter MD. 4. Delayed primary closure for open abdominal incision on 06/30/2019. Surgeon: Stanley Jeter MD. PLAN: 1. Regular diet. 2. Discharge planning consult in regard to discharge needs. Plan discharge on 07/03/2019. 3. Order ileostomy home supplies. 4. May shower. 5. Discontinue LAND USE PLANNER and continuous pulse ox. 6. Dilaudid 2 to 4 mg every 4 hours p.r.n. pain. 7. Continue use of incentive spirometer. 8. We will evaluate p.r.n. or in a.m. Nelly Burnett PA-C /[id number]
[2019-07-01] MEDS: Pantoprazole 40 MG Tab.CR PO SCH (12:07)
--- NOTE | 2019-07-01 13:51 | PCM.PN ---
- General Info Date of Service: 07/01/19 Functional Status: Reports: Pain Controlled - Review of Systems General: Reports: Weakness HEENT: Reports: Other (She is complaining about pain in the upper lip from a cold sore which is on the left side.) Pulmonary: Reports: No Symptoms Cardiovascular: Reports: No Symptoms Gastrointestinal: Reports: No Symptoms Genitourinary: Reports: No Symptoms Musculoskeletal: Reports: No Symptoms Skin: Reports: No Symptoms Psychiatric: Reports: Anxiety - Patient Data Vitals - Most Recent: Last Vital Signs Temp 98.6 F 07/01/19 10:59 Pulse 65 07/01/19 10:59 Resp 16 07/01/19 10:59 BP 141/83 H 07/01/19 10:59 Pulse Ox 97 07/01/19 12:16 Weight - Most Recent: 119 lb 15.997 oz I&O - Last 24 Hours: Intake & Output 06/30/19 07/01/19 07/01/19 22:59 06:59 14:59 Intake Total 2379 974 100 Output Total 400 950 650 Balance 1979 24 -550 Lab Results Last 24 Hours: Laboratory Results - last 24 hr 07/01/19 07/01/19 Range/Units 04:05 04:05 WBC 7.4 (4.5-11.0) K/uL RBC 3.51 (3.30-5.50) M/uL Hgb 10.1 L (12.0-15.0) g/dL Hct 31.4 L (36.0-48.0) % MCV 90 (80-98) fL MCH 29 (27-31) pg MCHC 32 (32-36) % Plt Count 172 (150-400) K/uL Neut % (Auto) 67 H (36-66) % Lymph % (Auto) 21 L (24-44) % [place] % (Auto) 11 H (2-6) % Eos % (Auto) 0 L (2-4) % Baso % (Auto) 0 (0-1) % Sodium 135 L (140-148) mmol/L Potassium 4.5 (3.6-5.2) mmol/L Chloride 101 (100-108) mmol/L Carbon Dioxide 29 (21-32) mmol/L Anion Gap 9.5 (5.0-14.0) mmol/L BUN 8 (7-18) mg/dL Creatinine 0.9 (0.6-1.0) mg/dL Est Cr Clr Drug Dosing 41.04 mL/min Estimated GFR (MDRD) > 60 (>60) Glucose 93 (74-106) mg/dL Calcium 8.3 L (8.5-10.1) mg/dL Phosphorus 3.2 (2.5-4.9) mg/dL Magnesium 3.8 H D (1.8-2.4) mg/dL Total Bilirubin 0.6 (0.2-1.0) mg/dL AST 34 (15-37) U/L ALT 39 (12-78) U/L Alkaline Phosphatase 63 (46-116) U/L Total Protein 5.9 L (6.4-8.2) g/dL Albumin 2.5 L (3.4-5.0) g/dL Globulin 3.4 (2.3-3.5) g/dL Albumin/Globulin Ratio 0.7 L (1.2-2.2) Med Orders - Current: Current Medications Hydromorphone HCl (Dilaudid) 2 - 4 mg PO Q4H PRN PRN Reason: Pain Hydroxyzine HCl (Vistaril) 50 - 75 mg IM Q4H PRN PRN Reason: 50MG = MODERATE 75MG = SEVERE Potassium Chloride 10 meq/ (Dextrose/Lactated Ringer's) 1,005 mls @ 100 mls/hr IV .Q10H3M [facility] Last Admin: 07/01/19 07:55 Dose: 100 mls/hr Magnesium Sulfate 2 gm/ Premix 50 mls @ 25 mls/hr IV Q6H [facility] Stop: 07/02/19 07:59 Last Admin: 07/01/19 12:08 Dose: 25 mls/hr Labetalol HCl (Normodyne) 5 mg IVPUSH Q2H PRN PRN Reason: SBP >/= 160 OR DBP >/= 95 Ondansetron HCl (Zofran) 4 mg IVPUSH Q4H PRN PRN Reason: Nausea/Vomiting Pantoprazole Sodium (Protonix) 40 mg PO ACBREAKFAST [facility] Last Admin: 07/01/19 12:07 Dose: 40 mg Discontinued Medications Bupivacaine HCl (Marcaine 0.5%) Confirm Administered Dose 50 ml .ROUTE .STK-MED ONE Stop: 06/28/19 07:34 Bupivacaine HCl (Marcaine 0.5%) Confirm Administered Dose 50 ml .ROUTE .STK-MED ONE Stop: 06/30/19 06:36 Last Admin: 06/30/19 13:14 Dose: 20 ml Ropivacaine 27 ml/Dexamethasone 8 mg/Epinephrine HCl 0.4 mg/ Sodium Chloride 50.6 ml 0 ml NERVRT ASDIRECTED [facility] Last Admin: 06/28/19 09:41 Dose: 80 syringe Ropivacaine 27 ml/Dexamethasone 8 mg/Epinephrine HCl 0.4 mg/ Sodium Chloride 50.6 ml 0 ml NERVRT ASDIRECTED [facility] Last Admin: 06/30/19 13:52 Dose: 80 syringe Dexamethasone (Dexamethasone) Confirm Administered Dose 4 mg .ROUTE .STK-MED ONE Stop: 06/28/19 07:32 Fentanyl (Sublimaze) Confirm Administered Dose 250 mcg .ROUTE .STK-MED ONE Stop: 06/28/19 07:31 Fentanyl (Sublimaze) Confirm Administered Dose 100 mcg .ROUTE .STQwiqq-MED ONE Stop: 06/28/19 11:35 Fentanyl (Sublimaze) Confirm Administered Dose 100 mcg .ROUTE .STK-MED ONE Stop: 06/30/19 07:00 Glycopyrrolate (Robinul) Confirm Administered Dose 1 mg .ROUTE .STK-MED ONE Stop: 06/28/19 07:32 Hydromorphone HCl (Dilaudid) 0.5 mg IVPUSH ONETIME ONE Stop: 06/26/19 11:52 Last Admin: 06/26/19 12:04 Dose: 0.5 mg Hydromorphone HCl (Dilaudid) 0.5 mg IVPUSH Q1H PRN PRN Reason: Pain Last Admin: 06/28/19 00:47 Dose: 0.5 mg Hydromorphone HCl (Dilaudid Ring Striker 15 Mg In Ns 30 Ml) 0 mg IV ASDIRECTED PRN; Protocol PRN 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 Last Admin: 06/28/19 13:44 Dose: 15 mg Lactated Ringer's (Ringers, Lactated) 1,000 mls @ 500 mls/hr IV BOLUS [facility] Last Admin: 06/26/19 12:08 Dose: 500 mls/hr Sodium Chloride (Normal Saline) 70 mls @ 80 mls/hr IV ASDIRECTED [facility] Last Admin: 06/26/19 12:44 Dose: 3 mls/sec Sodium Chloride (Normal Saline) 1,000 mls @ 125 mls/hr IV ASDIRECTED [facility] Last Admin: 06/27/19 00:34 Dose: 125 mls/hr Dextrose/Lactated Ringer's (Dextrose 5%-Lactated Ringers) 1,000 mls @ 125 mls/ hr IV ASDIRECTED [facility] Last Admin: 06/28/19 00:44 Dose: 125 mls/hr Potassium Chloride 20 meq/ (Premix) 100 mls @ 50 mls/hr IV ONETIME ONE Stop: 06/28/19 08:37 Last Admin: 06/28/19 11:40 Dose: Not Given Cefoxitin Sodium 2 gm/ Sodium (Chloride) 50 mls @ 100 mls/hr IV ONETIME ONE Stop: 06/28/19 09:29 Last Admin: 06/28/19 08:36 Dose: 100 mls/hr Potassium Chloride 20 meq/Lidocaine HCl 2 ml/ Sodium Chloride 112 mls @ 56 mls/ hr IV ONETIME ONE Stop: 06/28/19 09:44 Last Admin: 06/28/19 08:10 Dose: 56 mls/hr Lactated Ringer's (Ringers, Lactated) Confirm Administered Dose 1,000 mls @ as directed .ROUTE .STK-MED ONE Stop: 06/28/19 09:49 Lactated Ringer's (Ringers, Lactated) Confirm Administered Dose 1,000 mls @ as directed .ROUTE .STK-MED ONE Stop: 06/28/19 11:56 Potassium Chloride 10 meq/ (Dextrose/Lactated Ringer's) 1,005 mls @ 175 mls/hr IV ASDIRECTED [facility] Last Admin: 06/29/19 04:39 Dose: 175 mls/hr Cefoxitin Sodium 2 gm/ Sodium (Chloride) 50 mls @ 100 mls/hr IV Q6H [facility] Last Admin: 07/01/19 12:13 Dose: 100 mls/hr Lactated Ringer's (Ringers, Lactated) 500 mls @ 500 mls/hr IV .BOLUS [facility] Last Admin: 06/29/19 02:15 Dose: 500 mls/hr Potassium Phosphate 15 mmol/ (Premix) 250 mls @ 125 mls/hr IV Q2H [facility] Stop: 06/29/19 14:59 Last Admin: 06/29/19 14:32 Dose: 125 mls/hr Potassium Chloride 10 meq/ (Dextrose/Lactated Ringer's) 1,005 mls @ 100 mls/hr IV .Q10H3M [facility] Stop: 06/29/19 20:00 Last Admin: 06/29/19 14:33 Dose: 100 mls/hr Magnesium Sulfate 2 gm/ Premix 50 mls @ 25 mls/hr IV Q6H [facility] Stop: 07/02/19 04:59 Last Admin: 06/30/19 10:57 Dose: 25 mls/hr Sodium Chloride (Normal Saline) Confirm Administered Dose 10 mls @ as directed .ROUTE .STK-MED ONE Stop: 06/30/19 06:44 Potassium Phosphate 15 mmol/ (Premix) 250 mls @ 125 mls/hr IV Q2H [facility] Stop: 06/30/19 17:59 Last Admin: 06/30/19 23:54 Dose: 125 mls/hr Iopamidol (Isovue-300 (61%)) 81 ml IV . DIRECTED PRN PRN Reason: RADIOLOGY EXAM Stop: 06/27/19 12:25 Last Admin: 06/26/19 12:44 Dose: 81 ml Labetalol HCl (Normodyne) Confirm Administered Dose 20 mg .ROUTE .STK-MED ONE Stop: 06/28/19 12:26 Lidocaine HCl (Xylocaine 2% Viscous) 15 ml PO ONETIME ONE Stop: 06/26/19 20:01 Last Admin: 06/26/19 20:45 Dose: 15 ml Lidocaine/Epinephrine (Xylocaine 1% With Epinephrine 1:100,000) Confirm Administered Dose 50 ml .ROUTE .STK-MED ONE Stop: 06/28/19 07:34 Lidocaine/Epinephrine (Xylocaine 1% With Epinephrine 1:100,000) Confirm Administered Dose 50 ml .ROUTE .STK-MED ONE Stop: 06/30/19 06:36 Last Admin: 06/30/19 13:14 Dose: 20 ml Lorazepam (Ativan) 0.5 - 1 mg IVPUSH Q2H PRN PRN Reason: Anxiety Last Admin: 06/27/19 03:09 Dose: 1 mg Meropenem (Merrem) Confirm Administered Dose 500 mg .ROUTE .STK-MED ONE Stop: 06/28/19 07:34 Last Admin: 06/28/19 09:46 Dose: 500 mg Meropenem (Merrem) Confirm Administered Dose 500 mg .ROUTE .[facility]-MED ONE Stop: 06/30/19 06:36 Last Admin: 06/30/19 13:14 Dose: 500 mg Naloxone HCl (Narcan) 0.1 mg IV ASDIRECTED PRN PRN Reason: decreased respiratory rate Neostigmine Methylsulfate (Neostigmine) Confirm Administered Dose 5 mg .ROUTE .[facility]-MED ONE Stop: 06/28/19 07:32 Non-Formulary Medication (Tap Block, Pharmacy To Dose) 0 ml NERVRT ONETIME ONE Stop: 06/28/19 09:01 Last Admin: 06/28/19 14:48 Dose: Not Given Ondansetron HCl (Zofran) 4 mg IVPUSH ONETIME ONE Stop: 06/26/19 11:52 Last Admin: 06/26/19 12:06 Dose: 4 mg Ondansetron HCl (Zofran) Confirm Administered Dose 4 mg .ROUTE .[facility]-MED ONE Stop: 06/28/19 07:32 Pantoprazole Sodium (Protonix Iv) 40 mg IV Q24H [facility] Last Admin: 06/30/19 16:24 Dose: 40 mg Propofol (Diprivan 20 Ml) Confirm Administered Dose 200 mg .ROUTE .ST-MED ONE Stop: 06/28/19 07:32 Propofol (Diprivan 20 Ml) Confirm Administered Dose 200 mg .ROUTE .ST-MED ONE Stop: 06/30/19 07:01 Propofol (Diprivan 20 Ml) Confirm Administered Dose 200 mg .ROUTE .[facility]-MED ONE Stop: 06/30/19 08:32 Rocuronium [place] (Zemuron) Confirm Administered Dose 50 mg .ROUTE .STK-MED ONE Stop: 06/28/19 07:32 Rocuronium [place] (Zemuron) Confirm Administered Dose 50 mg .ROUTE .STK-MED ONE Stop: 06/28/19 11:21 Succinylcholine Chloride (Quelicin) Confirm Administered Dose 200 mg .ROUTE .[facility] -MED ONE Stop: 06/28/19 07:32 - Exam General: Alert, Oriented HEENT: Pupils Equal, Pupils Reactive, EOMI, Mucous Membr. Moist/[place] Neck: Supple Lungs: Clear to Auscultation, Normal Respiratory Effort Cardiovascular: Regular Rate, Regular Rhythm GI/Abdominal Exam: Normal Bowel Sounds, Soft, Non-Tender, No Organomegaly, No Distention, No Abnormal Bruit, No Mass, Pelvis Stable Sepsis Event Note - Evaluation Sepsis Screening Result: No Definite Risk - Focused Exam Vital Signs: Vital Signs Temp Pulse Resp BP Pulse Ox Pulse Ox 07/01/19 12:16 97 07/01/19 10:59 98.6 F 65 16 141/83 H 95 07/01/19 09:00 98 07/01/19 07:45 96 07/01/19 07:18 98.5 F 74 16 170/79 H 98 07/01/19 04:00 98.3 F 71 18 156/76 H 97 Date Exam was Performed: 07/01/19 Time Exam was Performed: 13:47 - Problem List Review Problem List Initiated/Reviewed/Updated: Yes - Plan Plan:: Assessment/plan: #1. Small bowel obstruction: Is S/P surgery with coloscopy. Good progress #2. Ca of Colon with Mets. #3. HTN: good presently 128/85 systolic. Medically stable. The lesion on the lip could be a cold sore. She could also had bitten it while she was in surgery. We'll simply observe at the present time. apparently there is talk about hospice. Certainly this is an option. Her hemoglobin is stable at 10.1 and white count is normal.
[2019-07-01] MEDS: HYDROmorphone 2 MG Tab PO PRN (17:13)
[2019-07-02] MEDS: HYDROmorphone 2 MG Tab PO PRN ×2 (01:13→10:26)
[2019-07-02] MEDS: Magnesium Sulfate/Water 2 GM in Premix Bag 1 BAG IV SCH (05:12)
[2019-07-02] MEDS ORDERED: Sodium Chloride 0.9% 10 ML Syringe IV PRN (07:17)
[2019-07-02] MEDS: Pantoprazole 40 MG Tab.CR PO SCH (08:03)
[2019-07-02] MEDS ORDERED: hydrOXYzine HCl 25 MG Tab PO PRN (12:23)
--- NOTE | 2019-07-02 12:45 | PCM.PN ---
- General Info Date of Service: 07/02/19 Functional Status: Reports: Pain Controlled - Review of Systems General: Reports: No Symptoms HEENT: Reports: No Symptoms Pulmonary: Reports: No Symptoms Cardiovascular: Reports: No Symptoms Gastrointestinal: Reports: No Symptoms Genitourinary: Reports: No Symptoms Musculoskeletal: Reports: No Symptoms Skin: Reports: No Symptoms Psychiatric: Reports: Anxiety - Patient Data Vitals - Most Recent: Last Vital Signs Temp 98.4 F 07/02/19 10:44 Pulse 70 07/02/19 10:44 Resp 16 07/02/19 10:44 BP 149/83 H 07/02/19 10:44 Pulse Ox 95 07/02/19 10:44 Weight - Most Recent: 119 lb 15.997 oz I&O - Last 24 Hours: Intake & Output 07/01/19 07/02/19 07/02/19 22:59 06:59 14:59 Intake Total 524 1191 370 Output Total 600 1100 200 Balance -76 91 170 Lab Results Last 24 Hours: Laboratory Results - last 24 hr 06/28/19 Range/Units 04:20 Crossmatch See Detail Med Orders - Current: Current Medications Hydromorphone HCl (Dilaudid) 2 - 4 mg PO Q4H PRN PRN Reason: Pain Last Admin: 07/02/19 10:26 Dose: 2 mg Hydroxyzine HCl (Vistaril) 50 - 75 mg IM Q4H PRN PRN Reason: 50MG = MODERATE 75MG = SEVERE Hydroxyzine HCl (Atarax) 25 mg PO Q4H PRN PRN Reason: anxiety/pain Labetalol HCl (Normodyne) 5 mg IVPUSH Q2H PRN PRN Reason: SBP >/= 160 OR DBP >/= 95 Ondansetron HCl (Zofran) 4 mg IVPUSH Q4H PRN PRN Reason: Nausea/Vomiting Pantoprazole Sodium (Protonix) 40 mg PO ACBREAKFAST [facility] Last Admin: 07/02/19 08:03 Dose: 40 mg Sodium Chloride (Saline Flush) 10 ml IV ASDIRECTED PRN PRN Reason: LINE MAINTENCE Discontinued Medications Bupivacaine HCl (Marcaine 0.5%) Confirm Administered Dose 50 ml .ROUTE .STK-MED ONE Stop: 06/28/19 07:34 Bupivacaine HCl (Marcaine 0.5%) Confirm Administered Dose 50 ml .ROUTE .STK-MED ONE Stop: 06/30/19 06:36 Last Admin: 06/30/19 13:14 Dose: 20 ml Ropivacaine 27 ml/Dexamethasone 8 mg/Epinephrine HCl 0.4 mg/ Sodium Chloride 50.6 ml 0 ml NERVRT ASDIRECTED [facility] Last Admin: 06/28/19 09:41 Dose: 80 syringe Ropivacaine 27 ml/Dexamethasone 8 mg/Epinephrine HCl 0.4 mg/ Sodium Chloride 50.6 ml 0 ml NERVRT ASDIRECTED [facility] Last Admin: 06/30/19 13:52 Dose: 80 syringe Dexamethasone (Dexamethasone) Confirm Administered Dose 4 mg .ROUTE .STK-MED ONE Stop: 06/28/19 07:32 Fentanyl (Sublimaze) Confirm Administered Dose 250 mcg .ROUTE .STK-MED ONE Stop: 06/28/19 07:31 Fentanyl (Sublimaze) Confirm Administered Dose 100 mcg .ROUTE .STK-MED ONE Stop: 06/28/19 11:35 Fentanyl (Sublimaze) Confirm Administered Dose 100 mcg .ROUTE .STK-MED ONE Stop: 06/30/19 07:00 Glycopyrrolate (Robinul) Confirm Administered Dose 1 mg .ROUTE .STK-MED ONE Stop: 06/28/19 07:32 Hydromorphone HCl (Dilaudid) 0.5 mg IVPUSH ONETIME ONE Stop: 06/26/19 11:52 Last Admin: 06/26/19 12:04 Dose: 0.5 mg Hydromorphone HCl (Dilaudid) 0.5 mg IVPUSH Q1H PRN PRN Reason: Pain Last Admin: 06/28/19 00:47 Dose: 0.5 mg Hydromorphone HCl (Dilaudid International [employer] Professor 15 Mg In Ns 30 Ml) 0 mg IV ASDIRECTED PRN; Protocol 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 Last Admin: 06/28/19 13:44 Dose: 15 mg Lactated Ringer's (Ringers, Lactated) 1,000 mls @ 500 mls/hr IV BOLUS [facility] Last Admin: 06/26/19 12:08 Dose: 500 mls/hr Sodium Chloride (Normal Saline) 70 mls @ 80 mls/hr IV ASDIRECTED [facility] Last Admin: 06/26/19 12:44 Dose: 3 mls/sec Sodium Chloride (Normal Saline) 1,000 mls @ 125 mls/hr IV ASDIRECTED [facility] Last Admin: 06/27/19 00:34 Dose: 125 mls/hr Dextrose/Lactated Ringer's (Dextrose 5%-Lactated Ringers) 1,000 mls @ 125 mls/ hr IV ASDIRECTED [facility] Last Admin: 06/28/19 00:44 Dose: 125 mls/hr Potassium Chloride 20 meq/ (Premix) 100 mls @ 50 mls/hr IV ONETIME ONE Stop: 06/28/19 08:37 Last Admin: 06/28/19 11:40 Dose: Not Given Cefoxitin Sodium 2 gm/ Sodium (Chloride) 50 mls @ 100 mls/hr IV ONETIME ONE Stop: 06/28/19 09:29 Last Admin: 06/28/19 08:36 Dose: 100 mls/hr Potassium Chloride 20 meq/Lidocaine HCl 2 ml/ Sodium Chloride 112 mls @ 56 mls/ hr IV ONETIME ONE Stop: 06/28/19 09:44 Last Admin: 06/28/19 08:10 Dose: 56 mls/hr Lactated Ringer's (Ringers, Lactated) Confirm Administered Dose 1,000 mls @ as directed .ROUTE .STK-MED ONE Stop: 06/28/19 09:49 Lactated Ringer's (Ringers, Lactated) Confirm Administered Dose 1,000 mls @ as directed .ROUTE .STK-MED ONE Stop: 06/28/19 11:56 Potassium Chloride 10 meq/ (Dextrose/Lactated Ringer's) 1,005 mls @ 175 mls/hr IV ASDIRECTED [facility] Last Admin: 06/29/19 04:39 Dose: 175 mls/hr Cefoxitin Sodium 2 gm/ Sodium (Chloride) 50 mls @ 100 mls/hr IV Q6H [facility] Last Admin: 07/01/19 12:13 Dose: 100 mls/hr Lactated Ringer's (Ringers, Lactated) 500 mls @ 500 mls/hr IV .BOLUS [facility]YDER Last Admin: 06/29/19 02:15 Dose: 500 mls/hr Potassium Phosphate 15 mmol/ (Premix) 250 mls @ 125 mls/hr IV Q2H [facility] Stop: 06/29/19 14:59 Last Admin: 06/29/19 14:32 Dose: 125 mls/hr Potassium Chloride 10 meq/ (Dextrose/Lactated Ringer's) 1,005 mls @ 100 mls/hr IV .Q10H3M [facility] Stop: 06/29/19 20:00 Last Admin: 06/29/19 14:33 Dose: 100 mls/hr Magnesium Sulfate 2 gm/ Premix 50 mls @ 25 mls/hr IV Q6H [facility] Stop: 07/02/19 04:59 Last Admin: 06/30/19 10:57 Dose: 25 mls/hr Potassium Chloride 10 meq/ (Dextrose/Lactated Ringer's) 1,005 mls @ 100 mls/hr IV .Q10H3M [facility] Last Admin: 07/02/19 08:31 Dose: Not Given Sodium Chloride (Normal Saline) Confirm Administered Dose 10 mls @ as directed .ROUTE .STK-MED ONE Stop: 06/30/19 06:44 Potassium Phosphate 15 mmol/ (Premix) 250 mls @ 125 mls/hr IV Q2H [facility] Stop: 06/30/19 17:59 Last Admin: 06/30/19 23:54 Dose: 125 mls/hr Magnesium Sulfate 2 gm/ Premix 50 mls @ 25 mls/hr IV Q6H [facility] Stop: 07/02/19 07:59 Last Admin: 07/02/19 05:12 Dose: 25 mls/hr Iopamidol (Isovue-300 (61%)) 81 ml IV . DIRECTED PRN PRN Reason: RADIOLOGY EXAM Stop: 06/27/19 12:25 Last Admin: 06/26/19 12:44 Dose: 81 ml Labetalol HCl (Normodyne) Confirm Administered Dose 20 mg .ROUTE .STK-MED ONE Stop: 06/28/19 12:26 Lidocaine HCl (Xylocaine 2% Viscous) 15 ml PO ONETIME ONE Stop: 06/26/19 20:01 Last Admin: 06/26/19 20:45 Dose: 15 ml Lidocaine/Epinephrine (Xylocaine 1% With Epinephrine 1:100,000) Confirm Administered Dose 50 ml .ROUTE .STK-MED ONE Stop: 06/28/19 07:34 Lidocaine/Epinephrine (Xylocaine 1% With Epinephrine 1:100,000) Confirm Administered Dose 50 ml .ROUTE .STK-MED ONE Stop: 06/30/19 06:36 Last Admin: 06/30/19 13:14 Dose: 20 ml Lorazepam (Ativan) 0.5 - 1 mg IVPUSH Q2H PRN PRN Reason: Anxiety Last Admin: 06/27/19 03:09 Dose: 1 mg Meropenem (Merrem) Confirm Administered Dose 500 mg .ROUTE .STK-MED ONE Stop: 06/28/19 07:34 Last Admin: 06/28/19 09:46 Dose: 500 mg Meropenem (Merrem) Confirm Administered Dose 500 mg .ROUTE .STK-MED ONE Stop: 06/30/19 06:36 Last Admin: 06/30/19 13:14 Dose: 500 mg Naloxone HCl (Narcan) 0.1 mg IV ASDIRECTED PRN PRN Reason: decreased respiratory rate Neostigmine Methylsulfate (Neostigmine) Confirm Administered Dose 5 mg .ROUTE .STK-MED ONE Stop: 06/28/19 07:32 Non-Formulary Medication (Tap Block, Pharmacy To Dose) 0 ml NERVRT ONETIME ONE Stop: 06/28/19 09:01 Last Admin: 06/28/19 14:48 Dose: Not Given Ondansetron HCl (Zofran) 4 mg IVPUSH ONETIME ONE Stop: 06/26/19 11:52 Last Admin: 06/26/19 12:06 Dose: 4 mg Ondansetron HCl (Zofran) Confirm Administered Dose 4 mg .ROUTE .STK-MED ONE Stop: 06/28/19 07:32 Pantoprazole Sodium (Protonix Iv) 40 mg IV Q24H [facility] Last Admin: 06/30/19 16:24 Dose: 40 mg Propofol (Diprivan 20 Ml) Confirm Administered Dose 200 mg .ROUTE .STK-MED ONE Stop: 06/28/19 07:32 Propofol (Diprivan 20 Ml) Confirm Administered Dose 200 mg .ROUTE .STK-MED ONE Stop: 06/30/19 07:01 Propofol (Diprivan 20 Ml) Confirm Administered Dose 200 mg .ROUTE .STK-MED ONE Stop: 06/30/19 08:32 Rocuronium [place] (Zemuron) Confirm Administered Dose 50 mg .ROUTE .STK-MED ONE Stop: 06/28/19 07:32 Rocuronium [place] (Zemuron) Confirm Administered Dose 50 mg .ROUTE .STK-MED ONE Stop: 06/28/19 11:21 Succinylcholine Chloride (Quelicin) Confirm Administered Dose 200 mg .ROUTE .STK -MED ONE Stop: 06/28/19 07:32 - Exam General: Alert, Oriented, Mild Distress HEENT: Pupils Equal, Pupils Reactive, EOMI, Mucous Membr. Moist/[place] Neck: Supple Lungs: Clear to Auscultation, Normal Respiratory Effort Cardiovascular: Regular Rate, Regular Rhythm GI/Abdominal Exam: Normal Bowel Sounds, Soft, Non-Tender, No Organomegaly, No Distention, No Abnormal Bruit, No Mass, Pelvis Stable (Female) Exam: Normal External Exam, Normal Speculum Exam, Normal Bimanual Exam Back Exam: Normal Inspection, Full Range of Motion Peripheral Pulses: 1+: Radial (L), Radial (R) Skin: Warm, Dry, Intact Wound/Incisions: Healing Well Psy/Mental Status: Anxious Sepsis Event Note - Evaluation Sepsis Screening Result: No Definite Risk - Focused Exam Vital Signs: Vital Signs Temp Pulse Resp BP Pulse Ox 07/02/19 10:44 98.4 F 70 16 149/83 H 95 07/02/19 07:16 98 07/02/19 06:47 97.9 F 77 16 143/86 H 98 07/02/19 03:00 98.6 F 68 16 124/72 97 Date Exam was Performed: 07/02/19 Time Exam was Performed: 12:42 - Problem List Review Problem List Initiated/Reviewed/Updated: Yes - My Orders Last 24 Hours: My Active Orders 07/02/19 12:23 hydrOXYzine HCL [Atarax] 25 mg PO Q4H PRN - Plan Plan:: Assessment/plan: #1. Small bowel obstruction: Is S/P surgery with coloscopy. Good progress #2. Ca of Colon with Mets. #3. HTN: good presently 149/83 systolic. Medically stable. Hb. 10.1 Very upset stating she is alone and wants to go home. Discharge planned for tomorrow.
[2019-07-02] MEDS ORDERED: Bacitracin Oint 28.35 GM Tube TOP PRN (17:04)
[2019-07-03] MEDS: Pantoprazole 40 MG Tab.CR PO SCH (07:22)
--- NOTE | 2019-07-03 07:58 | PCM.PN ---
- General Info Date of Service: 07/03/19 Functional Status: Reports: Pain Controlled - Review of Systems General: Reports: Weakness HEENT: Reports: No Symptoms Pulmonary: Reports: No Symptoms Cardiovascular: Reports: No Symptoms Gastrointestinal: Reports: No Symptoms Genitourinary: Reports: No Symptoms Musculoskeletal: Reports: No Symptoms Skin: Reports: No Symptoms Neurological: Reports: No Symptoms Psychiatric: Reports: Anxiety - Patient Data Vitals - Most Recent: Last Vital Signs Temp 97.4 F 07/03/19 07:44 Pulse 75 07/03/19 07:44 Resp 16 07/03/19 07:44 BP 175/84 H 07/03/19 07:44 Pulse Ox 95 07/03/19 07:44 Weight - Most Recent: 119 lb 15.997 oz I&O - Last 24 Hours: Intake & Output 07/02/19 07/03/19 07/03/19 22:59 06:59 14:59 Intake Total 640 120 Output Total 1175 800 Balance -535 -680 Med Orders - Current: Current Medications Bacitracin (Bacitracin Oint) 0.5 gm TOP TID PRN PRN Reason: tape marley Last Admin: 07/02/19 18:49 Dose: 1 applic Hydromorphone HCl (Dilaudid) 2 - 4 mg PO Q4H PRN PRN Reason: Pain Last Admin: 07/02/19 10:26 Dose: 2 mg Hydroxyzine HCl (Vistaril) 50 - 75 mg IM Q4H PRN PRN Reason: 50MG = MODERATE 75MG = SEVERE Hydroxyzine HCl (Atarax) 25 mg PO Q4H PRN PRN Reason: anxiety/pain Last Admin: 07/03/19 03:28 Dose: 25 mg Labetalol HCl (Normodyne) 5 mg IVPUSH Q2H PRN PRN Reason: SBP >/= 160 OR DBP >/= 95 Ondansetron HCl (Zofran) 4 mg IVPUSH Q4H PRN PRN Reason: Nausea/Vomiting Pantoprazole Sodium (Protonix) 40 mg PO ACBREAKFAST RYDER Last Admin: 07/03/19 07:22 Dose: 40 mg Sodium Chloride (Saline Flush) 10 ml IV ASDIRECTED PRN PRN Reason: LINE MAINTENCE Discontinued Medications Bupivacaine HCl (Marcaine 0.5%) Confirm Administered Dose 50 ml .ROUTE .STK-MED ONE Stop: 06/28/19 07:34 Bupivacaine HCl (Marcaine 0.5%) Confirm Administered Dose 50 ml .ROUTE .STK-MED ONE Stop: 06/30/19 06:36 Last Admin: 06/30/19 13:14 Dose: 20 ml Ropivacaine 27 ml/Dexamethasone 8 mg/Epinephrine HCl 0.4 mg/ Sodium Chloride 50.6 ml 0 ml NERVRT ASDIRECTED RYDER Last Admin: 06/28/19 09:41 Dose: 80 syringe Ropivacaine 27 ml/Dexamethasone 8 mg/Epinephrine HCl 0.4 mg/ Sodium Chloride 50.6 ml 0 ml NERVRT ASDIRECTED RYDER Last Admin: 06/30/19 13:52 Dose: 80 syringe Dexamethasone (Dexamethasone) Confirm Administered Dose 4 mg .ROUTE .STK-MED ONE Stop: 06/28/19 07:32 Fentanyl (Sublimaze) Confirm Administered Dose 250 mcg .ROUTE .STK-MED ONE Stop: 06/28/19 07:31 Fentanyl (Sublimaze) Confirm Administered Dose 100 mcg .ROUTE .STK-MED ONE Stop: 06/28/19 11:35 Fentanyl (Sublimaze) Confirm Administered Dose 100 mcg .ROUTE .STK-MED ONE Stop: 06/30/19 07:00 Glycopyrrolate (Robinul) Confirm Administered Dose 1 mg .ROUTE .STK-MED ONE Stop: 06/28/19 07:32 Hydromorphone HCl (Dilaudid) 0.5 mg IVPUSH ONETIME ONE Stop: 06/26/19 11:52 Last Admin: 06/26/19 12:04 Dose: 0.5 mg Hydromorphone HCl (Dilaudid) 0.5 mg IVPUSH Q1H PRN PRN Reason: Pain Last Admin: 06/28/19 00:47 Dose: 0.5 mg Hydromorphone HCl (Dilaudid Fire[employer] Locom[employer] Crane 15 Mg In Ns 30 Ml) 0 mg IV ASDIRECTED PRN; Protocol PRN 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 Last Admin: 06/28/19 13:44 Dose: 15 mg Lactated Ringer's (Ringers, Lactated) 1,000 mls @ 500 mls/hr IV BOLUS RYDER Last Admin: 06/26/19 12:08 Dose: 500 mls/hr Sodium Chloride (Normal Saline) 70 mls @ 80 mls/hr IV ASDIRECTED RYDER Last Admin: 06/26/19 12:44 Dose: 3 mls/sec Sodium Chloride (Normal Saline) 1,000 mls @ 125 mls/hr IV ASDIRECTED RYDER Last Admin: 06/27/19 00:34 Dose: 125 mls/hr Dextrose/Lactated Ringer's (Dextrose 5%-Lactated Ringers) 1,000 mls @ 125 mls/ hr IV ASDIRECTED RYDER Last Admin: 06/28/19 00:44 Dose: 125 mls/hr Potassium Chloride 20 meq/ (Premix) 100 mls @ 50 mls/hr IV ONETIME ONE Stop: 06/28/19 08:37 Last Admin: 06/28/19 11:40 Dose: Not Given Cefoxitin Sodium 2 gm/ Sodium (Chloride) 50 mls @ 100 mls/hr IV ONETIME ONE Stop: 06/28/19 09:29 Last Admin: 06/28/19 08:36 Dose: 100 mls/hr Potassium Chloride 20 meq/Lidocaine HCl 2 ml/ Sodium Chloride 112 mls @ 56 mls/ hr IV ONETIME ONE Stop: 06/28/19 09:44 Last Admin: 06/28/19 08:10 Dose: 56 mls/hr Lactated Ringer's (Ringers, Lactated) Confirm Administered Dose 1,000 mls @ as directed .ROUTE .[facility] ONE Stop: 06/28/19 09:49 Lactated Ringer's (Ringers, Lactated) Confirm Administered Dose 1,000 mls @ as directed .ROUTE .[facility] ONE Stop: 06/28/19 11:56 Potassium Chloride 10 meq/ (Dextrose/Lactated Ringer's) 1,005 mls @ 175 mls/hr IV ASDIRECTED [facility] Last Admin: 06/29/19 04:39 Dose: 175 mls/hr Cefoxitin Sodium 2 gm/ Sodium (Chloride) 50 mls @ 100 mls/hr IV Q6H RYDER Last Admin: 07/01/19 12:13 Dose: 100 mls/hr Lactated Ringer's (Ringers, Lactated) 500 mls @ 500 mls/hr IV .BOLUS [facility] Last Admin: 06/29/19 02:15 Dose: 500 mls/hr Potassium Phosphate 15 mmol/ (Premix) 250 mls @ 125 mls/hr IV Q2H [facility] Stop: 06/29/19 14:59 Last Admin: 06/29/19 14:32 Dose: 125 mls/hr Potassium Chloride 10 meq/ (Dextrose/Lactated Ringer's) 1,005 mls @ 100 mls/hr IV .Q10H3M [facility] Stop: 06/29/19 20:00 Last Admin: 06/29/19 14:33 Dose: 100 mls/hr Magnesium Sulfate 2 gm/ Premix 50 mls @ 25 mls/hr IV Q6H [facility] Stop: 07/02/19 04:59 Last Admin: 06/30/19 10:57 Dose: 25 mls/hr Potassium Chloride 10 meq/ (Dextrose/Lactated Ringer's) 1,005 mls @ 100 mls/hr IV .Q10H3M [facility] Last Admin: 07/02/19 08:31 Dose: Not Given Sodium Chloride (Normal Saline) Confirm Administered Dose 10 mls @ as directed .ROUTE .STK-MED ONE Stop: 06/30/19 06:44 Potassium Phosphate 15 mmol/ (Premix) 250 mls @ 125 mls/hr IV Q2H [facility] Stop: 06/30/19 17:59 Last Admin: 06/30/19 23:54 Dose: 125 mls/hr Magnesium Sulfate 2 gm/ Premix 50 mls @ 25 mls/hr IV Q6H [facility] Stop: 07/02/19 07:59 Last Admin: 07/02/19 05:12 Dose: 25 mls/hr Iopamidol (Isovue-300 (61%)) 81 ml IV . DIRECTED PRN PRN Reason: RADIOLOGY EXAM Stop: 06/27/19 12:25 Last Admin: 06/26/19 12:44 Dose: 81 ml Labetalol HCl (Normodyne) Confirm Administered Dose 20 mg .ROUTE .STK-MED ONE Stop: 06/28/19 12:26 Lidocaine HCl (Xylocaine 2% Viscous) 15 ml PO ONETIME ONE Stop: 06/26/19 20:01 Last Admin: 06/26/19 20:45 Dose: 15 ml Lidocaine/Epinephrine (Xylocaine 1% With Epinephrine 1:100,000) Confirm Administered Dose 50 ml .ROUTE .STK-MED ONE Stop: 06/28/19 07:34 Lidocaine/Epinephrine (Xylocaine 1% With Epinephrine 1:100,000) Confirm Administered Dose 50 ml .ROUTE .STK-MED ONE Stop: 06/30/19 06:36 Last Admin: 06/30/19 13:14 Dose: 20 ml Lorazepam (Ativan) 0.5 - 1 mg IVPUSH Q2H PRN PRN Reason: Anxiety Last Admin: 06/27/19 03:09 Dose: 1 mg Meropenem (Merrem) Confirm Administered Dose 500 mg .ROUTE .STK-MED ONE Stop: 06/28/19 07:34 Last Admin: 06/28/19 09:46 Dose: 500 mg Meropenem (Merrem) Confirm Administered Dose 500 mg .ROUTE .STK-MED ONE Stop: 06/30/19 06:36 Last Admin: 06/30/19 13:14 Dose: 500 mg Naloxone HCl (Narcan) 0.1 mg IV ASDIRECTED PRN PRN Reason: decreased respiratory rate Neostigmine Methylsulfate (Neostigmine) Confirm Administered Dose 5 mg .ROUTE .STK-MED ONE Stop: 06/28/19 07:32 Non-Formulary Medication (Tap Block, Pharmacy To Dose) 0 ml NERVRT ONETIME ONE Stop: 06/28/19 09:01 Last Admin: 06/28/19 14:48 Dose: Not Given Ondansetron HCl (Zofran) 4 mg IVPUSH ONETIME ONE Stop: 06/26/19 11:52 Last Admin: 06/26/19 12:06 Dose: 4 mg Ondansetron HCl (Zofran) Confirm Administered Dose 4 mg .ROUTE .STK-MED ONE Stop: 06/28/19 07:32 Pantoprazole Sodium (Protonix Iv) 40 mg IV Q24H [facility] Last Admin: 06/30/19 16:24 Dose: 40 mg Propofol (Diprivan 20 Ml) Confirm Administered Dose 200 mg .ROUTE .STK-MED ONE Stop: 06/28/19 07:32 Propofol (Diprivan 20 Ml) Confirm Administered Dose 200 mg .ROUTE .STK-MED ONE Stop: 06/30/19 07:01 Propofol (Diprivan 20 Ml) Confirm Administered Dose 200 mg .ROUTE .STK-MED ONE Stop: 06/30/19 08:32 Rocuronium Ruby (Zemuron) Confirm Administered Dose 50 mg .ROUTE .STK-MED ONE Stop: 06/28/19 07:32 Rocuronium Ruby (Zemuron) Confirm Administered Dose 50 mg .ROUTE .STK-MED ONE Stop: 06/28/19 11:21 Succinylcholine Chloride (Quelicin) Confirm Administered Dose 200 mg .ROUTE .STK -MED ONE Stop: 06/28/19 07:32 - Exam General: Alert, Oriented HEENT: Pupils Equal, Pupils Reactive, EOMI, Mucous Membr. Moist/[place] Lungs: Clear to Auscultation, Normal Respiratory Effort Cardiovascular: Regular Rate, Regular Rhythm GI/Abdominal Exam: Soft, Tender Peripheral Pulses: 1+: Radial (L), Radial (R) Skin: Warm, Dry, Intact Psy/Mental Status: Anxious Sepsis Event Note - Evaluation Sepsis Screening Result: No Definite Risk - Focused Exam Vital Signs: Vital Signs Temp Pulse Resp BP Pulse Ox 07/03/19 07:44 97.4 F 75 16 175/84 H 95 07/03/19 02:34 97.6 F 64 18 150/73 H 98 07/02/19 22:44 97.9 F 76 18 168/83 H 98 Date Exam was Performed: 07/03/19 Time Exam was Performed: 07:56 - Problem List Review Problem List Initiated/Reviewed/Updated: Yes - My Orders Last 24 Hours: My Active Orders 07/02/19 12:23 hydrOXYzine HCL [Atarax] 25 mg PO Q4H PRN - Plan Plan:: Assessment/plan: #1. Small bowel obstruction: Is S/P surgery with coloscopy. Good progress #2. Ca of Colon with Mets. #3. HTN: good presently 175/84 systolic. Medically stable. Hb. 10.1 Home today. medically stable.
--- NOTE | 2019-07-04 13:16 | PN ---
DATE OF SERVICE: 07/02/2019 The patient has been afebrile with stable vital signs. Anxiety level appears to be quite a bit less in the last few days until her ostomy bag was satisfactory yesterday. We will saline lock the IV today and attempt to have the daughters be taught how to manage the ostomy. If that occurs satisfactory, she will likely be ready for discharge home tomorrow. Stanley Jeter MD /[id number]
--- NOTE | 2019-07-04 13:24 | PN ---
DATE OF SERVICE: 06/30/2019 The patient has been afebrile with stable vital signs. Appeared to be diuresing fairly well. Her ostomy has began to put out some stool, so we will begin full liquid diet today. She underwent closure of her wound without evident problems and the PRERNA drain and Tello catheter will be removed. Otherwise, maximize activity and work with pulmonary toilet. Stanley Jeter MD /[id number]
--- NOTE | 2019-07-04 14:10 | DISCH ---
FINAL DIAGNOSES: 1. 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 2. 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 3. History of coronary artery disease. 4. History of hypertension. 5. History of treated hypothyroidism. 6. Hypomagnesemia. 7. Progressive dementia. 8. Anxiety. OPERATIVE PROCEDURE: 1. On 06/28/2019, exploratory laparotomy with: a. Excision of portion of abdominal wall midline incision involving multiple sites of recurrence. b. Excision of intraperitoneal metastatic nodule, lower abdominal wall. c. Excision of area of confluent tumor, left lateral abdominal wall. d. Small bowel stricturoplasty. e. Formation of enteroenterostomy between dilated loops of small bowel in the pelvis and the small bowel used for loop ileostomy. f. Formation of secondary enteroenterostomy between small bowel loop used for ileostomy and the more proximal nondilated small bowel. g. Formation of loop ileostomy. h. Placement of Interceed mesh to limit recurrent adhesion formation between pelvic and abdominal wall and underlying viscera. 2. On 06/30/2019, delayed primary closure of abdominal incision. SUMMARY: This is a 79-year-old presenting with an extensive intraabdominal recurrence of colon carcinoma. The patient had originally been discharged with partial small-bowel obstruction, which at that time resolved but was rapidly readmitted with same problem, and it became evident that, in order to manage this, we would need to proceed with exploratory laparotomy and release of the obstruction. This was done on 06/28/2019 with the above procedures being performed. The patient had delayed primary closure of abdominal incision on postop day #2. Clinically at this point, the patient is doing fairly well. She is emptying her ostomy on her own, and the output appears to be reasonably controlled, and at this point, the patient is requiring only Tylenol for her pain. She will be discharged home on her usual home medications plus Tylenol 650 p.o. q.4 hours p.r.n. pain, and Home Care will be assisting the daughters with ostomy management. She will be going home with family support, which appears to be satisfactory. Home Care will be seeing the patient as well to assist in ostomy care as needed. Followup with Dr. Jeter at the [facility] on 07/08/2019.
--- NOTE | 2019-07-05 09:46 | OR ---
DATE OF PROCEDURE: 06/30/2019 SURGEON: Stanley Jeter MD PREOPERATIVE DIAGNOSIS: Open abdominal incision. POSTOPERATIVE DIAGNOSIS: Open abdominal incision. OPERATIVE PROCEDURE: Delayed primary closure of an open abdominal incision. ANESTHESIA: Local plus IV sedation. INDICATION FOR PROCEDURE: The patient is status post complex resectional procedure and ileostomy formation through a midline abdominal incision. The incision was felt to be high risk for wound infection. Primary closure was undertaken. It was, therefore, packed open for a planned delayed primary closure at this time. Potential risks, including bleeding and infection, were reviewed, and the patient wishes to proceed. Of note, the patient has a fair bit of dementia, and consent was also obtained from the patient's power of estate planning attorney, one of her daughters. DETAILS OF PROCEDURE: The patient was taken to the operating room and placed in a supine position, sitting up roughly 30 degrees to limit aspiration risk. The previous abdominal dressing was taken down. The wound was inspected and found to be clean. The incision was then prepped and draped and anesthetized with 1% lidocaine mixed with Marcaine. Bilateral transversus abdominis plane blocks were placed using ultrasound guidance and the incision irrigated with an antibiotic-containing saline solution. The incision was then closed with 2 layers of 3-0 and 4-0 Vicryl stitch deep and delia for the skin. A dressing was applied. The patient was taken to the recovery room in satisfactory condition. Stanley Jeter MD /[id number]
== END 2019-07-03 12:57 | disposition home or self-care (01) | DRG 330 ==
LOC: JP.ED 10:50 → JP.MS 15:00
PROVIDERS: ADMIT Internal Medicine; ATTEND Internal Medicine
PROC: 0DB80ZZ Excision of Small Intestine, Open Approach (ICD-10-PCS; principal; 2019-06-26)
PROC: 0WBF0ZZ Excision of Abdominal Wall, Open Approach (ICD-10-PCS; 2019-06-26)
PROC: 0DBW0ZZ Excision of Peritoneum, Open Approach (ICD-10-PCS; 2019-06-26)
PROC: 0WBF0ZZ Excision of Abdominal Wall, Open Approach (ICD-10-PCS; 2019-06-26)
PROC: 0D180Z4 Bypass Small Intestine to Cutaneous, Open Approach (ICD-10-PCS; 2019-06-26)
PROC: 0D1B0Z4 Bypass Ileum to Cutaneous, Open Approach (ICD-10-PCS; 2019-06-26)
PROC: 3E0M05Z Introduction of Adhesion Barrier into Peritoneal Cavity, Open Approach (ICD-10-PCS; 2019-06-26)
DX: K56.609 Unspecified intestinal obstruction, unspecified as to partial versus complete obstruction (principal); H54.7 Unspecified visual loss; H91.93 Unspecified hearing loss, bilateral; C18.9 Malignant neoplasm of colon, unspecified; C78.7 Secondary malignant neoplasm of liver and intrahepatic bile duct; C79.2 Secondary malignant neoplasm of skin; K59.09 Other constipation; R32 Unspecified urinary incontinence; G89.29 Other chronic pain; M54.9 Dorsalgia, unspecified; C79.89 Secondary malignant neoplasm of other specified sites; I25.10 Atherosclerotic heart disease of native coronary artery without angina pectoris; Z85.038 Personal history of other malignant neoplasm of large intestine; Z85.43 Personal history of malignant neoplasm of ovary; Z85.05 Personal history of malignant neoplasm of liver; Z90.49 Acquired absence of other specified parts of digestive tract; I10 Essential (primary) hypertension; E03.9 Hypothyroidism, unspecified; F41.9 Anxiety disorder, unspecified; D64.9 Anemia, unspecified; Z79.890 Hormone replacement therapy; Z79.899 Other long term (current) drug therapy; I25.2 Old myocardial infarction; Z90.710 Acquired absence of both cervix and uterus
CPT/HCPCS: 36415; 74177; 80053; 83605; 83690; 85027; 96361; 96374; 96375; 99285; J1170; J2405; J7050; J7120; Q9967; 71045; 74019; 74019-26; 82378; 83735; 83880; 84100; 85025; 86850; 86900; 86901; 86920; 86922; 88305; 88307; 94762; 99284; A9270-GY; C9113; J0171; J0330; J0694; J1100; J2001; J2060; J2185; J2704; J2710; J2795; J3010; J3475; J3480; J3490; J7030; J7121

== ENCOUNTER 2019-07-09 16:51 | Emergency (ER) | payer MEDICARE ==
--- NOTE | 2019-07-09 17:50 | EDM.PDOC ---
ED HPI GENERAL MEDICAL PROBLEM - General Chief Complaint: Abdominal Pain Stated Complaint: POST SURGERY ISSUES Time Seen by Provider: 07/09/19 17:35 Source of Information: Reports: Patient, Old Records, RN, Other (caregiver) History Limitations: Reports: No Limitations - History of Present Illness INITIAL COMMENTS - FREE TEXT/NARRATIVE: 79 yo female was recently discharged from [facility] after abdominal surgery per Dr. Francisco Jeter for colostomy placement after she was found to have metastatic colon CA with multiple abdominal mets. She is brought back to the ER today for passing several small stools and experiencing increasing pain especially in the anal area. No fever or vomiting. No change in appetite. No bleeding. 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: Reports: Other (see below) (Usual meds) Rectal Pain Score (Numeric/FACES): 8 - Related Data Allergies Allergy/AdvReac Type Severity Reaction Status Date / Time No Known Allergies Allergy Verified 06/26/19 11:04 Home Meds: Home Meds Levothyroxine 125 mcg PO DAILY 05/04/15 [History] amLODIPine [Norvasc] 5 mg PO DAILY 11/09/18 [History] Loperamide HCl [Loperamide] 2 mg PO ASDIRECTED PRN 11/20/18 [History] Bacitracin [Bacitracin Oint] 0.5 gm TOP TID PRN tube 07/03/19 [Rx] hydrOXYzine pamoate [Vistaril] 25 mg PO Q4H 07/09/19 [History] Past Medical History HEENT History: Reports: Hard of Hearing, Impaired Vision Other HEENT History: HEARING AIDS BILATERALLY, AND GLASSES Cardiovascular History: Reports: CAD, Hypertension, [place] Gastrointestinal History: Reports: Chronic Constipation, Chronic Diarrhea Genitourinary History: Reports: Urinary Incontinence F[employer] MODEL History: Reports: Musculoskeletal History: Reports: Back Pain, Chronic, Fracture, Other (See Below ) Other Musculoskeletal History: fractured foot Neurological History: Reports: Concussion Psychiatric History: Reports: Anxiety Endocrine/Metabolic History: Reports: Hypothyroidism Hematologic History: Reports: Anemia Oncologic (Cancer) History: Reports: Colon, Liver, Ovarian Dermatologic History: Reports: Other (See Below) Other Dermatologic History: white spots on legs - Infectious Disease History Infectious Disease History: Reports: Chicken Pox, Measles, Mumps - Past Surgical History Head Surgeries/Procedures: Reports: None HEENT Surgical History: Reports: None Cardiovascular Surgical History: Reports: None GI Surgical History: Reports: Colonoscopy, Other (See Below) Other GI Surgeries/Procedures: total abdominal colectomy with ileorectal anastomosis, placement gastrostomy, umbilical hernia repair Female Surgical History: Reports: Cystoscopy, Hysterectomy, Salpingo- Oophorectomy, Tubal Ligation, Ureteral Stent, Other (See Below) Other Female Surgeries/Procedures: placement of bilateral ureteral stents Endocrine Surgical History: Reports: None Neurological Surgical History: Reports: None Musculoskeletal Surgical History: Reports: None Oncologic Surgical History: Reports: None Dermatological Surgical History: Reports: Skin Biopsy Social & Family History - Family History HEENT: Reports: Glaucoma, Hearing Impairment Cardiac: Reports: Heart Failure Respiratory: Reports: Asthma GI: Reports: Irritable Bowel Syndrome OBGYN: Reports: Musculoskeletal: Reports: Back pain, Chronic Neurological: Reports: Parkinson's Endocrine/Metabolic: Reports: Hypothyroidism Dermatologic: Reports: Eczema Oncologic: Reports: Brain, Breast - Tobacco Use Smoking Status *Q: Former Smoker Years of Tobacco use: 50 Packs/Tins Daily: 1 Used Tobacco, but Quit: Yes Month/Year Tobacco Last Used: 30 years ago Second Hand Smoke Exposure: No - Caffeine Use Caffeine Use: Reports: Coffee - Recreational Drug Use Recreational Drug Use: No ED ROS GENERAL - Review of Systems Review Of Systems: Comprehensive ROS is negative, except as noted in HPI. Constitutional: Reports: No Symptoms GI/Abdominal: Reports: Abdominal Pain (mild increase), Other (mild rectal pressure) : Reports: No Symptoms Skin: Reports: No Symptoms Psychiatric: Reports: Other (dementia) ED EXAM, GI/ABD - Physical Exam Exam: See Below Exam Limited By: No Limitations General Appearance: Alert, WD/WN, No Apparent Distress Eyes: Bilateral: Normal Appearance Ears: Normal External Exam, Normal Canal, Hearing Grossly Normal Nose: Normal Inspection, No Blood Throat/Mouth: Normal Inspection, Normal Lips, Normal Oropharynx, Normal Voice, No Airway Compromise Head: Atraumatic, Normocephalic Neck: Normal Inspection Respiratory/Chest: No Respiratory Distress, Lungs Clear, Normal Breath Sounds, No Accessory Muscle Use Cardiovascular: Regular Rate, Rhythm, No Edema GI/Abdominal Exam: Normal Bowel Sounds, Soft, Non-Tender, No Distention, Other ( colostomy functioning properly) Extremities: Normal Inspection Neurological: Alert, CN II-XII Intact, No Motor/Sensory Deficits Psychiatric: Normal Affect, Normal Mood Skin Exam: Warm, Dry, Intact, Normal Color, No Rash Course - Vital Signs Text/Narrative:: Discussed with Dr. Jeter @ 174 Last Recorded V/S: Last Vital Signs Temp 36.6 C 07/09/19 17:19 Pulse 69 07/09/19 17:19 Resp 16 07/09/19 17:19 BP 141/79 H 07/09/19 17:19 Pulse Ox 99 07/09/19 17:19 Departure - Departure Time of Disposition: 17:56 Disposition: Home, Self-Care 01 Condition: Good Clinical Impression: Post-op pain - Discharge Information *PRESCRIPTION DRUG MONITORING PROGRAM REVIEWED*: No *COPY OF PRESCRIPTION DRUG MONITORING REPORT IN PATIENT KARENA: No Referrals: Saulo Nichols Sr, MD [Primary Care Provider] - Additional Instructions: Give acetaminophen up to 1000 mg every 6 hrs as needed for pain relief. Discuss your status on Thursday with Dr. Jeter. Don't try to push out stool for now. Return for bleeding, vomiting, or fever. Sepsis Event Note - Evaluation Sepsis Screening Result: No Definite Risk - Focused Exam Vital Signs: Vital Signs Temp Pulse Resp BP Pulse Ox 07/09/19 17:19 36.6 C 69 16 141/79 H 99 Date Exam was Performed: 07/09/19 Time Exam was Performed: 17:44
[2019-07-09] MEDS ORDERED: Acetaminophen 500 MG Tab PO ONE (17:57)
== END 2019-07-09 18:35 | disposition home or self-care (01) ==
LOC: JP.ED 16:51
DX: G89.18 Other acute postprocedural pain (principal); R10.9 Unspecified abdominal pain; I25.10 Atherosclerotic heart disease of native coronary artery without angina pectoris; I10 Essential (primary) hypertension; I25.2 Old myocardial infarction; E03.9 Hypothyroidism, unspecified; Z90.710 Acquired absence of both cervix and uterus; Z79.899 Other long term (current) drug therapy; Z87.891 Personal history of nicotine dependence
CPT/HCPCS: 99282; 99283; A9270

== ENCOUNTER 2019-08-06 07:02 | Emergency (ER) | payer MEDICARE ==
--- NOTE | 2019-08-06 08:43 | EDM.PDOC ---
ED HPI GENERAL MEDICAL PROBLEM - General Chief Complaint: Back Pain or Injury Stated Complaint: BACK PAIN Time Seen by Provider: 08/06/19 08:20 Source of Information: Reports: Patient, Family History Limitations: Reports: No Limitations - History of Present Illness INITIAL COMMENTS - FREE TEXT/NARRATIVE: 79-year-old female with metastatic cancer, chronic pain who tried a dose of extended release Dilaudid yesterday and did not like the way it made her feel so today will take any medication. She has not taken any medicine this morning and was very anxious and upset, she has calmed down since being in the emergency room. No fevers or chills, no shortness of breath. Onset: Unknown/Unsure Duration: Chronic Associated Symptoms: Reports: Shortness of Breath, Other (Anxiety). Denies: Confusion, Chest Pain back Pain Score (Numeric/FACES): 6 - Related Data Allergies Allergy/AdvReac Type Severity Reaction Status Date / Time No Known Allergies Allergy Verified 08/06/19 07:24 Home Meds: Home Meds Levothyroxine 125 mcg PO DAILY 05/04/15 [History] amLODIPine [Norvasc] 5 mg PO DAILY 11/09/18 [History] Loperamide HCl [Loperamide] 2 mg PO ASDIRECTED PRN 11/20/18 [History] Bacitracin [Bacitracin Oint] 0.5 gm TOP TID PRN tube 07/03/19 [Rx] Acetaminophen [Tylenol Extra Strength] 500 mg PO Q4H 07/09/19 [History] hydrOXYzine pamoate [Vistaril] 25 mg PO Q4H 07/09/19 [History] Past Medical History HEENT History: Reports: Hard of Hearing, Impaired Vision Other HEENT History: HEARING AIDS BILATERALLY, AND GLASSES Cardiovascular History: Reports: CAD, Hypertension, HI Gastrointestinal History: Reports: Chronic Constipation, Chronic Diarrhea Genitourinary History: Reports: Urinary Incontinence TRAFFIC CHECKER History: Reports: Musculoskeletal History: Reports: Back Pain, Chronic, Fracture, Other (See Below ) Other Musculoskeletal History: fractured foot Neurological History: Reports: Concussion Psychiatric History: Reports: Anxiety Endocrine/Metabolic History: Reports: Hypothyroidism Hematologic History: Reports: Anemia Oncologic (Cancer) History: Reports: Colon, Liver, Ovarian Dermatologic History: Reports: Other (See Below) Other Dermatologic History: white spots on legs - Infectious Disease History Infectious Disease History: Reports: Chicken Pox - Past Surgical History Head Surgeries/Procedures: Reports: None HEENT Surgical History: Reports: None Cardiovascular Surgical History: Reports: None GI Surgical History: Reports: Colonoscopy, Other (See Below) Other GI Surgeries/Procedures: total abdominal colectomy with ileorectal anastomosis, placement gastrostomy, umbilical hernia repair Female Surgical History: Reports: Cystoscopy, Hysterectomy, Salpingo- Oophorectomy, Tubal Ligation, Ureteral Stent, Other (See Below) Other Female Surgeries/Procedures: placement of bilateral ureteral stents Endocrine Surgical History: Reports: None Neurological Surgical History: Reports: None Musculoskeletal Surgical History: Reports: None Oncologic Surgical History: Reports: None Dermatological Surgical History: Reports: Skin Biopsy Social & Family History - Family History HEENT: Reports: Glaucoma, Hearing Impairment Cardiac: Reports: Heart Failure Respiratory: Reports: Asthma GI: Reports: Irritable Bowel Syndrome OBGYN: Reports: Musculoskeletal: Reports: Back pain, Chronic Neurological: Reports: Parkinson's Endocrine/Metabolic: Reports: Hypothyroidism Dermatologic: Reports: Eczema Oncologic: Reports: Brain, Breast - Tobacco Use Smoking Status *Q: Never Smoker Second Hand Smoke Exposure: No - Caffeine Use Caffeine Use: Reports: Coffee - Recreational Drug Use Recreational Drug Use: No ED ROS GENERAL - Review of Systems Review Of Systems: See Below Constitutional: Denies: Fever, Chills Respiratory: Reports: Shortness of Breath Cardiovascular: Denies: Chest Pain GI/Abdominal: Denies: Nausea ED EXAM,LOWER BACK PAIN/INJURY - Physical Exam Exam: See Below Exam Limited By: No Limitations General Appearance: Alert, No Apparent Distress, Other (Patient has calmed down significantly since being in the emergency room) Head: Atraumatic Respiratory/Chest: No Respiratory Distress GI/Abdominal: Non-Tender, Other (Colostomy is present) Neurological: Alert, Oriented x 3 Course - Vital Signs Last Recorded V/S: Last Vital Signs Temp 97 F 08/06/19 07:54 Pulse 65 08/06/19 07:54 Resp 16 08/06/19 07:54 BP 170/84 H 08/06/19 07:54 Pulse Ox 95 08/06/19 07:54 - Re-Assessments/Exams Free Text/Narrative Re-Assessment/Exam: 08/06/19 08:42 Reviewed medications with the patient and her daughter. She agreed to resume her regular schedule of tramadol and hydroxyzine and hold the Dilaudid for the next day or 2. Departure - Departure Time of Disposition: 08:48 Disposition: Home, Self-Care 01 Clinical Impression: Chronic pain Qualifiers: Chronic pain type: chronic pain syndrome Qualified Code(s): G89.4 - Chronic pain syndrome - Discharge Information Instructions: Chronic Pain, Adult Referrals: PCP,None [Primary Care Provider] - Forms: ED Department Discharge Care Plan Goals: Resume your rotation of pain medications as tolerated, recheck or discuss success of pain medications with your primary providers next week if not improving satisfactorily. Sepsis Event Note - Evaluation Sepsis Screening Result: No Definite Risk - Focused Exam Vital Signs: Vital Signs Temp Pulse Resp BP Pulse Ox 08/06/19 07:54 97 F 65 16 170/84 H 95 Date Exam was Performed: 08/06/19 Time Exam was Performed: 10:35
== END 2019-08-06 08:48 | disposition home or self-care (01) ==
LOC: JP.ED 07:02
DX: G89.4 Chronic pain syndrome (principal); M54.9 Dorsalgia, unspecified; R06.02 Shortness of breath; I25.10 Atherosclerotic heart disease of native coronary artery without angina pectoris; I10 Essential (primary) hypertension; I25.2 Old myocardial infarction; E03.9 Hypothyroidism, unspecified; Z79.899 Other long term (current) drug therapy
CPT/HCPCS: 99283